=== PATIENT | male | born 1945 | race Caucasian/White ===

== ENCOUNTER 2017-06-29 00:30 | Emergency (ER) | payer OTHER ==
[~2017-06-29] VITALS: Ht 170.2 cm; Wt 89.9 kg
[~2017-06-29 00:30] MED LIST: ASPEC81 PO; CARV25TA2 PO; LISI-725 PO; MULT-506 PO; NTRGSL/4 SL; PRAV20TA PO; VITA400C3 PO
[2017-06-29 00:32] VITALS: BP 193/122; PULSE 82; TEMP 36.6; O2SAT 96; Ht 170.2 cm; Wt 89.9 kg
[2017-06-29] MEDS ORDERED: HYDR-5688 PO (01:11)
[2017-06-29] MEDS ORDERED: IBUP-1428 PO (01:11)
--- NOTE | 2017-06-29 01:11 | EMERGENCY ROOM VISIT NOTE ---
History Report prepared by Scribe: Clayton Brown Under the Supervision of: Dr. Ru Camargo D.O. First contact with patient: 00:35 Chief Complaint: ANKLE PAIN Stated Complaint: TWIST ANKLE History of Present Illness The patient is a 71 year old male who presents to the Emergency Room with complaints of constant left ankle pain beginning two days ago. He states "I twisted it". He also complains of left ankle numbness. The patient's pain is worsened with walking. He notes that he has a little pain in his left knee as well. Source of History: patient Onset: Two days ago Position: ankle (left) Timing: constant Modifying Factors (Worsening): other (walking) Associated Symptoms: + numbness (left ankle) Review of Systems See HPI for pertinent positives and negatives. A total of ten systems were reviewed and were otherwise negative. Past Medical & Surgical Medical Problems: (1) HTN (hypertension) (2) Hyperlipidemia Family History No pertinent family history stated. Social History Smoking Status: Light Tobacco Smoker Current/Historical Medications Scheduled Aspirin Enteric Coated (Ecotrin Or Generic *), 81 MG PO QAM Carvedilol (Coreg), 25 MG PO BID Lisinopril (Zestril), 20 MG PO DAILY Multivitamin (Multivitamin), 1 TAB PO DAILY Pravastatin (Pravachol ), 20 MG PO DAILY Vitamin E (Vitamin E 400 Iu), 400 INTER.UNIT PO DAILY Scheduled PRN Nitroglycerin (Nitrostat), 0.4 MG SL UD PRN Allergies Coded Allergies: No Known Allergies (Verified Allergy, Unknown, 02/21/07) Physical Exam Vital Signs Date Time Temp Pulse Resp B/P (MAP) Pulse Ox O2 Delivery O2 Flow Rate FiO2 06/29/17 00:32 36.6 82 18 193/122 96 Room Air Physical Exam GENERAL: Awake, alert, well-appearing, in no distress LLE: Tenderness to the left lateral and medial malleolus. Mind tenderness to the mid-foot. NVI distally. Achilles mechanism is intact. Left knee is non- tender. NEURO: Normal sensorium. No sensory or motor deficits noted. SKIN: No rash or jaundice noted. Medical Decision & Procedures ER Provider Diagnostic Interpretation: Three View Left Foot X-ray interpreted by me: Negative for fracture or dislocation. Three View Left Ankle X-ray interpreted by me: Negative for fracture or dislocation. ED Course 0037: The patient was evaluated in room C4. A complete history and physical exam was performed. 0115: I reevaluated the patient. Discussed results and discharge instructions: he verbalized understanding and agreement. The patient is ready for discharge. Medical Decision Differential diagnoses include but are not limited to; sprain, strain, contusion , and fracture. Patient will be placed in a postop shoe and will be prescribed pain medicine was follow-up with orthopedics Impression Primary Impression: Sprain of left foot Scribe Attestation The scribe's documentation has been prepared under my direction and personally reviewed by me in its entirety. I confirm that the note above accurately reflects all work, treatment, procedures, and medical decision making performed by me. Departure Information Dispostion Home / Self-Care Prescriptions Hydrocodone/Acetaminophen 5MG/325MG ([place] 5MG/325MG) Tab 1 TABLET PO Q6 Y for Pain, #10 TAB Prov: Ru Camargo, DO 06/29/17 Ibuprofen (Motrin) 800 Mg Tab 800 MG PO Q8H Y for Pain for 5 Days, #15 TAB Prov: Ru Camargo, DO 06/29/17 Referrals No Doctor, Assigned (PCP) Timmy Aguilera MD Patient Instructions ED Sprain Foot, My [facility]
[2017-06-29] MEDS ORDERED: ASPI81TA28 PO (01:17)
--- NOTE | 2017-06-29 06:55 | DIAGNOSTIC IMAGING REPORT ---
LEFT ANKLE MIN 3 VIEWS ROUTINE CLINICAL HISTORY: Left ankle pain following injury. COMPARISON: Left foot radiographs June 17, 2008. FINDINGS: Alignment of the left ankle is in anatomic. No acute fracture is identified. Talar dome is intact. IMPRESSION: No acute fracture or dislocation of the left ankle. Electronically signed by: Ed Rosario M.D. 06/29/2017 6:54 AM Dictated Date/Time: 06/29/2017 6:53 AM
--- NOTE | 2017-06-29 06:58 | DIAGNOSTIC IMAGING REPORT ---
LEFT FOOT MIN 3 VIEWS ROUTINE CLINICAL HISTORY: Left foot pain following injury. COMPARISON: Left foot radiographs June 17, 2017. FINDINGS: Tarsometatarsal joints are intact. No acute fractures identified. There is moderate joint space narrowing with osteophytosis of the left first metatarsophalangeal joint. There is medial soft tissue swelling which contains calcifications. IMPRESSION: 1. No acute fracture or dislocation within the left foot. 2. Arthritis of the left first metatarsophalangeal joint. The appearance favors osteoarthritis. Gout could appear similar. Electronically signed by: Ed Rosario M.D. 06/29/2017 6:56 AM Dictated Date/Time: 06/29/2017 6:54 AM
== END 2017-06-29 01:10 | disposition home or self-care (01) ==
LOC: C.EDB 00:31 → C.EDC 01:10
DX: S93.402A Sprain of unspecified ligament of left ankle, initial encounter (principal); W50.2XXA Accidental twist by another person, initial encounter; I10 Essential (primary) hypertension; E78.5 Hyperlipidemia, unspecified; F17.210 Nicotine dependence, cigarettes, uncomplicated; Z79.82 Long term (current) use of aspirin; Z79.899 Other long term (current) drug therapy

== ENCOUNTER 2017-11-08 21:21 | Emergency (ER) | payer OTHER ==
[~2017-11-08] VITALS: Ht 170.2 cm; Wt 91.0 kg
[~2017-11-08 21:21] MED LIST changes: -ASPEC81 PO; +ASPI81TA28 PO; +HYDR-5688 PO; -VITA400C3 PO
[2017-11-08 21:26] VITALS: TEMP 36.6; Ht 170.2 cm; Wt 91.0 kg
--- NOTE | 2017-11-08 22:15 | DIAGNOSTIC IMAGING REPORT ---
R KNEE 3 VIEWS HISTORY: 72 years-old Male R knee pain acute right knee pain COMPARISON: None available TECHNIQUE: AP, lateral and sunrise views of the right knee FINDINGS: Moderate medial and patellofemoral with mild lateral compartment osteoarthritis. Moderate joint effusion. No acute fracture or dislocation. Mild soft tissue swelling circumferentially about the knee. IMPRESSION: 1. Mild soft tissue swelling and moderate joint effusion without acute fracture or dislocation. 2. Tricompartmental osteoarthritis, most pronounced within the medial compartment where there is moderate disease. The above report was generated using voice recognition software. It may contain grammatical, syntax or spelling errors. Electronically signed by: Rick Ji M.D. 11/08/2017 10:14 PM Dictated Date/Time: 11/08/2017 10:11 PM
--- NOTE | 2017-11-08 22:49 | EMERGENCY ROOM VISIT NOTE ---
ED Visit Note First contact with patient: 21:32 This Patient was discussed with the physician librarian assistant, Ray Jon PA-C. The pertinent historical and physical exam findings were confirmed. I agree with the studies ordered and with the interpretations of these studies. I agree with the disposition and care plan.
[2017-11-08] MEDS ORDERED: ACETAMINOPHEN 500 MG TAB PO STA (22:55)
[2017-11-08 23:05] VITALS: BP 182/102; PULSE 78; O2SAT 94
--- NOTE | 2017-11-08 23:47 | EMERGENCY ROOM VISIT NOTE ---
History First contact with patient: 21:32 Chief Complaint: KNEEPAIN Stated Complaint: KNEE History of Present Illness The patient is a 72 year old male who presents to the Emergency Room with complaints of persistent right knee pain. The patient reports that he felt a pop in his knee yesterday while removing a boot. He has had persistent pain and swelling since that time, and rates his discomfort an 8 out of 10 with weightbearing. He denies any pain extending into the thigh or leg. He denies paresthesias or numbness of the right foot or toes. The patient denies any prior history of right knee problems or significant also arthritis. He has seen Dr. Collins in the past for a left shoulder surgery. Review of Systems 10 system review was performed and was negative except for pertinent positives and negatives as indicated in history of present illness Past Medical/Surgical History Medical Problems: (1) HTN (hypertension) (2) Hyperlipidemia Family History FH: cancer FH: hypertension Social History Smoking Status: Never Smoker Smokeless Tobacco Use: Yes Alcohol Use: none Marital Status: Housing Status: lives with family Occupation Status: retired Current/Historical Medications Scheduled Aspirin (Aspirin Ec), 81 MG PO DAILY Carvedilol (Coreg), 25 MG PO BID Lisinopril (Zestril), 20 MG PO DAILY Multivitamin (Multivitamin), 1 TAB PO DAILY Pravastatin (Pravachol ), 20 MG PO DAILY Scheduled PRN Nitroglycerin (Nitrostat), 0.4 MG SL UD PRN Physical Exam Vital Signs Date Time Temp Pulse Resp B/P (MAP) Pulse Ox O2 Delivery O2 Flow Rate FiO2 11/08/17 23:05 78 18 182/102 94 11/08/17 21:26 36.6 85 16 226/115 96 Room Air Physical Exam CONSTITUTIONAL: Healthy and well nourished. Alert and oriented X 3 with positive affect. Patient does not appear in any acute distress. HEENT: Normocephalic, atraumatic. Pupils equal, round and reactive. NECK: Full active range of motion without discomfort. MUSCULOSKELETAL: Examination of the right knee shows a 2+ joint effusion. No erythema or ecchymosis noted. The patient has mild tenderness to palpation through the medial joint line, and no focal tenderness over the lateral joint line. No peripatellar, quadriceps tendon or patellar tendon tenderness to palpation. Patient is able straight leg raise. He has generally full active range of motion without significant discomfort. Negative anterior draw, negative posterior drawer. Collateral ligaments are intact with varus and valgus stress. Pedal pulses are intact. INTEGUMENTARY: No rash or other significant dermatologic conditions noted. NEUROLOGIC: No focal neurologic deficits noted. Right lower extremity is sensory intact. Medical Decision & Procedures ER Provider Diagnostic Interpretation: My interpretation of right knee x-ray shows significant tricompartmental osteoarthritis. No obvious fractures or dislocations noted. A moderate joint effusion is noted. Radiologist report is as follows: R KNEE 3 VIEWS HISTORY: 72 years-old Male R knee pain acute right knee pain COMPARISON: None available TECHNIQUE: AP, lateral and sunrise views of the right knee FINDINGS: Moderate medial and patellofemoral with mild lateral compartment osteoarthritis. Moderate joint effusion. No acute fracture or dislocation. Mild soft tissue swelling circumferentially about the knee. IMPRESSION: 1. Mild soft tissue swelling and moderate joint effusion without acute fracture or dislocation. 2. Tricompartmental osteoarthritis, most pronounced within the medial compartment where there is moderate disease. Medications Administered Medications (Trade) Dose Ordered Sig/Karolyn Route Start Time Stop Time Status Last Admin Dose Admin Acetaminophen (Tylenol Tab) 1,000 mg NOW STAT PO 11/08/17 22:55 11/08/17 22:56 DC 11/08/17 23:04 1,000 MG ED Course Patient history and physical exam were performed. Nurse's notes were reviewed. Vital signs were reviewed, showing an elevated blood pressure of 226/115. The patient was administered Tylenol 1 g for pain. X-rays of the right knee shows tricompartmental osteoarthritis with no obvious fractures or dislocation. A moderate joint effusion is noted. I explained to the patient that he likely has an acute synovitis with joint effusion, however cannot rule out the possibility of other internal derangement such as a meniscal tear. The patient was encouraged to follow-up with Dr. Collins for further reevaluation and management. Ice and elevation for swelling. Ibuprofen and Tylenol in alternating fashion if needed for additional pain relief. The patient was happy with plan of care, voiced understanding of all discharge instructions, and rated his discomfort a 5 out of 10 at the conclusion of my exam. The patient was instructed to follow-up with his PCP for blood pressure recheck. The patient was also seen and examined by Dr. Mccartney, ED attending physician, who agrees with workup and plan of care. Medical Decision Medication Reconcilliation Current Medication List: was personally reviewed by me Blood Pressure Screening Patient's blood pressure: Elevated blood pressure Blood pressure disposition: Referred to PCP Impression Primary Impression: Right medial knee pain Additional Impressions: Effusion, right knee Elevated blood pressure reading Departure Information Referrals Susy Vázquez M.D. (MEDICAL) (PCP) Patient Instructions My [facility] Problem Qualifiers
== END 2017-11-08 23:07 | disposition home or self-care (01) ==
LOC: C.EDB 21:22 → C.EDD 23:07
DX: M25.561 Pain in right knee (principal); M25.461 Effusion, right knee; R03.0 Elevated blood-pressure reading, without diagnosis of hypertension; I10 Essential (primary) hypertension; E78.5 Hyperlipidemia, unspecified; Z80.9 Family history of malignant neoplasm, unspecified; Z82.49 Family history of ischemic heart disease and other diseases of the circulatory system; Z79.82 Long term (current) use of aspirin; Z79.899 Other long term (current) drug therapy

== ENCOUNTER 2020-12-06 10:46 | Inpatient (IN) ==
[2020-12-06] MEDS ORDERED: ALBUT/IPRATROP 3MG/0.5MG NEB 3 ML VIAL NEB STA (11:32)
[2020-12-06] MEDS ORDERED: SODIUM CHLORIDE 0.9% 1000ML 500 ML IV ONE (11:32)
[2020-12-06 11:42] LABS: Basophils # (auto) 0.02 K/uL (0-0.2); Basophils % (auto) 0.2 %; Eosinophils # (auto) 0.15 K/uL (0-0.5); Eosinophils % (auto) 1.8 %; Hematocrit (blood only) 47.4 % (42-52); Hemoglobin 15.8 g/dL (14.0-18.0); Immature Granulocytes # (auto) 0.02 K/uL (0.00-0.02); Immature Granulocytes % (auto) 0.2 %; Lymphocytes # (auto) 0.94 K/uL (1.2-3.4); Lymphocytes % (auto) 11.2 %; Mean Corpuscular Hemoglobin 29.2 pg (25-34); Mean Corpuscular Hgb Conc 33.3 g/dL (32-36); Mean Corpuscular Volume 87.6 fL (80-100); Mean Platelet Volume 10.4 fL (7.4-10.4); Monocytes # (auto) 0.92 K/uL (0.11-0.59); Monocytes % (auto) 10.9 %; Neutrophils # (auto) 6.37 K/uL (1.4-6.5); Neutrophils % (auto) 75.7 %; Platelet Count 287 K/uL (130-400); RDW Coefficient of Variation 13.6 % (11.5-14.5); RDW Standard Deviation 43.5 fL (36.4-46.3); Red Blood Count 5.41 M/uL (4.7-6.1); White Blood Count 8.42 K/uL (4.8-10.8)
--- NOTE | 2020-12-06 11:45 | Emergency Department Note ---
History of Present Illness General Chief complaint: Chest/Rib Injury Stated complaint: FALL - A WEEK AGO - CHEST HURTS WHEN BREATHING Time Seen by Provider: 12/06/20 11:01 History of Present Illness Maximum Pain Intensity: 8 This patient is a 75-year-old male the presents ambulatory to the emergency department for evaluation of chest tightness that has gotten progressively worse over the last 2 weeks. He also reports shortness of breath. The patient had an incident where a cow ran into him causing him to fall. He reports striking his head. He thinks that there was loss of consciousness. Since then, he has had some pain in both of his shoulders and his chest wall. He was evaluated at [facility] where imaging of his head and reportedly shoulders were performed. No abnormalities were noted. The patient reports taking his daily "pain medication" with minimal relief. He denies any fever or cough. He has been tested for Covid a few weeks ago. He denies any abdominal pain. He is having mild neck pain. He also has a headache. No changes in vision. He ambrocio es any pain into the pelvis or lower extremities. Home Medications Medication Instructions Recorded Confirmed Type aspirin 81 mg PO [facility] 12/06/20 12/06/20 History cyanocobalamin (vitamin B-12) 0 mcg PO [facility] 12/06/20 12/06/20 History [Vitamin B-12] hydrochlorothiazide 25 mg PO [facility] 12/06/20 12/06/20 History multivitamin 1 tab PO [facility] 12/06/20 12/06/20 History nitroglycerin [Nitrostat] 0.4 mg SUBLINGUAL UD 12/06/20 12/06/20 History prasterone (dhea) [DHEA] 0 mg PO [facility] 12/06/20 12/06/20 History Allergies Allergy/AdvReac Type Severity Reaction Status Date / Time No Known Allergies Allergy Unknown Verified 12/06/20 11:48 Past Med/Surg History Medical History HTN (hypertension) Social History Smoking Status: Never smoker Preferred Language: B[place] Feels Safe at Home: Yes Review of Systems A total of 10 systems reviewed and were otherwise negative Physical Exam Vital Signs Vital Signs - 24 hr 12/06/20 10:51 12/06/20 11:30 12/06/20 12:00 Temperature 37 C Temperature Source Temporal Artery Scan Pulse Rate 96 H 76 82 Pulse Rate [Apical] Pulse Rate from SpO2 Sensor 77 82 Respiratory Rate 18 16 14 Respiratory Effort / Characteristics Non-Labored Spontaneous Respiratory Depth Normal Respiratory Pattern Regular Blood Pressure 156/97 H 219/117 H 178/99 H Blood Pressure Mean 116 151 130 Blood Pressure Position Sitting Pulse Oximetry 95 95 90 Oxygen Delivery Method Room Air Sepsis Recent Fever Within 48 Hours No Sepsis New/Unexplained Change in Mental Status N/A Sepsis Action Taken by Nursing No Action Required 12/06/20 12:08 12/06/20 12:52 12/06/20 12:59 Temperature Temperature Source Pulse Rate 76 79 Pulse Rate [Apical] 78 Pulse Rate from SpO2 Sensor 77 79 Respiratory Rate 16 17 16 Respiratory Effort / Characteristics Spontaneous Respiratory Depth Respiratory Pattern Blood Pressure Blood Pressure Mean Blood Pressure Position Pulse Oximetry 95 96 96 Oxygen Delivery Method Room Air Sepsis Recent Fever Within 48 Hours Sepsis New/Unexplained Change in Mental Status Sepsis Action Taken by Nursing 12/06/20 13:00 12/06/20 13:30 12/06/20 13:37 Temperature Temperature Source Pulse Rate 71 82 83 Pulse Rate [Apical] Pulse Rate from SpO2 Sensor 71 79 83 Respiratory Rate 16 16 14 Respiratory Effort / Characteristics Respiratory Depth Respiratory Pattern Blood Pressure 208/96 H 208/96 H Blood Pressure Mean 133 124 Blood Pressure Position Pulse Oximetry 100 94 90 Oxygen Delivery Method Sepsis Recent Fever Within 48 Hours Sepsis New/Unexplained Change in Mental Status Sepsis Action Taken by Nursing 12/06/20 14:19 12/06/20 14:30 12/06/20 15:00 Temperature Temperature Source Pulse Rate 97 H 85 79 Pulse Rate [Apical] Pulse Rate from SpO2 Sensor 99 H 84 75 Respiratory Rate 21 16 12 Respiratory Effort / Characteristics Respiratory Depth Respiratory Pattern Blood Pressure 209/113 H Blood Pressure Mean 129 Blood Pressure Position Pulse Oximetry 95 97 97 Oxygen Delivery Method Sepsis Recent Fever Within 48 Hours Sepsis New/Unexplained Change in Mental Status Sepsis Action Taken by Nursing 12/06/20 15:30 12/06/20 17:00 12/06/20 17:12 Temperature Temperature Source Pulse Rate 75 75 Pulse Rate [Apical] Pulse Rate from SpO2 Sensor 71 71 87 Respiratory Rate 16 16 Respiratory Effort / Characteristics Respiratory Depth Respiratory Pattern Blood Pressure 200/100 H 178/101 H Blood Pressure Mean 130 126 Blood Pressure Position Pulse Oximetry 97 97 97 Oxygen Delivery Method Room Air Sepsis Recent Fever Within 48 Hours Sepsis New/Unexplained Change in Mental Status Sepsis Action Taken by Nursing 12/06/20 17:30 12/06/20 18:00 12/06/20 18:34 Temperature 37 C Temperature Source Pulse Rate Pulse Rate [Apical] Pulse Rate from SpO2 Sensor 87 85 85 Respiratory Rate 16 16 16 Respiratory Effort / Characteristics Respiratory Depth Respiratory Pattern Blood Pressure 193/121 H 177/102 H 171/102 H Blood Pressure Mean 140 127 125 Blood Pressure Position Pulse Oximetry 94 94 94 Oxygen Delivery Method Sepsis Recent Fever Within 48 Hours Sepsis New/Unexplained Change in Mental Status Sepsis Action Taken by Nursing 12/06/20 18:40 12/06/20 19:01 12/06/20 19:04 Temperature Temperature Source Pulse Rate 96 H Pulse Rate [Apical] Pulse Rate from SpO2 Sensor Respiratory Rate 20 Respiratory Effort / Characteristics Respiratory Depth Respiratory Pattern Blood Pressure 207/110 H 184/117 H Blood Pressure Mean 125 141 Blood Pressure Position Pulse Oximetry Oxygen Delivery Method Sepsis Recent Fever Within 48 Hours Sepsis New/Unexplained Change in Mental Status Sepsis Action Taken by Nursing 12/06/20 19:30 12/06/20 20:00 Temperature Temperature Source Pulse Rate 91 H 93 H Pulse Rate [Apical] Pulse Rate from SpO2 Sensor Respiratory Rate 20 20 Respiratory Effort / Characteristics Respiratory Depth Respiratory Pattern Blood Pressure 154/101 H 189/120 H Blood Pressure Mean 130 138 Blood Pressure Position Pulse Oximetry 96 95 Oxygen Delivery Method Room Air Sepsis Recent Fever Within 48 Hours Sepsis New/Unexplained Change in Mental Status Sepsis Action Taken by Nursing Constitutional WD/WN, vitals as above Eyes EOM intact bilaterally ENMT external ear and nose normal, oropharynx normal No signs of trauma. No quevedo signs or raccoon eyes. Neck trachea midline No tenderness over the cervical spine. Respiratory Decreased breath sounds at the bases bilaterally. No tachypnea. No wheezing. Cardiovascular RRR, no murmur, no edema Chest (Breasts) Additional Comments: No tenderness to palpation over the thorax. Gastrointestinal (Abdomen) normal bowel sounds, soft, nontender, no hepatosplenomegaly Musculoskeletal no cyanosis or clubbing, extremities motor strength 5/5 Mild tenderness over the left lateral hip. Full flexion and extension of the hip. No significant pain with abduction of the hip. DP pulse +2 bilaterally. Skin no rashes, warm and dry Neurologic Alert and oriented x3. No focal motor deficits. Cranial nerves grossly intact. Strength 5/5 throughout. Psychiatric Acting appropriately Course Course Patient was seen and examined Vital signs including blood pressure were reviewed medications list was verified with patient Labs were obtained, and a saline lock was established And EKG was performed and reviewed An order was placed for continuous cardiac monitoring. The monitor shows a rate of 92 with normal sinus rhythm." Extensive imaging was performed and reviewed Upon my evaluation, the patient was resting comfortably. We discussed his results. He voiced understanding. I also discussed the results with the patient's daughter. The case was discussed with my supervising physician who is in agreement with my plan The case was then discussed with the [facility] service who kindly agreed to evaluate the patient for likely inpatient management. Administered Medications Doxycycline Hyclate 100 mg/ (Dextrose) 110 mls @ 50 mls/hr IV Q12H BO Stop: 12/13/20 18:59 Last Admin: 12/06/20 19:20 Dose: 50 mls/hr Documented by: [id number] Discontinued Medications Albuterol (Albut/Ipratrop 3mg/0.5mg Neb 3 Ml Vial) 3 ml NEB NOW STA Stop: 12/06/20 11:33 Last Admin: 12/06/20 12:58 Dose: 3 ml Documented by: [id number] Amlodipine Besylate (Amlodipine Besylate 5 Mg Tab) 5 mg PO NOW ONE Stop: 12/06/20 13:46 Last Admin: 12/06/20 14:23 Dose: 5 mg Documented by: [id number] Sodium Chloride (Nss 1000ml) 500 mls @ 999 mls/hr IV .Q31M ONE Stop: 12/06/20 12:02 Last Infusion: 12/06/20 12:41 Dose: 0 mls/hr Documented by: [id number] Admin: 12/06/20 12:10 Dose: 999 mls/hr Documented by: [id number] Ioversol (Optiray 320 125ml) 120 ml IV ONCE ONE Stop: 12/06/20 13:00 Last Admin: 12/06/20 13:00 Dose: 120 ml Documented by: [id number] Medical Decision Making Medical Records Attestation: I reviewed the patient's medical records. Home Medications Current Medication List: was personally reviewed by me Laboratory Data Attestation: I reviewed the patient's lab results. Result diagrams: 12/06/20 11:31 12/06/20 11:31 Lab Results 12/06/20 12/06/20 12/06/20 Range/Units 11:30 11:31 11:31 WBC 8.42 (4.8-10.8) K/uL RBC 5.41 (4.7-6.1) M/uL Hgb 15.8 (14.0-18.0) g/dL Hct 47.4 (42-52) % MCV 87.6 (80-100) fL MCH 29.2 (25-34) pg MCHC 33.3 (32-36) g/dL RDW Std Deviation 43.5 (36.4-46.3) fL RDW Coeff of Deborah 13.6 (11.5-14.5) % Plt Count 287 (130-400) K/uL MPV 10.4 (7.4-10.4) fL Immature Gran % (Auto) 0.2 % Neut % (Auto) 75.7 % Lymph % (Auto) 11.2 % [place] % (Auto) 10.9 % Eos % (Auto) 1.8 % Baso % (Auto) 0.2 % Neut # (Auto) 6.37 (1.4-6.5) K/uL Lymph # (Auto) 0.94 L (1.2-3.4) K/uL [place] # (Auto) 0.92 H (0.11-0.59) K/uL Eos # (Auto) 0.15 (0-0.5) K/uL Baso # (Auto) 0.02 (0-0.2) K/uL Immature Gran # (Auto) 0.02 (0.00-0.02) K/uL PT 12.5 H (9.0-12.0) Seconds INR 1.2 H (0.9-1.1) Sodium (136-145) mmol/L Potassium (3.5-5.1) mmol/L Chloride (98-107) mmol/L Carbon Dioxide (21-32) mmol/L Anion Gap (3-11) BUN (7-18) mg/dl Creatinine (0.6-1.4) mg/dl Est Cr Clr Drug Dosing ml/min Est GFR ( Amer) Est GFR (Non-Af Amer) BUN/Creatinine Ratio (10-20) Glucose (70-99) mg/dl Calcium (8.5-10.1) mg/dl Total Bilirubin (0.2-1) mg/dl AST (15-37) U/L ALT (12-78) U/L Alkaline Phosphatase (45-117) U/L Troponin I (0-0.045) ng/ml Total Protein (6.4-8.2) gm/dl Albumin (3.4-5.0) gm/dl Globulin (2.5-4.0) gm/dl Albumin/Globulin Ratio (0.9-2) COVID-19 Eval Order Covid19 Sent to [facility] SARS-CoV-2, RNA, NAAT (NEGATIVE) 12/06/20 12/06/20 12/06/20 Range/Units 11:31 17:35 17:35 WBC (4.8-10.8) K/uL RBC (4.7-6.1) M/uL Hgb (14.0-18.0) g/dL Hct (42-52) % MCV (80-100) fL MCH (25-34) pg MCHC (32-36) g/dL RDW Std Deviation (36.4-46.3) fL RDW Coeff of Deborah (11.5-14.5) % Plt Count (130-400) K/uL MPV (7.4-10.4) fL Immature Gran % (Auto) % Neut % (Auto) % Lymph % (Auto) % [place] % (Auto) % Eos % (Auto) % Baso % (Auto) % Neut # (Auto) (1.4-6.5) K/uL Lymph # (Auto) (1.2-3.4) K/uL [place] # (Auto) (0.11-0.59) K/uL Eos # (Auto) (0-0.5) K/uL Baso # (Auto) (0-0.2) K/uL Immature Gran # (Auto) (0.00-0.02) K/uL PT (9.0-12.0) Seconds INR (0.9-1.1) Sodium 137 (136-145) mmol/L Potassium 3.7 (3.5-5.1) mmol/L Chloride 105 (98-107) mmol/L Carbon Dioxide 25 (21-32) mmol/L Anion Gap 7.0 (3-11) BUN 23 H (7-18) mg/dl Creatinine 1.43 H (0.6-1.4) mg/dl Est Cr Clr Drug Dosing 47.2 ml/min Est GFR ( Amer) 55.9 Est GFR (Non-Af Amer) 48.2 BUN/Creatinine Ratio 16.2 (10-20) Glucose 146 H (70-99) mg/dl Calcium 8.5 (8.5-10.1) mg/dl Total Bilirubin 0.7 (0.2-1) mg/dl AST 10 L (15-37) U/L ALT 17 (12-78) U/L Alkaline Phosphatase 135 H (45-117) U/L Troponin I < 0.015 (0-0.045) ng/ml Total Protein 7.8 (6.4-8.2) gm/dl Albumin 3.1 L (3.4-5.0) gm/dl Globulin 4.7 H (2.5-4.0) gm/dl Albumin/Globulin Ratio 0.7 L (0.9-2) COVID[facility] SARS-[facility]-2, RNA, NAAT POSITIVE A* (NEGATIVE) 12/06/20 Range/Units 18:37 WBC (4.8-10.8) K/uL RBC (4.7-6.1) M/uL Hgb (14.0-18.0) g/dL Hct (42-52) % MCV (80-100) fL MCH (25-34) pg MCHC (32-36) g/dL RDW Std Deviation (36.4-46.3) fL RDW Coeff of Deborah (11.5-14.5) % Plt Count (130-400) K/uL MPV (7.4-10.4) fL Immature Gran % (Auto) % Neut % (Auto) % Lymph % (Auto) % [place] % (Auto) % Eos % (Auto) % Baso % (Auto) % Neut # (Auto) (1.4-6.5) K/uL Lymph # (Auto) (1.2-3.4) K/uL [place] # (Auto) (0.11-0.59) K/uL Eos # (Auto) (0-0.5) K/uL Baso # (Auto) (0-0.2) K/uL Immature Gran # (Auto) (0.00-0.02) K/uL PT (9.0-12.0) Seconds INR (0.9-1.1) Sodium (136-145) mmol/L Potassium (3.5-5.1) mmol/L Chloride (98-107) mmol/L Carbon Dioxide (21-32) mmol/L Anion Gap (3-11) BUN (7-18) mg/dl Creatinine (0.6-1.4) mg/dl Est Cr Clr Drug Dosing ml/min Est GFR ( Amer) Est GFR (Non-Af Amer) BUN/Creatinine Ratio (10-20) Glucose (70-99) mg/dl Calcium (8.5-10.1) mg/dl Total Bilirubin (0.2-1) mg/dl AST (15-37) U/L ALT (12-78) U/L Alkaline Phosphatase (45-117) U/L Troponin I < 0.015 (0-0.045) ng/ml Total Protein (6.4-8.2) gm/dl Albumin (3.4-5.0) gm/dl Globulin (2.5-4.0) gm/dl Albumin/Globulin Ratio (0.9-2) COVID-19 Eval Order SARS-CoV-2, RNA, NAAT (NEGATIVE) Imaging Data Attestation: I personally reviewed and interpreted this imaging study as follows: Radiologist's Impression: Thoracic spine CT without contrast IMPRESSION: No fractures within the thoracic spine. ACT 112: Negative or not required by law. Electronically signed by: Severiano Paz M.D. 12/06/2020 1:10 PM Dictated: 12/06/20 1304 Transcribed: 12/06/[address] lumbar spine without contrast IMPRESSION: 1. No acute fractures or traumatic subluxations identified 2. Multilevel degenerative change. ACT 112: Negative or not required by law. Electronically signed by: True Hanley M.D. 12/06/2020 1:11 PM Dictated: 12/06/20 1253 Transcribed: 12/06/[address] head without contrast IMPRESSION: 1. No acute fractures or traumatic subluxations identified 2. Multilevel degenerative change. ACT 112: Negative or not required by law. Electronically signed by: True Hanley M.D. 12/06/2020 1:11 PM Dictated: 12/06/20 1253 Transcribed: 12/06/[address] chest with IV contrast IMPRESSION: 1. No evidence for pulmonary embolus. 2. Small amount of groundglass densities within the lungs posteriorly as well as the right lung base. This favors an atypical/viral pneumonia. Pulmonary contusions are considered less likely but not entirely excluded. 3. No pneumothorax. 4. Mild cardiomegaly. 5. Mild thickening at the distal esophagus. This may represent a mild esophagitis. However, follow-up nonemergent endoscopy recommended for further evaluation. ACT 112: Negative or not required by law. Electronically signed by: Severiano Paz M.D. 12/06/2020 1:22 PM Dictated: 12/06/20 1311 Transcribed: 12/06/[address] of the cervical spine without contrast IMPRESSION: No evidence of acute fracture or traumatic subluxation. ACT 112: Negative or not required by law. Electronically signed by: True Hanley M.D. 12/06/2020 12:53 PM Dictated: 12/06/20 1250 Transcribed: 12/06/[address] abdomen pelvis with IV contrast IMPRESSION: 1. No acute traumatic findings within the abdomen or pelvis. 2. Subpleural nodular and groundglass opacities within the lower lungs. The findings favor an infectious process. 3. Suspected occlusion of the left superficial femoral artery, suboptimally assessed on this exam. 4. Cholelithiasis. ACT 112: Negative or not required by law. Electronically signed by: Ed Rosario M.D. 12/06/2020 1:17 PM Dictated: 12/06/20 1309 Transcribed: 12/06/20 1309 Arterial ultrasound bilaterally lower extremities Moderately diminished ankle to brachial indices, as above. 2. Extensive atherosclerotic plaque within the bilateral lower extremities. 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 Minimal, if any flow, within the bilateral posterior tibial arteries and right peroneal artery. ACT 112: Negative or not required by law. Electronically signed by: Ed Rosario M.D. 12/06/2020 5:16 PM Dictated: 12/06/201711Transcribed: 12/06/201711 ECG Data Attestation: I personally reviewed and interpreted this ECG as follows: Indication: + chest pain Rate (beats per minute): 85 Rhythm: + normal sinus Additional Comments: Left ventricular hypertrophy noted Prolonged QT T wave inversion noted in the lateral leads, which appears to be new when compared to prior EKG of December 2012. Blood Pressure Blood Pressure Findings: Elevated blood pressure Head Trauma GCS Score: 15 MDM Narrative Differential diagnosis: Intracranial bleed, subdural hemorrhage, spinal injury, rib fracture, pulmonary contusion, cardiac ischemia, infectious etiology, intra- abdominal injury, among others were considered This patient is a pleasant 75-year-old male who presents ambulatory to the emergency department for evaluation of worsening chest tightness after an injury that occurred a few weeks ago. On exam, the patient was hypertensive. His oxygen was stable. He does have a history of hypertension and did not take his morning medications. On exam, he did not have any signs of trauma, however given the mechanism, a full trauma work-up was performed. Although no traumatic findings were found, it appeared that he had a viral infectious pulmonary process. I was suspicious of Covid. A Covid test was performed, which turned up positive.. Throughout his extensive work-up, labs were stable. He did have lateral EKG changes. Troponin at this point is negative. There was a questionable occlusion of the right superficial femoral artery. I performed bedside Dopplers. I could not thoroughly auscultate DP or PT pulses in the feet bilaterally. For this reason, an ultrasound was ordered. This is extensive with significant atherosclerotic disease. The patient's oxygen has wavered in the emergency department during his stay anywhere from 89% to 97%. Given this and his EKG changes and chest tightness, I do not feel comfortable sending the patient home. He will be evaluated by the hospitalist service for likely inpatient management. Impression & Plan Chest pain, Trauma Discharge Plan Visit Data Chief Complaint: Chest/Rib Injury Stated Complaint: FALL - A WEEK AGO - CHEST HURTS WHEN BREATHING ED Provider: Josr Gramajo ED Midlevel Provider: Jayne Richardson Discharge Problem: Chest pain, Trauma Patient Disposition: Being Evaluated by Hospitalist Forms Stand Alone Forms: My [facility] Prescriptions Prescriptions: No Action multivitamin Tablet 1 tab PO QAM RF: 0 DHEA 25 mg Tablet 0 mg PO QAM RF: 0 cyanocobalamin (vitamin B-12) [Vitamin B-12] 1,000 mcg Tablet 0 mcg PO QAM RF: 0 aspirin 81 mg tablet,delayed release (DR/EC) 81 mg PO QAM RF: 0 nitroglycerin [Nitrostat] 0.4 mg Tablet, Sublingual 0.4 mg sublingual UD RF: 0 hydrochlorothiazide 25 mg tablet 25 mg PO QAM RF: 0 Referrals Referrals: Jed Venegas DO [Primary Care Provider] -
[2020-12-06 11:58] LABS: INR 1.2 (0.9-1.1); Prothrombin Time 12.5 Seconds (9.0-12.0)
[2020-12-06 11:59] LABS: Alanine Aminotransferase 17 U/L (12-78); Albumin Level 3.1 gm/dl (3.4-5.0); Aspartate Aminotransferase 10 U/L (15-37); BUN Creatinine Ratio 16.2 (10-20); Blood Urea Nitrogen 23 mg/dl (7-18); Calcium 8.5 mg/dl (8.5-10.1); Carbon Dioxide 25 mmol/L (21-32); Chloride 105 mmol/L (98-107); Creatinine Clr Calc Pharmacy 47.2 ml/min; Est GFR (African American) 55.9; Est GFR (Non-African American) 48.2; Glucose 146 mg/dl (70-99); Potassium 3.7 mmol/L (3.5-5.1); Sodium 137 mmol/L (136-145)
[2020-12-06 12:03] LABS: Albumin Globulin Ratio 0.7 (0.9-2); Alkaline Phosphatase 135 U/L (45-117); Bilirubin,Total 0.7 mg/dl (0.2-1); Globulin 4.7 gm/dl (2.5-4.0); Total Protein 7.8 gm/dl (6.4-8.2); Troponin I < 0.015 ng/ml (0-0.045)
--- NOTE | 2020-12-06 12:53 | CT Scan Report ---
CT head/brain wo con CLINICAL HISTORY: Head pain status post trauma COMPARISON STUDY: No previous studies for comparison. TECHNIQUE: Axial CT of the brain is performed from the vertex to the skull base. IV contrast was not administered for this examination. A dose lowering technique was utilized adhering to the principles of ALARA. CT DOSE: FINDINGS: No intra or extra-axial mass lesions are visualized. There is no CT evidence of acute cortical infarc tion. There is no evidence of midline shift. There is no acute hemorrhage. No calvarial fractures ar e visualized. There are patchy white matter hypodensities likely on a small vessel basis. There is no evidence of pathologic ventricular dilatation. There is no evidence of acute sinusitis IMPRESSION: No acute intracranial findings ACT 112: Negative or not required by law. Electronically signed by: True Hanley M.D. 12/06/2020 12:50 PM
--- NOTE | 2020-12-06 12:54 | CT Scan Report ---
CT OF THE CERVICAL SPINE CLINICAL HISTORY: Neck pain status post trauma. Patient run over by a cow. COMPARISON STUDY: No previous studies for comparison. CT DOSE: 4289.24 mGy.cm TECHNIQUE: CT scan of the cervical spine was performed from the skull base to the thoracic inlet. [place] ges are reviewed in the axial, sagittal, and coronal planes. IV contrast was not administered for thi s examination. A dose lowering technique was utilized adhering to the principles of ALARA. FINDINGS: The visualized portions of the lung apices reveal no evidence of pneumothorax. The prevertebral soft tissues are normal. No fractures or subluxations are visualized. There are multilevel degenerative changes IMPRESSION: No evidence of acute fracture or traumatic subluxation. ACT 112: Negative or not required by law. Electronically signed by: True Hanley M.D. 12/06/2020 12:53 PM
--- NOTE | 2020-12-06 12:55 | Electrocardiogram Report ---
Test Reason : Blood Pressure : / mmHG Vent. Rate : 085 BPM Atrial Rate : 085 BPM P-R Int : 142 ms QRS Dur : 088 ms QT Int : 406 ms P-R-T Axes : 043 016 139 degrees QTc Int : 483 ms Normal sinus rhythm Left ventricular hypertrophy with repolarization abnormality Prolonged QT Abnormal ECG When compared with ECG of 03-DEC-2012 06:35, Premature atrial complexes are no longer Present Non-specific change in ST segment in Lateral leads Confirmed by Almas Keane ([id number]) on 12/06/2020 12:55:39 PM Referred By: REFERRED SELF Confirmed By:Almas Keane
[2020-12-06] MEDS ORDERED: OPTIRAY 320 125ml IV ONE (12:59)
--- NOTE | 2020-12-06 13:11 | CT Scan Report ---
THORACIC SPINE CT CT DOSE: HISTORY: Back pain. trauma TECHNIQUE: Multiaxial CT images of the thoracic spine were performed and reformatted in the sagittal and coronal plane without the use of contrast. A dose lowering technique was utilized adhering to e principles of ALARA. COMPARISON: None. FINDINGS: No fractures. No subluxation. Paraspinal soft tissues are unremarkable. Mild/moderate degen erative disease within the thoracic spine. This most pronounced within the mid to lower thoracic spin e. There are large flowing anterior osteophytes within the mid to lower thoracic spine consistent wit h diffuse idiopathic skeletal hyperostosis. No significant central canal narrowing by CT technique. IMPRESSION: No fractures within the thoracic spine. ACT 112: Negative or not required by law. Electronically signed by: Severiano Paz M.D. 12/06/2020 1:10 PM
--- NOTE | 2020-12-06 13:12 | CT Scan Report ---
CT lumbar spine wo con CT DOSE: CLINICAL HISTORY: Low back pain status post trauma. Patient run over by a cow. TECHNIQUE: Helical images were acquired in transverse plane. Reformatted sagittal and coronal images were reviewed. A dose lowering technique was utilized adhering to the principles of ALARA. CONTRAST: No contrast was administered COMPARISON STUDY: None. FINDINGS: L1-2 level: There is a circumferential disc bulge. There is minimal spinal canal narrowing. There is moderate left-sided foraminal narrowing L2-3 level: There is a circumferential disc bulge. There is mild spinal canal narrowing. There is mil d left-sided foraminal narrowing L3-4 level: There is circumferential disc bulge. There is minimal spinal canal narrowing. There is no significant foraminal narrowing L4-5 level: There is a circumferential disc bulge. There is mild spinal canal narrowing. The facet nikkie int arthropathy. There is mild bilateral foraminal narrowing L5-S1 level: There is mild retrolisthesis of L5 and S1. There is no significant spinal stenosis. Ther e is moderate left-sided foraminal narrowing, and mild right-sided foraminal narrowing. No acute fractures or traumatic subluxations are visualized. IMPRESSION: 1. No acute fractures or traumatic subluxations identified 2. Multilevel degenerative change. ACT 112: Negative or not required by law. Electronically signed by: True Hanley M.D. 12/06/2020 1:11 PM
--- NOTE | 2020-12-06 13:18 | CT Scan Report ---
CT OF THE ABDOMEN AND PELVIS WITH CONTRAST CLINICAL HISTORY: trauma COMPARISON STUDY: None. TECHNIQUE: Following IV administration of 120 mL of Optiray-320, axial images of the abdomen and pelv is were obtained from the lung bases to the proximal femurs. Images were reviewed in the axial, sagit radha, and coronal planes. IV contrast was administered without complication. Automated exposure contr ol was utilized for the study. A dose lowering technique was utilized adhering to the principles of ALARA. FINDINGS: Please note that the chest CT will be reported separately. Imaged portions of the lower jasen gs demonstrate groundglass and nodular subpleural opacities. No hemoperitoneum or pneumoperitoneum is present. Gallstones within the gallbladder are noted. There is no evidence for acute cholecystitis. There is no evidence for traumatic injury to the liver, spleen, adrenal glands, kidneys or pancreas. There is no hydronephrosis. There is no biliary or pancreatic ductal dilatation. No lymphadenopathy i s present. Caliber and wall thickness of small and large bowel are normal. There is no free fluid. Al though suboptimally assessed on this non-CTA exam, there are suspected occlusion of the left superfic ial femoral artery. No acute lumbar spine or pelvic fracture is identified. There is colonic divertic ulosis without evidence for acute diverticulitis. Moderate to extensive atherosclerotic plaque is not ed. IMPRESSION: 1. No acute traumatic findings within the abdomen or pelvis. 2. Subpleural nodular and groundglass opacities within the lower lungs. The findings favor an infecti ous process. 3. Suspected occlusion of the left superficial femoral artery, suboptimally assessed on this exam. 4. Cholelithiasis. ACT 112: Negative or not required by law. Electronically signed by: Ed Rosario M.D. 12/06/2020 1:17 PM
--- NOTE | 2020-12-06 13:23 | CT Scan Report ---
CHEST CTA for PULMONARY ARTERIES CT DOSE: HISTORY: Shortness of breath. Trauma. TECHNIQUE: Multiaxial CT images of the chest were performed following the intravenous administration of contrast to evaluate the pulmonary arteries. Maximal intensity projection images were also obtaine d. A dose lowering technique was utilized adhering to the principles of ALARA. COMPARISON STUDY: None. FINDINGS: Normal caliber thoracic aorta with no evidence for dissection. The heart is mildly enlarged . No pleural or pericardial effusions. There is mild focal narrowing at the takeoff of the brachiocep halic artery due to the moderate atherosclerotic plaque. No filling defects within the pulmonary sean alea to suggest pulmonary embolus. Please refer to same day abdomen and pelvis CT for further evaluat ion of the abdominal structures. There is a small gallstone present. Mild thickening of the distal es ophagus best seen on image 69 of 258. Subcentimeter mediastinal and hilar lymph nodes do not meet CT criteria for pathologic involvement. No acute fractures within the visualized osseous structures of t he chest. No pneumothorax. The central airways are patent. Small groundglass densities within the jasen gs posteriorly. There are additional small patchy groundglass densities seen within the bases of the right lower lobe and middle lobe. Therefore, these airspace opacities favor an atypical/viral pneumon ia. Pulmonary contusions are considered less likely but not entirely excluded. Calcific granuloma wit hin the right lower lobe. IMPRESSION: 1. No evidence for pulmonary embolus. 2. Small amount of groundglass densities within the lungs posteriorly as well as the right lung base. This favors an atypical/viral pneumonia. Pulmonary contusions are considered less likely but not ent irely excluded. 3. No pneumothorax. 4. Mild cardiomegaly. 5. Mild thickening at the distal esophagus. This may represent a mild esophagitis. However, follow-up nonemergent endoscopy recommended for further evaluation. ACT 112: Negative or not required by law. Electronically signed by: Severiano Paz M.D. 12/06/2020 1:22 PM
[2020-12-06] MEDS ORDERED: amLODIPine BESYLATE 5 MG TAB PO ONE (13:45)
--- NOTE | 2020-12-06 17:18 | Ultrasound Report ---
US arterial duplex LE BI CLINICAL HISTORY: ? occlusion COMPARISON STUDY: No previous studies for comparison. TECHNIQUE: Bilateral ankle to brachial indices were obtained. Grayscale, color and duplex Doppler son ography of the arterial systems of the bilateral lower extremities was performed. FINDINGS: The right ankle to brachial index measured 0.77 when using posterior tibial artery and 0.65 using the dorsalis pedis. The left ankle to brachial measured 0.75 when using the dorsalis pedis. Po sterior tibial artery could not be utilized. Note is made of extensive plaque within the bilateral lo wer extremities. There is triphasic flow within the right common femoral artery. There is also tripha sic flow within the right superficial femoral artery. No elevated velocities were identified within t hese vessels. Note is made of probable occlusion of the right popliteal artery. Distal to this site o f occlusion, there is dampened, monophasic flow within the right anterior tibial and dorsalis pedis v essels. Minimal flow is noted within the right posterior tibial and peroneal arteries. The left common femoral artery is patent and contains biphasic flow. There is occlusion of the left s uperficial femoral artery with distal reconstitution through collaterals. There is dampened, monophas ic flow within the left anterior tibial, peroneal and dorsalis pedis vessels with minimal, if any jennifer w, within the left posterior tibial artery. IMPRESSION: 1. Moderately diminished ankle to brachial indices, as above. 2. Extensive atherosclerotic plaque within the bilateral lower extremities. Occlusion of the left sup erficial femoral artery and occlusion of the right popliteal artery with markedly diminished, dampene d flow within the bilateral calf vessels, as described above. Minimal, if any flow, within the bilate ral posterior tibial arteries and right peroneal artery. ACT 112: Negative or not required by law. Electronically signed by: Ed Rosario M.D. 12/06/2020 5:16 PM
[2020-12-06] MEDS: DOXYCYCLINE HYCLATE 100 MG in DEXTROSE 5% 100 ML IV SCH (19:20)
[2020-12-06] MEDS ORDERED: hydrALAZINE HCL 20 MG/ML VIAL ONE (21:06)
[2020-12-06] MEDS: hydrALAZINE HCL 20 MG/ML VIAL IV PRN (21:25)
[2020-12-06] MEDS ORDERED: NITROGLYCERIN SL 0.4 MG/TAB TAB SL PRN (21:33)
[2020-12-06] MEDS ORDERED: ONDANSETRON INJ 2 MG/ML 2 ML VIAL IV PRN (21:33)
[2020-12-06] MEDS ORDERED: ACETAMINOPHEN 325 MG TAB PO PRN (21:33)
[2020-12-06] MEDS ORDERED: POLYETHYLENE (MIRALAX) 17 GM PACK PO PRN (21:33)
[2020-12-06] MEDS: ENOXAPARIN INJ 40 MG/0.4 ML SYR SQ SCH (22:25)
[2020-12-07 05:33] LABS: Hematocrit (blood only) 44.9 % (42-52); Mean Corpuscular Hemoglobin 29.2 pg (25-34); Mean Corpuscular Hgb Conc 33.4 g/dL (32-36); Mean Corpuscular Volume 87.5 fL (80-100); Mean Platelet Volume 10.1 fL (7.4-10.4); Platelet Count 301 K/uL (130-400); RDW Coefficient of Variation 13.7 % (11.5-14.5); RDW Standard Deviation 44.1 fL (36.4-46.3); Red Blood Count 5.13 M/uL (4.7-6.1); White Blood Count 8.62 K/uL (4.8-10.8)
[2020-12-07 06:09] LABS: BUN Creatinine Ratio 16.6 (10-20); Calcium 8.4 mg/dl (8.5-10.1); Creatinine Clr Calc Pharmacy 46.2 ml/min; Est GFR (African American) 54.5; Potassium 3.7 mmol/L (3.5-5.1)
[2020-12-07] MEDS: DOXYCYCLINE HYCLATE 100 MG in DEXTROSE 5% 100 ML IV SCH ×2 (07:40→22:28)
[2020-12-07] MEDS: ASPIRIN 81 MG ECTAB PO SCH (07:41)
[2020-12-07] MEDS: MULTIVITAMIN TAB PO SCH (07:41)
[2020-12-07] MEDS: hydroCHLOROthiazide 25 MG TAB PO SCH (07:41)
--- NOTE | 2020-12-07 08:16 | History & Physical Report ---
Date of Service December 06, 2020 Assessment & Plan (1) Chest pain: Atypical chest pain on presentation with b/l shoulder pain radiated across the wall, worsening with cough and deep breathing Possible related to costochondritis in the setting of Covid 19 pneumonia Troponin on admission negative EKG showed non specific t wave changes Will get an resting and echo Continue aspirin Continue pain control COVID 19 Pneumonia Covid 19 positive in the ER CTA chest showed no evidence of PE. small amount of groundglass densities within the lungs posteriorly as well as the right lung base. This favors an atypical/viral pneumonia. Pulmonary contusions are considered less likely but not entirely excluded. 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 Occlusion of the left superficial femoral artery and occlusion of the right popliteal artery with markedly diminished, dampened flow within the bilateral calf vessels, as described above. Minimal, if any flow, within the bilateral posterior tibial arteries and right peroneal artery. Will consult vascular surgery for eval Continue aspirin S/P Trauma Pt said that he was hit by a cow 3 weeks ago Imaging showed no fracture Continue tylenol for pain HTN BP elevated Will resume HCTZ PRN hydralazine for SBP above 170 Continue monitor BP DVT px Lovenox suq BID CODE status DNR as per my conversation with him Admission and Anticipated Discharge Date Admission Date: December 06, 2020 History of Present Illness Chief Complaint: Chest tenderness Primary Care Provider: Jed Venegas DO 75-year-old male with PMH HTN, dyslipidemia presented to the ER with c/o of chest discomfort. Pt said that about 3 weeks ago he was run by a cow. He said that the cow knocked him to the ground. He said that he hit his head and he think that he lost of consciousness. He said that he was seen at the [facility] and had xray done that was negative. He said that since then he has been having tenderness in both shoulder and pain across his chest wall area. He said that sometimes he has a dry cough on and off. He said that whenever he coughs or take a deep breath, his chest wall hurts. Pt said that he has been feeling tired and SOB with exertion. She was positive for COVID 19 in the ER. Denies any loss of taste or smell, chills, fever, nausea, diarrhea, palpitation. Allergies Allergy/AdvReac Type Severity Reaction Status Date / Time No Known Allergies Allergy Unknown Verified 12/06/20 11:48 Home Medications Medication Instructions Recorded Confirmed Type aspirin 81 mg PO QAM 12/06/20 12/06/20 History cyanocobalamin (vitamin B-12) 0 mcg PO QAM 12/06/20 12/06/20 History [Vitamin B-12] hydrochlorothiazide 25 mg PO QAM 12/06/20 12/06/20 History multivitamin 1 tab PO QAM 12/06/20 12/06/20 History nitroglycerin [Nitrostat] 0.4 mg SUBLINGUAL UD 12/06/20 12/06/20 History prasterone (dhea) [DHEA] 0 mg PO QAM 12/06/20 12/06/20 History Past Med/Surg History Medical History HTN (hypertension) Social History Smoking Status: Never smoker Do You Dip or Chew Tobacco: Yes; Tobacco Cessation Education Requested by Patient: No Hx Alcohol Use: No Hx Substance Use: No Preferred Language: Polish Communication Ability: Effective 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 Beliefs That Will Affect Care: None Current Living Situation: Family Current Living Situation Comment: Lives with son Feels Safe at Home: Yes Safety Concerns: Feels Safe At This Time Assistive Devices: Glasses and Hearing Aid - Bilateral Review of Systems Review of Systems: All systems reviewed & are unremarkable except as noted in HPI & below Physical Exam Physical Exam: General- No acute distress Head- atraumatic Eyes- PERRL, EOMI, ENT- oropharynx clear Neck- supple, no JVD Lungs- clear to auscultation Heart- regular rhythm; no murmur, chest wall tenderness with palpation Abdomen- normal bowel sounds, soft, nontender Extremities- no calf tenderness, no claudication, right knee abrasion due to the fall, Neuro- alert, oriented x 3; PERRL, EOMI; no facial palsy; no dysarthria Skin- warm & dry Results & Data Results & Data ([facility]) Vital Signs (Past 12 Hours) Vital Signs Temp Pulse Pulse Resp BP BP BP 12/07/20 07:46 36.7 C 105 H 17 181/104 H 12/07/20 03:31 37.2 C 110 H 22 169/105 H 12/07/20 00:30 37.5 C 103 H 20 180/100 H 12/07/20 00:00 110 H 19 171/99 H 12/06/20 23:30 107 H 15 171/88 H 12/06/20 23:00 108 H 19 166/87 H 12/06/20 22:30 112 H 17 160/89 H 12/06/20 22:27 36.9 C 100 H 20 138/78 12/06/20 22:00 109 H 20 138/78 12/06/20 21:46 100 H 20 163/100 H 12/06/20 21:37 100 H 18 12/06/20 21:30 104 H 18 12/06/20 21:24 102 H 22 168/119 H 12/06/20 21:01 103 H 18 183/127 H 12/06/20 21:00 100 H 20 12/06/20 20:30 93 H 13 172/111 H Pulse Ox 12/07/20 07:46 95 12/07/20 03:31 95 12/07/20 00:30 95 12/07/20 00:00 93 12/06/20 23:30 93 12/06/20 23:00 94 12/06/20 22:30 94 12/06/20 22:27 95 12/06/20 22:00 96 12/06/20 21:46 97 12/06/20 21:37 96 12/06/20 21:30 12/06/20 21:24 12/06/20 21:01 12/06/20 21:00 12/06/20 20:30 97 Diagnostic Findings US arterial duplex LE BI CLINICAL HISTORY: ? occlusion COMPARISON STUDY: No previous studies for comparison. TECHNIQUE: Bilateral ankle to brachial indices were obtained. Grayscale, color and duplex Doppler sonography of the arterial systems of the bilateral lower extremities was performed. FINDINGS: The right ankle to brachial index measured 0.77 when using posterior tibial artery and 0.65 using the dorsalis pedis. The left ankle to brachial measured 0.75 when using the dorsalis pedis. Posterior tibial artery could not be utilized. Note is made of extensive plaque within the bilateral lower extremities. There is triphasic flow within the right common femoral artery. There is also triphasic flow within the right superficial femoral artery. No elevated velocities were identified within these vessels. Note is made of probable occlusion of the right popliteal artery. Distal to this site of occlusion, there is dampened, monophasic flow within the right anterior tibial and dorsalis pedis vessels. Minimal flow is noted within the right posterior tibial and peroneal arteries. The left common femoral artery is patent and contains biphasic flow. There is occlusion of the left superficial femoral artery with distal reconstitution through collaterals. There is dampened, monophasic flow within the left anterior tibial, peroneal and dorsalis pedis vessels with minimal, if any flow, within the left posterior tibial artery. IMPRESSION: 1. Moderately diminished ankle to brachial indices, as above. 2. Extensive atherosclerotic plaque within the bilateral lower extremities. Occlusion of the left superficial femoral artery and occlusion of the right popliteal artery with markedly diminished, dampened flow within the bilateral calf vessels, as described above. Minimal, if any flow, within the bilateral posterior tibial arteries and right peroneal artery. ACT 112: Negative or not required by law. Electronically signed by: Ed Rosario M.D. 12/06/2020 5:16 PM Dictated: 12/06/201711Transcribed: 12/06/201711 THORAC[address] SP[address] CT DOSE: HISTORY: Back pain. trauma TECHNIQUE: Multiaxial CT images of the thoracic spine were performed and reformatted in the sagittal and coronal plane without the use of contrast. A dose lowering technique was utilized adhering to the principles of ALARA. COMPARISON: None. FINDINGS: No fractures. No subluxation. Paraspinal soft tissues are unremarkable. Mild/moderate degenerative disease within the thoracic spine. This most pronounced within the mid to lower thoracic spine. There are large flowing anterior osteophytes within the mid to lower thoracic spine consistent with diffuse idiopathic skeletal hyperostosis. No significant central canal narrowing by CT technique. IMPRESSION: No fractures within the thoracic spine. ACT 112: Negative or not required by law. Electronically signed by: Severiano Paz M.D. 12/06/2020 1:10 PM Dictated: 12/06/20 1304Transcribed: 12/06/[address] lumbar spine wo con CT DOSE: CLINICAL HISTORY: Low back pain status post trauma. Patient run over by a cow. TECHNIQUE: Helical images were acquired in transverse plane. Reformatted sagittal and coronal images were reviewed. A dose lowering technique was utilized adhering to the principles of ALARA. CONTRAST: No contrast was administered COMPARISON STUDY: None. FINDINGS: L1-2 level: There is a circumferential disc bulge. There is minimal spinal canal narrowing. There is moderate left-sided foraminal narrowing L2-3 level: There is a circumferential disc bulge. There is mild spinal canal narrowing. There is mild left-sided foraminal narrowing L3-4 level: There is circumferential disc bulge. There is minimal spinal canal narrowing. There is no significant foraminal narrowing L4-5 level: There is a circumferential disc bulge. There is mild spinal canal narrowing. The facet joint arthropathy. There is mild bilateral foraminal narrowing L5-S1 level: There is mild retrolisthesis of L5 and S1. There is no significant spinal stenosis. There is moderate left-sided foraminal narrowing, and mild right-sided foraminal narrowing. No acute fractures or traumatic subluxations are visualized. IMPRESSION: 1. No acute fractures or traumatic subluxations identified 2. Multilevel degenerative change. ACT 112: Negative or not required by law. Electronically signed by: True Hanley M.D. 12/06/2020 1:11 PM Dictated: 12/06/20 1253Transcribed: 12/06/[address] head/brain wo con CLINICAL HISTORY: Head pain status post trauma COMPARISON STUDY: No previous studies for comparison. TECHNIQUE: Axial CT of the brain is performed from the vertex to the skull base. IV contrast was not administered for this examination. A dose lowering technique was utilized adhering to the principles of ALARA. CT DOSE: FINDINGS: No intra or extra-axial mass lesions are visualized. There is no CT evidence of acute cortical infarction. There is no evidence of midline shift. There is no acute hemorrhage. No calvarial fractures are visualized. There are patchy white matter hypodensities likely on a small vessel basis. There is no evidence of pathologic ventricular dilatation. There is no evidence of acute sinusitis IMPRESSION: No acute intracranial findings ACT 112: Negative or not required by law. Electronically signed by: True Hanley M.D. 12/06/2020 12:50 PM Dictated: 12/06/20 1248Transcribed: 12/06/20 1249 CHEST CTA for PULMONARY ART[address] DOSE: HISTORY: Shortness of breath. Trauma. TECHNIQUE: Multiaxial CT images of the chest were performed following the intravenous administration of contrast to evaluate the pulmonary arteries. Maximal intensity projection images were also obtained. A dose lowering technique was utilized adhering to the principles of ALARA. COMPARISON STUDY: None. FINDINGS: Normal caliber thoracic aorta with no evidence for dissection. The heart is mildly enlarged. No pleural or pericardial effusions. There is mild focal narrowing at the takeoff of the brachiocephalic artery due to the moderate atherosclerotic plaque. No filling defects within the pulmonary arteries to suggest pulmonary embolus. Please refer to same day abdomen and pelvis CT for further evaluation of the abdominal structures. There is a small gallstone present. Mild thickening of the distal esophagus best seen on image 69 of 258. Subcentimeter mediastinal and hilar lymph nodes do not meet CT criteria for pathologic involvement. No acute fractures within the visualized osseous structures of the chest. No pneumothorax. The central airways are patent. Small groundglass densities within the lungs posteriorly. There are additional small patchy groundglass densities seen within the bases of the right lower lobe and middle lobe. Therefore, these airspace opacities favor an atypical/viral pneumonia. Pulmonary contusions are considered less likely but not entirely excluded. Calcific granuloma within the right lower lobe. IMPRESSION: 1. No evidence for pulmonary embolus. 2. Small amount of groundglass densities within the lungs posteriorly as well as the right lung base. This favors an atypical/viral pneumonia. Pulmonary contusions are considered less likely but not entirely excluded. 3. No pneumothorax. 4. Mild cardiomegaly. 5. Mild thickening at the distal esophagus. This may represent a mild esophagitis. However, follow-up nonemergent endoscopy recommended for further evaluation. ACT 112: Negative or not required by law. Electronically signed by: Severiano Paz M.D. 12/06/2020 1:22 PM Dictated: 12/06/20 1311Transcribed: 12/06/[address] OF THE CERVICAL SPINE CLINICAL HISTORY: Neck pain status post trauma. Patient run over by a cow. COMPARISON STUDY: No previous studies for comparison. CT DOSE: 4289.24 mGy.cm TECHNIQUE: CT scan of the cervical spine was performed from the skull base to the thoracic inlet. Images are reviewed in the axial, sagittal, and coronal planes. IV contrast was not administered for this examination. A dose lowering technique was utilized adhering to the principles of ALARA. FINDINGS: The visualized portions of the lung apices reveal no evidence of pneumothorax. The prevertebral soft tissues are normal. No fractures or subluxations are visualized. There are multilevel degenerative changes IMPRESSION: No evidence of acute fracture or traumatic subluxation. ACT 112: Negative or not required by law. Electronically signed by: True Hanley M.D. 12/06/2020 12:53 PM Dictated: 12/06/20 1250Transcribed: 12/06/[address] OF THE ABDOMEN AND PELVIS WITH CONTRAST CLINICAL HISTORY: trauma COMPARISON STUDY: None. TECHNIQUE: Following IV administration of 120 mL of Optiray-320, axial images of the abdomen and pelvis were obtained from the lung bases to the proximal femurs. Images were reviewed in the axial, sagittal, and coronal planes. IV contrast was administered without complication. Automated exposure control was utilized for the study. A dose lowering technique was utilized adhering to the principles of ALARA. FINDINGS: Please note that the chest CT will be reported separately. Imaged portions of the lower lungs demonstrate groundglass and nodular subpleural opacities. No hemoperitoneum or pneumoperitoneum is present. Gallstones within the gallbladder are noted. There is no evidence for acute cholecystitis. There is no evidence for traumatic injury to the liver, spleen, adrenal glands, kidneys or pancreas. There is no hydronephrosis. There is no biliary or pancreatic ductal dilatation. No lymphadenopathy is present. Caliber and wall thickness of small and large bowel are normal. There is no free fluid. Although suboptimally assessed on this non-CTA exam, there are suspected occlusion of the left superficial femoral artery. No acute lumbar spine or pelvic fracture is identified. There is colonic diverticulosis without evidence for acute diverticulitis. Moderate to extensive atherosclerotic plaque is noted. IMPRESSION: 1. No acute traumatic findings within the abdomen or pelvis. 2. Subpleural nodular and groundglass opacities within the lower lungs. The findings favor an infectious process. 3. Suspected occlusion of the left superficial femoral artery, suboptimally assessed on this exam. 4. Cholelithiasis. ACT 112: Negative or not required by law. Electronically signed by: Ed Rosario M.D. 12/06/2020 1:17 PM Dictated: 12/06/20 1309Transcribed: 12/06/20 1309 Code Status & VTE Plan VTE Prophylaxis Plan VTE Prophylaxis will be ordered: Yes
[2020-12-07] MEDS: ENOXAPARIN INJ 40 MG/0.4 ML SYR SQ SCH ×2 (09:28→22:28)
[2020-12-07 09:56] LABS: Appearance Urine Clear (Clear); Bacteria Urine Automated Negative (Negative); Bilirubin Urine Negative (Negative); Blood Urine Negative (Negative); Color Urine Dark Yellow; Glucose Urine UA Negative (Negative); Ketones Urine Negative (Negative); Leukocyte Esterase Urine Negative (Negative); Nitrite Urine Negative (Negative); Protein Urine Trace (Negative); Specific Gravity Urine 1.023 (1.000-1.030); Urobilinogen Urine Negative (Negative)
--- NOTE | 2020-12-07 13:07 | Communication Note ---
Date of Service: December 07, 2020 Lower ext Arterial Doppler : Extensive atherosclerotic plaque within the bilateral lower extremities. Occlusion of the left superficial femoral artery and occlusion of the right popliteal artery with markedly diminished, dampened flow within the bilateral calf vessels, as described above. Minimal, if any flow, within the bilateral posterior tibial arteries and right peroneal artery. finding suggestive of severe peripheral vascular disease . pt does not have any symptoms of claudication , poor limb perfusion D/w vascular surgery no procedure indicated as pt is completely asymptomatic pt should cont on Aspirin and statin ( if not contraindicated ) for severe atherosclerotic disease clinic follow up with Vascular surgery in 2-3 months . pt does not need any inpatient Vascular intervention Formal vascular surgery Consult cancelled . Tracie Shah MD
--- NOTE | 2020-12-07 17:40 | Hospitalist Progress Note ---
Date of Service December 07, 2020 Assessment & Plan (1) Chest pain: Atypical chest pain on presentation with b/l shoulder pain radiated across the wall, worsening with cough and deep breathing Possible related to costochondritis in the setting of Covid 19 pneumonia Troponin on admission negative EKG showed non specific t wave changes chest pain and discomfort resolved today COVID 19 Pneumonia Covid 19 positive in the ER CTA chest showed no evidence of PE. small amount of groundglass densities within the lungs posteriorly as well as the right lung base. This favors an atypical/viral pneumonia. Pulmonary contusions are considered less likely but not entirely excluded. 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 Occlusion of the left superficial femoral artery and occlusion of the right popliteal artery with markedly diminished, dampened flow within the bilateral calf vessels, as described above. Minimal, if any flow, within the bilateral posterior tibial arteries and right peroneal artery. out pt follow up with vascular surgery HTN on HCTZ PRN hydralazine for SBP above 170 Continue monitor BP DVT px Lovenox suq BID CODE status DNR disposition : discharge to home when medically stable Admission and Anticipated Discharge Date Admission Date: December 06, 2020 Subjective follow up visit for COVID 19 infection : pt says feels better no complain of sob , no cough , no fever or chills Physical Exam Constitutional: WD/WN, vitals as above Eyes: PERRL, conjunctivae normal, anicteric sclerae ENMT: external ear and nose normal, oropharynx normal Neck: trachea midline, no thyromegaly Respiratory: normal respiratory effort, lungs clear to auscultation Cardiovascular: RRR, no murmur, no edema Gastrointestinal (Abdomen): normal bowel sounds, soft, nontender, no hepatosplenomegaly Musculoskeletal: no cyanosis or clubbing, extremities motor strength 5/5 Skin: no rashes, warm and dry Neurologic: PERRL, EOMI, accommodation nl, no face palsy, no dysarthria Psychiatric: A+Ox3, euthymic affect Results & Data Results & Data ([facility]) Vital Signs (Past 12 Hours) Vital Signs Temp Pulse Resp BP BP Pulse Ox 12/07/20 15:27 36.8 C 80 19 158/91 H 94 12/07/20 15:24 36.8 C 86 18 155/95 H 95 12/07/20 10:56 36.8 C 84 18 163/104 H 96 12/07/20 08:00 160/64 H 12/07/20 07:46 36.7 C 105 H 17 181/104 H 95
[2020-12-08 07:00] LABS: Hematocrit (blood only) 45.7 % (42-52); Hemoglobin 15.3 g/dL (14.0-18.0); Mean Corpuscular Hemoglobin 29.3 pg (25-34); Mean Corpuscular Hgb Conc 33.5 g/dL (32-36); Mean Corpuscular Volume 87.4 fL (80-100); Mean Platelet Volume 10.6 fL (7.4-10.4); Platelet Count 300 K/uL (130-400); RDW Coefficient of Variation 13.5 % (11.5-14.5); RDW Standard Deviation 43.3 fL (36.4-46.3); Red Blood Count 5.23 M/uL (4.7-6.1); White Blood Count 6.52 K/uL (4.8-10.8)
[2020-12-08 07:35] LABS: BUN Creatinine Ratio 22.3 (10-20); Calcium 8.7 mg/dl (8.5-10.1); Creatinine Clr Calc Pharmacy 43.6 ml/min; Est GFR (African American) 56.9; Est GFR (Non-African American) 49.1; Potassium 3.5 mmol/L (3.5-5.1)
[2020-12-08 07:40] LABS: C Reactive Protein 6.06 mg/dl (0-0.29); Ferritin 320.6 ng/ml (8-388)
[2020-12-08] MEDS: DOXYCYCLINE HYCLATE 100 MG in DEXTROSE 5% 100 ML IV SCH (08:44)
[2020-12-08] MEDS: ENOXAPARIN INJ 40 MG/0.4 ML SYR SQ SCH ×2 (09:01→21:49)
[2020-12-08] MEDS: MULTIVITAMIN TAB PO SCH (09:02)
[2020-12-08] MEDS: ASPIRIN 81 MG ECTAB PO SCH (09:02)
[2020-12-08 09:18] LABS: Influenza A, PCR Negative (Negative); Influenza B, PCR Negative (Negative)
--- NOTE | 2020-12-08 14:48 | Communication Note ---
Date of Service: December 08, 2020 Attending note: Patient presented with chest tightness, chest heaviness, symptom has completely resolved. No evidence of cardiac ischemia, Possible symptoms secondary to shortness of breath hypoxia secondary to COVID-19 infection. Does not need any further cardiac evaluation. Cancel transthoracic echo inpatient to limit infection. Discharged patient's family physician will be updated and echo can be scheduled in the next few weeks, and patient is completely recovered from COVID-19 infection Tracie Shah MD
--- NOTE | 2020-12-08 20:20 | Hospitalist Progress Note ---
Date of Service December 08, 2020 Assessment & Plan (1) Chest pain: Atypical chest pain on presentation with b/l shoulder pain radiated across the wall, worsening with cough and deep breathing Possible related to costochondritis in the setting of Covid 19 pneumonia Troponin on admission negative EKG showed non specific t wave changes chest pain and discomfort resolved COVID 19 Pneumonia Covid 19 positive in the ER CTA chest showed no evidence of PE. small amount of groundglass densities within the lungs posteriorly as well as the right lung base. This favors an atypical/viral pneumonia. Pulmonary contusions are considered less likely but not entirely excluded. 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 Occlusion of the left superficial femoral artery and occlusion of the right popliteal artery with markedly diminished, dampened flow within the bilateral calf vessels, as described above. Minimal, if any flow, within the bilateral posterior tibial arteries and right peroneal artery. out pt follow up with vascular surgery HTN on HCTZ PRN hydralazine for SBP above 170 Continue monitor BP DVT px Lovenox suq BID CODE status DNR disposition : discharge to home when medically stable Admission and Anticipated Discharge Date Admission Date: December 06, 2020 Subjective follow up visit for COVID 19 infection : Remains in room air, states every day he feels well but better, does not have any shortness of breath at rest, still having difficulty breathing, with ambulating, no fever or chills, does not have any cough, no chest heaviness no chest pressure denies of any pain on her legs with ambulation Review of Systems Review of Systems: All systems reviewed & are unremarkable except as noted in HPI & below Physical Exam Constitutional: WD/WN, vitals as above Eyes: PERRL, conjunctivae normal, anicteric sclerae ENMT: external ear and nose normal, oropharynx normal Neck: trachea midline, no thyromegaly Respiratory: normal respiratory effort, lungs clear to auscultation Cardiovascular: RRR, no murmur, no edema Gastrointestinal (Abdomen): normal bowel sounds, soft, nontender, no hepatosplenomegaly Musculoskeletal: no cyanosis or clubbing, extremities motor strength 5/5 Skin: no rashes, warm and dry Neurologic: PERRL, EOMI, accommodation nl, no face palsy, no dysarthria Psychiatric: A+Ox3, euthymic affect Results & Data Results & Data ([facility]) Vital Signs (Past 12 Hours) Vital Signs Temp Pulse Resp BP Pulse Ox 12/08/20 19:38 37.0 C 82 19 163/90 H 94 12/08/20 15:40 36.6 C 87 19 155/96 H 95 12/08/20 11:38 36.8 C 93 H 18 164/99 H 95
[2020-12-08] MEDS: DOXYCYCLINE HYCLATE 100 MG CAP PO SCH (22:08)
[2020-12-09] MEDS ORDERED: hydrALAZINE HCL 20 MG/ML VIAL IV ONE (05:42)
[2020-12-09] MEDS: DOXYCYCLINE HYCLATE 100 MG CAP PO SCH ×2 (08:01→21:55)
[2020-12-09] MEDS: ASPIRIN 81 MG ECTAB PO SCH (09:18)
[2020-12-09] MEDS: ENOXAPARIN INJ 40 MG/0.4 ML SYR SQ SCH ×2 (09:18→21:55)
[2020-12-09] MEDS: MULTIVITAMIN TAB PO SCH (09:18)
--- NOTE | 2020-12-09 19:21 | Hospitalist Progress Note ---
Date of Service December 09, 2020 Assessment & Plan (1) Chest pain: Atypical chest pain on presentation with b/l shoulder pain radiated across the wall, worsening with cough and deep breathing Possible related to costochondritis in the setting of Covid 19 pneumonia Troponin on admission negative EKG showed non specific t wave changes chest pain and discomfort resolved COVID 19 Pneumonia Covid 19 positive in the ER CTA chest showed no evidence of PE. small amount of groundglass densities within the lungs posteriorly as well as the right lung base. This favors an atypical/viral pneumonia. Pulmonary contusions are considered less likely but not entirely excluded. 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 Occlusion of the left superficial femoral artery and occlusion of the right popliteal artery with markedly diminished, dampened flow within the bilateral calf vessels, as described above. Minimal, if any flow, within the bilateral posterior tibial arteries and right peroneal artery. out pt follow up with vascular surgery HTN on HCTZ PRN hydralazine for SBP above 170 Continue monitor BP DVT px Lovenox suq BID CODE status DNR disposition : possible dc home in am Admission and Anticipated Discharge Date Admission Date: December 06, 2020 Subjective follow up visit for COVID 19 infection : Remains in room air, states he feels well but better, no complain of SOB or ROSE no cough , no fever or chills Physical Exam Constitutional: WD/WN, vitals as above Eyes: PERRL, conjunctivae normal, anicteric sclerae ENMT: external ear and nose normal, oropharynx normal Neck: trachea midline, no thyromegaly Respiratory: normal respiratory effort, lungs clear to auscultation Cardiovascular: RRR, no murmur, no edema Gastrointestinal (Abdomen): normal bowel sounds, soft, nontender, no hepatosplenomegaly Musculoskeletal: no cyanosis or clubbing, extremities motor strength 5/5 Skin: no rashes, warm and dry Neurologic: PERRL, EOMI, accommodation nl, no face palsy, no dysarthria Psychiatric: A+Ox3, euthymic affect Results & Data Results & Data ([place]) Vital Signs (Past 12 Hours) Vital Signs Temp Pulse Pulse Resp BP Pulse Ox 12/09/20 17:54 79 12/09/20 07:59 36.7 C 99 H 16 149/80 H 95 12/09/20 07:29 91 H
[2020-12-09] MEDS: hydrALAZINE HCL 20 MG/ML VIAL IV PRN (21:59)
[2020-12-10 07:11] LABS: Chol HDL Ratio 7; Cholesterol 179 mg/dl (0-200); HDL Cholesterol 26 mg/dl; LDL Cholesterol Calculated 124 mg/dl; Triglycerides 147 mg/dl (0-150); VLDL Cholesterol 29 mg/dl
[2020-12-10] MEDS: hydroCHLOROthiazide 25 MG TAB PO SCH (09:12)
[2020-12-10] MEDS: DOXYCYCLINE HYCLATE 100 MG CAP PO SCH (09:13)
[2020-12-10] MEDS: MULTIVITAMIN TAB PO SCH (10:39)
[2020-12-10] MEDS: ENOXAPARIN INJ 40 MG/0.4 ML SYR SQ SCH (10:39)
[2020-12-10] MEDS: ASPIRIN 81 MG ECTAB PO SCH (10:39)
[2020-12-10] MEDS ORDERED: ATORVASTATIN 10 MG TAB PO ONE (14:00)
[2020-12-10] MEDS ORDERED: amLODIPine BESYLATE 5 MG TAB PO ONE (14:00)
--- NOTE | 2020-12-10 15:19 | Discharge Summary ---
Date of Service December 10, 2020 Admission HPI Per Admitting Provider 75-year-old male with PMH HTN, dyslipidemia presented to the ER with c/o of chest discomfort. Pt said that about 3 weeks ago he was run by a cow. He said that the cow knocked him to the ground. He said that he hit his head and he think that he lost of consciousness. He said that he was seen at the [facility] and had xray done that was negative. He said that since then he has been having tenderness in both shoulder and pain across his chest wall area. He said that sometimes he has a dry cough on and off. He said that whenever he coughs or take a deep breath, his chest wall hurts. Pt said that he has been feeling tired and SOB with exertion. She was positive for COVID 19 in the ER. Denies any loss of taste or smell, chills, fever, nausea, diarrhea, palpitation. Principal Diagnosis COVID 19 HYPERTENSIVE URGENCY femoral artery blood clot peripheral vascular disease Discharge Exam Constitutional WD/WN, vitals as above Eyes PERRL, conjunctivae normal, anicteric sclerae ENMT external ear and nose normal, oropharynx normal Neck trachea midline, no thyromegaly Respiratory normal respiratory effort, lungs clear to auscultation Cardiovascular RRR, no murmur, no edema Gastrointestinal (Abdomen) normal bowel sounds, soft, nontender, no hepatosplenomegaly Musculoskeletal no cyanosis or clubbing, extremities motor strength 5/5 Skin no rashes, warm and dry Neurologic PERRL, EOMI, accommodation nl, no face palsy, no dysarthria Psychiatric A+Ox3, euthymic affect Discharge Data Allergies Allergy/AdvReac Type Severity Reaction Status Date / Time No Known Allergies Allergy Unknown Verified 12/06/20 11:48 Consultations 12/06/20 17:26 ED Decision to Admit Stat Ordered Studies 12/06/20 11:32 CT abd pelvis IV con only Stat CT angio chest PE protocol Stat CT cervical spine wo con Stat CT head/brain wo con Stat CT lumbar spine wo con Stat CT thoracic spine wo con Stat 12/06/20 14:01 arterial duplex LE BI Stat Hospital Course (1) Chest pain: Atypical chest pain on presentation with b/l shoulder pain radiated across the wall, worsening with cough and deep breathing Possible related to costochondritis in the setting of Covid 19 pneumonia Troponin on admission negative EKG showed non specific t wave changes chest pain and discomfort has resolved COVID 19 Pneumonia Covid 19 positive in the ER CTA chest showed no evidence of PE. small amount of groundglass densities within the lungs posteriorly as well as the right lung base. This favors an atypical/viral pneumonia. Pulmonary contusions are considered less likely but not entirely excluded. 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 Occlusion of the left superficial femoral artery and occlusion of the right popliteal artery with markedly diminished, dampened flow within the bilateral calf vessels, as described above. Minimal, if any flow, within the bilateral posterior tibial arteries and right peroneal artery. out pt follow up with vascular surgery Atherosclerotic disease /peripheral vascular disease : pt will continue with Aspirin 81 mg daily fasting lipid panel LDL 124 started on Lipitor 10 mg daily to reduce risk for future CVA/NC /progression of PVD repeat Lipid panel in 6-8 weeks , goal LDL < 70 HTN on HCTZ SBP remains elevated added low dose norvasc 5 mg daily continue to follow up with family physician for BP monitoring and adjustment of BP meds DVT px Lovenox suq BID CODE status DNR disposition : stable to be discharged home today pt is given instructions for home isolation /quarantine per CDC guideline with COVID 19 pneumonia Total Time Total Time Spent Total Time Spent (In Minutes): 35 mins Total Time Includes: Discharge Planning and Medication Reconciliation Discharge Plan Discharge Items Patient Disposition: Home - Self-Care Reason For Visit: CHEST PAIN, HTN URGENCY, COVID PUI Discharge Diagnosis: COVID 19 HYPERTENSIVE URGENCY femoral artery blood clot peripheral vascular disease Activity: Resume your previous activity Non-emergency contact: Primary Care Provider Call non-emergency contact if: you have any medication questions Follow-up/Referrals: Haile Garvey MD [Physician] - (Follow up with vascular surgery in 2-3 months ) Jed Venegas DO [Primary Care Provider] - 12/15/20 11:00 am (Date & Time 12/15/2020 11:00 AM Provider Jed Venegas DO Department Family Practice [facility] PLEASE NOTE THAT THIS IS A TELEPHONE APPOINTMENT. YOUR PROVIDER WILL CALL YOU AT YOUR APPOINTMENT TIME. IF YOU HAVE ANY QUESTIONS, PLEASE CALL ) Diet: Heart Healthy Addtl Attending Provider Instructions: Home Isolation COVID-19 Instructions The following information about Home Isolation is from the CDC Website: https://www.cdc.gov/coronavirus/2019-ncov/hcp/mjjgvatz-gihbhje-yctnov.html Stay home except to get medical care People who are mildly ill with COVID-19 are able to isolate at home during their illness. You should restrict activities outside your home, except for getting medical care. Do not go to work, school, or public areas. Avoid using public transportation, ride-sharing, or taxis. Separate yourself from other people and animals in your home People: As much as possible, you should stay in a specific room and away from other people in your home. Also, you should use a separate bathroom, if available. Animals: You should restrict contact with pets and other animals while you are sick with COVID-19, just like you would around other people. Although there have not been reports of pets or other animals becoming sick with COVID-19, it is still recommended that people sick with COVID-19 limit contact with animals until more information is known about the virus. When possible, have another member of your household care for your animals while you are sick. If you are sick with COVID-19, avoid contact with your pet, including petting, snuggling, being kissed or licked, and sharing food. If you must care for your pet or be around animals while you are sick, wash your hands before and after you interact with pets and wear a face mask. Call ahead before visiting your doctor If you have a medical appointment, call the healthcare provider and tell them that you have or may have COVID-19. This will help the healthcare providers office take steps to keep other people from getting infected or exposed. Wear a face mask You should wear a face mask when you are around other people (e.g., sharing a room or vehicle) or pets and before you enter a healthcare providers office. If you are not able to wear a face mask (for example, because it causes trouble breathing), then people who live with you should not stay in the same room with you, or they should wear a face mask if they enter your room. Cover your coughs and sneezes Cover your mouth and nose with a tissue when you cough or sneeze. Throw used tissues in a lined trash can. Immediately wash your hands with soap and water for at least 20 seconds or, if soap and water are not available, clean your hands with an alcohol-based hand manager business that contains at least 60% alcohol. Clean your hands often Wash your hands often with soap and water for at least 20 seconds, especially after blowing your nose, coughing, or sneezing; going to the bathroom; and before eating or preparing food. If soap and water are not readily available, use an alcohol-based hand manager business with at least 60% alcohol, covering all surfaces of your hands and rubbing them together until they feel dry. Soap and water are the best option if hands are visibly dirty. Avoid touching your eyes, nose, and mouth with unwashed hands. Avoid sharing personal household items You should not share dishes, drinking glasses, cups, eating utensils, towels, or bedding with other people or pets in your home. After using these items, they should be washed thoroughly with soap and water. Clean all high-touch surfaces everyday High touch surfaces include counters, tabletops, doorknobs, bathroom fixtures, toilets, phones, keyboards, tablets, and bedside tables. Also, clean any surfaces that may have blood, stool, or body fluids on them. Use a household cleaning spray or wipe, according to the label instructions. Labels contain instructions for safe and effective use of the cleaning product including precautions you should take when applying the product, such as wearing gloves and making sure you have good ventilation during use of the product. Monitor your symptoms Seek prompt medical attention if your illness is worsening (e.g., difficulty breathing).Beforeseeking care, call your healthcare provider and tell them that you have, or are being evaluated for, COVID-19. Put on a face mask before you enter the facility. These steps will help the healthcare providers office to keep other people in the office or waiting room from getting infected or exposed. Ask your healthcare provider to call the local or state health department. Persons who are placed under active monitoring or facilitated self- monitoring should follow instructions provided by their local health department or occupational health professionals, as appropriate. When working with your local health department check their available hours. If you have a medical emergency and need to call 911, notify the dispatch personnel that you have, or are being evaluated for COVID-19. If possible, put on a face mask before emergency medical services arrive. Discontinuing home isolation Patients with confirmed COVID-19 should remain under home isolation precautions until for at least 10 days from the onset of symptoms or positive COVID-19 test Test was positive on 12/06/2020 You may discontinue strict home isolation/quarantine after December 16, 2020 Pending Studies at Discharge: No Stand-Alone Forms: My [facility], Smoking Cessation Medications and DC Order Prescriptions: New doxycycline hyclate 100 mg Capsule 100 mg PO BID 3 Days Qty: 6 RF: 0 amlodipine [Norvasc] 5 mg tablet 5 mg PO DAILY 30 Days Qty: 30 RF: 3 atorvastatin [Lipitor] 10 mg tablet 10 mg PO DAILY Qty: 30 RF: 3 Continued multivitamin Tablet 1 tab PO QAM RF: 0 DHEA 25 mg Tablet 0 mg PO QAM RF: 0 cyanocobalamin (vitamin B-12) [Vitamin B-12] 1,000 mcg Tablet 0 mcg PO QAM RF: 0 aspirin 81 mg tablet,delayed release (DR/EC) 81 mg PO QAM RF: 0 nitroglycerin [Nitrostat] 0.4 mg Tablet, Sublingual 0.4 mg sublingual UD RF: 0 hydrochlorothiazide 25 mg tablet 25 mg PO QAM RF: 0 Discharge Orders: Discharge Order (Routine); Ordered 12/10/20 Ordered By: Tracie Morgan/Other Patient Handouts: Symptoms of a Heart Attack, Preventing the Spread of ..., Caring for Someone Who Has COVID-19, Disinfecting Your Home of COVID-19, How COVID-19 Spreads Admission Data Admit Date/Time: 12/06/20 17:57 Attending Provider: Tracie Shah Admit Provider: Preet Huerta Primary Care Provider: Jed Venegas Other Providers: Preet Huerta Other Interventions: Discharge Summary Assessment (RN) Last Done: 12/10/20 14:16
== END 2020-12-10 15:02 | disposition home or self-care (01) | DRG 177 ==
LOC: ED 10:46 → EDINP 17:57 → SUATTDRO 17:57 → 2S 12-07 10:49 → 2N 12-08 20:33 → 3E 12-09 19:19

== ENCOUNTER 2022-05-22 18:11 | Observation (INO) ==
[2022-05-22] MEDS ORDERED: SODIUM CHLORIDE 0.9% 1000ML 1,000 ML IV ONE (19:21)
[2022-05-22] MEDS ORDERED: ACETAMINOPHEN 1,000 MG/100 ML VIAL IV STA (19:22)
[2022-05-22 19:26] LABS: Basophils # (auto) 0.03 K/uL (0-0.2); Basophils % (auto) 0.5 %; Eosinophils % (auto) 4.6 %; Hematocrit (blood only) 36.3 % (42-52); Immature Granulocytes # (auto) 0.01 K/uL (0.00-0.02); Immature Granulocytes % (auto) 0.2 %; Lymphocytes # (auto) 0.61 K/uL (1.2-3.4); Lymphocytes % (auto) 9.4 %; Mean Corpuscular Hemoglobin 30.6 pg (25-34); Mean Corpuscular Hgb Conc 33.1 g/dL (32-36); Mean Corpuscular Volume 92.6 fL (80-100); Monocytes # (auto) 0.98 K/uL (0.11-0.59); Monocytes % (auto) 15.1 %; Neutrophils # (auto) 4.57 K/uL (1.4-6.5); Neutrophils % (auto) 70.2 %; Platelet Count 204 K/uL (130-400); RDW Coefficient of Variation 15.3 % (11.5-14.5); RDW Standard Deviation 51.5 fL (36.4-46.3); Red Blood Count 3.92 M/uL (4.7-6.1)
[2022-05-22 19:45] LABS: INR 1.2 (0.9-1.1); Partial Thromboplastin Time 28.6 Seconds (21.0-31.0); Prothrombin Time 12.8 Seconds (9.0-12.0)
[2022-05-22 20:01] LABS: Magnesium 1.7 mg/dl (1.7-2.4); Phosphorus 3.9 mg/dl (2.5-4.9); Uric Acid 5.2 mg/dl (2.6-7.2)
[2022-05-22 20:02] LABS: Albumin Globulin Ratio 1.3 (0.9-2); Albumin Level 3.6 gm/dl (3.4-5.0); BUN Creatinine Ratio 17.8 (10-20); Bilirubin,Total 0.8 mg/dl (0.2-1.0); Calcium 8.4 mg/dl (8.5-10.1); Creatinine Clr Calc Pharmacy 41.5 ml/min; Est GFR (African American) 62.9 ml/min; Est GFR (Non-African American) 54.3 ml/min; Globulin 2.8 gm/dl (2.5-4.0); Potassium 3.9 mmol/L (3.5-5.1); Total Protein 6.4 gm/dl (6.0-8.3)
--- NOTE | 2022-05-22 20:13 | XRay Report ---
XR ankle LT min 3V routine CLINICAL HISTORY: Left ankle and foot pain. COMPARISON: Left ankle radiographs June 29, 2017. FINDINGS: Alignment of the left ankle is anatomic. No acute fracture. Talar dome is intact. IMPRESSION: No fracture or dislocation within the left ankle. ACT 112: Negative or not required by law. Electronically signed by: Ed Rosario M.D. 05/22/2022 8:11 PM
--- NOTE | 2022-05-22 20:16 | XRay Report ---
XR foot LT min 3V routine CLINICAL HISTORY: Left foot pain. COMPARISON: Left foot radiographs April 30, 2018. FINDINGS: Tarsometatarsal joints are intact. No acute fracture is identified. There is moderate vasc ular calcification. Note is made of soft tissue swelling along the medial aspect of the left first me tatarsophalangeal joint. This contains small calcific densities. Erosion of the medial aspect of the left first metatarsal head is noted. There is moderate joint space narrowing with osteophytosis of th e left first metatarsophalangeal joint. Several radiodensities adjacent to the left fifth metatarsal head are also present. IMPRESSION: 1. No acute fracture or dislocation within the left foot. 2. Findings raising the possibility of gout of the left first metatarsophalangeal joint, as described above. Osteoarthritis could appear similar. ACT 112: Negative or not required by law. Electronically signed by: Ed Rosario M.D. 05/22/2022 8:15 PM
[2022-05-22 20:39] LABS: Thyroid Stimulating Hormone 11.744 uIu/ml (0.300-4.500)
[2022-05-22 21:25] LABS: T4 Free Thyroxine 0.89 ng/dl (0.61-1.60)
[2022-05-22] MEDS ORDERED: LIDOCAINE 2% JELLY 5 ML TUBE ONE (22:50)
--- NOTE | 2022-05-22 23:07 | Emergency Department Note ---
Impression & Plan Dehydration, Acute urinary retention, Weakness, History of cerebrovascular accident ED Provider Note NAME: SEAN LAGUNA AGE: 76 SEX: M ARRIVES VIA: Walk-In INFORMANT: Daughter ED PROVIDER(S): Lang Beach MD CHIEF COMPLAINT: Weakness, decreased oral intake PLAN: Disposition: Admit MEDICAL DECISION MAKING: The patient is a 76-year-old gentleman who presents to the emergency department from home due to family being concerned for decreased appetite and oral intake and concern for swelling of his left ankle with pain in the setting of being discharged from [facility] last week after having a complicated medical course that began in [place] where he had been trampled by a horse and then subsequently had acute CVA with associated aphasia and right-sided weakness and ultimately was discharged and transferred to [facility] for rehab. The patient is a poor historian. The patient was dropped off in the emergency department by his grandson who left. Family was called and the case was discussed with the patient's daughter who cares for him and she reports while he did make some improvement at rehab his weakness progressed and he is unable to walk as he did when he left a week ago. They also worry that he is retaining urine again as he did in the hospital because he has not urinated at all today. They also feel that his confusion is worse than the confusion that he had when he left the hospital. She further adds that they expected to have home nursing when he was discharged from [facility] but reports it was arranged under the incorrect county and so the paperwork now needs to be resubmitted and await approval. On arrival patient is chronically ill-appearing but no acute distress, afebrile stable vital signs. He appears clinically dry.He has mild redness and tenderness of the left medial malleolus. Moderate suprapubic fullness with mild discomfort without discrete tenderness. Mild confusion/moderate expressive aphasia. Generalized weakness 4/5 strength with right leg slightly weaker than left. EKG without overt acute ischemia. XR of left foot/ankle with evidence of gout vs OA. WBC and platelets wnl. H/H decreased form December. Chemistry without acidosis. Electrolytes unremarkable. LFTs without significant abnormality. Uric acid wnl. cpk wnl. TSH 11.7 with free T4 wnl. UA without convincing evidence of infection. Covid-19 RNA, NAAT negative. Per preliminary [facility] report CT head negative for acute process. CT abd/pelvis with bladder wall thickening and prostamegaly, nonspecific. Gallstones without evidence of cholecystitis. Given increased weakness and worsened functional status per family's report, the patient was referred for admission. [facility] who will evaluate the patient for admission. Triage Nursing notes reviewed and agree them. Prior medical records reviewed Vital Signs: reviewed and remarkable for no significant abnormalities Differential diagnosis: Infection, dehydration, metabolic abnormality, hypo/hyperglycemia, electrolyte disturbance, anemia, hypoxia, cardiac sources, intracerebral event, toxicologic, neurologic, as well as other pathologies. ER treatment provided: See below. Diagnostics interpreted by me: ECG: NSR, 67 bpm, no ectopy, no overt ST elevation or depression. Cardiac Monitoring: An order for continuous cardiac monitoring was placed and demonstrated NSR, 67 bpm, no ectopy. Laboratory studies: See below Imaging studies: See below Preliminary Findings Only See Final Report For Complete Findings CT HEAD: No intracranial hemorrhage, mass-effect, edema, or hydrocephalus. Chronic microvascular ischemic changes. Chronic infarct in the left parietal lobe. Radiologist: Tamir Santiago MD Study ready at 00:11 and initial results transmitted at 00:12 Preliminary Findings Only See Final Report For Complete Findings CT ABDOMEN & PELVIS With Contrast: Haddad catheter within the bladder which is decompressed but appears mildly thick wall. Correlate with UA for cystitis. Prostate mildly prominent measuring 4.6 cm. Unremarkable appearance of the kidneys and ureters. Cholelithiasis without evidence of acute cholecystitis. Liver, pancreas, and spleen are unremarkable. No acute abnormality along the GI tract. No fluid collection or free air. Radiologist: Tamir Santiago MD Study ready at 00:06 and initial results transmitted at 00:09 Consultation(s): Case was discussed with Nona Rodríguez who will evaluate the patient for admission. HPI: The patient is a 76-year-old gentleman who presents to the emergency department from home due to family being concerned for decreased appetite and oral intake and concern for swelling of his left ankle with pain in the setting of being discharged from [facility] last week after having a complicated medical course that began in [place] where he had been trampled by a horse and then subsequently had acute CVA with associated aphasia and right-sided weakness and ultimately was discharged and transferred to [facility] for rehab. The patient is a poor historian. The patient was dropped off in the emergency department by his grandson who left. Family was called and the case was discussed with the patient's daughter who cares for him and she reports while he did make some improvement at rehab his weakness progressed and he is unable to walk as he did when he left a week ago. They also worry that he is retaining urine again as he did in the hospital because he has not urinated at all today. They also feel that his confusion is worse than the confusion that he had when he left the hospital. She further adds that they expected to have home nursing when he was discharged from [facility] but reports it was arranged under the incorrect county and so the paperwork now needs to be resubmitted and await approval. ROS: See above HPI for pertinent positives & negatives. A total of 10 systems reviewed and were otherwise negative. VITALS:See Below PHYSICAL EXAMINATION: GENERAL: Awake, alert, chronically ill-appearing, in no distress HENT: Normocephalic, atraumatic. Oropharynx with dry mucous membranes and otherwise unremarkable. EYES: Normal conjunctiva. Sclera non-icteric. EOMI. No nystamgus. PEARRL. NECK: Supple. No nuchal rigidity. FROM. No JVD. RESPIRATORY: Clear to auscultation. CARDIAC: Regular rate, normal rhythm. Extremities warm and well perfused. Pulses equal. ABDOMEN: Soft, non-distended. Moderate suprapubic fullness with mild discomfort without discrete tenderness. No rebound or guarding. No masses. RECTAL: Deferred. MUSCULOSKELETAL: Chest examination reveals no tenderness. The back is symmetrical on inspection without obvious abnormality. There is no CVA t enderness to palpation. No joint edema. LOWER EXTREMITIES: Calves are equal size bilaterally and non-tender. Mild redness and tenderness of the left medial malleolus. NEURO: Mild confusion/moderate expressive aphasia. Generalized weakness 4/5 strength with right leg slightly weaker than left. SKIN: No rash or jaundice noted. Lang Beach MD Past Med/Surg History Medical History CVA (cerebral vascular accident) HTN (hypertension) Hyperlipidemia Rib fractures Surgical History History of shoulder surgery Social History Smoking Status: Never smoker Hx Alcohol Use: No Hx Substance Use: No Preferred Language: Czech Communication Ability: Effective Newspaper Publisher Required: No Beliefs That Will Affect Care: None Current Living Situation: Family Current Living Situation Comment: Lives with son Feels Safe at Home: Yes Assistive Devices: None Allergies Allergies Allergy/AdvReac Type Severity Reaction Status Date / Time No Known Allergies Allergy Unknown Verified 05/22/22 20:31 Home Meds Home Medications Medication Instructions Recorded Confirmed aspirin 81 mg tablet,delayed 81 mg PO QAM 12/06/20 05/22/22 release cyanocobalamin (vitamin B-12) 1,000 mcg PO QAM 12/06/20 05/22/22 1,000 mcg tablet (Vitamin B-12) multivitamin 1 tab PO QAM 12/06/20 05/22/22 nitroglycerin 0.4 mg sublingual 0.4 mg SUBLINGUAL DIRECTED PRN 12/06/20 tablet (Nitrostat) prasterone (dhea) 25 mg tablet 0 mg PO QAM 12/06/20 05/22/22 (DHEA) acetaminophen 500 mg tablet 1,000 mg PO Q8H PRN 05/22/22 05/22/22 (Tylenol Extra Strength) allopurinol 300 mg tablet 300 mg PO DAILY 05/22/22 05/22/22 amlodipine 10 mg tablet 10 mg PO DAILY 05/22/22 05/22/22 atorvastatin 20 mg tablet 20 mg PO DAILY 05/22/22 05/22/22 carvedilol 25 mg tablet 25 mg PO BID 05/22/22 05/22/22 cilostazol 50 mg tablet 50 mg PO BID 05/22/22 05/22/22 ezetimibe 10 mg tablet (Zetia) 10 mg PO HS 05/22/22 05/22/22 lisinopril 10 mg tablet 10 mg PO DAILY 05/22/22 05/22/22 metformin 500 mg tablet,extended 500 mg PO DAILY 05/22/22 05/22/22 release 24 hr prasterone (dhea)-calcium 1 tab PO DAILY 05/22/22 05/22/22 carbonate 10 mg-47 mg calcium tablet (DHEA) tamsulosin 0.4 mg capsule 0.4 mg PO DAILY 05/22/22 05/22/22 Results & Data (ED) Vital Signs Vital Signs - 24 hr 05/22/22 18:18 05/22/22 19:11 05/22/22 21:00 Temperature 36.8 C Temperature Source Temporal Artery Scan Pulse Rate 76 Pulse Rate [Apical] 67 69 Respiratory Rate 20 19 17 Respiratory Effort / Characteristics Non-Labored Spontaneous Non-Labored Spontaneous Respiratory Depth Normal Normal Normal Respiratory Pattern Regular Blood Pressure 119/77 Blood Pressure [Left Arm] 127/78 126/69 Blood Pressure Mean 91 Blood Pressure Mean [Left Arm] 94 88 Blood Pressure Position [Left Arm] Lying Pulse Oximetry 93 98 98 Oxygen Delivery Method Room Air Room Air Room Air Sepsis Recent Fever Within 48 Hours No Sepsis New/Unexplained Change in Mental Status No Sepsis Action Taken by Nursing No Action Required Laboratory Data Attestation: I reviewed the patient's lab results. Result diagrams: 05/22/22 19:05 05/22/22 19:05 Lab Results 05/22/22 05/22/22 05/22/22 Range/Units 19:05 19:05 19:05 WBC 6.50 (4.8-10.8) K/uL RBC 3.92 L (4.7-6.1) M/uL Hgb 12.0 L (14.0-18.0) g/dL Hct 36.3 L (42-52) % MCV 92.6 (80-100) fL MCH 30.6 (25-34) pg MCHC 33.1 (32-36) g/dL RDW Std Deviation 51.5 H (36.4-46.3) fL RDW Coeff of Deborah 15.3 H (11.5-14.5) % Plt Count 204 (130-400) K/uL MPV 11.0 H (7.4-10.4) fL Immature Gran % (Auto) 0.2 % Neut % (Auto) 70.2 % Lymph % (Auto) 9.4 % Shannon % (Auto) 15.1 % Eos % (Auto) 4.6 % Baso % (Auto) 0.5 % Neut # (Auto) 4.57 (1.4-6.5) K/uL Lymph # (Auto) 0.61 L (1.2-3.4) K/uL Shannon # (Auto) 0.98 H (0.11-0.59) K/uL Eos # (Auto) 0.30 (0-0.5) K/uL Baso # (Auto) 0.03 (0-0.2) K/uL Immature Gran # (Auto) 0.01 (0.00-0.02) K/uL PT 12.8 H (9.0-12.0) Seconds INR 1.2 H (0.9-1.1) APTT 28.6 (21.0-31.0) Seconds PTT Ratio 1.0 Sodium 138 (136-145) mmol/L Potassium 3.9 (3.5-5.1) mmol/L Chloride 103 (98-107) mmol/L Carbon Dioxide 28 (21-32) mmol/L Anion Gap 7 (3-11) BUN 23 (6-23) mg/dl Creatinine 1.29 (0.6-1.4) mg/dl Est Cr Clr Drug Dosing 41.5 ml/min Est GFR ( Amer) 62.9 ml/min Est GFR (Non-Af Amer) 54.3 ml/min BUN/Creatinine Ratio 17.8 (10-20) Glucose 116 H (70-99(Fasting)) mg/dl Uric Acid (2.6-7.2) mg/dl Calcium 8.4 L (8.5-10.1) mg/dl Phosphorus (2.5-4.9) mg/dl Magnesium (1.7-2.4) mg/dl Total Bilirubin 0.8 (0.2-1.0) mg/dl AST 10 L (13-39) U/L ALT 9 (7-52) U/L Alkaline Phosphatase 129 H (34-104) U/L Total Creatine Kinase (30-223) U/L Total Protein 6.4 (6.0-8.3) gm/dl Albumin 3.6 (3.4-5.0) gm/dl Globulin 2.8 (2.5-4.0) gm/dl Albumin/Globulin Ratio 1.3 (0.9-2) TSH (0.300-4.500) uIu/ml Free T4 (0.61-1.60) ng/dl SARS-CoV-2, RNA, NAAT (NEGATIVE) 05/22/22 05/22/22 05/22/22 Range/Units 19:05 19:05 19:40 WBC (4.8-10.8) K/uL RBC (4.7-6.1) M/uL Hgb (14.0-18.0) g/dL Hct (42-52) % MCV (80-100) fL MCH (25-34) pg MCHC (32-36) g/dL RDW Std Deviation (36.4-46.3) fL RDW Coeff of Deborah (11.5-14.5) % Plt Count (130-400) K/uL MPV (7.4-10.4) fL Immature Gran % (Auto) % Neut % (Auto) % Lymph % (Auto) % Shannon % (Auto) % Eos % (Auto) % Baso % (Auto) % Neut # (Auto) (1.4-6.5) K/uL Lymph # (Auto) (1.2-3.4) K/uL Shannon # (Auto) (0.11-0.59) K/uL Eos # (Auto) (0-0.5) K/uL Baso # (Auto) (0-0.2) K/uL Immature Gran # (Auto) (0.00-0.02) K/uL PT (9.0-12.0) Seconds INR (0.9-1.1) APTT (21.0-31.0) Seconds PTT Ratio Sodium (136-145) mmol/L Potassium (3.5-5.1) mmol/L Chloride (98-107) mmol/L Carbon Dioxide (21-32) mmol/L Anion Gap (3-11) BUN (6-23) mg/dl Creatinine (0.6-1.4) mg/dl Est Cr Clr Drug Dosing ml/min Est GFR ( Amer) ml/min Est GFR (Non-Af Amer) ml/min BUN/Creatinine Ratio (10-20) Glucose (70-99(Fasting)) mg/dl Uric Acid 5.2 (2.6-7.2) mg/dl Calcium (8.5-10.1) mg/dl Phosphorus 3.9 (2.5-4.9) mg/dl Magnesium 1.7 (1.7-2.4) mg/dl Total Bilirubin (0.2-1.0) mg/dl AST (13-39) U/L ALT (7-52) U/L Alkaline Phosphatase (34-104) U/L Total Creatine Kinase 27 L (30-223) U/L Total Protein (6.0-8.3) gm/dl Albumin (3.4-5.0) gm/dl Globulin (2.5-4.0) gm/dl Albumin/Globulin Ratio (0.9-2) TSH 11.744 H (0.300-4.500) uIu/ml Free T4 0.89 (0.61-1.60) ng/dl SARS-CoV-2, RNA, NAAT NEGATIVE (NEGATIVE) Administered Medications Lactated Ringer's (Lr) 1,000 mls @ 50 mls/hr IV .Q20H ONE Stop: 05/23/22 21:52 Last Admin: 05/23/22 04:10 Dose: 50 mls/hr Documented by: [id number] Insulin Aspart (Insulin Aspart Per Unit) 0 units SC ACHS BO Stop: 06/22/22 04:00 Last Admin: 05/23/22 04:39 Dose: Not Given Documented by: [id number] Naproxen (Naproxen 250 Mg Tab) 250 mg PO BID BO Stop: 06/22/22 04:00 Last Admin: 05/23/22 04:38 Dose: 250 mg Documented by: [id number] Discontinued Medications Sodium Chloride (Nss 1000ml) 1,000 mls @ 999 mls/hr IV .Q1H1M ONE Stop: 05/22/22 20:21 Last Infusion: 05/22/22 20:33 Dose: 0 mls/hr Documented by: [id number] Admin: 05/22/22 19:33 Dose: 999 mls/hr Documented by: [id number] Acetaminophen (Ofirmev) 1,000 mg in 100 mls @ 400 mls/hr IV NOW STA Stop: 05/22/22 19:36 Last Infusion: 05/22/22 20:05 Dose: 0 mls/hr Documented by: [id number] Admin: 05/22/22 19:32 Dose: 400 mls/hr Documented by: [id number] Calcium Gluconate () 1,000 mg in 60 mls @ 240 mls/hr IV NOW STA Stop: 05/23/22 01:00 Last Infusion: 05/23/22 04:04 Dose: 0 mls/hr Documented by: [id number] Admin: 05/23/22 01:40 Dose: 240 mls/hr Documented by: [id number] Ioversol (Optiray 320 100ml) 94 ml IV ONCE ONE Stop: 05/22/22 23:38 Last Admin: 05/22/22 23:37 Dose: 94 ml Documented by: [id number] Lidocaine HCl (Lidocaine 2% Jelly 5 Ml Tube) Confirm Administered Dose 5 ml .ROUTE .STK-MED ONE Stop: 05/22/22 22:51 Last Admin: 05/22/22 23:00 Dose: 5 ml Documented by: [id number] Imaging Data Radiologist's Impression: Ankle X-Ray 05/22/22 19:21 XR ankle LT min 3V routine CLINICAL HISTORY: Left ankle and foot pain. COMPARISON: Left ankle radiographs June 29, 2017. FINDINGS: Alignment of the left ankle is anatomic. No acute fracture. Talar dome is intact. IMPRESSION: No fracture or dislocation within the left ankle. ACT 112: Negative or not required by law. Electronically signed by: Ed Rosario M.D. 05/22/2022 8:11 PM Foot X-Ray 05/22/22 19:21 XR foot LT min 3V routine CLINICAL HISTORY: Left foot pain. COMPARISON: Left foot radiographs April 30, 2018. FINDINGS: Tarsometatarsal joints are intact. No acute fracture is identified. There is moderate vascular calcification. Note is made of soft tissue swelling along the medial aspect of the left first metatarsophalangeal joint. This contains small calcific densities. Erosion of the medial aspect of the left first metatarsal head is noted. There is moderate joint space narrowing with osteophytosis of the left first metatarsophalangeal joint. Several radiodensities adjacent to the left fifth metatarsal head are also present. IMPRESSION: 1. No acute fracture or dislocation within the left foot. 2. Findings raising the possibility of gout of the left first metatarsophalangeal joint, as described above. Osteoarthritis could appear similar. ACT 112: Negative or not required by law. Electronically signed by: Ed Rosario M.D. 05/22/2022 8:15 PM Discharge Plan Visit Data Chief Complaint: Illness Stated Complaint: FEET SWELLING ED Provider: Lang Beach Discharge Problem: Dehydration, Acute urinary retention, Weakness, History of cerebrovascular accident Patient Disposition: Admitted As Inpatient Discharge Instructions Interventions: ED Discharge Assessment Last Done: 05/23/22 03:32
[2022-05-22] MEDS ORDERED: OPTIRAY 320 100ml IV ONE (23:37)
[2022-05-23] MEDS ORDERED: CALCIUM GLUCONATE 1,000 MG/60 ML BAG IV STA (00:46)
--- NOTE | 2022-05-23 00:52 | History & Physical Report ---
Date of Service May 23, 2022 Assessment & Plan (1) Altered mental status: Plan: Ro recurrent CVA given patient RLE weakness as per daughter account Patient however with good strength on right lower extremity exam. ambulatory dysfunction secondary to left foot swelling secondary to acute gout attack hypertension, stable hyperlipidemia statin Rx hx PVD status post surgery DM2 on oral medications, well-controlled as of recent inpatient hemoglobin A1c of 5.[address] [facility] last month. hx COPD, stable lung disease chronic anemia, hemoglobin at baseline past tobacco abuse. OBS Medical telemetry MRI/MRA brain RE RLE weakness as per daughter account May need Neurology opinion pending MRI results. NSAIDs for gout attack left foot (Hesitant to steroids for now given patient confusion.) H2 reed GI prophylaxis with concomitant NSAIDs and antiplatelet Rx Basal bolus insulin, ISS BG goal 1 10-1 40, carb count coverage PT OT eval DVT prophylaxis per Lovenox subcu DNR as per patient prior directives as per daughter/POA, Katie Clayton. She requests updates from providers through [phone]. Text document was generated using [employer] voice recognition software. It may contain grammatical or spelling errors. Kindly contact undersigned for clarification of any documentation item in question. History of Present Illness Chief Complaint: Left foot pain as per patient Dragging right leg, confusion as per daughter Primary Care Provider: Jed Venegas DO History obtained from patient, family, and records. Patient is a fair historian. Medical history significant for hypertension, hyperlipidemia, CVA, PVD status post surgery, DM2 on oral medications, COPD, chronic anemia (baseline hemoglobin of 12 ), gout, past tobacco abuse. Last [facility] confinement December 2020 for atypical chest pain and COVID-19 pneumonia. 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 MRI showed subacute infarct in the left MCA. Diagnostic cerebral angiogram showed left ICA stenosis more than 90%. Patient underwent left carotid endarterectomy during confinement. Patient subsequently discharged to [facility] rehab facility where he stayed until May 14, 2022. Patient subsequently discharged home under the care of daughter. Last 2 days, patient more confused than usual. Patient noted painful left foot swelling causing him trouble to walk. As per daughter. Patient seen by he was dragging his right leg. Right leg weaker than usual as per daughter. Patient also had urinary incontinence at home yesterday without any seizures. Patient brought to the ER for evaluation. 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 Allergies Allergy/AdvReac Type Severity Reaction Status Date / Time No Known Allergies Allergy Unknown Verified 05/22/22 20:31 Home Medications Medication Instructions Recorded Confirmed Type aspirin 81 mg tablet,delayed 81 mg PO QAM 12/06/20 05/22/22 History release cyanocobalamin (vitamin B-12) 1,000 mcg PO QAM 12/06/20 05/22/22 History 1,000 mcg tablet (Vitamin B-12) multivitamin 1 tab PO QAM 12/06/20 05/22/22 History nitroglycerin 0.4 mg sublingual 0.4 mg SUBLINGUAL DIRECTED PRN 12/06/20 05/22/22 History tablet (Nitrostat) prasterone (dhea) 25 mg tablet 0 mg PO QAM 12/06/20 05/22/22 History (DHEA) acetaminophen 500 mg tablet 1,000 mg PO Q8H PRN 05/22/22 05/22/22 History (Tylenol Extra Strength) allopurinol 300 mg tablet 300 mg PO DAILY 05/22/22 05/22/22 History amlodipine 10 mg tablet 10 mg PO DAILY 05/22/22 05/22/22 History atorvastatin 20 mg tablet 20 mg PO DAILY 05/22/22 05/22/22 History carvedilol 25 mg tablet 25 mg PO BID 05/22/22 05/22/22 History cilostazol 50 mg tablet 50 mg PO BID 05/22/22 05/22/22 History ezetimibe 10 mg tablet (Zetia) 10 mg PO HS 05/22/22 05/22/22 History lisinopril 10 mg tablet 10 mg PO DAILY 05/22/22 05/22/22 History metformin 500 mg tablet,extended 500 mg PO DAILY 05/22/22 05/22/22 History release 24 hr prasterone (dhea)-calcium 1 tab PO DAILY 05/22/22 05/22/22 History carbonate 10 mg-47 mg calcium tablet (DHEA) tamsulosin 0.4 mg capsule 0.4 mg PO DAILY 05/22/22 05/22/22 History Past Med/Surg History Medical History CVA (cerebral vascular accident) HTN (hypertension) Hyperlipidemia Rib fractures Surgical History History of shoulder surgery Social History Smoking Status: Never smoker Hx Alcohol Use: No Hx Substance Use: No Preferred Language: Colombian Communication Ability: Effective 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 Mason Required: No Beliefs That Will Affect Care: None marital status: Current Living Situation: Family Current Living Situation Comment: Lives with son Feels Safe at Home: Yes Assistive Devices: Walker Review of Systems Review of Systems: As per HPI, all other systems reviewed and negative Physical Exam Physical Exam: GENERAL: slightly uncomfortable, dysarthric (chronic), slightly hard of hearing, no respiratory distress SKIN: pallor, warm HEENT: [place] palpebral conjunctivae, no ptosis, dry buccal mucosa, partially edentulous NECK : Supple, no tenderness CHEST : CTA, no tenderness HEART : RRR, no obvious murmurs ABDOMEN: Some distention, nontender EXTREMITIES : L foot tenderness, no other conspicuous deformities noted NEUROLOGIC : Coherent, oriented to day, chronic facial asymmetry, dysarthric, MMTS BUE 4/5, BLE 4/5, gait and stance not assessed Results & Data Results & Data ([facility]) Vital Signs (Past 12 Hours) Vital Signs Temp Pulse Pulse Resp BP BP Pulse Ox 05/22/22 21:00 69 17 126/69 98 05/22/22 19:11 67 19 127/78 98 05/22/22 18:18 36.8 C 76 20 119/77 93 Laboratory Results Laboratory Results WBC 6.50 K/uL (4.8-10.8) 05/22/22 19:05 RBC 3.92 M/uL (4.7-6.1) L 05/22/22 19:05 Hgb 12.0 g/dL (14.0-18.0) L 05/22/22 19:05 Hct 36.3 % (42-52) L 05/22/22 19:05 MCV 92.6 fL (80-100) 05/22/22 19:05 MCH 30.6 pg (25-34) 05/22/22 19:05 MCHC 33.1 g/dL (32-36) 05/22/22 19:05 RDW Std Deviation 51.5 fL (36.4-46.3) H 05/22/22 19:05 RDW Coeff of Deborah 15.3 % (11.5-14.5) H 05/22/22 19:05 Plt Count 204 K/uL (130-400) 05/22/22 19:05 MPV 11.0 fL (7.4-10.4) H 05/22/22 19:05 Immature Gran % (Auto) 0.2 % 05/22/22 19:05 Neut % (Auto) 70.2 % 05/22/22 19:05 Lymph % (Auto) 9.4 % 05/22/22 19:05 [place] % (Auto) 15.1 % 05/22/22 19:05 Eos % (Auto) 4.6 % 05/22/22 19:05 Baso % (Auto) 0.5 % 05/22/22 19:05 Neut # (Auto) 4.57 K/uL (1.4-6.5) 05/22/22 19:05 Lymph # (Auto) 0.61 K/uL (1.2-3.4) L 05/22/22 19:05 [place] # (Auto) 0.98 K/uL (0.11-0.59) H 05/22/22 19:05 Eos # (Auto) 0.30 K/uL (0-0.5) 05/22/22 19:05 Baso # (Auto) 0.03 K/uL (0-0.2) 05/22/22 19:05 Immature Gran # (Auto) 0.01 K/uL (0.00-0.02) 05/22/22 19:05 PT 12.8 Seconds (9.0-12.0) H 05/22/22 19:05 INR 1.2 (0.9-1.1) H 05/22/22 19:05 APTT 28.6 Seconds (21.0-31.0) 05/22/22 19:05 PTT Ratio 1.0 05/22/22 19:05 Sodium 138 mmol/L (136-145) 05/22/22 19:05 Potassium 3.9 mmol/L (3.5-5.1) 05/22/22 19:05 Chloride 103 mmol/L (98-107) 05/22/22 19:05 Carbon Dioxide 28 mmol/L (21-32) 05/22/22 19:05 Anion Gap 7 (3-11) 05/22/22 19:05 BUN 23 mg/dl (6-23) 05/22/22 19:05 Creatinine 1.29 mg/dl (0.6-1.4) 05/22/22 19:05 Est Cr Clr Drug Dosing 41.5 ml/min 05/22/22 19:05 Est GFR ( Amer) 62.9 ml/min 05/22/22 19:05 Est GFR (Non-Af Amer) 54.3 ml/min 05/22/22 19:05 BUN/Creatinine Ratio 17.8 (10-20) 05/22/22 19:05 Glucose 116 mg/dl (70-99(Fasting)) H 05/22/22 19:05 Uric Acid 5.2 mg/dl (2.6-7.2) 05/22/22 19:05 Calcium 8.4 mg/dl (8.5-10.1) L 05/22/22 19:05 Phosphorus 3.9 mg/dl (2.5-4.9) 05/22/22 19:05 Magnesium 1.7 mg/dl (1.7-2.4) 05/22/22 19:05 Total Bilirubin 0.8 mg/dl (0.2-1.0) 05/22/22 19:05 AST 10 U/L (13-39) L 05/22/22 19:05 ALT 9 U/L (7-52) 05/22/22 19:05 Alkaline Phosphatase 129 U/L (34-104) H 05/22/22 19:05 Total Creatine Kinase 27 U/L (30-223) L 05/22/22 19:05 Total Protein 6.4 gm/dl (6.0-8.3) 05/22/22 19:05 Albumin 3.6 gm/dl (3.4-5.0) 05/22/22 19:05 Globulin 2.8 gm/dl (2.5-4.0) 05/22/22 19:05 Albumin/Globulin Ratio 1.3 (0.9-2) 05/22/22 19:05 TSH 11.744 uIu/ml (0.300-4.500) H 05/22/22 19:05 Free T4 0.89 ng/dl (0.61-1.60) 05/22/22 19:05 SARS-CoV-2, RNA, NAAT NEGATIVE (NEGATIVE) 05/22/22 19:40 Impressions Ankle X-Ray 05/22/22 19:21 XR ankle LT min 3V routine CLINICAL HISTORY: Left ankle and foot pain. COMPARISON: Left ankle radiographs June 29, 2017. FINDINGS: Alignment of the left ankle is anatomic. No acute fracture. Talar dome is intact. IMPRESSION: No fracture or dislocation within the left ankle. ACT 112: Negative or not required by law. Electronically signed by: Ed Rosario M.D. 05/22/2022 8:11 PM Foot X-Ray 05/22/22 19:21 XR foot LT min 3V routine CLINICAL HISTORY: Left foot pain. COMPARISON: Left foot radiographs April 30, 2018. FINDINGS: Tarsometatarsal joints are intact. No acute fracture is identified. There is moderate vascular calcification. Note is made of soft tissue swelling along the medial aspect of the left first metatarsophalangeal joint. This contains small calcific densities. Erosion of the medial aspect of the left first metatarsal head is noted. There is moderate joint space narrowing with osteophytosis of the left first metatarsophalangeal joint. Several radiodensities adjacent to the left fifth metatarsal head are also present. IMPRESSION: 1. No acute fracture or dislocation within the left foot. 2. Findings raising the possibility of gout of the left first metatarsophalangeal joint, as described above. Osteoarthritis could appear similar. ACT 112: Negative or not required by law. Electronically signed by: Ed Rosario M.D. 05/22/2022 8:[address] head initial read: No intracranial hemorrhage, mass-effect, edema, or hydrocephalus. Chronic microvascular ischemic changes. Chronic infarct in the left parietal lobe CT abdomen pelvis initial read: Foleycatheter within the bladder which is decompressed but appears mildlythickwall. Correlate with UAfor cystitis. Prostate mildlyprominent measuring 4.6 cm. Unremarkable appearance of the kidneys and ureters. Cholelithiasiswithout evidence of acute cholecystitis. Liver, pancreas, and spleen are unremarkable. No acute abnormalityalong the GI tract. No fluid collection or free air. Chest x-ray as per my interpretation no congestion EKG as per my interpretation : Rate 65, NSR, normal axis, T wave abnormalities lateral leads
[2022-05-23 01:51] LABS: Appearance Urine Clear (Clear); Bilirubin Urine Negative (Negative); Blood Urine Negative (Negative); Color Urine Yellow; Glucose Urine UA Negative (Negative); Ketones Urine Negative (Negative); Leukocyte Esterase Urine Negative (Negative); Nitrite Urine Negative (Negative); Protein Urine Negative (Negative); Specific Gravity Urine 1.042 (1.000-1.030); Urobilinogen Urine Negative (Negative)
[2022-05-23] MEDS ORDERED: PHARMACIST DISCHARGE MED REC CONSULT PRN (01:53)
[2022-05-23] MEDS ORDERED: LACTATED RINGER'S 1,000 ML IV ONE (01:53)
[2022-05-23] MEDS ORDERED: GLUCAGON FOR INJ 1 MG VIAL SQ PRN (04:01)
[2022-05-23] MEDS ORDERED: CARBOHYDRATES FOR HYPOGLYCEMIA PO PRN (04:01)
[2022-05-23] MEDS ORDERED: GLUCOSE 40% GEL 15 GM TUBE PO PRN (04:01)
[2022-05-23] MEDS ORDERED: GLUCOSE 10 TABS/TUBE PO PRN (04:01)
[2022-05-23] MEDS ORDERED: DEXTROSE 50% 50 ML SYRINGE IV PRN (04:01)
[2022-05-23] MEDS ORDERED: PROMETHAZINE HCL 12.5 MG in SODIUM CHLORIDE 0.9% 50 ML IV PRN (04:01)
[2022-05-23] MEDS: NAPROXEN 250 MG TAB PO SCH ×3 (04:38→20:13)
[2022-05-23] MEDS: INSULIN ASPART PER UNIT SC SCH ×5 (04:39→20:23)
--- NOTE | 2022-05-23 06:48 | CT Scan Report ---
CT head/brain wo con CLINICAL HISTORY: 76 years-old Male with confusion, recent CVA. Acutely altered mental status with s trokelike symptoms TECHNIQUE: Multiple axial CT images of the head were obtained without contrast. A dose lowering tech nique was utilized adhering to the principles of ALARA. CT DOSE: 1690.86 mGy.cm COMPARISON: Brain MRI 05/23/2022, head CT 12/06/2020 FINDINGS: No acute intracranial hemorrhage, midline shift, intracranial mass, hydrocephalus, or abnormal extra- axial collection. White matter hypodensities are suggestive of chronic microvascular ischemic disease . Mild involutional changes. Ill-defined white matter hypodensities within the centrum semiovale of t he left frontal and parietal lobes are new/progressed from the prior study. Chronic left thalamic lac unar infarct. The calvarium is intact. The paranasal sinuses, mastoid air cells, and middle ear cavities are clear . IMPRESSION: 1. No acute intracranial hemorrhage or midline shift. 2. Ill-defined hypodensities within the centrum semiovale of the left frontal and parietal lobes are suspicious for subacute infarcts. Please refer to the MRI brain study dated 05/23/2022. 3. Involutional changes with chronic microvascular ischemic disease. ACT 112: Negative or not required by law. The above report was generated using voice recognition software. It may contain grammatical, syntax o r spelling errors. Electronically signed by: Vincent Ji M.D. 05/23/2022 6:47 AM
--- NOTE | 2022-05-23 07:19 | XRay Report ---
XR chest 1V portable HISTORY: 76 years-old Male weakness acute weakness COMPARISON: CTA chest 12/06/2020 TECHNIQUE: Portable AP view of the chest FINDINGS: The cardiomediastinal and hilar silhouettes are within normal limits. Atherosclerosis of the thoracic aorta. There is no pneumothorax, pleural effusion, airspace consolidation or overt pulmonary edema. Degenerative changes of the shoulders and spine. IMPRESSION: No acute process. ACT 112: Negative or not required by law. The above report was generated using voice recognition software. It may contain grammatical, syntax o r spelling errors. Electronically signed by: Vinecnt Ji M.D. 05/23/2022 7:18 AM
--- NOTE | 2022-05-23 07:40 | Magnetic Resonance Report ---
MR brain wo con CLINICAL HISTORY: RLE weakness as per family TECHNIQUE: Multiplanar and multisequence MR images of the brain were obtained without intravenous con trast. Comparison: None available at the time of this dictation. FINDINGS: No abnormal restricted diffusion is identified. Foci of T2 and FLAIR hyperintensity are noted in the paraventricular areas consistent with chronic small vessel ischemic disease, most prominent in the pe riventricular white matter. Ex vacuo ventriculomegaly and sulcal enlargement is noted compatible with diffuse encephalomalacia. No mass or abnormal enhancement is seen. There is no mass effect or midlin e shift. There is no evidence of acute intraparenchymal hemorrhage. No extra axial fluid collections are seen. The corpus callosum, pituitary gland, and cerebellar tonsils appear grossly unremarkable. Flow voids of the major intracranial arterial vessels are identified. The imaged portions of the para nasal sinuses, mastoid air cells, and orbits are unremarkable. IMPRESSION: Chronic volume loss and age related white matter changes without evidence of acute abnormality. ACT 112: Negative or not required by law. Electronically signed by: Patricio Ni M.D. 05/23/2022 7:39 AM
[2022-05-23] MEDS: cilostazoL 100 MG TAB PO SCH ×2 (07:43→20:14)
[2022-05-23] MEDS: amLODIPine BESYLATE 5 MG TAB PO SCH (07:44)
[2022-05-23] MEDS: ASPIRIN 81 MG ECTAB PO SCH (07:44)
[2022-05-23] MEDS: TAMSULOSIN HCL 0.4 MG CAP PO SCH (07:44)
[2022-05-23] MEDS: ENOXAPARIN INJ 40 MG/0.4 ML SYR SQ SCH (07:44)
[2022-05-23] MEDS: ATORVASTATIN 20 MG TAB PO SCH (07:44)
[2022-05-23] MEDS: MULTIVITAMIN TAB PO SCH (07:44)
[2022-05-23] MEDS: FAMOTIDINE 10 MG TABLET PO SCH ×2 (07:44→20:13)
[2022-05-23] MEDS: carvediloL 25 MG TAB PO SCH ×2 (07:44→20:13)
[2022-05-23] MEDS: lisinopril 10 MG TAB PO SCH (07:44)
[2022-05-23] MEDS: allopurinoL 300 MG TAB PO SCH (07:45)
--- NOTE | 2022-05-23 08:34 | CT Scan Report ---
CT abd pelvis IV con only CLINICAL HISTORY: abd pain, increased urine output TECHNIQUE: Helical axial images of the abdomen and pelvis were obtained and displayed. Automated dose lowering techniques and/or adjustment according to patient size were utilized for this exam. This e xam was performed with intravenous contrast. COMPARISON: Comparison is made to CT abdomen pelvis 12/06/2020 FINDINGS: Lower chest: Bibasilar atelectasis versus scarring is seen. Liver: Unremarkable. No focal lesions are seen. Gallbladder and biliary tree: Cholelithiasis is seen without evidence of cholecystitis. No intra- or extrahepatic biliary ductal dilation. Pancreas: Unremarkable, no focal lesions. Spleen: Unremarkable. Adrenals: Unremarkable. Kidneys and ureters: Unremarkable. Bladder: Haddad catheter is seen. Reproductive organs: Prostatomegaly is seen. Bowel: A hiatal hernia is seen. Lymph nodes Retroperitoneal: Unremarkable. Mesenteric: Unremarkable. Pelvic: Unremarkable. Peritoneum: Normal. Vessels: Calcified and noncalcified atherosclerotic plaque is seen. There is severe stenosis of the l eft common iliac artery. Abdominal wall: Unremarkable. Bones: Degenerative changes in the visualized spine. IMPRESSION: 1. Bladder is under distended, there is mild prominence bladder wall, this may be due to chronic out let obstruction or cystitis or an artifact of under distention. 2. Extensive calcified and noncalcified atherosclerotic disease is seen. There is likely hemodynamic ally significant stenosis of the left common iliac artery. ACT 112: Negative or not required by law. Electronically signed by: Patricio Ni M.D. 05/23/2022 8:33 AM
[2022-05-23 09:27] LABS: Basophils # (auto) 0.03 K/uL (0-0.2); Basophils % (auto) 0.5 %; Eosinophils # (auto) 0.54 K/uL (0-0.5); Eosinophils % (auto) 9.3 %; Hematocrit (blood only) 33.9 % (42-52); Hemoglobin 11.3 g/dL (14.0-18.0); Lymphocytes # (auto) 0.68 K/uL (1.2-3.4); Lymphocytes % (auto) 11.7 %; Mean Corpuscular Hemoglobin 30.5 pg (25-34); Mean Corpuscular Hgb Conc 33.3 g/dL (32-36); Mean Corpuscular Volume 91.6 fL (80-100); Mean Platelet Volume 11.6 fL (7.4-10.4); Monocytes # (auto) 0.65 K/uL (0.11-0.59); Monocytes % (auto) 11.2 %; Neutrophils # (auto) 3.91 K/uL (1.4-6.5); Neutrophils % (auto) 67.3 %; Platelet Count 188 K/uL (130-400); RDW Coefficient of Variation 15.2 % (11.5-14.5); RDW Standard Deviation 51.1 fL (36.4-46.3); White Blood Count 5.81 K/uL (4.8-10.8)
[2022-05-23 10:20] LABS: BUN Creatinine Ratio 21.6 (10-20); Calcium 8.5 mg/dl (8.5-10.1); Creatinine Clr Calc Pharmacy 62.5 ml/min; Est GFR (African American) 88.8 ml/min; Est GFR (Non-African American) 76.6 ml/min; Potassium 3.9 mmol/L (3.5-5.1)
--- NOTE | 2022-05-23 11:40 | Electrocardiogram Report ---
Test Reason : Blood Pressure : / mmHG Vent. Rate : 067 BPM Atrial Rate : 067 BPM P-R Int : 126 ms QRS Dur : 098 ms QT Int : 408 ms P-R-T Axes : 046 048 088 degrees QTc Int : 431 ms Normal sinus rhythm Normal ECG When compared with ECG of 06-DEC-2020 11:27, QT has shortened Confirmed by Almas Keane ([id number]) on 05/23/2022 11:39:52 AM Referred By: REFERRED SELF Confirmed By:Almas Keane
--- NOTE | 2022-05-23 12:48 | Magnetic Resonance Report ---
MR angio head wo con CLINICAL HISTORY: RLE weakness as per family TECHNIQUE: 3D time of flight MRA of the head was performed without intravenous contrast. 3-D reconstr uctions were obtained in multiple planes. Comparison: None available at the time of this dictation. FINDINGS: Exam is limited by patient motion. Flow signal is shown in the intracranial segments of the internal carotid arteries, the anterior, middle and posterior cerebral arteries, the anterior and posterior co mmunicating arteries, cerebellar arteries, the intracranial segments of the vertebral arteries, and t he basilar artery. There is mild narrowing in the proximal left posterior cerebral artery. The right distal vertebral artery is diminutive which is likely congenital. There is mild narrowing of the MCA and its branches bilaterally without hemodynamically significant stenosis. Assessment of stenosis of the internal carotid arteries is based on NASCET criteria. IMPRESSION: No acute intracranial hemorrhage is seen. Mild narrowing is seen in the left posterior cerebral arter y and bilateral middle cerebral arteries without focal stenosis or aneurysm. ACT 112: Negative or not required by law. Electronically signed by: Patricio Ni M.D. 05/23/2022 12:47 PM
--- NOTE | 2022-05-23 20:02 | Hospitalist Progress Note ---
Date of Service May 23, 2022 Assessment & Plan (1) Altered mental status: Plan: Ro recurrent CVA given patient RLE weakness as per daughter account Patient however with good strength on right lower extremity exam. MRI/MRA brain RE RLE weakness as per daughter account MRI/MRA brain without acute changes Ambulatory dysfunction secondary to left foot swelling secondary to acute gout attack NSAIDs for gout attack left foot (Hesitant to steroids for now given patient confusion.) H2 reed GI prophylaxis with concomitant NSAIDs and antiplatelet Rx PT OT eval -recommend inpatient rehab or home health with PT, CM aware 05/23 -patient's mental status seems to be improved, will discuss with family to see what patient's baseline is Chronic conditions: Hypertension, stable Hyperlipidemia statin Rx Hx PVD status post surgery CT abd. pelvis obtained - Extensive calcified and noncalcified atherosclerotic disease is seen. 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 Similar findings in December 2020. Vascular surgery follow-up as outpatient recommended per hospitalist. We will discuss if patient has a vascular surgeon in [place] to follow-up with. History of left carotid endarterectomy in [place]. Urinary incontinence Haddad catheter placed on admission UA negative CT abd. pelvis - Bladder is under distended, there is mild prominence bladder wall, this may be due to chronic outlet obstruction or cystitis or an artifact of under distention. Recommend outpt urology follow up. DM2 on oral medications, well-controlled as of recent inpatient hemoglobin A1c of 5.8 at [facility] last month. Basal bolus insulin, ISS BG goal 1 10-1 40, carb count coverage Hx COPD, stable lung disease Chronic anemia, hemoglobin at baseline past tobacco abuse. DVT prophylaxis per Lovenox subcu Code status: DNR as per patient prior directives as per daughter/POA, Ms. Katie Arnold - [phone]. Admission and Anticipated Discharge Date Admission Date: May 23, 2022 Subjective Patient seen in follow-up of AMS, left lower extremity weakness No lower extremity weakness noted on admission however Brain MRI and MRA obtained, without acute process Patient is currently laying in bed, in no acute distress, he is able to answer simple questions appropriately. He can tell me that he is in the hospital at [facility], and also able to provide history/his hospitalization in [place]. Denies fever, chills, chest pain, shortness of breath, abdominal pain, nausea or vomiting. He is able to move extremities, only complains of left foot/left ankle pain. Review of Systems Review of Systems: All systems reviewed & are unremarkable except as noted in Subjective Physical Exam 2 Physical Exam: GENERAL: Elderly male, in no acute distress, dysarthric (chronic), slightly hard of hearing HEENT: [place] palpebral conjunctivae, no ptosis NECK : Supple, no tenderness CHEST : CTA, no tenderness HEART : RRR, no obvious murmurs ABDOMEN: soft, some distention, nontender EXTREMITIES : L foot tenderness, moves extremities spontaneously SKIN: pallor, warm NEUROLOGIC : Awake alert oriented, able to answer simple questions appropriately, chronic facial asymmetry, dysarthric, MMTS BUE 4/5, BLE 4/5, gait and stance not assessed Results & Data Results & Data ([facility]) Vital Signs (Past 12 Hours) Vital Signs Temp Pulse Resp BP Pulse Ox 05/23/22 16:03 36.5 C 54 L 16 105/61 96 05/23/22 11:32 36.4 C L 57 L 20 120/56 L 98 Laboratory Results 05/23/22 05/23/22 05/23/22 Range/Units 16:56 11:45 08:33 WBC (4.8-10.8) K/uL RBC (4.7-6.1) M/uL Hgb (14.0-18.0) g/dL Hct (42-52) % MCV (80-100) fL MCH (25-34) pg MCHC (32-36) g/dL RDW Std Deviation (36.4-46.3) fL RDW Coeff of Deborah (11.5-14.5) % Plt Count (130-400) K/uL MPV (7.4-10.4) fL Immature Gran % (Auto) % Neut % (Auto) % Lymph % (Auto) % [place] % (Auto) % Eos % (Auto) % Baso % (Auto) % Neut # (Auto) (1.4-6.5) K/uL Lymph # (Auto) (1.2-3.4) K/uL [place] # (Auto) (0.11-0.59) K/uL Eos # (Auto) (0-0.5) K/uL Baso # (Auto) (0-0.2) K/uL Immature Gran # (Auto) (0.00-0.02) K/uL Sodium 139 (136-145) mmol/L Potassium 3.9 (3.5-5.1) mmol/L Chloride 107 (98-107) mmol/L Carbon Dioxide 25 (21-32) mmol/L Anion Gap 7 (3-11) BUN 21 (6-23) mg/dl Creatinine 0.97 D (0.6-1.4) mg/dl Est Cr Clr Drug Dosing 62.5 ml/min Est GFR ( Amer) 88.8 ml/min Est GFR (Non-Af Amer) 76.6 ml/min BUN/Creatinine Ratio 21.6 H (10-20) Glucose 97 (70-99(Fasting)) mg/dl POC Glucose 111 H 103 H (70-99) mg/dl Uric Acid (2.6-7.2) mg/dl Calcium 8.5 (8.5-10.1) mg/dl Phosphorus (2.5-4.9) mg/dl Magnesium (1.7-2.4) mg/dl Total Bilirubin (0.2-1.0) mg/dl AST (13-39) U/L ALT (7-52) U/L Alkaline Phosphatase (34-104) U/L Total Creatine Kinase (30-223) U/L Total Protein (6.0-8.3) gm/dl Albumin (3.4-5.0) gm/dl Globulin (2.5-4.0) gm/dl Albumin/Globulin Ratio (0.9-2) TSH (0.300-4.500) uIu/ml Free T4 (0.61-1.60) ng/dl Urine Color Urine Appearance (Clear) Urine pH (4.5-7.5) Ur Specific [place] (1.000-1.030) Urine Protein (Negative) Urine Glucose (UA) (Negative) Urine Ketones (Negative) Urine Blood (Negative) Urine Nitrite (Negative) Urine Bilirubin (Negative) Urine Urobilinogen (Negative) Ur Leukocyte Esterase (Negative) SARS-CoV-2, RNA, NAAT (NEGATIVE) 05/23/22 05/23/22 05/23/22 Range/Units 08:33 07:35 04:14 WBC 5.81 (4.8-10.8) K/uL RBC 3.70 L (4.7-6.1) M/uL Hgb 11.3 L (14.0-18.0) g/dL Hct 33.9 L (42-52) % MCV 91.6 (80-100) fL MCH 30.5 (25-34) pg MCHC 33.3 (32-36) g/dL RDW Std Deviation 51.1 H (36.4-46.3) fL RDW Coeff of Deborah 15.2 H (11.5-14.5) % Plt Count 188 (130-400) K/uL MPV 11.6 H (7.4-10.4) fL Immature Gran % (Auto) 0.0 % Neut % (Auto) 67.3 % Lymph % (Auto) 11.7 % [place] % (Auto) 11.2 % Eos % (Auto) 9.3 % Baso % (Auto) 0.5 % Neut # (Auto) 3.91 (1.4-6.5) K/uL Lymph # (Auto) 0.68 L (1.2-3.4) K/uL [place] # (Auto) 0.65 H (0.11-0.59) K/uL Eos # (Auto) 0.54 H (0-0.5) K/uL Baso # (Auto) 0.03 (0-0.2) K/uL Immature Gran # (Auto) 0.00 (0.00-0.02) K/uL Sodium (136-145) mmol/L Potassium (3.5-5.1) mmol/L Chloride (98-107) mmol/L Carbon Dioxide (21-32) mmol/L Anion Gap (3-11) BUN (6-23) mg/dl Creatinine (0.6-1.4) mg/dl Est Cr Clr Drug Dosing ml/min Est GFR ( Amer) ml/min Est GFR (Non-Af Amer) ml/min BUN/Creatinine Ratio (10-20) Glucose (70-99(Fasting)) mg/dl POC Glucose 104 H 121 H (70-99) mg/dl Uric Acid (2.6-7.2) mg/dl Calcium (8.5-10.1) mg/dl Phosphorus (2.5-4.9) mg/dl Magnesium (1.7-2.4) mg/dl Total Bilirubin (0.2-1.0) mg/dl AST (13-39) U/L ALT (7-52) U/L Alkaline Phosphatase (34-104) U/L Total Creatine Kinase (30-223) U/L Total Protein (6.0-8.3) gm/dl Albumin (3.4-5.0) gm/dl Globulin (2.5-4.0) gm/dl Albumin/Globulin Ratio (0.9-2) TSH (0.300-4.500) uIu/ml Free T4 (0.61-1.60) ng/dl Urine Color Urine Appearance (Clear) Urine pH (4.5-7.5) Ur Specific [place] (1.000-1.030) Urine Protein (Negative) Urine Glucose (UA) (Negative) Urine Ketones (Negative) Urine Blood (Negative) Urine Nitrite (Negative) Urine Bilirubin (Negative) Urine Urobilinogen (Negative) Ur Leukocyte Esterase (Negative) SARS-CoV-2, RNA, NAAT (NEGATIVE) 05/23/22 05/22/22 05/22/22 Range/Units 01:43 19:40 19:05 WBC (4.8-10.8) K/uL RBC (4.7-6.1) M/uL Hgb (14.0-18.0) g/dL Hct (42-52) % MCV (80-100) fL MCH (25-34) pg MCHC (32-36) g/dL RDW Std Deviation (36.4-46.3) fL RDW Coeff of Deborah (11.5-14.5) % Plt Count (130-400) K/uL MPV (7.4-10.4) fL Immature Gran % (Auto) % Neut % (Auto) % Lymph % (Auto) % [place] % (Auto) % Eos % (Auto) % Baso % (Auto) % Neut # (Auto) (1.4-6.5) K/uL Lymph # (Auto) (1.2-3.4) K/uL [place] # (Auto) (0.11-0.59) K/uL Eos # (Auto) (0-0.5) K/uL Baso # (Auto) (0-0.2) K/uL Immature Gran # (Auto) (0.00-0.02) K/uL Sodium (136-145) mmol/L Potassium (3.5-5.1) mmol/L Chloride (98-107) mmol/L Carbon Dioxide (21-32) mmol/L Anion Gap (3-11) BUN (6-23) mg/dl Creatinine (0.6-1.4) mg/dl Est Cr Clr Drug Dosing ml/min Est GFR ( Amer) ml/min Est GFR (Non-Af Amer) ml/min BUN/Creatinine Ratio (10-20) Glucose (70-99(Fasting)) mg/dl POC Glucose (70-99) mg/dl Uric Acid (2.6-7.2) mg/dl Calcium (8.5-10.1) mg/dl Phosphorus (2.5-4.9) mg/dl Magnesium (1.7-2.4) mg/dl Total Bilirubin (0.2-1.0) mg/dl AST (13-39) U/L ALT (7-52) U/L Alkaline Phosphatase (34-104) U/L Total Creatine Kinase (30-223) U/L Total Protein (6.0-8.3) gm/dl Albumin (3.4-5.0) gm/dl Globulin (2.5-4.0) gm/dl Albumin/Globulin Ratio (0.9-2) TSH 11.744 H (0.300-4.500) uIu/ml Free T4 0.89 (0.61-1.60) ng/dl Urine Color Yellow Urine Appearance Clear (Clear) Urine pH 5.0 (4.5-7.5) Ur Specific [place] 1.042 H (1.000-1.030) Urine Protein Negative (Negative) Urine Glucose (UA) Negative (Negative) Urine Ketones Negative (Negative) Urine Blood Negative (Negative) Urine Nitrite Negative (Negative) Urine Bilirubin Negative (Negative) Urine Urobilinogen Negative (Negative) Ur Leukocyte Esterase Negative (Negative) SARS-CoV-2, RNA, NAAT NEGATIVE (NEGATIVE) 05/22/22 05/22/22 Range/Units 19:05 19:05 WBC (4.8-10.8) K/uL RBC (4.7-6.1) M/uL Hgb (14.0-18.0) g/dL Hct (42-52) % MCV (80-100) fL MCH (25-34) pg MCHC (32-36) g/dL RDW Std Deviation (36.4-46.3) fL RDW Coeff of Deborah (11.5-14.5) % Plt Count (130-400) K/uL MPV (7.4-10.4) fL Immature Gran % (Auto) % Neut % (Auto) % Lymph % (Auto) % [place] % (Auto) % Eos % (Auto) % Baso % (Auto) % Neut # (Auto) (1.4-6.5) K/uL Lymph # (Auto) (1.2-3.4) K/uL [place] # (Auto) (0.11-0.59) K/uL Eos # (Auto) (0-0.5) K/uL Baso # (Auto) (0-0.2) K/uL Immature Gran # (Auto) (0.00-0.02) K/uL Sodium 138 (136-145) mmol/L Potassium 3.9 (3.5-5.1) mmol/L Chloride 103 (98-107) mmol/L Carbon Dioxide 28 (21-32) mmol/L Anion Gap 7 (3-11) BUN 23 (6-23) mg/dl Creatinine 1.29 (0.6-1.4) mg/dl Est Cr Clr Drug Dosing 41.5 ml/min Est GFR ( Amer) 62.9 ml/min Est GFR (Non-Af Amer) 54.3 ml/min BUN/Creatinine Ratio 17.8 (10-20) Glucose 116 H (70-99(Fasting)) mg/dl POC Glucose (70-99) mg/dl Uric Acid 5.2 (2.6-7.2) mg/dl Calcium 8.4 L (8.5-10.1) mg/dl Phosphorus 3.9 (2.5-4.9) mg/dl Magnesium 1.7 (1.7-2.4) mg/dl Total Bilirubin 0.8 (0.2-1.0) mg/dl AST 10 L (13-39) U/L ALT 9 (7-52) U/L Alkaline Phosphatase 129 H (34-104) U/L Total Creatine Kinase 27 L (30-223) U/L Total Protein 6.4 (6.0-8.3) gm/dl Albumin 3.6 (3.4-5.0) gm/dl Globulin 2.8 (2.5-4.0) gm/dl Albumin/Globulin Ratio 1.3 (0.9-2) TSH (0.300-4.500) uIu/ml Free T4 (0.61-1.60) ng/dl Urine Color Urine Appearance (Clear) Urine pH (4.5-7.5) Ur Specific [place] (1.000-1.030) Urine Protein (Negative) Urine Glucose (UA) (Negative) Urine Ketones (Negative) Urine Blood (Negative) Urine Nitrite (Negative) Urine Bilirubin (Negative) Urine Urobilinogen (Negative) Ur Leukocyte Esterase (Negative) SARS-CoV-2, RNA, NAAT (NEGATIVE) Medications Administered Current Inpatient Medications Acetaminophen (Acetaminophen 325 Mg Tab) 650 mg PO Q4H PRN PRN Reason: Pain or Fever Stop: 06/22/22 04:00 Allopurinol (Allopurinol 300 Mg Tab) 300 mg PO DAILY [facility] Stop: 06/22/22 08:59 Last Admin: 05/23/22 07:45 Dose: 300 mg Documented by: Amlodipine Besylate (Amlodipine Besylate 5 Mg Tab) 10 mg PO DAILY [facility] Stop: 06/22/22 08:59 Last Admin: 05/23/22 07:44 Dose: 10 mg Documented by: Aspirin (Aspirin 81 Mg Ectab) 81 mg PO QAM BO Stop: 06/22/22 08:59 Last Admin: 05/23/22 07:44 Dose: 81 mg Documented by: Atorvastatin Calcium (Atorvastatin 20 Mg Tab) 20 mg PO DAILY [facility] Stop: 06/22/22 08:59 Last Admin: 05/23/22 07:44 Dose: 20 mg Documented by: Carvedilol (Carvedilol 25 Mg Tab) 25 mg PO BID BO Stop: 06/22/22 08:59 Last Admin: 05/23/22 07:44 Dose: 25 mg Documented by: Cilostazol (Cilostazol 100 Mg Tab) 50 mg PO BID [facility] Stop: 06/22/22 08:59 Last Admin: 05/23/22 07:43 Dose: 50 mg Documented by: Dextrose (Dextrose 50% 50 Ml Syringe) 25 - 50 ml IV UD PRN; Protocol PRN Reason: Hypoglycemia Protocol Stop: 06/22/22 04:00 Ezetimibe (Ezetimibe 10 Mg Tablet) 10 mg PO HS [facility] Stop: 06/22/22 20:59 Enoxaparin Sodium (Enoxaparin Inj 40 Mg/0.4 Ml Syr) 40 mg SQ QAM BO Stop: 06/22/22 08:59 Last Admin: 05/23/22 07:44 Dose: 40 mg Documented by: Famotidine (Famotidine 10 Mg Tablet) 10 mg PO BID BO Stop: 06/22/22 08:59 Last Admin: 05/23/22 07:44 Dose: 10 mg Documented by: Glucagon (Glucagon For Inj 1 Mg Vial) 1 mg SQ UD PRN; Protocol PRN Reason: Hypoglycemia Protocol Stop: 06/22/22 04:00 Glucose (Glucose 10 Tabs/Tube) 4 - 8 tabs PO UD PRN; Protocol PRN Reason: Hypoglycemia Protocol Stop: 06/22/22 04:00 Glucose (Glucose 40% Gel 15 Gm Tube) 15 - 30 gm PO UD PRN; Protocol PRN Reason: Hypoglycemia Protocol Stop: 06/22/22 04:00 Lactated Ringer's (Lr) 1,000 mls @ 50 mls/hr IV .Q20H ONE Stop: 05/23/22 21:52 Last Admin: 05/23/22 04:10 Dose: 50 mls/hr Documented by: Promethazine HCl 12.5 mg/ (Sodium Chloride) 50.5 mls @ 202 mls/hr IV Q6H PRN PRN Reason: Nausea And Vomiting Stop: 06/22/22 04:00 Insulin Aspart (Insulin Aspart Per Unit) 0 units SC ACHS BO Stop: 06/22/22 04:00 Last Admin: 05/23/22 17:14 Dose: Not Given Documented by: Lisinopril (Lisinopril 10 Mg Tab) 10 mg PO DAILY [facility] Stop: 06/22/22 08:59 Last Admin: 05/23/22 07:44 Dose: 10 mg Documented by: Miscellaneous (Carbohydrates For Hypoglycemia ) 15 - 30 gm PO UD PRN PRN Reason: Hypoglycemia Protocol Stop: 06/22/22 04:00 Miscellaneous Information (Pharmacist Discharge Med Rec Consult) 1 ea N/A UD PRN PRN Reason: Consult Stop: 06/22/22 01:52 Multivitamins (Multivitamin Tab) 1 tab PO QAM [facility] Stop: 06/22/22 08:59 Last Admin: 05/23/22 07:44 Dose: 1 tab Documented by: Naproxen (Naproxen 250 Mg Tab) 250 mg PO BID [facility] Stop: 06/22/22 04:00 Last Admin: 05/23/22 07:44 Dose: 250 mg Documented by: Tamsulosin HCl (Tamsulosin Hcl 0.4 Mg Cap) 0.4 mg PO DAILY [facility] Stop: 06/22/22 08:59 Last Admin: 05/23/22 07:44 Dose: 0.4 mg Documented by:
[2022-05-23] MEDS: EZETIMIBE 10 MG TABLET PO SCH (20:14)
[2022-05-23] MEDS: ACETAMINOPHEN 325 MG TAB PO PRN (20:23)
[2022-05-24 06:33] LABS: Hematocrit (blood only) 32.5 % (42-52); Hemoglobin 10.6 g/dL (14.0-18.0); Mean Corpuscular Hemoglobin 29.5 pg (25-34); Mean Corpuscular Hgb Conc 32.6 g/dL (32-36); Mean Corpuscular Volume 90.5 fL (80-100); Mean Platelet Volume 11.1 fL (7.4-10.4); Platelet Count 194 K/uL (130-400); RDW Standard Deviation 49.5 fL (36.4-46.3); Red Blood Count 3.59 M/uL (4.7-6.1); White Blood Count 5.51 K/uL (4.8-10.8)
[2022-05-24 06:59] LABS: BUN Creatinine Ratio 23.5 (10-20); Calcium 8.2 mg/dl (8.5-10.1); Creatinine Clr Calc Pharmacy 55.2 ml/min; Est GFR (African American) 69.3 ml/min; Est GFR (Non-African American) 59.8 ml/min; Magnesium 1.7 mg/dl (1.7-2.4); Phosphorus 4.1 mg/dl (2.5-4.9); Potassium 3.8 mmol/L (3.5-5.1)
[2022-05-24] MEDS: INSULIN ASPART PER UNIT SC SCH ×4 (08:03→22:00)
[2022-05-24] MEDS: lisinopril 10 MG TAB PO SCH (08:05)
[2022-05-24] MEDS: MULTIVITAMIN TAB PO SCH (08:06)
[2022-05-24] MEDS: cilostazoL 100 MG TAB PO SCH ×2 (08:06→21:54)
[2022-05-24] MEDS: ATORVASTATIN 20 MG TAB PO SCH (08:07)
[2022-05-24] MEDS: ASPIRIN 81 MG ECTAB PO SCH (08:07)
[2022-05-24] MEDS: allopurinoL 300 MG TAB PO SCH (08:07)
[2022-05-24] MEDS: TAMSULOSIN HCL 0.4 MG CAP PO SCH (08:07)
[2022-05-24] MEDS: NAPROXEN 250 MG TAB PO SCH ×2 (08:08→21:54)
[2022-05-24] MEDS: amLODIPine BESYLATE 5 MG TAB PO SCH (08:08)
[2022-05-24] MEDS: FAMOTIDINE 10 MG TABLET PO SCH ×2 (08:08→21:54)
[2022-05-24] MEDS: carvediloL 25 MG TAB PO SCH ×2 (08:08→21:56)
[2022-05-24] MEDS: ENOXAPARIN INJ 40 MG/0.4 ML SYR SQ SCH (08:09)
[2022-05-24] MEDS: MAGNESIUM OXIDE 400 MG TAB PO SCH (17:01)
--- NOTE | 2022-05-24 20:20 | Hospitalist Progress Note ---
Date of Service May 24, 2022 Assessment & Plan (1) Altered mental status: Plan: Ro recurrent CVA given patient RLE weakness as per daughter account Patient however with good strength on right lower extremity exam. MRI/MRA brain RE RLE weakness as per daughter account MRI/MRA brain without acute changes Ambulatory dysfunction secondary to left foot swelling secondary to acute gout attack NSAIDs for gout attack left foot (Hesitant to steroids for now given patient confusion.) H2 reed GI prophylaxis with concomitant NSAIDs and antiplatelet Rx PT OT eval -recommend inpatient rehab or home health with PT, CM aware 05/23 -patient's mental status seems to be improved, will discuss with family to see what patient's baseline is 05/24 - discussed w/ daughter - likely plan to DC tomorrow w/ HH Chronic conditions: Hypertension, stable Hyperlipidemia statin Rx Hx PVD status post surgery CT abd. pelvis obtained - Extensive calcified and noncalcified atherosclerotic disease is seen. 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 Similar findings in December 2020. Vascular surgery follow-up as outpatient recommended per hospitalist. We will discuss if patient has a vascular surgeon in [place] to follow-up with. History of left carotid endarterectomy in [place]. Daughter made aware of recommendations. Urinary incontinence Haddad catheter placed on admission UA negative CT abd. pelvis - Bladder is under distended, there is mild prominence bladder wall, this may be due to chronic outlet obstruction or cystitis or an artifact of under distention. Recommend outpt urology follow up. DM2 on oral medications, well-controlled as of recent inpatient hemoglobin A1c of 5.8 at [facility] last month. Basal bolus insulin, ISS BG goal 110-140, carb count coverage Hx COPD, stable lung disease Chronic anemia, hemoglobin at baseline past tobacco abuse. DVT prophylaxis per Lovenox subcu Code status: DNR as per patient prior directives as per daughter/POA, MsSeth Arnold - [phone]. Admission and Anticipated Discharge Date Admission Date: May 23, 2022 Subjective Patient seen in follow-up of AMS, left lower extremity weakness No lower extremity weakness noted on admission however Brain MRI and MRA obtained, without acute process Patient is currently laying in bed, in no acute distress, he is able to answer simple questions appropriately. He can tell me that he is in the hospital, and also able to provide history/his hospitalization in [place]. Denies fever, chills, chest pain, shortness of breath, abdominal pain, nausea or vomiting. He is able to move extremities, only complains of left foot/left ankle pain. Review of Systems Review of Systems: All systems reviewed & are unremarkable except as noted in Subjective Physical Exam Physical Exam: GENERAL: Elderly male, in no acute distress, dysarthric (chronic), slightly hard of hearing HEENT: [place] palpebral conjunctivae, no ptosis NECK : Supple, no tenderness CHEST : CTA, no tenderness HEART : RRR, no obvious murmurs ABDOMEN: soft, some distention, nontender EXTREMITIES : L foot tenderness, moves extremities spontaneously : Haddad catheter placed, draining clear yellow urine SKIN: pallor, warm NEUROLOGIC : Awake alert oriented, able to answer simple questions appropriately, chronic facial asymmetry, dysarthric, MMTS BUE 4/5, BLE 4/5, gait and stance not assessed Results & Data Results & Data ([facility]) Vital Signs (Past 12 Hours) Vital Signs Temp Pulse Pulse Resp BP Pulse Ox 05/24/22 15:52 36.6 C 60 20 110/44 L 96 05/24/22 15:02 57 L 05/24/22 11:32 36.5 C 53 L 20 135/65 97 Laboratory Results 05/24/22 05/24/22 05/24/22 Range/Units 20:06 16:47 11:31 WBC (4.8-10.8) K/uL RBC (4.7-6.1) M/uL Hgb (14.0-18.0) g/dL Hct (42-52) % MCV (80-100) fL MCH (25-34) pg MCHC (32-36) g/dL RDW Std Deviation (36.4-46.3) fL RDW Coeff of Deborah (11.5-14.5) % Plt Count (130-400) K/uL MPV (7.4-10.4) fL Sodium (136-145) mmol/L Potassium (3.5-5.1) mmol/L Chloride (98-107) mmol/L Carbon Dioxide (21-32) mmol/L Anion Gap (3-11) BUN (6-23) mg/dl Creatinine (0.6-1.4) mg/dl Est Cr Clr Drug Dosing ml/min Est GFR ( Amer) ml/min Est GFR (Non-Af Amer) ml/min BUN/Creatinine Ratio (10-20) Glucose (70-99(Fasting)) mg/dl POC Glucose 107 H 104 H 128 H (70-99) mg/dl Calcium (8.5-10.1) mg/dl Phosphorus (2.5-4.9) mg/dl Magnesium (1.7-2.4) mg/dl 05/24/22 05/24/22 05/24/22 Range/Units 07:46 05:38 05:38 WBC 5.51 (4.8-10.8) K/uL RBC 3.59 L (4.7-6.1) M/uL Hgb 10.6 L (14.0-18.0) g/dL Hct 32.5 L (42-52) % MCV 90.5 (80-100) fL MCH 29.5 (25-34) pg MCHC 32.6 (32-36) g/dL RDW Std Deviation 49.5 H (36.4-46.3) fL RDW Coeff of Deborah 15.0 H (11.5-14.5) % Plt Count 194 (130-400) K/uL MPV 11.1 H (7.4-10.4) fL Sodium 138 (136-145) mmol/L Potassium 3.8 (3.5-5.1) mmol/L Chloride 106 (98-107) mmol/L Carbon Dioxide 25 (21-32) mmol/L Anion Gap 7 (3-11) BUN 28 H (6-23) mg/dl Creatinine 1.19 (0.6-1.4) mg/dl Est Cr Clr Drug Dosing 55.2 ml/min Est GFR ( Amer) 69.3 ml/min Est GFR (Non-Af Amer) 59.8 ml/min BUN/Creatinine Ratio 23.5 H (10-20) Glucose 87 (70-99(Fasting)) mg/dl POC Glucose 101 H (70-99) mg/dl Calcium 8.2 L (8.5-10.1) mg/dl Phosphorus 4.1 (2.5-4.9) mg/dl Magnesium 1.7 (1.7-2.4) mg/dl 05/23/22 Range/Units 20:19 WBC (4.8-10.8) K/uL RBC (4.7-6.1) M/uL Hgb (14.0-18.0) g/dL Hct (42-52) % MCV (80-100) fL MCH (25-34) pg MCHC (32-36) g/dL RDW Std Deviation (36.4-46.3) fL RDW Coeff of Deborah (11.5-14.5) % Plt Count (130-400) K/uL MPV (7.4-10.4) fL Sodium (136-145) mmol/L Potassium (3.5-5.1) mmol/L Chloride (98-107) mmol/L Carbon Dioxide (21-32) mmol/L Anion Gap (3-11) BUN (6-23) mg/dl Creatinine (0.6-1.4) mg/dl Est Cr Clr Drug Dosing ml/min Est GFR ( Amer) ml/min Est GFR (Non-Af Amer) ml/min BUN/Creatinine Ratio (10-20) Glucose (70-99(Fasting)) mg/dl POC Glucose 107 H (70-99) mg/dl Calcium (8.5-10.1) mg/dl Phosphorus (2.5-4.9) mg/dl Magnesium (1.7-2.4) mg/dl Medications Administered Current Inpatient Medications Acetaminophen (Acetaminophen 325 Mg Tab) 650 mg PO Q4H PRN PRN Reason: Pain or Fever Stop: 06/22/22 04:00 Last Admin: 05/23/22 20:23 Dose: 650 mg Documented by: Allopurinol (Allopurinol 300 Mg Tab) 300 mg PO DAILY [facility] Stop: 06/22/22 08:59 Last Admin: 05/24/22 08:07 Dose: 300 mg Documented by: Amlodipine Besylate (Amlodipine Besylate 5 Mg Tab) 10 mg PO DAILY [facility] Stop: 06/22/22 08:59 Last Admin: 05/24/22 08:08 Dose: 10 mg Documented by: Aspirin (Aspirin 81 Mg Ectab) 81 mg PO QAM BO Stop: 06/22/22 08:59 Last Admin: 05/24/22 08:07 Dose: 81 mg Documented by: Atorvastatin Calcium (Atorvastatin 20 Mg Tab) 20 mg PO DAILY [facility] Stop: 06/22/22 08:59 Last Admin: 05/24/22 08:07 Dose: 20 mg Documented by: Carvedilol (Carvedilol 25 Mg Tab) 25 mg PO BID [facility] Stop: 06/22/22 08:59 Last Admin: 05/24/22 08:08 Dose: Not Given Documented by: Cilostazol (Cilostazol 100 Mg Tab) 50 mg PO BID BO Stop: 06/22/22 08:59 Last Admin: 05/24/22 08:06 Dose: 50 mg Documented by: Dextrose (Dextrose 50% 50 Ml Syringe) 25 - 50 ml IV UD PRN; Protocol PRN Reason: Hypoglycemia Protocol Stop: 06/22/22 04:00 Ezetimibe (Ezetimibe 10 Mg Tablet) 10 mg PO HS [facility] Stop: 06/22/22 20:59 Last Admin: 05/23/22 20:14 Dose: 10 mg Documented by: Enoxaparin Sodium (Enoxaparin Inj 40 Mg/0.4 Ml Syr) 40 mg SQ QAM [facility] Stop: 06/22/22 08:59 Last Admin: 05/24/22 08:09 Dose: 40 mg Documented by: Famotidine (Famotidine 10 Mg Tablet) 10 mg PO BID BO Stop: 06/22/22 08:59 Last Admin: 05/24/22 08:08 Dose: 10 mg Documented by: Glucagon (Glucagon For Inj 1 Mg Vial) 1 mg SQ UD PRN; Protocol PRN Reason: Hypoglycemia Protocol Stop: 06/22/22 04:00 Glucose (Glucose 10 Tabs/Tube) 4 - 8 tabs PO UD PRN; Protocol PRN Reason: Hypoglycemia Protocol Stop: 06/22/22 04:00 Glucose (Glucose 40% Gel 15 Gm Tube) 15 - 30 gm PO UD PRN; Protocol PRN Reason: Hypoglycemia Protocol Stop: 06/22/22 04:00 Promethazine HCl 12.5 mg/ (Sodium Chloride) 50.5 mls @ 202 mls/hr IV Q6H PRN PRN Reason: Nausea And Vomiting Stop: 06/22/22 04:00 Insulin Aspart (Insulin Aspart Per Unit) 0 units SC ACHS BO Stop: 06/22/22 04:00 Last Admin: 05/24/22 16:56 Dose: 1 units Documented by: Lisinopril (Lisinopril 10 Mg Tab) 10 mg PO DAILY [facility] Stop: 06/22/22 08:59 Last Admin: 05/24/22 08:05 Dose: 10 mg Documented by: Magnesium Oxide (Magnesium Oxide 400 Mg Tab) 400 mg PO QAM [facility] Stop: 06/23/22 15:59 Last Admin: 05/24/22 17:01 Dose: 400 mg Documented by: Miscellaneous (Carbohydrates For Hypoglycemia ) 15 - 30 gm PO UD PRN PRN Reason: Hypoglycemia Protocol Stop: 06/22/22 04:00 Multivitamins (Multivitamin Tab) 1 tab PO [facility] Stop: 06/22/22 08:59 Last Admin: 05/24/22 08:06 Dose: 1 tab Documented by: Naproxen (Naproxen 250 Mg Tab) 250 mg PO BID [facility] Stop: 06/22/22 04:00 Last Admin: 05/24/22 08:08 Dose: 250 mg Documented by: Tamsulosin HCl (Tamsulosin Hcl 0.4 Mg Cap) 0.4 mg PO DAILY [facility] Stop: 06/22/22 08:59 Last Admin: 05/24/22 08:07 Dose: 0.4 mg Documented by:
--- NOTE | 2022-05-24 20:26 | Hospitalist Progress Note ---
Date of Service May 24, 2022 Assessment & Plan (1) Altered mental status: Plan: Ro recurrent CVA given patient RLE weakness as per daughter account Patient however with good strength on right lower extremity exam. MRI/MRA brain RE RLE weakness as per daughter account MRI/MRA brain without acute changes Ambulatory dysfunction secondary to left foot swelling secondary to acute gout attack NSAIDs for gout attack left foot (Hesitant to steroids for now given patient confusion.) H2 reed GI prophylaxis with concomitant NSAIDs and antiplatelet Rx PT OT eval -recommend inpatient rehab or home health with PT, CM aware 05/23 -patient's mental status seems to be improved, will discuss with family to see what patient's baseline is 05/24 - discussed w/ daughter - likely plan to DC tomorrow w/ HH Chronic conditions: Hypertension, stable Hyperlipidemia statin Rx Hx PVD status post surgery CT abd. pelvis obtained - Extensive calcified and noncalcified atherosclerotic disease is seen. 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 Similar findings in December 2020. Vascular surgery follow-up as outpatient recommended per hospitalist. We will discuss if patient has a vascular surgeon in [place] to follow-up with. History of left carotid endarterectomy in [place]. Daughter made aware of recommendations. Urinary incontinence Haddad catheter placed on admission UA negative CT abd. pelvis - Bladder is under distended, there is mild prominence bladder wall, this may be due to chronic outlet obstruction or cystitis or an artifact of under distention. Recommend outpt urology follow up. DM2 on oral medications, well-controlled as of [facility] Basal bolus insulin, ISS BG goal 110-140, carb count coverage Hx COPD, stable lung disease Chronic anemia, hemoglobin at baseline past tobacco abuse. DVT prophylaxis per Lovenox subcu Code status: DNR as per patient prior directives as per daughter/POA, MsSeth Arnold - [phone]. Admission and Anticipated Discharge Date Admission Date: May 23, 2022 Subjective Patient seen in follow-up of AMS, left lower extremity weakness No lower extremity weakness noted on admission however Brain MRI and MRA obtained, without acute process Patient is currently laying in bed, in no acute distress, he is able to answer simple questions appropriately. He can tell me that he is in the hospital, and also able to provide history/his hospitalization in [place]. Denies fever, chills, chest pain, shortness of breath, abdominal pain, nausea or vomiting. He is able to move extremities, only complains of left foot/left ankle pain. Review of Systems Review of Systems: All systems reviewed & are unremarkable except as noted in Subjective Physical Exam Physical Exam: GENERAL: Elderly male, in no acute distress, dysarthric (chronic), slightly hard of hearing HEENT: [place] palpebral conjunctivae, no ptosis NECK : Supple, no tenderness CHEST : CTA, no tenderness HEART : RRR, no obvious murmurs ABDOMEN: soft, some distention, nontender EXTREMITIES : L foot tenderness, moves extremities spontaneously : Haddad catheter placed, draining clear yellow urine SKIN: pallor, warm NEUROLOGIC : Awake alert oriented, able to answer simple questions appropriately, chronic facial asymmetry, dysarthric, MMTS BUE 4/5, BLE 4/5, gait and stance not assessed Results & Data Results & Data ([facility]) Vital Signs (Past 12 Hours) Vital Signs Temp Pulse Pulse Resp BP Pulse Ox 05/24/22 19:19 36.5 C 56 L 18 118/65 95 05/24/22 15:52 36.6 C 60 20 110/44 L 96 05/24/22 15:02 57 L 05/24/22 11:32 36.5 C 53 L 20 135/65 97 Laboratory Results 05/24/22 05/24/22 05/24/22 Range/Units 20:06 16:47 11:31 WBC (4.8-10.8) K/uL RBC (4.7-6.1) M/uL Hgb (14.0-18.0) g/dL Hct (42-52) % MCV (80-100) fL MCH (25-34) pg MCHC (32-36) g/dL RDW Std Deviation (36.4-46.3) fL RDW Coeff of Deborah (11.5-14.5) % Plt Count (130-400) K/uL MPV (7.4-10.4) fL Sodium (136-145) mmol/L Potassium (3.5-5.1) mmol/L Chloride (98-107) mmol/L Carbon Dioxide (21-32) mmol/L Anion Gap (3-11) BUN (6-23) mg/dl Creatinine (0.6-1.4) mg/dl Est Cr Clr Drug Dosing ml/min Est GFR ( Amer) ml/min Est GFR (Non-Af Amer) ml/min BUN/Creatinine Ratio (10-20) Glucose (70-99(Fasting)) mg/dl POC Glucose 107 H 104 H 128 H (70-99) mg/dl Calcium (8.5-10.1) mg/dl Phosphorus (2.5-4.9) mg/dl Magnesium (1.7-2.4) mg/dl 05/24/22 05/24/22 05/24/22 Range/Units 07:46 05:38 05:38 WBC 5.51 (4.8-10.8) K/uL RBC 3.59 L (4.7-6.1) M/uL Hgb 10.6 L (14.0-18.0) g/dL Hct 32.5 L (42-52) % MCV 90.5 (80-100) fL MCH 29.5 (25-34) pg MCHC 32.6 (32-36) g/dL RDW Std Deviation 49.5 H (36.4-46.3) fL RDW Coeff of Deborah 15.0 H (11.5-14.5) % Plt Count 194 (130-400) K/uL MPV 11.1 H (7.4-10.4) fL Sodium 138 (136-145) mmol/L Potassium 3.8 (3.5-5.1) mmol/L Chloride 106 (98-107) mmol/L Carbon Dioxide 25 (21-32) mmol/L Anion Gap 7 (3-11) BUN 28 H (6-23) mg/dl Creatinine 1.19 (0.6-1.4) mg/dl Est Cr Clr Drug Dosing 55.2 ml/min Est GFR ( Amer) 69.3 ml/min Est GFR (Non-Af Amer) 59.8 ml/min BUN/Creatinine Ratio 23.5 H (10-20) Glucose 87 (70-99(Fasting)) mg/dl POC Glucose 101 H (70-99) mg/dl Calcium 8.2 L (8.5-10.1) mg/dl Phosphorus 4.1 (2.5-4.9) mg/dl Magnesium 1.7 (1.7-2.4) mg/dl 05/23/22 Range/Units 20:19 WBC (4.8-10.8) K/uL RBC (4.7-6.1) M/uL Hgb (14.0-18.0) g/dL Hct (42-52) % MCV (80-100) fL MCH (25-34) pg MCHC (32-36) g/dL RDW Std Deviation (36.4-46.3) fL RDW Coeff of Deborah (11.5-14.5) % Plt Count (130-400) K/uL MPV (7.4-10.4) fL Sodium (136-145) mmol/L Potassium (3.5-5.1) mmol/L Chloride (98-107) mmol/L Carbon Dioxide (21-32) mmol/L Anion Gap (3-11) BUN (6-23) mg/dl Creatinine (0.6-1.4) mg/dl Est Cr Clr Drug Dosing ml/min Est GFR ( Amer) ml/min Est GFR (Non-Af Amer) ml/min BUN/Creatinine Ratio (10-20) Glucose (70-99(Fasting)) mg/dl POC Glucose 107 H (70-99) mg/dl Calcium (8.5-10.1) mg/dl Phosphorus (2.5-4.9) mg/dl Magnesium (1.7-2.4) mg/dl Medications Administered Current Inpatient Medications Acetaminophen (Acetaminophen 325 Mg Tab) 650 mg PO Q4H PRN PRN Reason: Pain or Fever Stop: 06/22/22 04:00 Last Admin: 05/23/22 20:23 Dose: 650 mg Documented by: Allopurinol (Allopurinol 300 Mg Tab) 300 mg PO DAILY [facility] Stop: 06/22/22 08:59 Last Admin: 05/24/22 08:07 Dose: 300 mg Documented by: Amlodipine Besylate (Amlodipine Besylate 5 Mg Tab) 10 mg PO DAILY [facility] Stop: 06/22/22 08:59 Last Admin: 05/24/22 08:08 Dose: 10 mg Documented by: Aspirin (Aspirin 81 Mg Ectab) 81 mg PO QAM [facility] Stop: 06/22/22 08:59 Last Admin: 05/24/22 08:07 Dose: 81 mg Documented by: Atorvastatin Calcium (Atorvastatin 20 Mg Tab) 20 mg PO DAILY BO Stop: 06/22/22 08:59 Last Admin: 05/24/22 08:07 Dose: 20 mg Documented by: Carvedilol (Carvedilol 25 Mg Tab) 25 mg PO BID [facility] Stop: 06/22/22 08:59 Last Admin: 05/24/22 08:08 Dose: Not Given Documented by: Cilostazol (Cilostazol 100 Mg Tab) 50 mg PO BID BO Stop: 06/22/22 08:59 Last Admin: 05/24/22 08:06 Dose: 50 mg Documented by: Dextrose (Dextrose 50% 50 Ml Syringe) 25 - 50 ml IV UD PRN; Protocol PRN Reason: Hypoglycemia Protocol Stop: 06/22/22 04:00 Ezetimibe (Ezetimibe 10 Mg Tablet) 10 mg PO HS [facility] Stop: 06/22/22 20:59 Last Admin: 05/23/22 20:14 Dose: 10 mg Documented by: Enoxaparin Sodium (Enoxaparin Inj 40 Mg/0.4 Ml Syr) 40 mg SQ QAM BO Stop: 06/22/22 08:59 Last Admin: 05/24/22 08:09 Dose: 40 mg Documented by: Famotidine (Famotidine 10 Mg Tablet) 10 mg PO BID [facility] Stop: 06/22/22 08:59 Last Admin: 05/24/22 08:08 Dose: 10 mg Documented by: Glucagon (Glucagon For Inj 1 Mg Vial) 1 mg SQ UD PRN; Protocol PRN Reason: Hypoglycemia Protocol Stop: 06/22/22 04:00 Glucose (Glucose 10 Tabs/Tube) 4 - 8 tabs PO UD PRN; Protocol PRN Reason: Hypoglycemia Protocol Stop: 06/22/22 04:00 Glucose (Glucose 40% Gel 15 Gm Tube) 15 - 30 gm PO UD PRN; Protocol PRN Reason: Hypoglycemia Protocol Stop: 06/22/22 04:00 Promethazine HCl 12.5 mg/ (Sodium Chloride) 50.5 mls @ 202 mls/hr IV Q6H PRN PRN Reason: Nausea And Vomiting Stop: 06/22/22 04:00 Insulin Aspart (Insulin Aspart Per Unit) 0 units SC ACHS BO Stop: 06/22/22 04:00 Last Admin: 05/24/22 16:56 Dose: 1 units Documented by: Lisinopril (Lisinopril 10 Mg Tab) 10 mg PO DAILY [facility] Stop: 06/22/22 08:59 Last Admin: 05/24/22 08:05 Dose: 10 mg Documented by: Magnesium Oxide (Magnesium Oxide 400 Mg Tab) 400 mg PO QAM [facility] Stop: 06/23/22 15:59 Last Admin: 05/24/22 17:01 Dose: 400 mg Documented by: Miscellaneous (Carbohydrates For Hypoglycemia ) 15 - 30 gm PO UD PRN PRN Reason: Hypoglycemia Protocol Stop: 06/22/22 04:00 Multivitamins (Multivitamin Tab) 1 tab PO [facility] Stop: 06/22/22 08:59 Last Admin: 05/24/22 08:06 Dose: 1 tab Documented by: Naproxen (Naproxen 250 Mg Tab) 250 mg PO BID [facility] Stop: 06/22/22 04:00 Last Admin: 05/24/22 08:08 Dose: 250 mg Documented by: Tamsulosin HCl (Tamsulosin Hcl 0.4 Mg Cap) 0.4 mg PO DAILY [facility] Stop: 06/22/22 08:59 Last Admin: 05/24/22 08:07 Dose: 0.4 mg Documented by:
[2022-05-24] MEDS: EZETIMIBE 10 MG TABLET PO SCH (21:54)
[2022-05-24] MEDS: ACETAMINOPHEN 325 MG TAB PO PRN (22:00)
[2022-05-25] MEDS: INSULIN ASPART PER UNIT SC SCH ×2 (08:44→12:05)
[2022-05-25] MEDS: cilostazoL 100 MG TAB PO SCH (08:48)
[2022-05-25] MEDS: FAMOTIDINE 10 MG TABLET PO SCH (08:48)
[2022-05-25] MEDS: amLODIPine BESYLATE 5 MG TAB PO SCH (08:49)
[2022-05-25] MEDS: TAMSULOSIN HCL 0.4 MG CAP PO SCH (08:49)
[2022-05-25] MEDS: allopurinoL 300 MG TAB PO SCH (08:49)
[2022-05-25] MEDS: ASPIRIN 81 MG ECTAB PO SCH (08:49)
[2022-05-25] MEDS: MAGNESIUM OXIDE 400 MG TAB PO SCH (08:49)
[2022-05-25] MEDS: lisinopril 10 MG TAB PO SCH (08:49)
[2022-05-25] MEDS: NAPROXEN 250 MG TAB PO SCH (08:49)
[2022-05-25] MEDS: MULTIVITAMIN TAB PO SCH (08:49)
[2022-05-25] MEDS: ATORVASTATIN 20 MG TAB PO SCH (08:49)
[2022-05-25] MEDS: carvediloL 25 MG TAB PO SCH (08:49)
[2022-05-25] MEDS: ENOXAPARIN INJ 40 MG/0.4 ML SYR SQ SCH (08:49)
--- NOTE | 2022-05-25 10:40 | Hospitalist Progress Note ---
Date of Service May 25, 2022 Assessment & Plan (1) Altered mental status: Plan: Ro recurrent CVA given patient RLE weakness as per daughter account Patient however with good strength on right lower extremity exam. MRI/MRA brain RE RLE weakness as per daughter account MRI/MRA brain without acute changes Ambulatory dysfunction secondary to left foot swelling secondary to acute gout attack NSAIDs for gout attack left foot (Hesitant to steroids for now given patient confusion.) H2 reed GI prophylaxis with concomitant NSAIDs and antiplatelet Rx PT OT eval -recommend inpatient rehab or home health with PT, CM aware 05/23 -patient's mental status seems to be improved, will discuss with family to see what patient's baseline is 05/24 - discussed w/ daughter - likely plan to DC tomorrow w/ HH Chronic conditions: Hypertension, stable Hyperlipidemia statin Rx Hx PVD status post surgery CT abd. pelvis obtained - Extensive calcified and noncalcified atherosclerotic disease is seen. 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 Similar findings in December 2020. Vascular surgery follow-up as outpatient recommended per hospitalist. We will discuss if patient has a vascular surgeon in [place] to follow-up with. History of left carotid endarterectomy in [place]. Daughter made aware of recommendations. Urinary incontinence Haddad catheter placed on admission UA negative CT abd. pelvis - Bladder is under distended, there is mild prominence bladder wall, this may be due to chronic outlet obstruction or cystitis or an artifact of under distention. Recommend outpt urology follow up. DM2 on oral medications, well-controlled as of recent inpatient hemoglobin A1c of 5.8 at [facility] last month. Basal bolus insulin, ISS BG goal 110-140, carb count coverage Hx COPD, stable lung disease Chronic anemia, hemoglobin at baseline past tobacco abuse. DVT prophylaxis per Lovenox subcu Code status: DNR as per patient prior directives as per daughter/POA, MsSeth Arnold - [phone]. Admission and Anticipated Discharge Date Admission Date: May 23, 2022 Subjective Patient seen in follow-up of AMS, left lower extremity weakness No lower extremity weakness noted on admission however Brain MRI and MRA obtained, without acute process Patient is currently laying in bed, in no acute distress, he is able to answer simple questions appropriately. He can tell me that he is in the hospital, and also able to provide history/his hospitalization in [place]. Denies fever, chills, chest pain, shortness of breath, abdominal pain, nausea or vomiting. He is able to move extremities, only complains of left foot/left ankle pain which is now improved. Daughter updated over the phone yesterday. Review of Systems Review of Systems: All systems reviewed & are unremarkable except as noted in Subjective Physical Exam Physical Exam: GENERAL: Elderly male, in no acute distress, dysarthric (chronic), slightly hard of hearing HEENT: [place] palpebral conjunctivae, no ptosis NECK : Supple, no tenderness CHEST : CTA, no tenderness HEART : RRR, no obvious murmurs ABDOMEN: soft, some distention, nontender EXTREMITIES : L foot tenderness, moves extremities spontaneously : Haddad catheter placed, draining clear yellow urine SKIN: pallor, warm NEUROLOGIC : Awake alert oriented, able to answer simple questions appropriately, very hard of hearing, moves extremities Results & Data Results & Data ([facility]) Vital Signs (Past 12 Hours) Vital Signs Temp Pulse Pulse Resp BP BP Pulse Ox 05/25/22 08:00 50 L 05/25/22 07:59 36.9 C 59 L 18 144/80 H 96 05/25/22 02:44 36.6 C 62 18 128/61 97 05/24/22 23:24 36.7 C 60 19 116/72 97 Laboratory Results 05/25/22 05/24/22 05/24/22 Range/Units 07:51 20:06 16:47 POC Glucose 93 107 H 104 H (70-99) mg/dl 05/24/22 Range/Units 11:31 POC Glucose 128 H (70-99) mg/dl Medications Administered Current Inpatient Medications Acetaminophen (Acetaminophen 325 Mg Tab) 650 mg PO Q4H PRN PRN Reason: Pain or Fever Stop: 06/22/22 04:00 Last Admin: 05/24/22 22:00 Dose: 650 mg Documented by: Allopurinol (Allopurinol 300 Mg Tab) 300 mg PO DAILY [facility] Stop: 06/22/22 08:59 Last Admin: 05/25/22 08:49 Dose: 300 mg Documented by: Amlodipine Besylate (Amlodipine Besylate 5 Mg Tab) 10 mg PO DAILY [facility] Stop: 06/22/22 08:59 Last Admin: 05/25/22 08:49 Dose: 10 mg Documented by: Aspirin (Aspirin 81 Mg Ectab) 81 mg PO QAM [facility] Stop: 06/22/22 08:59 Last Admin: 05/25/22 08:49 Dose: 81 mg Documented by: Atorvastatin Calcium (Atorvastatin 20 Mg Tab) 20 mg PO DAILY BO Stop: 06/22/22 08:59 Last Admin: 05/25/22 08:49 Dose: 20 mg Documented by: Carvedilol (Carvedilol 25 Mg Tab) 25 mg PO BID [facility] Stop: 06/22/22 08:59 Last Admin: 05/25/22 08:49 Dose: Not Given Documented by: Cilostazol (Cilostazol 100 Mg Tab) 50 mg PO BID [facility] Stop: 06/22/22 08:59 Last Admin: 05/25/22 08:48 Dose: 50 mg Documented by: Dextrose (Dextrose 50% 50 Ml Syringe) 25 - 50 ml IV UD PRN; Protocol PRN Reason: Hypoglycemia Protocol Stop: 06/22/22 04:00 Ezetimibe (Ezetimibe 10 Mg Tablet) 10 mg PO HS [facility] Stop: 06/22/22 20:59 Last Admin: 05/24/22 21:54 Dose: 10 mg Documented by: Enoxaparin Sodium (Enoxaparin Inj 40 Mg/0.4 Ml Syr) 40 mg SQ QAM [facility] Stop: 06/22/22 08:59 Last Admin: 05/25/22 08:49 Dose: 40 mg Documented by: Famotidine (Famotidine 10 Mg Tablet) 10 mg PO BID [facility] Stop: 06/22/22 08:59 Last Admin: 05/25/22 08:48 Dose: 10 mg Documented by: Glucagon (Glucagon For Inj 1 Mg Vial) 1 mg SQ UD PRN; Protocol PRN Reason: Hypoglycemia Protocol Stop: 06/22/22 04:00 Glucose (Glucose 10 Tabs/Tube) 4 - 8 tabs PO UD PRN; Protocol PRN Reason: Hypoglycemia Protocol Stop: 06/22/22 04:00 Glucose (Glucose 40% Gel 15 Gm Tube) 15 - 30 gm PO UD PRN; Protocol PRN Reason: Hypoglycemia Protocol Stop: 06/22/22 04:00 Promethazine HCl 12.5 mg/ (Sodium Chloride) 50.5 mls @ 202 mls/hr IV Q6H PRN PRN Reason: Nausea And Vomiting Stop: 06/22/22 04:00 Insulin Aspart (Insulin Aspart Per Unit) 0 units SC ACHS [facility] Stop: 06/22/22 04:00 Last Admin: 05/25/22 08:44 Dose: Not Given Documented by: Lisinopril (Lisinopril 10 Mg Tab) 10 mg PO DAILY BO Stop: 06/22/22 08:59 Last Admin: 05/25/22 08:49 Dose: 10 mg Documented by: Magnesium Oxide (Magnesium Oxide 400 Mg Tab) 400 mg PO QAM [facility] Stop: 06/23/22 15:59 Last Admin: 05/25/22 08:49 Dose: 400 mg Documented by: Miscellaneous (Carbohydrates For Hypoglycemia ) 15 - 30 gm PO UD PRN PRN Reason: Hypoglycemia Protocol Stop: 06/22/22 04:00 Multivitamins (Multivitamin Tab) [address] [facility] Stop: 06/22/22 08:59 Last Admin: 05/25/22 08:49 Dose: 1 tab Documented by: Naproxen (Naproxen 250 Mg Tab) 250 mg PO BID [facility] Stop: 06/22/22 04:00 Last Admin: 05/25/22 08:49 Dose: 250 mg Documented by: Tamsulosin HCl (Tamsulosin Hcl 0.4 Mg Cap) 0.4 mg PO DAILY [facility] Stop: 06/22/22 08:59 Last Admin: 05/25/22 08:49 Dose: 0.4 mg Documented by:
--- NOTE | 2022-05-25 12:10 | Discharge Summary ---
Date of Service May 25, 2022 Admission HPI Per Admitting Provider History obtained from patient, family, and records. Patient is a fair historian. Medical history significant for hypertension, hyperlipidemia, CVA, PVD status post surgery, DM2 on oral medications, COPD, chronic anemia (baseline hemoglobin of 12 ), gout, past tobacco abuse. Last [facility] confinement December 2020 for atypical chest pain and COVID-19 pneumonia. 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 MRI showed subacute infarct in the left MCA. Diagnostic cerebral angiogram showed left ICA stenosis more than 90%. Patient underwent left carotid endarterectomy during confinement. Patient subsequently discharged to [facility] facility where he stayed until May 14, 2022. Patient subsequently discharged home under the care of daughter. Last 2 days, patient more confused than usual. Patient noted painful left foot swelling causing him trouble to walk. As per daughter. Patient seen by he was dragging his right leg. Right leg weaker than usual as per daughter. Patient also had urinary incontinence at home yesterday without any seizures. Patient brought to the ER for evaluation. 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 Admission Exam Per Admitting Provider GENERAL: slightly uncomfortable, dysarthric (chronic), slightly hard of hearing, no respiratory distress SKIN: pallor, warm HEENT: Road Runner palpebral conjunctivae, no ptosis, dry buccal mucosa, partially edentulous NECK : Supple, no tenderness CHEST : CTA, no tenderness HEART : RRR, no obvious murmurs ABDOMEN: Some distention, nontender EXTREMITIES : L foot tenderness, no other conspicuous deformities noted NEUROLOGIC : Coherent, oriented to day, chronic facial asymmetry, dysarthric, MMTS BUE 4/5, BLE 4/5, gait and stance not assessed Principal Diagnosis Foot pain due to gout Urinary retention History of CVA Discharge Exam GENERAL: Elderly male, in no acute distress, dysarthric (chronic), slightly hard of hearing HEENT: Road Runner palpebral conjunctivae, no ptosis NECK : Supple, no tenderness CHEST : CTA, no tenderness HEART : RRR, no obvious murmurs ABDOMEN: soft, some distention, nontender EXTREMITIES : L foot tenderness, moves extremities spontaneously : Haddad catheter placed, draining clear yellow urine SKIN: pallor, warm NEUROLOGIC : Awake alert oriented, able to answer simple questions appropriately, very hard of hearing, moves extremities Discharge Data Allergies Allergy/AdvReac Type Severity Reaction Status Date / Time No Known Allergies Allergy Unknown Verified 05/22/22 20:31 Consultations 05/22/22 23:08 ED Decision to Admit Stat Ordered Studies 05/22/22 22:14 CT abd pelvis IV con only Urgent FINDINGS: Lower chest: Bibasilar atelectasis versus scarring is seen. Liver: Unremarkable. No focal lesions are seen. Gallbladder and biliary tree: Cholelithiasis is seen without evidence of cholecystitis. No intra- or extrahepatic biliary ductal dilation. Pancreas: Unremarkable, no focal lesions. Spleen: Unremarkable. Adrenals: Unremarkable. Kidneys and ureters: Unremarkable. Bladder: Haddad catheter is seen. Reproductive organs: Prostatomegaly is seen. Bowel: A hiatal hernia is seen. Lymph nodes Retroperitoneal: Unremarkable. Mesenteric: Unremarkable. Pelvic: Unremarkable. Peritoneum: Normal. Vessels: Calcified and noncalcified atherosclerotic plaque is seen. There is severe stenosis of the left common iliac artery. Abdominal wall: Unremarkable. Bones: Degenerative changes in the visualized spine. IMPRESSION: 1. Bladder is under distended, there is mild prominence bladder wall, this may be due to chronic outlet obstruction or cystitis or an artifact of under distention. 2. Extensive calcified and noncalcified atherosclerotic disease is seen. 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 CT head/brain wo con Urgent FINDINGS: No acute intracranial hemorrhage, midline shift, intracranial mass, hydrocephalus, or abnormal extra-axial collection. White matter hypodensities are suggestive of chronic microvascular ischemic disease. Mild involutional changes. Ill-defined white matter hypodensities within the centrum semiovale of the left frontal and parietal lobes are new/progressed from the prior study. Chronic left thalamic lacunar infarct. The calvarium is intact. The paranasal sinuses, mastoid air cells, and middle ear cavities are clear. IMPRESSION: 1. No acute intracranial hemorrhage or midline shift. 2. Ill-defined hypodensities within the centrum semiovale of the left frontal and parietal lobes are suspicious for subacute infarcts. Please refer to the MRI brain study dated 05/23/2022. 3. Involutional changes with chronic microvascular ischemic disease. 05/23/22 01:53 MR angio head wo con Stat FINDINGS: Exam is limited by patient motion. Flow signal is shown in the intracranial segments of the internal carotid arteries, the anterior, middle and posterior cerebral arteries, the anterior and posterior communicating arteries, cerebellar arteries, the intracranial segments of the vertebral arteries, and the basilar artery. There is mild narrowing in the proximal left posterior cerebral artery. The right distal vertebral artery is diminutive which is likely congenital. There is mild narrowing of the MCA and its branches bilaterally without hemodynamically significant stenosis. Assessment of stenosis of the internal carotid arteries is based on NASCET criteria. IMPRESSION: No acute intracranial hemorrhage is seen. Mild narrowing is seen in the left posterior cerebral artery and bilateral middle cerebral arteries without focal stenosis or aneurysm. MR brain wo con Stat IMPRESSION: Chronic volume loss and age related white matter changes without evidence of acute abnormality. Hospital Course (1) Altered mental status: Ro recurrent CVA given patient RLE weakness as per daughter account Patient however with good strength on right lower extremity exam. MRI/MRA brain RE RLE weakness as per daughter account MRI/MRA brain without acute changes Ambulatory dysfunction secondary to left foot swelling secondary to acute gout attack NSAIDs for gout attack left foot (Hesitant to steroids for now given patient confusion.) H2 reed GI prophylaxis with concomitant NSAIDs and antiplatelet Rx PT OT eval -recommend inpatient rehab or home health with PT, CM aware 05/23 -patient's mental status seems to be improved, will discuss with family to see what patient's baseline is 05/24 - discussed w/ daughter over the phone - DC today (05/25) Chronic conditions: Hypertension, stable Hyperlipidemia statin Rx Hx PVD status post surgery CT abd. pelvis obtained - Extensive calcified and noncalcified atherosclerotic disease is seen. 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 Similar findings in December 2020. Vascular surgery follow-up as outpatient recommended per hospitalist. We will discuss if patient has a vascular surgeon in [place] to follow-up with. History of left carotid endarterectomy in [place]. Daughter made aware of recommendations. Urinary incontinence Haddad catheter placed on admission UA negative CT abd. pelvis - Bladder is under distended, there is mild prominence bladder wall, this may be due to chronic outlet obstruction or cystitis or an artifact of under distention. Recommend outpt urology follow up. DM2 on oral medications, well-controlled as of recent inpatient hemoglobin A1c of 5.8 at medical hospital last month. Basal bolus insulin, ISS BG goal 110-140, carb count coverage Hx COPD, stable lung disease Chronic anemia, hemoglobin at baseline past tobacco abuse. Total Time Total Time Spent Total Time Spent (In Minutes): 40 Discharge Plan Discharge Items Patient Disposition: Home - Home Health Services Reason For Visit: AMS Discharge Diagnosis: Foot pain due to gout Urinary retention History of CVA Activity: Per Instructions section Non-emergency contact: Primary Care Provider Call non-emergency contact if: you have any medication questions and your symptoms worsen Follow-up/Referrals: Jed Venegas DO [Primary Care Provider] - (Date & Time 05/30/2022 11:00 AM Provider Juan Ramon Thurman MD Department Family Practice [facility] ) Diet: Carb Consistent or DM2 and Heart Healthy Addtl Attending Provider Instructions: Follow-up with your primary care doctor, the appointment was scheduled for you for May 30. Recommend to take naproxen for foot pain/gout. You will likely need to follow-up with urology. Pending Studies at Discharge: No Stand-Alone Forms: My [facility] [employer], Smoking Cessation Medications and DC Order Prescriptions: New naproxen 250 mg Tablet 250 mg PO BID Qty: 10 RF: 0 magnesium oxide 400 mg (241.3 mg magnesium) Tablet 400 mg PO QAM Qty: 10 RF: 0 famotidine [Acid Booth Manager (famotidine)] 10 mg Tablet 10 mg PO BID Qty: 10 RF: 0 Continued multivitamin Tablet 1 tab PO QAM RF: 0 DHEA 25 mg Tablet 0 mg PO QAM RF: 0 cyanocobalamin (vitamin B-12) [Vitamin B-12] 1,000 mcg Tablet 1,000 mcg PO QAM RF: 0 aspirin 81 mg tablet,delayed release (DR/EC) 81 mg PO QAM RF: 0 nitroglycerin [Nitrostat] 0.4 mg Tablet, Sublingual 0.4 mg sublingual DIRECTED PRN (Reason: Chest Pain) RF: 0 carvedilol 25 mg Tablet 25 mg PO BID RF: 0 atorvastatin 20 mg tablet 20 mg PO DAILY RF: 0 cilostazol 50 mg Tablet 50 mg PO BID RF: 0 acetaminophen [Tylenol Extra Strength] 500 mg Tablet 1,000 mg PO Q8H PRN (Reason: Pain) RF: 0 tamsulosin 0.4 mg capsule 0.4 mg PO DAILY RF: 0 amlodipine 10 mg tablet 10 mg PO DAILY RF: 0 lisinopril 10 mg Tablet 10 mg PO DAILY RF: 0 allopurinol 300 mg tablet 300 mg PO DAILY RF: 0 metformin 500 mg Tablet Extended Release 24 Hr 500 mg PO DAILY RF: 0 ezetimibe [Zetia] 10 mg Tablet 10 mg PO HS RF: 0 DHEA 10 mg-47 mg calcium Tablet 1 tab PO DAILY RF: 0 Discharge Orders: Discharge Order (Routine); Ordered 05/25/22 Ordered By: Sahil Carr Admission Data Admit Date/Time: 05/23/22 01:28 Attending Provider: Sahil Carr Admit Provider: Hever Castellanos Primary Care Provider: Jed Venegas Other Providers: Hever Castellanos ; [facility]
== END 2022-05-25 13:10 | disposition home health service (06) ==
LOC: ED 18:11 → 2W 18:11

== ENCOUNTER 2022-07-07 22:20 | Inpatient (IN) ==
[2022-07-07 22:52] LABS: Basophils # (auto) 0.04 K/uL (0-0.2); Basophils % (auto) 0.3 %; Eosinophils # (auto) 0.17 K/uL (0-0.50); Eosinophils % (auto) 1.2 %; Hematocrit (blood only) 43.6 % (40.1-51.0); Hemoglobin 13.9 g/dl (14.0-18.0); Immature Granulocytes # (auto) 0.08 K/uL (0.00-0.02); Immature Granulocytes % (auto) 0.5 %; Lymphocytes % (auto) 7.5 %; Mean Corpuscular Hgb Conc 31.9 g/dL (32.0-36.0); Mean Corpuscular Volume 90.8 fL (80.0-100.0); Mean Platelet Volume 10.2 fL (9.4-12.4); Monocytes # (auto) 1.25 K/uL (0.24-0.82); Monocytes % (auto) 8.6 %; Neutrophils # (auto) 11.93 K/uL (1.4-6.5); Neutrophils % (auto) 81.9 %; Platelet Count 235 K/uL (130-400); RDW Coefficient of Variation 15.9 % (11.5-14.5); RDW Standard Deviation 51.8 fL (36.4-46.3); White Blood Count 14.57 K/ul (4.8-10.8)
[2022-07-07] MEDS ORDERED: SODIUM CHLORIDE 0.9% 1000ML 1,000 ML IV ONE (22:55)
[2022-07-07 23:06] LABS: INR 1.2 (0.9-1.1); Partial Thromboplastin Ratio 0.9; Partial Thromboplastin Time 25.6 Seconds (21.0-31.0); Prothrombin Time 12.4 Seconds (9.0-12.0)
[2022-07-07] MEDS ORDERED: CEFEPIME 2,000 MG/20 ML VIAL IV STA (23:08)
--- NOTE | 2022-07-07 23:13 | Emergency Department Note ---
Impression & Plan Hypotension, Precordial chest pain, Leukocytosis, Pulmonary emboli ED Provider Note NAME: SEAN LAGUNA AGE: 76 SEX: M : 1945 ARRIVES VIA: Walk-In INFORMANT: [Patient] ED PROVIDER(S): [Calvin Rose MD] CHIEF COMPLAINT: Chest pain HISTORY OF PRESENT ILLNESS: The patient is a 76-year-old male presents to the ER with 2 days of left lateral lower chest pain. The pain is always present and is moderate in severity. He does not feel short of breath but it does hurt to take a deep breath. There has been no fever. No increased cough. No abdominal pain. Patient has a history of rib fractures several months ago after being run over by a bull. The patient denies fall or recent trauma that would have re-aggravated or reinjured the chest. REVIEW OF SYSTEMS: See HPI for pertinent positives and negatives. A total of ten systems were reviewed and were otherwise negative. PMHx/PSHx: See Below SOCIAL HISTORY: See Below. PHYSICAL EXAM: GENERAL: Patient is in no acute distress. HEENT: No acute trauma, normocephalic atraumatic, mucous membranes dry, no nasal congestion, no scleral icterus. NECK: No stridor, no adenopathy, no meningismus, trachea is midline. LUNGS: Clear to auscultation bilaterally, no wheeze, no rhonchi, breath sounds equal. Chest: Tender to palpate the left lateral lower ribs, no crepitus or rash. HEART: Without murmurs gallops or rubs, regular rate and rhythm. ABDOMEN: Soft, nontender, bowel sounds positive, no peritonitis. EXTREMITIES: No cyanosis or edema, full range of motion of all the joints without pain or difficulty, no signs for acute trauma. NEUROLOGIC: Oriented x 3, no acute motor or sensory deficits, no focal weakness. SKIN: No rash, no jaundice, no diaphoresis. DIFFERENTIAL DIAGNOSIS: Cardiac ischemia, bacteremia or sepsis, dehydration, rib fracture, aortic dissection, pulmonary embolism, pneumothorax, pneumonia, pericarditis, myocarditis, esophageal rupture, GERD, cholecystitis, pancreatitis, musculoskeletal, as well as other pathologies. EMERGENCY DEPARTMENT COURSE/PROCEDURES: ECG: Indication was chest pain. The ECG shows a normal sinus rhythm with a rate of 64. There is no ST elevation, no PVCs. There are some inverted T waves in lead I and aVL. QTc is 443. Compared to an ECG from 22 May 2022, I see no significant change. Continuous Cardiac Monitoring: An order was placed for continuous cardiac monitoring. The monitor shows a rate of 70 with normal sinus rhythm. Critical Care Note: I have personally spent 45 minutes of critical care time in the direct management of this patient. This includes bedside care, interpretation of diagnostic studies, and testing, discussion with consultants, patient, and family members, and other required patient management activities. This 45 minutes is in excess of all separately billable procedures. MEDICAL DECISION MAKING: There is a mild leukocytosis, this could be consistent with infection or the stress of his presentation. No worrisome anemia. There was a normal platelet count. INR was slightly high at 1.2. No renal failure. Lactic acid level was not elevated making sepsis less likely. No concerning liver enzyme elevation. ECG showed a normal sinus rhythm. No obvious TX. Cardiac enzyme testing x1 was not consistent with acute cardiac injury. COVID test returned negative. Chest CT shows bilateral pulmonary emboli. On exam, the patient had presented hypotensive. He did have reproducible left chest wall pain by palpation. The patient received IV saline, 1.5 L. This did improve his blood pressure. He received IV cefepime as empiric antibiotic coverage. I spoke to the patient about his findings. I do think his chest pain is from his PEs. The PEs are new findings on top of his ongoing recent issues. The patient requires a hospital stay. I did speak with case management, the on- call hospitalist was consulted. Past Med/Surg History Medical History CVA (cerebral vascular accident) HTN (hypertension) Hyperlipidemia Rib fractures Surgical History History of shoulder surgery Social History Smoking Status: Never smoker Tobacco Type: Smokeless Tobacco (Dip or Chew) Hx Alcohol Use: No Hx Substance Use: No Preferred Language: Wolof Communication Ability: Effective [employer] Required: No Beliefs That Will Affect Care: None marital status: / Current Living Situation: Family Current Living Situation Comment: Lives with son How many Children do You have: 2 Other Information That Helps Us Care for You: No Feels Safe at Home: Yes Assistive Devices: Bedside Commode and Walker Allergies Allergies Allergy/AdvReac Type Severity Reaction Status Date / Time No Known Allergies Allergy Unknown Verified 07/08/22 00:00 Home Meds Home Medications Medication Instructions Recorded Confirmed aspirin 81 mg tablet,delayed 81 mg PO QAM 12/06/20 07/08/22 release nitroglycerin 0.4 mg sublingual 0.4 mg sublingual DIRECTED PRN 12/06/20 07/08/22 tablet (Nitrostat) Chest Pain acetaminophen 500 mg tablet 1,000 mg PO Q8H PRN Pain 05/22/22 07/08/22 (Tylenol Extra Strength) allopurinol 300 mg tablet 300 mg PO DAILY 05/22/22 07/08/22 amlodipine 10 mg tablet 10 mg PO DAILY 05/22/22 07/08/22 carvedilol 25 mg tablet 25 mg PO BID 05/22/22 07/08/22 tamsulosin 0.4 mg capsule 0.4 mg PO DAILY 05/22/22 07/08/22 atorvastatin 40 mg tablet 40 mg PO HS 07/08/22 07/08/22 finasteride 5 mg tablet 5 mg PO DAILY 07/08/22 07/08/22 hydrocodone 5 mg-acetaminophen 325 1 tab PO QID PRN Pain 07/08/22 07/08/22 mg tablet lisinopril 40 mg tablet 40 mg PO DAILY 07/08/22 07/08/22 Results & Data (ED) Vital Signs Vital Signs - 24 hr 07/07/22 22:22 07/07/22 22:47 07/07/22 22:47 Temperature 37.2 C Temperature Source Temporal Artery Scan Pulse Rate 70 Pulse Rate [Finger] Pulse Rhythm [Finger] Pulse Strength [Finger] Respiratory Rate 18 Respiratory Effort / Characteristics Non-Labored Respiratory Depth Normal Respiratory Pattern Blood Pressure 84/54 L Blood Pressure [Right Arm] Blood Pressure Mean 64 Blood Pressure Mean [Right Arm] Blood Pressure Position [Right Arm] Pulse Oximetry 95 96 Oxygen Delivery Method Room Air Room Air Room Air Sepsis Recent Fever Within 48 Hours No Sepsis New/Unexplained Change in Mental Status N/A Sepsis Action Taken by Nursing No Action Required 07/07/22 23:15 07/08/22 02:10 07/08/22 03:36 Temperature Temperature Source Pulse Rate Pulse Rate [Finger] 65 78 74 Pulse Rhythm [Finger] Regular Regular Regular Pulse Strength [Finger] Normal Normal Normal Respiratory Rate 20 17 16 Respiratory Effort / Characteristics Non-Labored Spontaneous Non-Labored Spontaneous Non-Labored Respiratory Depth Normal Normal Normal Respiratory Pattern Regular Regular Regular Blood Pressure Blood Pressure [Right Arm] 107/61 145/73 H 144/70 H Blood Pressure Mean Blood Pressure Mean [Right Arm] 76 97 94 Blood Pressure Position [Right Arm] Sitting Sitting Sitting Pulse Oximetry 96 94 93 Oxygen Delivery Method Room Air Room Air Room Air Sepsis Recent Fever Within 48 Hours Sepsis New/Unexplained Change in Mental Status Sepsis Action Taken by Correction Medications Current Medication List: was personally reviewed by me Laboratory Data Attestation: I reviewed the patient's lab results. Result diagrams: 07/08/22 09:42 07/08/22 06:51 Lab Results 07/07/22 07/07/22 07/07/22 Range/Units 22:43 22:43 22:43 WBC 14.57 H (4.8-10.8) K/ul RBC 4.80 (4.63-6.08) M/uL Hgb 13.9 L (14.0-18.0) g/dl Hct 43.6 (40.1-51.0) % MCV 90.8 (80.0-100.0) fL MCH 29.0 (25.0-34.0) pg MCHC 31.9 L (32.0-36.0) g/dL RDW Std Deviation 51.8 H (36.4-46.3) fL RDW Coeff of Deborah 15.9 H (11.5-14.5) % Plt Count 235 (130-400) K/uL MPV 10.2 (9.4-12.4) fL Immature Gran % (Auto) 0.5 % Neut % (Auto) 81.9 % Lymph % (Auto) 7.5 % Milam % (Auto) 8.6 % Eos % (Auto) 1.2 % Baso % (Auto) 0.3 % Neut # (Auto) 11.93 H (1.4-6.5) K/uL Lymph # (Auto) 1.10 L (1.2-3.4) K/uL Milam # (Auto) 1.25 H (0.24-0.82) K/uL Eos # (Auto) 0.17 (0-0.50) K/uL Baso # (Auto) 0.04 (0-0.2) K/uL Immature Gran # (Auto) 0.08 H (0.00-0.02) K/uL PT 12.4 H (9.0-12.0) Seconds INR 1.2 H (0.9-1.1) APTT 25.6 (21.0-31.0) Seconds PTT Ratio 0.9 Sodium 138 (136-145) mmol/L Potassium 5.1 (3.5-5.1) mmol/L Chloride 103 (98-107) mmol/L Carbon Dioxide 28 (21-32) mmol/L Anion Gap 7 (3-11) BUN 23 (6-23) mg/dl Creatinine 1.19 (0.6-1.4) mg/dl Est Cr Clr Drug Dosing 50.9 ml/min Est GFR ( Amer) 69.3 ml/min Est GFR (Non-Af Amer) 59.8 ml/min BUN/Creatinine Ratio 19.3 (10-20) Glucose 103 H (70-99(Fasting)) mg/dl Lactate (0.4-2.0) mmol/L Uric Acid 6.8 (2.6-7.2) mg/dl Calcium 8.2 L (8.5-10.1) mg/dl Magnesium 2.1 (1.7-2.4) mg/dl Total Bilirubin 0.7 (0.2-1.0) mg/dl AST 11 L (13-39) U/L ALT 13 (7-52) U/L Alkaline Phosphatase 164 H (34-104) U/L Troponin I High Sens 12.7 (0-20) pg/ml Total Protein 6.3 (6.0-8.3) gm/dl Albumin 3.5 (3.4-5.0) gm/dl Globulin 2.8 (2.5-4.0) gm/dl Albumin/Globulin Ratio 1.3 (0.9-2) SARS-CoV-2, RNA, NAAT (NEGATIVE) 07/07/22 07/07/22 Range/Units 23:18 23:29 WBC (4.8-10.8) K/ul RBC (4.63-6.08) M/uL Hgb (14.0-18.0) g/dl Hct (40.1-51.0) % MCV (80.0-100.0) fL MCH (25.0-34.0) pg MCHC (32.0-36.0) g/dL RDW Std Deviation (36.4-46.3) fL RDW Coeff of Deborah (11.5-14.5) % Plt Count (130-400) K/uL MPV (9.4-12.4) fL Immature Gran % (Auto) % Neut % (Auto) % Lymph % (Auto) % Milam % (Auto) % Eos % (Auto) % Baso % (Auto) % Neut # (Auto) (1.4-6.5) K/uL Lymph # (Auto) (1.2-3.4) K/uL Milam # (Auto) (0.24-0.82) K/uL Eos # (Auto) (0-0.50) K/uL Baso # (Auto) (0-0.2) K/uL Immature Gran # (Auto) (0.00-0.02) K/uL PT (9.0-12.0) Seconds INR (0.9-1.1) APTT (21.0-31.0) Seconds PTT Ratio Sodium (136-145) mmol/L Potassium (3.5-5.1) mmol/L Chloride (98-107) mmol/L Carbon Dioxide (21-32) mmol/L Anion Gap (3-11) BUN (6-23) mg/dl Creatinine (0.6-1.4) mg/dl Est Cr Clr Drug Dosing ml/min Est GFR ( Amer) ml/min Est GFR (Non-Af Amer) ml/min BUN/Creatinine Ratio (10-20) Glucose (70-99(Fasting)) mg/dl Lactate 1.1 (0.4-2.0) mmol/L Uric Acid (2.6-7.2) mg/dl Calcium (8.5-10.1) mg/dl Magnesium (1.7-2.4) mg/dl Total Bilirubin (0.2-1.0) mg/dl AST (13-39) U/L ALT (7-52) U/L Alkaline Phosphatase (34-104) U/L Troponin I High Sens (0-20) pg/ml Total Protein (6.0-8.3) gm/dl Albumin (3.4-5.0) gm/dl Globulin (2.5-4.0) gm/dl Albumin/Globulin Ratio (0.9-2) SARS-CoV-2, RNA, NAAT NEGATIVE (NEGATIVE) Administered Medications Allopurinol (Allopurinol 300 Mg Tab) 300 mg PO DAILY [facility] Stop: 08/07/22 08:59 Last Admin: 07/08/22 08:24 Dose: 300 mg Documented By: TAINA Amlodipine Besylate (Amlodipine Besylate 5 Mg Tab) 10 mg PO DAILY [facility] Stop: 08/07/22 08:59 Last Admin: 07/08/22 08:25 Dose: 10 mg Documented By: TAINA Aspirin (Aspirin 81 Mg Ectab) 81 mg PO QAM [facility] Stop: 08/07/22 08:59 Last Admin: 07/08/22 08:25 Dose: 81 mg Documented By: TAINA Carvedilol (Carvedilol 25 Mg Tab) 25 mg PO BID [facility] Stop: 08/07/22 08:59 Last Admin: 07/08/22 08:25 Dose: 25 mg Documented By: TAINA Finasteride (Finasteride 5 Mg Tab) 5 mg PO DAILY [facility] Stop: 08/07/22 08:59 Last Admin: 07/08/22 08:25 Dose: 5 mg Documented By: TAINA Hydromorphone HCl (Hydromorphone Inj 0.5 Mg/0.5 Ml Syr) 0.5 mg IV Q4H PRN PRN Reason: Pain Stop: 07/22/22 06:14 Last Admin: 07/08/22 07:52 Dose: 0.5 mg Documented By: TAINA Heparin Sodium/Dextrose (Heparin Sodium/Dextrose) 25,000 units in 500 mls @ 24 mls/hr IV .[id number] [facility]; Protocol Stop: 08/07/22 11:16 Last Admin: 07/08/22 11:37 Dose: 1,200 units/hr, 24 mls/hr Documented By: MADHAV Co-signed By: ARACELY Lisinopril (Lisinopril 40 Mg Tab) 40 mg PO DAILY [facility] Stop: 08/07/22 08:59 Last Admin: 07/08/22 08:26 Dose: 40 mg Documented By: TAINA Tamsulosin HCl (Tamsulosin Hcl 0.4 Mg Cap) 0.4 mg PO DAILY [facility] Stop: 08/07/22 08:59 Last Admin: 07/08/22 08:25 Dose: 0.4 mg Documented By: TAINA Discontinued Medications Heparin Sodium (Porcine) (Heparin Sod (Porcine) 1000 Unit/Ml) 5,000 units IV NOW STA Stop: 07/08/22 11:14 Last Admin: 07/08/22 11:37 Dose: 5,000 units Documented By: MADHAV Co-signed By: ARACELY Heparin Sodium/Dextrose (Heparin Iv Adult Wt-Based Standard With Bolus Protocol) 1 each IV Q30M [facility]; Protocol Stop: 08/07/22 09:29 Last Admin: 07/08/22 11:18 Dose: 1 each Documented By: Admin: 07/08/22 11:18 Dose: 1 each Documented By: Admin: 07/08/22 11:18 Dose: 1 each Documented By: Admin: 07/08/22 11:18 Dose: 1 each Documented By: MADHAV Sodium Chloride (Nss 1000ml) 1,000 mls @ 999 mls/hr IV .Q1H1M ONE Stop: 07/07/22 23:55 Last Infusion: 07/08/22 00:13 Dose: 0 mls/hr Documented By: Admin: 07/07/22 23:08 Dose: 999 mls/hr Documented By: DARLINE Cefepime HCl (Maxipime) 2,000 mg in 20 mls @ 5 mls/min IV NOW STA; Protocol Stop: 07/07/22 23:11 Last Admin: 07/07/22 23:17 Dose: 5 mls/min Documented By: DARLINE Sodium Chloride (Nss 1000ml) 500 mls @ 999 mls/hr IV .Q31M ONE Stop: 07/08/22 02:25 Last Infusion: 07/08/22 03:36 Dose: 0 mls/hr Documented By: Admin: 07/08/22 03:05 Dose: 999 mls/hr Documented By: DARLINE Sodium Chloride (1/2 Nss) 1,000 mls @ 80 mls/hr IV .[id number] BO Stop: 07/08/22 18:44 Last Infusion: 07/08/22 10:06 Dose: 0 mls/hr Documented By: Admin: 07/08/22 07:24 Dose: 80 mls/hr Documented By: TAINA Ioversol (Optiray 320 125ml) 120 ml IV ONCE ONE Stop: 07/08/22 00:15 Last Admin: 07/08/22 00:15 Dose: 120 ml Documented By: TNLeona Imaging Data Radiologist's Impression: Chest CTA 07/07/22 22:55 CT angio chest PE protocol CT DOSE: 305.32 mGy.cm HISTORY: 76 years-old Male with PE. Acute shortness of breath TECHNIQUE: Multiple CTA images of the chest were obtained after the intravenous administration of 120 ml Optiray. Coronal and sagittal MIPS were obtained from the axial data set and were submitted for review. All measurements were obtained according to NASCET criteria. A dose lowering technique was utilized adhering to the principles of ALARA. COMPARISON: CTA chest 12/06/2020 FINDINGS: CTA: Moderate cardiomegaly without pericardial effusion. Moderate coronary artery ca lcifications. There is atherosclerosis of the thoracic aorta without aneurysm or dissection. Lobar, segmental and subsegmental pulmonary emboli are present bilaterally, notably within the right lower, left upper lobes and lingula. Additional subsegmental and segmental pulmonary bullae are present within all lobes bilaterally. Mild straightening of the intraventricular septum. CT CHEST: No thyroid nodule or lymphadenopathy. Trace pleural effusions. No pneumothorax. 3 cm consolidative opacity of the right upper lobe abutting the major fissure. Dependent predominant bibasilar atelectasis. There are a few nodular consolidative and groundglass opacities noted bilaterally measuring up to 6 mm in the left upper lobe. The central airways are patent. Nonspecific mid to distal esophageal wall thickening redemonstrated. Unremarkable soft tissues. No acute fracture. Degenerative changes of the shoulders and spine. Left glenohumeral with bodies. Subacute appearing fractures of the anterior left fifth and sixth ribs. IMPRESSION: 1. Bilateral lobar, segmental and subsegmental pulmonary emboli. Straightening of the intraventricular septum is suggestive of associated right heart strain. 2. Subpleural consolidation of the right upper lobe posterior segment is sugges tive of a pulmonary infarct. 3. Small left and trace right pleural effusions with bibasilar atelectasis. Additionally, there are a a few scattered subsegmental nodular consolidative and groundglass densities suggestive of an infectious or inflammatory pneumonitis. 4. Wall thickening of the esophagus suspicious for esophagitis. 5. Subacute anterior left-sided rib fractures. ACT 112: Negative or not required by law. The above report was generated using voice recognition software. It may contain grammatical, syntax or spelling errors. Electronically signed by: Vincent Ji M.D. 07/08/2022 8:33 AM Chest CTA: There is PE noted involving the right upper lobe segmental and subsegmental pulmonary artery branches with similar involvement at the right lung base. There is left-sided distal pulmonary artery involvement with left lobar upper lobe and lingular involvement as well as subsegmental left lower lobe involvement. No heart strain. Small left pleural effusion and associated atelectasis. Discharge Plan Visit Data Chief Complaint: Chest Pain Stated Complaint: CHEST PAIN, RIB PAIN, PAIN IN FEET ED Provider: Calvin Rose Discharge Problem: Hypotension, Precordial chest pain, Leukocytosis, Pulmonary emboli Patient Disposition: Admitted As Inpatient Condition: Fair Discharge Instructions Interventions: ED Discharge Assessment Last Done: 07/08/22 05:39 : Hypotension Qualifiers: Hypotension type: unspecified hypotension type Qualified Code(s): I95.9 - Hypotension, unspecified Leukocytosis Qualifiers: Leukocytosis type: unspecified Qualified Code(s): D72.829 - Elevated white blood cell count, unspecified Pulmonary emboli Qualifiers: Pulmonary embolism type: unspecified Chronicity: acute Acute cor pulmonale presence: without acute cor pulmonale Qualified Code(s): I26.99 - Other pulmonary embolism without acute cor pulmonale
[2022-07-07 23:20] LABS: Troponin I High Sensitivity 12.7 pg/ml (0-20)
[2022-07-07 23:27] LABS: Albumin Globulin Ratio 1.3 (0.9-2); Albumin Level 3.5 gm/dl (3.4-5.0); BUN Creatinine Ratio 19.3 (10-20); Bilirubin,Total 0.7 mg/dl (0.2-1.0); Calcium 8.2 mg/dl (8.5-10.1); Creatinine Clr Calc Pharmacy 50.9 ml/min; Est GFR (African American) 69.3 ml/min; Est GFR (Non-African American) 59.8 ml/min; Globulin 2.8 gm/dl (2.5-4.0); Magnesium 2.1 mg/dl (1.7-2.4); Potassium 5.1 mmol/L (3.5-5.1); Total Protein 6.3 gm/dl (6.0-8.3)
[2022-07-08] MEDS ORDERED: OPTIRAY 320 125ml IV ONE (00:14)
[2022-07-08 00:56] LABS: Uric Acid 6.8 mg/dl (2.6-7.2)
[2022-07-08] MEDS ORDERED: SODIUM CHLORIDE 0.9% 1000ML 500 ML IV ONE (01:55)
[2022-07-08] MEDS ORDERED: POLYETHYLENE (MIRALAX) 17 GM PACK PO PRN (06:15)
[2022-07-08] MEDS ORDERED: ONDANSETRON INJ 2 MG/ML 2 ML VIAL IV PRN (06:15)
[2022-07-08] MEDS ORDERED: SODIUM CHLORIDE 0.45 % 1,000 ML IV SCH (06:15)
[2022-07-08] MEDS ORDERED: NITROGLYCERIN SL 0.4 MG/TAB TAB SL PRN ×2 (06:15)
[2022-07-08] MEDS ORDERED: HYDROCODONE/ACETAMOPHEN 5/325MG TAB PO PRN (06:15)
[2022-07-08] MEDS ORDERED: HYDROmorphone INJ 0.5 MG/0.5 ML SYR IV PRN (06:15)
[2022-07-08] MEDS ORDERED: ACETAMINOPHEN 325 MG TAB PO PRN (06:15)
[2022-07-08 07:02] LABS: Basophils # (auto) 0.04 K/uL (0-0.2); Basophils % (auto) 0.3 %; Eosinophils # (auto) 0.19 K/uL (0-0.50); Eosinophils % (auto) 1.6 %; Hematocrit (blood only) 41.3 % (40.1-51.0); Immature Granulocytes # (auto) 0.08 K/uL (0.00-0.02); Immature Granulocytes % (auto) 0.7 %; Lymphocytes # (auto) 1.23 K/uL (1.2-3.4); Mean Corpuscular Hemoglobin 28.5 pg (25.0-34.0); Mean Corpuscular Hgb Conc 31.5 g/dL (32.0-36.0); Mean Corpuscular Volume 90.6 fL (80.0-100.0); Mean Platelet Volume 10.2 fL (9.4-12.4); Monocytes # (auto) 1.23 K/uL (0.24-0.82); Neutrophils # (auto) 9.48 K/uL (1.4-6.5); Neutrophils % (auto) 77.4 %; Platelet Count 184 K/uL (130-400); RDW Coefficient of Variation 15.9 % (11.5-14.5); RDW Standard Deviation 51.5 fL (36.4-46.3); Red Blood Count 4.56 M/uL (4.63-6.08); White Blood Count 12.25 K/ul (4.8-10.8)
[2022-07-08 07:23] LABS: BUN Creatinine Ratio 19.8 (10-20); Calcium 7.5 mg/dl (8.5-10.1); Creatinine Clr Calc Pharmacy 57.2 ml/min; Est GFR (African American) 79.7 ml/min; Est GFR (Non-African American) 68.8 ml/min; Magnesium 1.9 mg/dl (1.7-2.4); Potassium 4.5 mmol/L (3.5-5.1)
[2022-07-08 07:29] LABS: Troponin I High Sensitivity 12.2 pg/ml (0-20)
[2022-07-08] MEDS: allopurinoL 300 MG TAB PO SCH (08:24)
[2022-07-08] MEDS: TAMSULOSIN HCL 0.4 MG CAP PO SCH (08:25)
[2022-07-08] MEDS: carvediloL 25 MG TAB PO SCH ×2 (08:25→19:46)
[2022-07-08] MEDS: FINASTERIDE 5 MG TAB PO SCH (08:25)
[2022-07-08] MEDS: ASPIRIN 81 MG ECTAB PO SCH (08:25)
[2022-07-08] MEDS: amLODIPine BESYLATE 5 MG TAB PO SCH (08:25)
[2022-07-08] MEDS: lisinopril 40 MG TAB PO SCH (08:26)
--- NOTE | 2022-07-08 08:35 | CT Scan Report ---
CT angio chest PE protocol CT DOSE: 305.32 mGy.cm HISTORY: 76 years-old Male with PE. Acute shortness of breath TECHNIQUE: Multiple CTA images of the chest were obtained after the intravenous administration of 120 ml Optiray. Coronal and sagittal MIPS were obtained from the axial data set and were submitted for review. All measurements were obtained according to NASCET criteria. A dose lowering technique was u tilized adhering to the principles of ALARA. COMPARISON: CTA chest 12/06/2020 FINDINGS: CTA: Moderate cardiomegaly without pericardial effusion. Moderate coronary artery calcifications. There is atherosclerosis of the thoracic aorta without aneurysm or dissection. Lobar, segmental and subsegmen radha pulmonary emboli are present bilaterally, notably within the right lower, left upper lobes and li ngula. Additional subsegmental and segmental pulmonary bullae are present within all lobes bilaterall y. Mild straightening of the intraventricular septum. CT CHEST: No thyroid nodule or lymphadenopathy. Trace pleural effusions. No pneumothorax. 3 cm consolidative op acity of the right upper lobe abutting the major fissure. Dependent predominant bibasilar atelectasis . There are a few nodular consolidative and groundglass opacities noted bilaterally measuring up to 6 mm in the left upper lobe. The central airways are patent. Nonspecific mid to distal esophageal wall thickening redemonstrated. Unremarkable soft tissues. No ac [place] fracture. Degenerative changes of the shoulders and spine. Left glenohumeral with bodies. Subacut e appearing fractures of the anterior left fifth and sixth ribs. IMPRESSION: 1. Bilateral lobar, segmental and subsegmental pulmonary emboli. Straightening of the intraventricula r septum is suggestive of associated right heart strain. 2. Subpleural consolidation of the right upper lobe posterior segment is suggestive of a pulmonary in farct. 3. Small left and trace right pleural effusions with bibasilar atelectasis. Additionally, there are a a few scattered subsegmental nodular consolidative and groundglass densities suggestive of an infect ious or inflammatory pneumonitis. 4. Wall thickening of the esophagus suspicious for esophagitis. 5. Subacute anterior left-sided rib fractures. ACT 112: Negative or not required by law. The above report was generated using voice recognition software. It may contain grammatical, syntax o r spelling errors. Electronically signed by: Vincent Ji M.D. 07/08/2022 8:33 AM
--- NOTE | 2022-07-08 09:19 | History and Physical Report ---
DATE OF ADMISSION: 07/08/2022. CHIEF COMPLAINT: Chest pain. HISTORY OF PRESENT ILLNESS: This is a 76-year-old male with past medical history significant for type 2 diabetes, hyperlipidemia, hyperuricemia, peripheral vascular disease, hypertension, history of CVA, GERD, chronic kidney disease, stage III; BPH, osteoarthritis, atherosclerotic cardiovascular disease, who presents with chest pain. 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 At that time there was some right-sided weakness. MRI showing subacute infarct in the left MCA and left ICA stenosis more than 90%, underwent left carotid endarterectomy during that admission as per the previous H and P. He was in rehab in [facility] until 05/14/2022. The patient says that lately again, he is having severe chest pain while taking deep breath, which prompted him to come to the ER and imaging studies shows multiple PEs. Denies any shortness of breath, no cough, no headache, no blurred visions, no runny nose, no sore throat, no nausea. Appetite is okay. No belly pain. Normal bowel and bladder movements. Currently, resting comfortably and hemodynamically stable, saturating okay on the room air. ALLERGIES: No known drug allergies. PAST MEDICAL HISTORY: As mentioned above. PAST SURGICAL HISTORY: Colonoscopy, EGD with biopsy, hemorrhoidectomy, umbilical hernia repair, broken left clavicle repair. MEDICATIONS: The patient is on Tylenol Extra Strength 1000 mg p.o. q. 8 hours p.r.n., allopurinol 300 mg p.o. daily, amlodipine 10 mg p.o. daily, aspirin 81 mg p.o. daily, atorvastatin 40 mg p.o. at bedtime, Coreg 25 mg p.o. b.i.d., finasteride 5 mg p.o. daily, hydrocodone/acetaminophen 1 tablet p.o. q.i.d. p.r.n., lisinopril 40 mg p.o. daily, Nitrostat 0.4 mg sublingual p.r.n., Flomax 0.4 mg p.o. daily. FAMILY HISTORY: Significant for daughter has asthma, pancreatitis; brother has hypertension, OR; father has hypertension, stroke; mother has cancer. SOCIAL HISTORY: Chews tobacco. No alcohol use. No drug use. REVIEW OF SYSTEMS: As per HPI. Rest of review of systems is negative. PHYSICAL EXAMINATION: GENERAL: The patient is of moderate build, not in acute distress. VITAL SIGNS: Temperature 37.2, pulse 74, respiratory rate 16, blood pressure 144/70, oxygen 93% on room air. HEENT: Pupils equal, round and reactive to light. Oral mucosa moist. NECK: No JVD. No neck masses. CARDIOVASCULAR: S1 and S2 heard. Regular rate and rhythm. No murmur, no gallop. RESPIRATORY SYSTEM: Normal AP diameter. No accessory muscle use. No wheezing, no crackles. ABDOMEN: Soft, bowel sounds present, nontender, no distention. CENTRAL NERVOUS SYSTEM: Cranial nerves II through XII grossly intact, nonfocal. EXTREMITIES: No edema, no erythema. LABORATORY DATA: WBC 14.5, hemoglobin 13.9, hematocrit 43.6, platelets 235, PT 12.4, INR 1.2, APTT 25.6. Sodium 138, potassium 5.1, chloride 103, bicarbonate 28, BUN 23, creatinine 1.1, serum glucose 103. Lactate 1.1. Uric acid 6.8, calcium 8.1, magnesium 2.1, total bilirubin 0.7, AST 11, ALT 13, alkaline phosphatase 164. Troponin I high sensitivity 12.7. SARS-CoV-2 rapid test negative. IMAGING DATA: CT of the chest, bilateral PE in preliminary report. ASSESSMENT AND PLAN: This is a 76-year-old male who presents with sharp chest pain and found to have pulmonary embolism. 1. Acute pulmonary embolism on the preliminary CT scan.Will Follow the final report. starting on IV heparin. Follow echocardiogram and lower extremity Dopplers. Monitor in the med tele. 2. History of hypertension: Continue home medications of Coreg, amlodipine, lisinopril. Monitor the blood pressure. 3. Benign prostatic hyperplasia: Continue Flomax and finasteride. 4. Hyperlipidemia: Continue statin. 5. Gout: Continue allopurinol. 6. Peripheral vascular disease: Continue aspirin and statin. 7. Chronic kidney disease, stage III: Presently with a creatinine of 1.1. We will follow the labs. 8. Diabetes, not on medication. Follow HbA1c levels. Follow diabetic diet. 10. Hx of CVA on aspirin and Statin 9. Deep venous thrombosis prophylaxis. Currently on IV heparin. DISPOSITION: Closely monitor in the med tele. PT/OT prior to discharge. Social service to help with discharge planning. Level 1 full code. Job ID: [id number] [facility]
--- NOTE | 2022-07-08 09:19 | Electrocardiogram Report ---
Test Reason : Blood Pressure : / mmHG Vent. Rate : 064 BPM Atrial Rate : 064 BPM P-R Int : 122 ms QRS Dur : 080 ms QT Int : 430 ms P-R-T Axes : 039 031 070 degrees QTc Int : 443 ms Poor data quality, interpretation may be adversely affected Normal sinus rhythm Nonspecific ST and T wave abnormality Lateral leads Abnormal ECG When compared with ECG of 22-MAY-2022 18:34, No significant change Confirmed by Juan Ramon Bernal ([id number]) on 07/08/2022 9:19:11 AM Referred By: REFERRED SELF Confirmed By:Juan Ramon Bernal
[2022-07-08] MEDS ORDERED: HEPARIN SOD (PORCINE) 1000 UNIT/ML IV ONE (09:40)
[2022-07-08 09:52] LABS: Basophils # (auto) 0.02 K/uL (0-0.2); Basophils % (auto) 0.2 %; Eosinophils % (auto) 1.5 %; Hematocrit (blood only) 38.1 % (40.1-51.0); Hemoglobin 12.1 g/dl (14.0-18.0); Immature Granulocytes # (auto) 0.05 K/uL (0.00-0.02); Immature Granulocytes % (auto) 0.4 %; Lymphocytes # (auto) 1.01 K/uL (1.2-3.4); Lymphocytes % (auto) 7.6 %; Mean Corpuscular Hemoglobin 28.8 pg (25.0-34.0); Mean Corpuscular Hgb Conc 31.8 g/dL (32.0-36.0); Mean Corpuscular Volume 90.7 fL (80.0-100.0); Mean Platelet Volume 10.3 fL (9.4-12.4); Monocytes % (auto) 9.8 %; Neutrophils # (auto) 10.69 K/uL (1.4-6.5); Neutrophils % (auto) 80.5 %; Platelet Count 196 K/uL (130-400); RDW Coefficient of Variation 15.8 % (11.5-14.5); RDW Standard Deviation 52.1 fL (36.4-46.3); White Blood Count 13.27 K/ul (4.8-10.8)
[2022-07-08 10:14] LABS: INR 1.2 (0.9-1.1); Partial Thromboplastin Ratio 1.1; Partial Thromboplastin Time 29.5 Seconds (21.0-31.0)
--- NOTE | 2022-07-08 10:22 | Communication Note ---
Date of Service: July 08, 2022 76-year-old male with past medical history significant for type 2 diabetes, hyperlipidemia, hyperuricemia, peripheral vascular disease, hypertension, history of CVA, GERD, chronic kidney disease, stage III; BPH, osteoarthritis, atherosclerotic cardiovascular disease, who presents with chest pain Exam grossly unremarkable CT PE noted bilateral lobar, segmental and subsegmental PE, possible RUL infarct, subacute left rib fractures Trop trend is negative TTE noted IV heparin drip Monitor vitals Agree with plans as detailed in H & P by Dr Li this morning
--- NOTE | 2022-07-08 10:55 | Ultrasound Report ---
BILATERAL LOWER EXTREMITY VENOUS DOPPLER HISTORY: Screening study in a patient with possible pulmonary emboli acute PE. DVT? COMPARISON STUDY: None. FINDINGS: There is normal compressibility, flow, and augmentation within the bilateral lower extremit y deep venous systems. Age-indeterminate occlusion of the left superficial femoral artery proximal to mid portions of the vessel with distal reconstitution of flow demonstrating biphasic waveforms. IMPRESSION: 1. No DVT within the right or left lower extremity. 2. Incidental note is made of age-indeterminate occlusive thrombus within the mid to distal aspect of the left superficial femoral artery with distal reconstitution of flow ACT 112: Negative or not required by law. Electronically signed by: Vincent Ji M.D. 07/08/2022 10:54 AM
[2022-07-08] MEDS ORDERED: HEPARIN SOD (PORCINE) 1000 UNIT/ML IV STA (11:13)
[2022-07-08] MEDS: Heparin IV Adult Wt-Based Standard WITH Bolus Protocol IV SCH (11:18)
[2022-07-08] MEDS: HEPARIN SODIUM/DEXTROSE 25,000 UNITS/500 ML BAG IV SCH (11:37)
[2022-07-08 19:09] LABS: Partial Thromboplastin Ratio 2.2
[2022-07-08 19:17] LABS: Partial Thromboplastin Time 60.1 Seconds (21.0-31.0)
[2022-07-08] MEDS: ATORVASTATIN 40 MG TAB PO SCH (19:45)
[2022-07-08 20:10] LABS: A calco-baum cmplx NotReported Not Detected (NotDetected); Bact fragilis Not Reported Not Detected (NotDetected); C auris Not Reported Not Detected (NotDetected); Calbicans Not Reported Not Detected (NotDetected); Candida glabrata Not Reported Not Detected (NotDetected); Candida krusei Not Reported Not Detected (NotDetected); Cneoformans/gatti Not Reported Not Detected (NotDetected); Cparapsilosis Not Reported Not Detected (NotDetected); Ctropicalis Not Reported Not Detected (NotDetected); E cloacae compx Not Reported Not Detected (NotDetected); Efaecalis Not Reported Not Detected (NotDetected); Efaecium Not Reported Not Detected (NotDetected); Enterobacterales Not Reported Not Detected (NotDetected); Escherichia coli Not Reported Not Detected (NotDetected); H influenzae Not Reported Not Detected (NotDetected); K aerogenes Not Reported Not Detected (NotDetected); Koxytoca Not Reported Not Detected (NotDetected); Kpneumoniae grp Not Reported Not Detected (NotDetected); Lmonocyt Not Reported Not Detected (NotDetected); N meningitidis Not Reported Not Detected (NotDetected); P aeruginosa Not Reported Not Detected (NotDetected); Proteus spp Not Reported Not Detected (NotDetected); Salmonella spp Not Reported Not Detected (NotDetected); Smarcescens Not Reported Not Detected (NotDetected); Staph lugdunensis Not Reported Not Detected (NotDetected); Staph spp. Not Reported DETECTED (NotDetected); Staphaureus Not Reported Not Detected (NotDetected); Staphepi Not Reported Not Detected (NotDetected); Stenmaltophilia Not Reported Not Detected (NotDetected); Strep agal(GrpB) Not Reported Not Detected (NotDetected); Strep pneum Not Reported Not Detected (NotDetected); Strep pyog (GrpA) Not Reported Not Detected (NotDetected); Strep spp Not Reported Not Detected (NotDetected)
[2022-07-08 20:25] LABS: Staphylococcus spp. DETECTED (NotDetected)
[2022-07-08] MEDS ORDERED: VANCOMYCIN CONSULT ACTIVE PRN (20:31)
[2022-07-08] MEDS ORDERED: VANCOMYCIN HCL 1,500 MG in SODIUM CHLORIDE 0.9% 500 ML IV ONE (21:00)
[2022-07-09 07:00] LABS: Hematocrit (blood only) 36.9 % (40.1-51.0); Hemoglobin 11.8 g/dl (14.0-18.0); Mean Corpuscular Hemoglobin 28.6 pg (25.0-34.0); Mean Corpuscular Volume 89.6 fL (80.0-100.0); Platelet Count 174 K/uL (130-400); RDW Coefficient of Variation 15.5 % (11.5-14.5); RDW Standard Deviation 50.9 fL (36.4-46.3); Red Blood Count 4.12 M/uL (4.63-6.08)
[2022-07-09 07:28] LABS: BUN Creatinine Ratio 19.1 (10-20); Calcium 7.7 mg/dl (8.5-10.1); Creatinine Clr Calc Pharmacy 52.7 ml/min; Est GFR (African American) 72.3 ml/min; Est GFR (Non-African American) 62.3 ml/min; Potassium 4.2 mmol/L (3.5-5.1)
[2022-07-09 07:36] LABS: Partial Thromboplastin Ratio 2.4
[2022-07-09 07:40] LABS: Partial Thromboplastin Time 66.9 Seconds (21.0-31.0)
[2022-07-09] MEDS ORDERED: VANCOMYCIN HCL 1,000 MG in SODIUM CHLORIDE 0.9% 250 ML IV SCH (08:00)
[2022-07-09] MEDS: amLODIPine BESYLATE 5 MG TAB PO SCH (08:01)
[2022-07-09] MEDS: FINASTERIDE 5 MG TAB PO SCH (08:01)
[2022-07-09] MEDS: ASPIRIN 81 MG ECTAB PO SCH (08:01)
[2022-07-09] MEDS: TAMSULOSIN HCL 0.4 MG CAP PO SCH (08:01)
[2022-07-09] MEDS: carvediloL 25 MG TAB PO SCH ×2 (08:01→21:51)
[2022-07-09] MEDS: lisinopril 40 MG TAB PO SCH (08:01)
[2022-07-09] MEDS: allopurinoL 300 MG TAB PO SCH (08:01)
[2022-07-09 08:39] LABS: Estimated Average Glucose 146 mg/dl; Hemoglobin A1C 6.7 % (4.5-5.6)
[2022-07-09] MEDS: HEPARIN SODIUM/DEXTROSE 25,000 UNITS/500 ML BAG IV SCH (09:16)
--- NOTE | 2022-07-09 12:46 | Hospitalist Progress Note ---
Date of Service July 09, 2022 Assessment & Plan (1) Chest pain: (2) Leukocytosis: (3) Pulmonary embolism: Plan: Patient presented with chest pain, pleuritic CT PE noted bilateral lobar, segmental and subsegmental PE, possible RUL infarct, subacute left rib fractures Patient was started on heparin drip Will plan to transition to DOAC on dc Reviewed TTE. No sign of right heart strain. Pain control Doppler did not show DVT but noted age indeterminate occlusive thrombus in left SFA with distal reconstitution Had leukocytosis on presentation which has quickly resolved One of 4 blood cultures growing CONS. Was started on vanco overnight Low suspicion for true bacteremia/infection. Will repeat culture. Hold off further abx for now and monitor (4) HTN (hypertension): Plan: BP occasionally becomes hypotensive after getting home antihypertensives Reduced lisinopril to 20mg daily Will monitor. (5) History of cerebrovascular accident: Plan: Continue ASA and statin Plan Diabetes A1c 6.7 Carb controlled diet Continue allopurinol Get PT/OT eval Admission and Anticipated Discharge Date Admission Date: July 08, 2022 Subjective Patient seen and examined Reports left lower ribs pain Denied any cough, shortness of breath, palpitation Denied any dizziness, headache, fever, chills Denied nausea, vomiting, abd pain, diarrhea, constipation Denied dysuria, freq, urgency Physical Exam Constitutional: + well hydrated; no acute distress Eyes: PERRL, conjunctivae normal, anicteric sclerae ENMT: external ear and nose normal, oropharynx normal Respiratory: normal respiratory effort, lungs clear to auscultation Cardiovascular: Rate/Rhythm: regular rate and regular rhythm S1 S2 Gastrointestinal (Abdomen): normal bowel sounds, soft, nontender, no hepatosplenomegaly Musculoskeletal: No pedal edema Neurologic: PERRL, EOMI, accommodation nl, no face palsy, no dysarthria Psychiatric: A+Ox3, euthymic affect Results & Data Results & Data ([facility]) Vital Signs (Past 12 Hours) Vital Signs Temp Pulse Pulse Resp BP BP Pulse Ox 07/09/22 10:56 37.0 C 83 18 96/56 L 94 07/09/22 09:43 07/09/22 07:35 62 07/09/22 07:24 36.8 C 66 20 108/69 91 07/09/22 04:00 36.9 C 64 20 129/74 92 O2 Del Method 07/09/22 10:56 Room Air 07/09/22 09:43 Room Air 07/09/22 07:35 07/09/22 07:24 07/09/22 04:00 Room Air Laboratory Results Abnormal lab results 07/07/22 07/08/22 07/08/22 Range/Units 23:16 06:51 16:47 RBC (4.63-6.08) M/uL Hgb (14.0-18.0) g/dl Hct (40.1-51.0) % RDW Std Deviation (36.4-46.3) fL RDW Coeff of Deborah (11.5-14.5) % APTT (21.0-31.0) Seconds Sodium (136-145) mmol/L POC Glucose 108 H (70-99) mg/dl Hemoglobin A1c 6.7 H (4.5-5.6) % Calcium (8.5-10.1) mg/dl Staphylococcus sp PCR DETECTED A (NotDetected) 07/08/22 07/08/22 07/09/22 Range/Units 18:09 20:40 06:10 RBC (4.63-6.08) M/uL Hgb (14.0-18.0) g/dl Hct (40.1-51.0) % RDW Std Deviation (36.4-46.3) fL RDW Coeff of Deborah (11.5-14.5) % APTT 60.1 H* 66.9 H* (21.0-31.0) Seconds Sodium (136-145) mmol/L POC Glucose 111 H (70-99) mg/dl Hemoglobin A1c (4.5-5.6) % Calcium (8.5-10.1) mg/dl Staphylococcus sp PCR (NotDetected) 07/09/22 07/09/22 07/09/22 Range/Units 06:10 06:10 07:30 RBC 4.12 L (4.63-6.08) M/uL Hgb 11.8 L (14.0-18.0) g/dl Hct 36.9 L (40.1-51.0) % RDW Std Deviation 50.9 H (36.4-46.3) fL RDW Coeff of Deborah 15.5 H (11.5-14.5) % APTT (21.0-31.0) Seconds Sodium 134 L (136-145) mmol/L POC Glucose 102 H (70-99) mg/dl Hemoglobin A1c (4.5-5.6) % Calcium 7.7 L (8.5-10.1) mg/dl Staphylococcus sp PCR (NotDetected) 07/09/22 Range/Units 11:37 RBC (4.63-6.08) M/uL Hgb (14.0-18.0) g/dl Hct (40.1-51.0) % RDW Std Deviation (36.4-46.3) fL RDW Coeff of Deborah (11.5-14.5) % APTT (21.0-31.0) Seconds Sodium (136-145) mmol/L POC Glucose 138 H (70-99) mg/dl Hemoglobin A1c (4.5-5.6) % Calcium (8.5-10.1) mg/dl Staphylococcus sp PCR (NotDetected) (1) Leukocytosis Leukocytosis type: unspecified Qualified Code(s): D72.829 - Elevated white blood cell count, unspecified
[2022-07-09 14:21] LABS: Partial Thromboplastin Ratio 2.2
[2022-07-09 14:31] LABS: Partial Thromboplastin Time 60.1 Seconds (21.0-31.0)
[2022-07-09] MEDS: ATORVASTATIN 40 MG TAB PO SCH (21:49)
[2022-07-10 06:59] LABS: Basophils # (auto) 0.04 K/uL (0-0.2); Basophils % (auto) 0.6 %; Eosinophils # (auto) 0.19 K/uL (0-0.50); Eosinophils % (auto) 2.7 %; Hematocrit (blood only) 35.3 % (40.1-51.0); Hemoglobin 11.6 g/dl (14.0-18.0); Immature Granulocytes # (auto) 0.03 K/uL (0.00-0.02); Immature Granulocytes % (auto) 0.4 %; Lymphocytes # (auto) 1.02 K/uL (1.2-3.4); Lymphocytes % (auto) 14.6 %; Mean Corpuscular Hemoglobin 28.8 pg (25.0-34.0); Mean Corpuscular Hgb Conc 32.9 g/dL (32.0-36.0); Mean Corpuscular Volume 87.6 fL (80.0-100.0); Mean Platelet Volume 11.1 fL (9.4-12.4); Monocytes # (auto) 0.76 K/uL (0.24-0.82); Monocytes % (auto) 10.9 %; Neutrophils # (auto) 4.96 K/uL (1.4-6.5); Neutrophils % (auto) 70.8 %; Platelet Count 191 K/uL (130-400); RDW Coefficient of Variation 15.5 % (11.5-14.5); RDW Standard Deviation 49.6 fL (36.4-46.3); Red Blood Count 4.03 M/uL (4.63-6.08)
[2022-07-10 07:21] LABS: BUN Creatinine Ratio 17.9 (10-20); Creatinine Clr Calc Pharmacy 57.2 ml/min; Est GFR (African American) 79.7 ml/min; Est GFR (Non-African American) 68.8 ml/min; Potassium 3.9 mmol/L (3.5-5.1)
[2022-07-10] MEDS: HEPARIN SODIUM/DEXTROSE 25,000 UNITS/500 ML BAG IV SCH (07:55)
[2022-07-10] MEDS: lisinopril 20 MG TAB PO SCH (07:56)
[2022-07-10] MEDS: carvediloL 25 MG TAB PO SCH ×2 (07:56→21:37)
[2022-07-10] MEDS: allopurinoL 300 MG TAB PO SCH (07:57)
[2022-07-10] MEDS: ASPIRIN 81 MG ECTAB PO SCH (07:57)
[2022-07-10] MEDS: FINASTERIDE 5 MG TAB PO SCH (07:57)
[2022-07-10] MEDS: TAMSULOSIN HCL 0.4 MG CAP PO SCH (07:57)
[2022-07-10] MEDS: amLODIPine BESYLATE 5 MG TAB PO SCH (07:57)
[2022-07-10 08:03] LABS: Partial Thromboplastin Ratio 2.1
[2022-07-10 08:06] LABS: Partial Thromboplastin Time 56.4 Seconds (21.0-31.0)
--- NOTE | 2022-07-10 10:34 | Hospitalist Progress Note ---
Date of Service July 10, 2022 Assessment & Plan (1) Chest pain: (2) Leukocytosis: (3) Pulmonary embolism: Plan: Patient presented with chest pain, pleuritic CT PE noted bilateral lobar, segmental and subsegmental PE, possible RUL infarct, subacute left rib fractures Patient was started on heparin drip Reviewed TTE. No sign of right heart strain. Pain control Doppler did not show DVT but noted age indeterminate occlusive thrombus in left SFA with distal reconstitution Called patient's pharm to ascertain if coverage for DOAC. Pharm reported he has no insurance. Will start warfarin - hep bridge then. Had leukocytosis on presentation which has quickly resolved One of 4 blood cultures growing CONS. Was started on vanco overnight Repeat culture negative Low suspicion for true bacteremia/infection. Likely contaminant (4) HTN (hypertension): Plan: BP occasionally becomes hypotensive after getting home antihypertensives Reduced lisinopril to 20mg daily BP better. Continue to monitor (5) History of cerebrovascular accident: Plan: Continue ASA and statin Plan Diabetes A1c 6.7 Carb controlled diet Continue allopurinol Get PT/OT eval Called and updated the daughter who reported patient was in an accident in [place] some months ago - Was ran over by a bull and had concussion, left rib fracture, left leg blood clot and stroke while in the hospital Admission and Anticipated Discharge Date Admission Date: July 08, 2022 Subjective Patient seen and examined Reports feeling better today Reports only left sided chest pain in lower ribs Denied any cough, shortness of breath, palpitation Denied nausea, vomiting, abd pain, diarrhea Denied constipation Denied dysuria, freq, urgency Physical Exam Constitutional: + well hydrated; no acute distress Eyes: PERRL, conjunctivae normal, anicteric sclerae ENMT: external ear and nose normal, oropharynx normal Respiratory: normal respiratory effort, lungs clear to auscultation Cardiovascular: Rate/Rhythm: regular rate and regular rhythm S1 s2 +Post tibial pulses Gastrointestinal (Abdomen): normal bowel sounds, soft, nontender, no hepatosplenomegaly Musculoskeletal: No pedal edema Neurologic: PERRL, EOMI, accommodation nl, no face palsy, no dysarthria Psychiatric: A+Ox3, euthymic affect Results & Data Results & Data ([facility]) Vital Signs (Past 12 Hours) Vital Signs Temp Pulse Pulse Resp BP Pulse Ox O2 Del Method 07/10/22 08:20 36.7 C 57 L 18 113/70 94 Room Air 07/10/22 07:46 69 07/10/22 02:55 36.7 C 57 L 18 129/72 91 Room Air 07/09/22 23:29 36.7 C 58 L 18 117/63 92 Room Air Laboratory Results Abnormal lab results 07/09/22 07/09/22 07/09/22 Range/Units 11:37 13:43 16:49 RBC (4.63-6.08) M/uL Hgb (14.0-18.0) g/dl Hct (40.1-51.0) % RDW Std Deviation (36.4-46.3) fL RDW Coeff of Deborah (11.5-14.5) % Lymph # (Auto) (1.2-3.4) K/uL Immature Gran # (Auto) (0.00-0.02) K/uL APTT 60.1 H* (21.0-31.0) Seconds POC Glucose 138 H 104 H (70-99) mg/dl Calcium (8.5-10.1) mg/dl 07/09/22 07/10/22 07/10/22 Range/Units 20:40 06:20 06:20 RBC 4.03 L (4.63-6.08) M/uL Hgb 11.6 L (14.0-18.0) g/dl Hct 35.3 L (40.1-51.0) % RDW Std Deviation 49.6 H (36.4-46.3) fL RDW Coeff of Deborah 15.5 H (11.5-14.5) % Lymph # (Auto) 1.02 L (1.2-3.4) K/uL Immature Gran # (Auto) 0.03 H (0.00-0.02) K/uL APTT (21.0-31.0) Seconds POC Glucose 126 H (70-99) mg/dl Calcium 8.0 L (8.5-10.1) mg/dl 07/10/22 07/10/22 Range/Units 06:20 07:32 RBC (4.63-6.08) M/uL Hgb (14.0-18.0) g/dl Hct (40.1-51.0) % RDW Std Deviation (36.4-46.3) fL RDW Coeff of Deborah (11.5-14.5) % Lymph # (Auto) (1.2-3.4) K/uL Immature Gran # (Auto) (0.00-0.02) K/uL APTT 56.4 H* (21.0-31.0) Seconds POC Glucose 109 H (70-99) mg/dl Calcium (8.5-10.1) mg/dl (1) Leukocytosis Leukocytosis type: unspecified Qualified Code(s): D72.829 - Elevated white blood cell count, unspecified
[2022-07-10] MEDS: WARFARIN SOD 5 MG TAB PO SCH (15:30)
[2022-07-10] MEDS: ATORVASTATIN 40 MG TAB PO SCH (21:35)
[2022-07-11] MEDS: HEPARIN SODIUM/DEXTROSE 25,000 UNITS/500 ML BAG IV SCH (05:31)
[2022-07-11 07:40] LABS: Hematocrit (blood only) 35.9 % (40.1-51.0); Hemoglobin 11.9 g/dl (14.0-18.0); Mean Corpuscular Hgb Conc 33.1 g/dL (32.0-36.0); Mean Corpuscular Volume 87.6 fL (80.0-100.0); Mean Platelet Volume 10.4 fL (9.4-12.4); Platelet Count 177 K/uL (130-400); RDW Coefficient of Variation 15.2 % (11.5-14.5); RDW Standard Deviation 49.1 fL (36.4-46.3); White Blood Count 5.87 K/ul (4.8-10.8)
[2022-07-11] MEDS: ASPIRIN 81 MG ECTAB PO SCH (07:56)
[2022-07-11] MEDS: carvediloL 25 MG TAB PO SCH ×2 (07:56→20:44)
[2022-07-11] MEDS: TAMSULOSIN HCL 0.4 MG CAP PO SCH (07:56)
[2022-07-11] MEDS: lisinopril 20 MG TAB PO SCH (07:56)
[2022-07-11] MEDS: allopurinoL 300 MG TAB PO SCH (07:57)
[2022-07-11] MEDS: FINASTERIDE 5 MG TAB PO SCH (07:57)
[2022-07-11] MEDS: amLODIPine BESYLATE 5 MG TAB PO SCH (07:57)
[2022-07-11 08:13] LABS: INR 1.2 (0.9-1.1); Partial Thromboplastin Ratio 1.7; Prothrombin Time 12.8 Seconds (9.0-12.0)
[2022-07-11 08:15] LABS: Partial Thromboplastin Time 48.1 Seconds (21.0-31.0)
[2022-07-11 08:30] LABS: BUN Creatinine Ratio 17.4 (10-20); Calcium 8.4 mg/dl (8.5-10.1); Creatinine Clr Calc Pharmacy 52.7 ml/min; Est GFR (African American) 72.3 ml/min; Est GFR (Non-African American) 62.3 ml/min
--- NOTE | 2022-07-11 14:44 | Hospitalist Progress Note ---
Date of Service July 11, 2022 Assessment & Plan (1) Chest pain: (2) Leukocytosis: (3) Pulmonary embolism: Plan: Patient presented with chest pain, pleuritic Admitting CTA chest: bilateral lobar, segmental and subsegmental PE noted, possible RUL infarct, subacute left rib fractures Doppler did not show DVT but noted age indeterminate occlusive thrombus in left SFA with distal reconstitution. Reviewed TTE. No sign of right heart strain. Patient was started on heparin drip, insurance does not cover DOAC, patient started on warfarin 07/10, INR 1.2 today, additional dose of 2.5 mg warfarin today. Follow-up PT/INR tomorrow, at least we will try to get an idea of what Coumadin dose to send him home with prior to discharge. / blood culture positive, likely contaminant: Had leukocytosis on presentation which has quickly resolved One of 4 blood cultures growing CONS. Was started on vanco earlier but discontinued Repeat culture negative Low suspicion for true bacteremia/infection. Likely contaminant (4) HTN (hypertension): Plan: BP occasionally becomes hypotensive after getting home antihypertensives, hence lisinopril reduced to 20 mg daily. BP better. Continue to monitor (5) History of cerebrovascular accident: Plan: Continue ASA and statin Plan Diabetes A1c 6.7 Carb controlled diet Continue allopurinol Per prior attending, per daughter patient was in an accident in [place] some months ago - Was ran over by a bull and had concussion, left rib fracture, left leg blood clot and stroke while in the hospital Admission and Anticipated Discharge Date Admission Date: July 08, 2022 Subjective Patient seen and examined at bedside as a follow-up of bilateral pulmonary embolism. Patient was lying in bed, on room air, NAD, no new acute events overnight. Patient reports his bilateral lower extremity pain and left lower chest pain ongoing but getting better. Patient reports eating okay and moving bowels okay. Patient denies any headache/dizziness/palpitations/sore throat/cough/acute changes in his bowel or bladder habits/other review of symptoms. Physical Exam Physical Exam: GENERAL: Alert and oriented x3. NAD, on RA. HEENT: No pallor, no icterus. Pupils equal, round and reactive to light. Oral mucosa moist. NECK: No JVD, no neck masses. HEART: S1 and S2 heard. Regular rate and rhythm. No murmur, no gallop. RESPIRATORY SYSTEM: Normal AP diameter. No accessory muscle use. No wheezing, no crackles. ABDOMEN: Soft, bowel sounds present, nontender, no distention. CENTRAL NERVOUS SYSTEM: No facial droop. Speech is clear. Obeys simple commands. Moves extremities. EXTREMITIES: No edema, no erythema seen. Results & Data Results & Data ([facility]) Vital Signs (Past 12 Hours) Vital Signs Temp Pulse Pulse Resp BP BP Pulse Ox 07/11/22 11:37 36.6 C 55 L 20 105/59 L 91 07/11/22 11:06 07/11/22 08:23 36.9 C 52 L 20 132/70 94 07/11/22 07:34 56 L 07/11/22 05:08 62 07/11/22 02:58 36.6 C 55 L 18 125/71 94 O2 Del Method 07/11/22 11:37 07/11/22 11:06 Room Air 07/11/22 08:23 07/11/22 07:34 07/11/22 05:08 07/11/22 02:58 Room Air (1) Leukocytosis Leukocytosis type: unspecified Qualified Code(s): D72.829 - Elevated white blood cell count, unspecified
[2022-07-11] MEDS: WARFARIN SOD 5 MG TAB PO SCH (15:46)
[2022-07-11] MEDS ORDERED: WARFARIN SOD 2.5 MG TAB PO ONE (16:00)
[2022-07-11] MEDS: ATORVASTATIN 40 MG TAB PO SCH (20:42)
[2022-07-12] MEDS: HEPARIN SODIUM/DEXTROSE 25,000 UNITS/500 ML BAG IV SCH (03:22)
[2022-07-12 06:26] LABS: Basophils # (auto) 0.05 K/uL (0-0.2); Basophils % (auto) 0.7 %; Eosinophils # (auto) 0.33 K/uL (0-0.50); Eosinophils % (auto) 4.4 %; Hematocrit (blood only) 36.7 % (40.1-51.0); Hemoglobin 11.9 g/dl (14.0-18.0); Immature Granulocytes # (auto) 0.05 K/uL (0.00-0.02); Immature Granulocytes % (auto) 0.7 %; Lymphocytes % (auto) 14.7 %; Mean Corpuscular Hemoglobin 28.5 pg (25.0-34.0); Mean Corpuscular Hgb Conc 32.4 g/dL (32.0-36.0); Mean Corpuscular Volume 87.8 fL (80.0-100.0); Mean Platelet Volume 10.8 fL (9.4-12.4); Monocytes # (auto) 0.65 K/uL (0.24-0.82); Monocytes % (auto) 8.7 %; Neutrophils # (auto) 5.31 K/uL (1.4-6.5); Neutrophils % (auto) 70.8 %; Platelet Count 185 K/uL (130-400); RDW Coefficient of Variation 15.2 % (11.5-14.5); RDW Standard Deviation 48.4 fL (36.4-46.3); Red Blood Count 4.18 M/uL (4.63-6.08); White Blood Count 7.49 K/ul (4.8-10.8)
[2022-07-12 07:10] LABS: INR 1.9 (0.9-1.1); Partial Thromboplastin Ratio 1.9; Prothrombin Time 19.6 Seconds (9.0-12.0)
[2022-07-12 07:13] LABS: Partial Thromboplastin Time 52.4 Seconds (21.0-31.0)
[2022-07-12] MEDS: carvediloL 25 MG TAB PO SCH (08:15)
[2022-07-12] MEDS: FINASTERIDE 5 MG TAB PO SCH (08:16)
[2022-07-12] MEDS: allopurinoL 300 MG TAB PO SCH (08:16)
[2022-07-12] MEDS: ASPIRIN 81 MG ECTAB PO SCH (08:16)
[2022-07-12] MEDS: TAMSULOSIN HCL 0.4 MG CAP PO SCH (08:16)
[2022-07-12] MEDS: amLODIPine BESYLATE 5 MG TAB PO SCH (08:16)
[2022-07-12] MEDS: lisinopril 20 MG TAB PO SCH (08:16)
[2022-07-12] MEDS ORDERED: ENOXAPARIN 100 MG/1ML SYR SQ SCH (09:30)
--- NOTE | 2022-07-12 12:48 | Discharge Summary ---
Date of Service July 12, 2022 Admission HPI Per Admitting Provider DATE OF ADMISSION: 07/08/2022. CHIEF COMPLAINT: Chest pain. HISTORY OF PRESENT ILLNESS: This is a 76-year-old male with past medical history significant for type 2 diabetes, hyperlipidemia, hyperuricemia, peripher al vascular disease, hypertension, history of CVA, GERD, chronic kidney disease, stage III; BPH, osteoarthritis, atherosclerotic cardiovascular disease, who presents with chest pain. 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 At that time there was some right-sided weakness. MRI showing subacute infarct in the left MCA and left ICA stenosis more than 90%, underwent left carotid endarterectomy during that admission as per the previous H and P. He was in rehab in [facility] until 05/14/2022. The patient says that lately again, he is having severe chest pain while taking deep breath, which prompted him to come to the ER and imaging studies shows multiple PEs. Denies any shortness of breath, no cough, no headache, no blurred visions, no runny nose, no sore throat, no nausea. Appetite is okay. No belly pain. Normal bowel and bladder movements. Currently, resting comfortably and hemodynamically stable, saturating okay on the room air. ALLERGIES: No known drug allergies. PAST MEDICAL HISTORY: As mentioned above. PAST SURGICAL HISTORY: Colonoscopy, EGD with biopsy, hemorrhoidectomy, um bilical hernia repair, broken left clavicle repair. MEDICATIONS: The patient is on Tylenol Extra Strength 1000 mg p.o. q. 8 hours p.r.n., allopurinol 300 mg p.o. daily, amlodipine 10 mg p.o. daily, aspirin 81 mg p.o. daily, atorvastatin 40 mg p.o. at bedtime, Coreg 25 mg p.o. b.i.d., finasteride 5 mg p.o. daily, hydrocodone/acetaminophen 1 tablet p.o. q.i.d. p.r.n., lisinopril 40 mg p.o. daily, Nitrostat 0.4 mg sublingual p.r.n., Flomax 0.4 mg p.o. daily. FAMILY HISTORY: Significant for daughter has asthma, pancreatitis; brother has hypertension, MS; father has hypertension, stroke; mother has cancer. SOCIAL HISTORY: Chews tobacco. No alcohol use. No drug use. REVIEW OF SYSTEMS: As per HPI. Rest of review of systems is negative. Admission Exam Per Admitting Provider GENERAL: The patient is of moderate build, not in acute distress. VITAL SIGNS: Temperature 37.2, pulse 74, respiratory rate 16, blood pressure 144/70, oxygen 93% on room air. HEENT: Pupils equal, round and reactive to light. Oral mucosa moist. NECK: No JVD. No neck masses. CARDIOVASCULAR: S1 and S2 heard. Regular rate and rhythm. No murmur, no gallop. RESPIRATORY SYSTEM: Normal AP diameter. No accessory muscle use. No wheezing, no crackles. ABDOMEN: Soft, bowel sounds present, nontender, no distention. CENTRAL NERVOUS SYSTEM: Cranial nerves II through XII grossly intact, nonfocal. EXTREMITIES: No edema, no erythema. Principal Diagnosis Bilateral PE Discharge Exam GENERAL: Alert and oriented x3. NAD, on RA. HEENT: No pallor, no icterus. Pupils equal, round and reactive to light. Oral mucosa moist. NECK: No JVD, no neck masses. HEART: S1 and S2 heard. Regular rate and rhythm. No murmur, no gallop. RESPIRATORY SYSTEM: Normal AP diameter. No accessory muscle use. No wheezing, no crackles. ABDOMEN: Soft, bowel sounds present, nontender, no distention. CENTRAL NERVOUS SYSTEM: No facial droop. Speech is clear. Obeys simple commands. Moves extremities. EXTREMITIES: No edema, no erythema seen. Discharge Data Allergies Allergy/AdvReac Type Severity Reaction Status Date / Time No Known Allergies Allergy Unknown Verified 07/08/22 00:00 Consultations 07/08/22 02:20 ED Decision to Admit Stat Ordered Studies 07/07/22 22:55 CT angio chest PE protocol Urgent 07/08/22 06:15 US venous doppler LE Routine Hospital Course (1) Chest pain: (2) Leukocytosis: (3) Pulmonary embolism: Patient presented with chest pain, pleuritic Admitting CTA chest: bilateral lobar, segmental and subsegmental PE noted, possible RUL infarct, subacute left rib fractures Doppler did not show DVT but noted age indeterminate occlusive thrombus in left SFA with distal reconstitution. Reviewed TTE. No sign of right heart strain. Patient being discharged on Lovenox 100 Mg subcutaneous daily for 3 days, warfarin 4 mg daily, patient to follow-up with Coumadin clinic tomorrow and get further recommendation for necessary dose adjustment. Patient's daughter and son were updated about discharge recommendation over the phone. / blood culture positive, likely contaminant: Had leukocytosis on presentation which has quickly resolved One of 4 blood cultures growing CONS. Was started on vanco earlier but discontinued Repeat culture negative Low suspicion for true bacteremia/infection. Likely contaminant (4) HTN (hypertension): BP occasionally becomes hypotensive after getting home antihypertensives, hence lisinopril reduced to 20 mg daily. BP better. Continue to monitor (5) History of cerebrovascular accident: Continue ASA and statin Plan Diabetes A1c 6.7 Carb controlled diet Continue allopurinol Per prior attending, per daughter patient was in an accident in [place] some months ago - Was ran over by a bull and had concussion, left rib fracture, left leg blood clot and stroke while in the hospital. Patient being discharged to home with following instruction at the point of discharge: Follow-up with your primary care physician within a week time. Get your blood work CBC and CMP done in a week time and have the results forwarded to your primary care physician. Establish and maintain close follow-up with Coumadin clinic as an outpatient since you are being started on warfarin. First visit to Coumadin clinic in 1 days upon discharge, then close follow-up per their instruction. Your INR on the day of discharge is 1.9, you are being discharged on warfarin 4 mg daily, also you are being discharged on Lovenox 100 mg subcutaneous injection daily for 3 days starting 07/13/2022. You will need close coordination with your Coumadin clinic for necessary dose adjustment of your Coumadin. Your lisinopril dose has been reduced to 20 mg daily from 40 mg daily. Take your medications as prescribed. Total Time Total Time Spent Total Time Spent (In Minutes): 35 Discharge Plan Discharge Items Patient Disposition: Home - Self-Care Reason For Visit: CHEST PAIN Discharge Diagnosis: Bilateral PE Condition on Discharge: Fair Activity: Resume your previous activity Non-emergency contact: Primary Care Provider Call non-emergency contact if: you have any medication questions, your pain is worsening and your temperature is above 101 Follow-up/Referrals: Jed Venegas DO [Primary Care Provider] - (Date & Time 07/19/2022 11:20 AM Provider DO [facility] ) Diet: Carb Consistent or DM2 and Heart Healthy Addtl Attending Provider Instructions: Follow-up with your primary care physician within a week time. Get your blood work CBC and CMP done in a week time and have the results forwarded to your primary care physician. Establish and maintain close follow-up with Coumadin clinic as an outpatient since you are being started on warfarin. First visit to Coumadin clinic in 1 days upon discharge, then close follow-up per their instruction. Your INR on the day of discharge is 1.9, you are being discharged on warfarin 4 mg daily, also you are being discharged on Lovenox 100 mg subcutaneous injection daily for 3 days starting 07/13/2022. You will need close coordination with your Coumadin clinic for necessary dose adjustment of your Coumadin. Your lisinopril dose has been reduced to 20 mg daily from 40 mg daily. Take your medications as prescribed. Pending Studies at Discharge: Yes (07/09 final blood culture results) Stand-Alone Forms: [facility], Smoking Cessation Medications and DC Order Prescriptions: New enoxaparin [Lovenox] 100 mg/mL syringe 100 mg subcut DAILY Qty: 3 0RF Rx Instructions: 100 mg daily for 3 days from 07/13/22 warfarin [Jantoven] 4 mg Tablet 4 mg PO DAILY@1600 Qty: 30 0RF Continued aspirin 81 mg tablet,delayed release (DR/EC) 81 mg PO QAM nitroglycerin [Nitrostat] 0.4 mg Tablet, Sublingual 0.4 mg sublingual DIRECTED PRN (Reason: Chest Pain) Rx Instructions: NEED A NEW SCRIPT, OUT DATED. carvedilol 25 mg Tablet 25 mg PO BID acetaminophen [Tylenol Extra Strength] 500 mg Tablet 1,000 mg PO Q8H PRN (Reason: Pain) tamsulosin 0.4 mg capsule 0.4 mg PO DAILY amlodipine 10 mg tablet 10 mg PO DAILY allopurinol 300 mg tablet 300 mg PO DAILY atorvastatin 40 mg tablet 40 mg PO HS hydrocodone-acetaminophen 5-325 mg tablet 1 tab PO QID PRN (Reason: Pain) finasteride 5 mg tablet 5 mg PO DAILY Changed lisinopril 40 mg tablet 20 mg PO DAILY Qty: 15 0RF Discharge Orders: Discharge Order (Routine); Ordered 07/12/22 Ordered By: [place]/Other Patient Handouts: Diabetes: Meal Planning, Type 2 Diabetes Admission Data Admit Date/Time: 07/08/22 04:29 Attending Provider: [place] Admit Provider: Kadeem Li Primary Care Provider: Jed Venegas Other Providers: Kadeem Li
[2022-07-12] MEDS ORDERED: WARFARIN SOD 4 MG TAB PO SCH (16:00)
== END 2022-07-12 14:11 | disposition home or self-care (01) | DRG 176 ==
LOC: ED 22:20 → 2N 07-08 04:29 → SUATTDRO 07-08 04:29 → 2N 07-08 05:39

== ENCOUNTER 2023-07-14 10:16 | Inpatient (IN) ==
[2023-07-14] MEDS ORDERED: MoRPHine SULFATE 10 MG/ML CARP/VIAL IV STA ×2 (10:42→12:14)
[2023-07-14] MEDS ORDERED: ONDANSETRON INJ 2 MG/ML 2 ML VIAL IV STA (10:42)
[2023-07-14] MEDS ORDERED: SODIUM CHLORIDE 0.9% 500 ML IV ONE (10:42)
--- NOTE | 2023-07-14 10:45 | Emergency Department Note ---
Impression & Plan Closed right hip fracture, Ground-level fall ED Provider Note Name: SEAN LAGUNA Age: 78 Sex: M Arrives Via: Walk-In Informant: Patient, family ED Provider: Vito Zavala MD Chief Complaint: Hip pain Impression: Impressions above Medical Decision Making: Pleasant 78-year-old gentleman arrives for evaluation of right hip pain following a fall while in the bathroom. No head injury or headache. Neuro intact no neurodeficits. He is breathing comfortably without any chest pain or other concerning signs or symptoms. He has deformity of the right leg was shortened externally rotated. X-rays do confirm an intertrochanteric fracture. X-ray of the chest and shoulder reveal possible right shoulder fracture but he is moving his arm better now. Will defer to orthopedic surgeon for evaluation of this. Laboratory work-up is benign. He will need hospitalization for likely hip repair. Hospitalist consulted as well as orthopedic surgeon Prior Medical Record and Triage/Nursing Notes reviewed by Me External chart reviewed by me including previous hospitalizations and discharge summaries. Differentials:Fracture, dislocation, neurovascular injury, other injuries, intracranial hemorrhage, nonmechanical falls amongst other pathologies Vital Signs: reviewed and remarkable for no significant abnormalities Interventions: Morphine 6 mg IV x2, Zofran 4 mg IV, normal saline bolus Labs:Reviewed and remarkable for no significant abnormalities Imaging:As per my interpretation. Pelvis with right hip and femur x-rays 6 views no dislocation but there is an intertrochanteric fracture with mild displacement. 1 view chest x-ray as per my interpretation no infiltrate, effusion, pneumothorax. 3 view right shoulder x-ray as per my interpretation. No dislocation no overt fracture. Of note radiologist states possible lucency consistent with shoulder fracture Consults:Dr. Anthony of orthopedics [facility] hospitalist for further management Plan: Disposition:Hospitalization. Condition: Good History of Present Illness:78-year-old male arrives for evaluation of right hip pain. Patient was putting up a towel rack when he slipped fell and landed on his right hip. Notes he also hit his right shoulder. Since then severe pain with attempts at walking on the right leg. Pain in the right hip radiates down the leg to the knee. Also notes the right shoulder is sore and cannot raise his arm due to the amount of pain he is having. He did not hit his head or have loss of conscious. He denies any blood thinner use. Denies any previous surgeries to hip or shoulder. Has previously required injections in the right knee. Denies any fevers, chills, chest pain, shortness of breath, syncope, abdominal pain, back pain, urinary/bowel symptoms or other concerning signs or symptoms. He has a known history of peripheral artery disease in his legs that has never required any stenting. Past History:See Below Home Medications:See Below Allergies:See Below Vitals:Blood Pressure: 142/76, Pulse 64, RR 20, T 37.3C, O2 95% on RA Physical Exam: GENERAL: Patient is uncomfortable appearing and in moderate distress. HEAD: AT/NC. No midline cervical TTP RESPIRATORY: No dyspnea. Clear to auscultation and equal bilaterally. No wheeze, no rhonchi. CARDIOVASCULAR: Regular rate and rhythm.No murmurs, rubs, gallops appreciated. GASTROINTESTINAL: Abdomen soft, non-tender, no peritonitis. EXTREMITIES: Shortened externally rotated right leg. Significant pain on palpation of right hip area and range of motion right hip. Mild tenderness palpation anterior medial right knee. Distal pulses faint but intact and equal bilaterally. NEUROLOGIC: Alert and oriented, no focal neurologic SKIN: No rash, no jaundice, no diaphoresis. PSYCH: Appropriate GCS: 15 ED Course: Times/Reassessments: Patient's pain is under good control. He is feeling better. He is agreeable to hospitalization Vito Zavala MD Past Med/Surg History Medical History (Updated 07/14/23 @ 13:29 by Vito Zavala MD) BPH (benign prostatic hyperplasia) Carotid stenosis CKD (chronic kidney disease), stage III DM (diabetes mellitus), type 2 History of cerebrovascular accident 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 History of pulmonary embolism Jul 2022 HTN (hypertension) Hyperlipidemia PAD (peripheral artery disease) Tobacco use disorder Surgical History (Updated 07/14/23 @ 12:55 by Mahnaz Collins PA-C) H/O umbilical hernia repair History of shoulder surgery S/P carotid endarterectomy R: Jan 2023 @ [facility] L: April 2022 in [place] Family History (Updated 07/14/23 @ 12:37 by Mahnaz Collins PA-C) Other Cancer Diabetes Heart disease Hypertension Social History Smoking Status: Never smoker Tobacco Type: Smokeless Tobacco (Dip or Chew) Do You Dip or Chew Tobacco: Yes; Hx Alcohol Use: No Hx Substance Use: No Preferred Language: Bahamian Communication Ability: Effective 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 Beliefs That Will Affect Care: None marital status: / Current Living Situation: Family Current Living Situation Comment: Lives with son How many Children do You have: 2 Feels Safe at Home: Yes Assistive Devices: Bedside Commode and Walker Allergies Allergies Allergy/AdvReac Type Severity Reaction Status Date / Time No Known Allergies Allergy Unknown Verified 07/08/22 00:00 Home Meds Home Medications Medication Instructions Recorded Confirmed aspirin 81 mg tablet,delayed 81 mg PO QAM 12/06/20 07/14/23 release nitroglycerin 0.4 mg sublingual 0.4 mg sublingual DIRECTED PRN 12/06/20 07/14/23 tablet (Nitrostat) Chest Pain acetaminophen 500 mg tablet 1,000 mg PO Q8H PRN Pain 05/22/22 07/14/23 (Tylenol Extra Strength) allopurinol 300 mg tablet 300 mg PO DAILY 05/22/22 07/14/23 amlodipine 10 mg tablet 10 mg PO DAILY 05/22/22 07/14/23 carvedilol 25 mg tablet 25 mg PO BID 05/22/22 07/14/23 tamsulosin 0.4 mg capsule 0.4 mg PO DAILY 05/22/22 07/14/23 atorvastatin 40 mg tablet 40 mg PO HS 07/08/22 07/14/23 finasteride 5 mg tablet 5 mg PO DAILY 07/08/22 07/14/23 hydrocodone 5 mg-acetaminophen 325 1 tab PO QID PRN Pain 07/08/22 07/14/23 mg tablet ezetimibe 10 mg tablet 10 mg PO DAILY 07/14/23 07/14/23 warfarin 4 mg tablet 2 mg PO SUTUTH@0907/14/23 07/14/23 warfarin 4 mg tablet (Jantoven) 4 mg PO MOWEFRSA@89907/14/23 07/14/23 Previous Rx's Medication Instructions Recorded enoxaparin 100 mg/mL subcutaneous 100 mg subcut DAILY #3 mL 07/12/22 syringe (Lovenox) lisinopril 40 mg tablet 20 mg PO DAILY #15 tabs 07/12/22 Results & Data (ED) Vital Signs Vital Signs - 24 hr 07/14/23 10:33 07/14/23 11:17 07/14/23 12:40 Temperature 37.3 C Temperature Source Oral Pulse Rate 64 58 L Pulse Rate [Bilateral] Pulse Rhythm Regular Pulse Strength Normal Respiratory Rate 20 18 Respiratory Effort / Characteristics Non-Labored Spontaneous Respiratory Depth Normal Respiratory Pattern Regular Blood Pressure 142/76 H Blood Pressure [Right Arm] 125/83 Blood Pressure Mean 98 Blood Pressure Mean [Right Arm] 97 Blood Pressure Position Sitting Pulse Oximetry 95 98 Oxygen Delivery Method Room Air Room Air Oxygen Flow Rate Sepsis Recent Fever Within 48 Hours No Sepsis New/Unexplained Change in Mental Status No Sepsis Action Taken by Nursing No Action Required 07/14/23 13:00 Temperature Temperature Source Pulse Rate Pulse Rate [Bilateral] 56 L Pulse Rhythm Pulse Strength Respiratory Rate 18 Respiratory Effort / Characteristics Respiratory Depth Respiratory Pattern Blood Pressure Blood Pressure [Right Arm] 145/85 H Blood Pressure Mean Blood Pressure Mean [Right Arm] 105 Blood Pressure Position Pulse Oximetry 94 Oxygen Delivery Method Nasal Cannula Oxygen Flow Rate 2 Sepsis Recent Fever Within 48 Hours Sepsis New/Unexplained Change in Mental Status Sepsis Action Taken by Nursing Laboratory Data 07/14/23 10:40 07/14/23 10:40 Lab Results 07/14/23 07/14/23 07/14/23 Range/Units 10:40 10:40 10:40 WBC 7.94 (4.8-10.8) K/ul RBC 4.60 L (4.70-6.10) M/uL Hgb 13.6 L (14.0-18.0) g/dl Hct 42.5 (42.0-52.0) % MCV 92.4 (80.0-100.0) fL MCH 29.6 (25.0-34.0) pg MCHC 32.0 (32.0-36.0) g/dL RDW Std Deviation 54.4 H (36.4-46.3) fL RDW Coeff of Deborah 16.0 H (11.5-14.5) % Plt Count 209 (130-400) K/uL MPV 11.1 (9.4-12.4) fL Immature Gran % (Auto) 0.3 % Neut % (Auto) 73.2 % Lymph % (Auto) 15.4 % [place] % (Auto) 7.8 % Eos % (Auto) 2.8 % Baso % (Auto) 0.5 % Neut # (Auto) 5.82 (1.40-6.50) K/uL Lymph # (Auto) 1.22 (1.2-3.4) K/uL [place] # (Auto) 0.62 H (0.11-0.59) K/uL Eos # (Auto) 0.22 (0-0.50) K/uL Baso # (Auto) 0.04 (0-0.2) K/uL Immature Gran # (Auto) 0.02 (0.01-0.20) K/uL PT 32.4 H (9.0-12.0) Seconds INR 3.2 H (0.9-1.1) APTT 32.7 H (21.0-31.0) Seconds PTT Ratio 1.2 Sodium 140 (136-145) mmol/L Potassium 4.1 (3.5-5.1) mmol/L Chloride 107 (98-107) mmol/L Carbon Dioxide 25 (21-32) mmol/L Anion Gap 8 (3-11) BUN 33 H (6-23) mg/dl Creatinine 1.30 (0.6-1.4) mg/dl Est Cr Clr Drug Dosing 45.2 ml/min Est GFR ( Amer) 61.4 ml/min Est GFR (Non-Af Amer) 53.0 ml/min BUN/Creatinine Ratio 25.4 H (10-20) Glucose 152 H (70-99(Fasting)) mg/dl Calcium 8.6 (8.6-10.3) mg/dl Magnesium 1.9 (1.7-2.4) mg/dl Administered Medications Discontinued Medications Sodium Chloride (Nss) 500 mls @ 999 mls/hr IV .Q31M ONE Stop: 07/14/23 11:12 Last Infusion: 07/14/23 11:48 Dose: 0 mls/hr Documented By: Admin: 07/14/23 10:51 Dose: 999 mls/hr Documented By: SHARONA Morphine Sulfate (Morphine Sulfate 10 Mg/Ml Carp/Vial) 6 mg IV NOW STA Stop: 07/14/23 10:43 Last Admin: 07/14/23 10:51 Dose: 6 mg Documented By: SHARONA Morphine Sulfate (Morphine Sulfate 10 Mg/Ml Carp/Vial) 6 mg IV NOW STA Stop: 07/14/23 12:15 Last Admin: 07/14/23 12:34 Dose: 6 mg Documented By: TBS Morphine Sulfate (Morphine Sulfate 2 Mg/Ml Carp) Confirm Administered Dose 2 mg .ROUTE .STK-MED ONE Stop: 07/14/23 12:22 Last Admin: 07/14/23 12:22 Dose: Not Given Documented By: TBS Morphine Sulfate (Morphine Sulfate 4 Mg/Ml 1 Ml Carp\Vial) Confirm Administered Dose 4 mg .ROUTE .STK-MED ONE Stop: 07/14/23 12:22 Last Admin: 07/14/23 12:23 Dose: Not Given Documented By: TBS Ondansetron HCl (Ondansetron Inj 2 Mg/Ml 2 Ml Vial) 4 mg IV NOW STA Stop: 07/14/23 10:43 Last Admin: 07/14/23 10:51 Dose: 4 mg Documented By: MNE Imaging Data Radiologist's Impression: Chest X-Ray 07/14/23 10:42 XR chest 1V portable CLINICAL HISTORY: fall/trauma TECHNIQUE: Single frontal radiograph of the chest was obtained. Comparison: Comparison is made to chest radiograph 05/22/2022 FINDINGS: No lines and tubes are seen. The cardiomediastinal silhouette is normal. Lungs are underinflated but clear. No evidence of pleural effusion or pneumothorax. IMPRESSION: No acute abnormalities and in particular no radiographic evidence of pneumonia. ACT 112: Negative or not required by law. Electronically signed by: Patricio Ni M.D. 07/14/2023 1:05 PM Femur X-Ray 07/14/23 10:42 XR femur RT 2V routine CLINICAL HISTORY: fall, right upper leg pain TECHNIQUE: 2 radiographic views of the right femur were obtained. Comparison: Comparison is made to right hip radiograph 07/14/2023 FINDINGS: Redemonstration of intertrochanteric fracture. The visualized portion of the hip and knee joints are unremarkable. Vascular calcifications are noted. IMPRESSION: No evidence of acute bony injury. ACT 112: Negative or not required by law. Electronically signed by: Patricio Ni M.D. 07/14/2023 12:40 PM Hip/Pelvis X-Ray 07/14/23 10:42 XR hip RT 2V w pelvis CLINICAL HISTORY: hip pain s/p fall TECHNIQUE: 2 views of the right hip and single frontal view of the pelvis were obtained. Comparison: Comparison is made to CT chest 05/22/2022 FINDINGS: There is a fracture of the right hip, likely intertrochanteric, which appears mildly comminuted. Degenerative changes are seen in the hip joint. No soft tissue abnormality is seen. IMPRESSION: Mildly comminuted right intratrochanteric hip fracture. ACT 112: Negative or not required by law. Electronically signed by: Patricio Ni M.D. 07/14/2023 12:07 PM Shoulder X-Ray 07/14/23 10:42 XR shoulder RT min 2V routine CLINICAL HISTORY: fall, right shoulder pain TECHNIQUE: 3 views of the right shoulder were obtained. Comparison: Comparison is made to chest radiograph the 2019 FINDINGS: There is a linear lucency in the glenoid fossa. Degenerative changes are seen in the glenohumeral joint. The overlying soft tissues are unremarkable. The visualized portions of the lungs are clear. IMPRESSION: Linear lucency in the left glenoid fossa is nonspecific. Correlation with point tenderness is recommended and if there is clinical concern, CT can be performed to exclude a fracture. ACT 112: Negative or not required by law. Electronically signed by: Patricio Ni M.D. 07/14/2023 12:52 PM Discharge Plan Visit Data Chief Complaint: Fall Stated Complaint: FALL, HIP PAIN, ?DISLOCATION ED Provider: Vito Zavala Discharge Problem: Closed right hip fracture, Ground-level fall Forms Stand Alone Forms: [facility] Prescriptions Prescriptions: No Action aspirin 81 mg tablet,delayed release (DR/EC) 81 mg PO QAM nitroglycerin [Nitrostat] 0.4 mg Tablet, Sublingual 0.4 mg sublingual DIRECTED PRN (Reason: Chest Pain) Rx Instructions: NEED A NEW SCRIPT, OUT DATED. carvedilol 25 mg Tablet 25 mg PO BID acetaminophen [Tylenol Extra Strength] 500 mg Tablet 1,000 mg PO Q8H PRN (Reason: Pain) tamsulosin 0.4 mg capsule 0.4 mg PO DAILY amlodipine 10 mg tablet 10 mg PO DAILY allopurinol 300 mg tablet 300 mg PO DAILY atorvastatin 40 mg tablet 40 mg PO HS hydrocodone-acetaminophen 5-325 mg tablet 1 tab PO QID PRN (Reason: Pain) finasteride 5 mg tablet 5 mg PO DAILY enoxaparin [Lovenox] 100 mg/mL syringe 100 mg subcut DAILY Qty: 3 0RF Rx Instructions: 100 mg daily for 3 days from 07/13/22 lisinopril 40 mg tablet 20 mg PO DAILY Qty: 15 0RF ezetimibe 10 mg tablet 10 mg PO DAILY warfarin 4 mg Tablet 2 mg PO SUTUTH@0900 warfarin [Jantoven] 4 mg tablet 4 mg PO MOWEFRSA@0900 Referrals Referrals: Jed Venegas DO [Primary Care Provider] - Closed right hip fracture Qualifiers: Encounter type: initial encounter Qualified Code(s): S72.001A - Fracture of unspecified part of neck of right femur, initial encounter for closed fracture
[2023-07-14 11:18] LABS: Basophils # (auto) 0.04 K/uL (0-0.2); Basophils % (auto) 0.5 %; Eosinophils # (auto) 0.22 K/uL (0-0.50); Eosinophils % (auto) 2.8 %; Hematocrit (blood only) 42.5 % (42.0-52.0); Hemoglobin 13.6 g/dl (14.0-18.0); Immature Granulocytes # (auto) 0.02 K/uL (0.01-0.20); Immature Granulocytes % (auto) 0.3 %; Lymphocytes # (auto) 1.22 K/uL (1.2-3.4); Lymphocytes % (auto) 15.4 %; Mean Corpuscular Hemoglobin 29.6 pg (25.0-34.0); Mean Corpuscular Volume 92.4 fL (80.0-100.0); Mean Platelet Volume 11.1 fL (9.4-12.4); Monocytes # (auto) 0.62 K/uL (0.11-0.59); Monocytes % (auto) 7.8 %; Neutrophils # (auto) 5.82 K/uL (1.40-6.50); Neutrophils % (auto) 73.2 %; Platelet Count 209 K/uL (130-400); RDW Standard Deviation 54.4 fL (36.4-46.3); White Blood Count 7.94 K/ul (4.8-10.8)
[2023-07-14 11:33] LABS: BUN Creatinine Ratio 25.4 (10-20); Calcium 8.6 mg/dl (8.6-10.3); Creatinine Clr Calc Pharmacy 45.2 ml/min; Est GFR (African American) 61.4 ml/min; Magnesium 1.9 mg/dl (1.7-2.4); Potassium 4.1 mmol/L (3.5-5.1)
--- NOTE | 2023-07-14 12:09 | XRay Report ---
XR hip RT 2V w pelvis CLINICAL HISTORY: hip pain s/p fall TECHNIQUE: 2 views of the right hip and single frontal view of the pelvis were obtained. Comparison: Comparison is made to CT chest 05/22/2022 FINDINGS: There is a fracture of the right hip, likely intertrochanteric, which appears mildly comminuted. Dege nerative changes are seen in the hip joint. No soft tissue abnormality is seen. IMPRESSION: Mildly comminuted right intratrochanteric hip fracture. ACT 112: Negative or not required by law. Electronically signed by: Patricio Ni M.D. 07/14/2023 12:07 PM
[2023-07-14] MEDS ORDERED: MoRPHine SULFATE 4 MG/ML 1 ML CARP\\VIAL ONE (12:21)
[2023-07-14] MEDS ORDERED: MoRPHine SULFATE 2 MG/ML CARP ONE (12:21)
--- NOTE | 2023-07-14 12:41 | History & Physical Report ---
Date of Service July 14, 2023 Assessment & Plan (1) Fall: (2) Closed right hip fracture: (3) DM (diabetes mellitus), type 2: (4) CKD (chronic kidney disease), stage III: (5) BPH (benign prostatic hyperplasia): (6) PAD (peripheral artery disease): (7) History of pulmonary embolism: (8) HTN (hypertension): (9) History of cerebrovascular accident: (10) Hyperlipidemia: (11) Tobacco use disorder: Plan This is a 78-year-old male with PMH of type 2 diabetes, dyslipidemia, PAD, hypertension, carotid stenosis s/p bilateral endarterectomy, hypertension, CKD 3, BPH, history of CVA, history of PE on Coumadin and other medical problems listed below who presents after fall at home and was found to have R hip fracture. Fall R hip fracture Mechanical fall at home resulting in Mildly comminuted right intratrochanteric hip fracture per hip/pelvis XR CXR without abnormalities, pre-op EKG pending Ortho and anesthesia consulted, pre-op abx ordered per hip fracture protocol 2D echo from January 2023 with preserved EF, aortic valve sclerosis Per revised cardiac risk index for pre-op risk, class II risk or 6% 30 day risk Discussed with Dr. Anthony - likely no OR availability until Saturday AM but NPO at midnight in case INR 3.2 - holding coumadin, giving 5mg PO vitamin K, continue to monitor for goal INR 1.5 or less by Saturday Shoulder injury Fell on shoulder this morning - Linear lucency in the left glenoid fossa is nonspecific. Correlation with point tenderness is recommended and if there is clinical concern, CT can be performed to exclude a fracture Will defer to ortho History of PE April 2022, remains on anticoagulation INR elevated at 3.2. Reversal as above, monitor daily INR History of CVA Continue aspirin, statin DM II A1c 6.3 in June 2022 No record of home diabetic medications - patient unsure SSI while in-patient BSG AC HS CKD III Cr 1.3 today (baseline ~ 1.1). Continue to monitor with daily BMP PAD Continue aspirin, statin HTN Mildly elevated, optimize pain control Continue carvedilol, lisinopril, amlodipine BPH Continue finasteride, tamsulosin HLD Continue statin Tobacco use Previous h/o smokeless tobacco Patient unsure of medications as family manages them and unable to reach either son or daughter via phone, so med rec updated based on external med rec and Epic. DVT Ppx: SCDs Code status: FULL PCP: Rubi Dispo: admitted to med/surg Patient seen in collaboration with Dr. Carlson. Please see addendum. History of Present Illness Chief Complaint: Fall Primary Care Provider: Jed Venegas DO This is a 78-year-old male with PMH of type 2 diabetes, dyslipidemia, PAD, hypertension, carotid stenosis s/p bilateral endarterectomy, hypertension, CKD 3, BPH, history of CVA, history of PE on Coumadin and other medical problems listed below who presents after fall at home. History obtained from extensive chart review and some history provided by patient. He requested I call family for more history and medications but unable to reach over phone. Patient was washing his glasses at the kitchen sink and was leaning over to grab a paper towel when he lost his balance, landing on his right hip and shoulder. Had immediate pain in right groin was brought to ED for further evaluation. Pain is still persisting and is sharp, 7 out of 10, worse with movement. Denies any other symptoms at this time. No fever, chills, lightheadedness, chest pain, shortness of breath, nausea, vomiting, abdominal pain, dysuria, diarrhea or constipation. 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 Family members manage medication, per patient. Uses a cane at baseline for ambulation. Per chart review, patient remains on warfarin for history of PEs in 2021. Allergies Allergy/AdvReac Type Severity Reaction Status Date / Time No Known Allergies Allergy Unknown Verified 07/08/22 00:00 Home Medications Medication Instructions Recorded Confirmed Type aspirin 81 mg tablet,delayed 81 mg PO QAM 12/06/20 07/14/23 History release nitroglycerin 0.4 mg sublingual 0.4 mg sublingual DIRECTED PRN 12/06/20 07/14/23 History tablet (Nitrostat) Chest Pain acetaminophen 500 mg tablet 1,000 mg PO Q8H PRN Pain 05/22/22 07/14/23 History (Tylenol Extra Strength) allopurinol 300 mg tablet 300 mg PO DAILY 05/22/22 07/14/23 History amlodipine 10 mg tablet 10 mg PO DAILY 05/22/22 07/14/23 History carvedilol 25 mg tablet 25 mg PO BID 05/22/22 07/14/23 History tamsulosin 0.4 mg capsule 0.4 mg PO DAILY 05/22/22 07/14/23 History atorvastatin 40 mg tablet 40 mg PO HS 07/08/22 07/14/23 History finasteride 5 mg tablet 5 mg PO DAILY 07/08/22 07/14/23 History lisinopril 40 mg tablet 20 mg PO DAILY #15 tabs 07/12/22 07/14/23 Rx ezetimibe 10 mg tablet 10 mg PO DAILY 07/14/23 07/14/23 History gabapentin 300 mg capsule 300 mg PO BID 07/14/23 07/14/23 History warfarin 4 mg tablet 2 mg PO SUTUTH@0900 07/14/23 07/14/23 History warfarin 4 mg tablet (Jantoven) 4 mg PO MOWEFRSA@0900 07/14/23 07/14/23 History Past Med/Surg History Medical History (Updated 07/14/23 @ 13:29 by Vito Zavala MD) BPH (benign prostatic hyperplasia) Carotid stenosis CKD (chronic kidney disease), stage III DM (diabetes mellitus), type 2 History of cerebrovascular accident 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 History of pulmonary embolism Jul 2022 HTN (hypertension) Hyperlipidemia PAD (peripheral artery disease) Tobacco use disorder Surgical History (Updated 07/14/23 @ 12:55 by Mahnaz Collins PA-C) H/O umbilical hernia repair History of shoulder surgery S/P carotid endarterectomy R: Jan [address] 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 Physical Exam Physical Exam: General Appearance: WD/WN, vitals as above, NAD, sitting up in bed, pleasant, conversing easily Head: normocephalic, atraumatic Eyes: normal inspection, PERRL, conjunctivae normal, anicteric sclerae ENT: external ear and nose normal, oropharynx normal Neck: normal visual inspection, trachea midline, no thyromegaly Respiratory: normal respiratory effort, lungs clear to auscultation, no wheeze, rales, rhonchi. No accessory muscle use Cardiovascular: bradycardic rate, regular rhythm, no murmur, normal peripheral pulses, no BLE edema. Vessels: no JVD Chest: normal inspection of chest Abdomen/GI: normal bowel sounds, soft, nontender, no hepatosplenomegaly Extremities/Musculoskeletal: + R groin/proximal femur pain, RLE externally rotated and shortened. + R shoulder TTP, no deformity noted. No cyanosis or clubbing, extremities motor strength 5/5 Neurologic: PERRL, EOMI, accommodation nl, no face palsy, no dysarthria, CN's II-XI intact bilaterally and moves all extremities Psychiatric: A+Ox3, euthymic affect Skin: no rashes, normal color, warm/dry Results & Data Results & Data Vital Signs (Past 12 Hours) Vital Signs Temp Pulse Resp BP BP Pulse Ox O2 Del Method 07/14/23 11:17 18 125/83 98 Room Air 07/14/23 10:33 37.3 C 64 20 142/76 H 95 Room Air Laboratory Results Short CBC 07/14/23 Range/Units 10:40 WBC 7.94 (4.8-10.8) K/ul Hgb 13.6 L (14.0-18.0) g/dl Hct 42.5 (42.0-52.0) % Plt Count 209 (130-400) K/uL BMP 07/14/23 10:40 Sodium 140 Potassium 4.1 Chloride 107 Carbon Dioxide 25 BUN 33 H Creatinine 1.30 Glucose 152 H Calcium 8.6 Diagnostic Findings Hip/Pelvis X-Ray 07/14/23 10:42 XR hip RT 2V w pelvis CLINICAL HISTORY: hip pain s/p fall TECHNIQUE: 2 views of the right hip and single frontal view of the pelvis were obtained. Comparison: Comparison is made to CT chest 05/22/2022 FINDINGS: There is a fracture of the right hip, likely intertrochanteric, which appears mildly comminuted. Degenerative changes are seen in the hip joint. No soft tissue abnormality is seen. IMPRESSION: Mildly comminuted right intratrochanteric hip fracture. ACT 112: Negative or not required by law. Electronically signed by: Patricio Ni M.D. 07/14/2023 12:07 PM Supervising Physician Co-Signing Physician Notes Pt seen and examined by myself, Destiney Carlson MD on the day of service. Care was coordinated with Mahnaz Collins PA-C. Please refer to her note for additional information. 78yoM with R hip fracture after mechanical fall at home. Ortho consult- appreciate recs, pain control, pre-op optimization. INR currently supratherapeutic at 3.2, Vit K reversal, 5mg- continue to trend and hold warfarin to pre-op goal. Otherwise as above.
--- NOTE | 2023-07-14 12:42 | XRay Report ---
XR femur RT 2V routine CLINICAL HISTORY: fall, right upper leg pain TECHNIQUE: 2 radiographic views of the right femur were obtained. Comparison: Comparison is made to right hip radiograph 07/14/2023 FINDINGS: Redemonstration of intertrochanteric fracture. The visualized portion of the hip and knee joints are unremarkable. Vascular calcifications are noted. IMPRESSION: No evidence of acute bony injury. ACT 112: Negative or not required by law. Electronically signed by: Patricio Ni M.D. 07/14/2023 12:40 PM
[2023-07-14 12:46] LABS: INR 3.2 (0.9-1.1); Partial Thromboplastin Ratio 1.2; Partial Thromboplastin Time 32.7 Seconds (21.0-31.0); Prothrombin Time 32.4 Seconds (9.0-12.0)
--- NOTE | 2023-07-14 12:54 | XRay Report ---
XR shoulder RT min 2V routine CLINICAL HISTORY: fall, right shoulder pain TECHNIQUE: 3 views of the right shoulder were obtained. Comparison: Comparison is made to chest radiograph the 2019 FINDINGS: There is a linear lucency in the glenoid fossa. Degenerative changes are seen in the glenohumeral eunice nt. The overlying soft tissues are unremarkable. The visualized portions of the lungs are clear. IMPRESSION: Linear lucency in the left glenoid fossa is nonspecific. Correlation with point tenderness is recomme nded and if there is clinical concern, CT can be performed to exclude a fracture. ACT 112: Negative or not required by law. Electronically signed by: Patricio Ni M.D. 07/14/2023 12:52 PM
--- NOTE | 2023-07-14 13:08 | XRay Report ---
XR chest 1V portable CLINICAL HISTORY: fall/trauma TECHNIQUE: Single frontal radiograph of the chest was obtained. Comparison: Comparison is made to chest radiograph 05/22/2022 FINDINGS: No lines and tubes are seen. The cardiomediastinal silhouette is normal. Lungs are underinflated but clear. No evidence of pleural effusion or pneumothorax. IMPRESSION: No acute abnormalities and in particular no radiographic evidence of pneumonia. ACT 112: Negative or not required by law. Electronically signed by: Patricio Ni M.D. 07/14/2023 1:05 PM
[2023-07-14] MEDS ORDERED: PHYTONADIONE 5 MG TAB PO STA (13:56)
[2023-07-14] MEDS ORDERED: ACETAMINOPHEN 1,000 MG/100 ML VIAL IV STA (15:19)
[2023-07-14] MEDS: ACETAMINOPHEN 1,000 MG/100 ML VIAL IV SCH (15:41)
[2023-07-14] MEDS: oxyCODONE HCL IR 5 MG TAB (IMMEDIATE RELEASE) PO PRN ×2 (15:43→21:32)
[2023-07-14] MEDS ORDERED: GLUCOSE 40% GEL 15 GM TUBE PO PRN (17:45)
[2023-07-14] MEDS ORDERED: GLUCOSE 10 TAB/TUBE PO PRN (17:45)
[2023-07-14] MEDS ORDERED: NALOXONE HCL 0.4 MG/1 ML VIAL/CARP IV PRN (17:45)
[2023-07-14] MEDS ORDERED: CARBOHYDRATES FOR HYPOGLYCEMIA PO PRN (17:45)
[2023-07-14] MEDS ORDERED: DEXTROSE 50% 50 ML SYRINGE IV PRN (17:45)
[2023-07-14] MEDS ORDERED: MAGNESIUM HYDROXIDE SUSP 30 ML UDC PO PRN (17:45)
[2023-07-14] MEDS ORDERED: GLUCAGON FOR INJ 1 MG VIAL SQ PRN (17:45)
[2023-07-14] MEDS ORDERED: bisacodyL 10 MG SUPP PR PRN (17:45)
--- NOTE | 2023-07-14 18:00 | Anesthesiology Consultation ---
Date of Service July 14, 2023 Assessment & Plan (1) Encounter for pre-operative examination: Chart Review Chart Review: Acceptable Risk for Surgery (await INR down to acceptable level) History Height/Weight Height: 5 ft 7 in Weight: 76.5 kg Allergies Allergy/AdvReac Type Severity Reaction Status Date / Time No Known Allergies Allergy Unknown Verified 07/08/22 00:00 Medications Home Medications Medication Instructions Recorded Confirmed Last Taken aspirin 81 mg tablet,delayed 81 mg PO QAM 12/06/20 07/14/23 07/07/22 release nitroglycerin 0.4 mg sublingual 0.4 mg sublingual DIRECTED PRN 12/06/20 07/14/23 Unknown tablet (Nitrostat) Chest Pain acetaminophen 500 mg tablet 1,000 mg PO Q8H PRN Pain 05/22/22 07/14/23 Unknown (Tylenol Extra Strength) allopurinol 300 mg tablet 300 mg PO DAILY 05/22/22 07/14/23 07/07/22 amlodipine 10 mg tablet 10 mg PO DAILY 05/22/22 07/14/23 07/07/22 carvedilol 25 mg tablet 25 mg PO BID 05/22/22 07/14/23 07/07/22 08:00 tamsulosin 0.4 mg capsule 0.4 mg PO DAILY 05/22/22 07/14/23 07/07/22 atorvastatin 40 mg tablet 40 mg PO HS 07/08/22 07/14/23 07/06/22 finasteride 5 mg tablet 5 mg PO DAILY 07/08/22 07/14/23 07/07/22 lisinopril 40 mg tablet 20 mg PO DAILY #15 tabs 07/12/22 07/14/23 07/07/22 ezetimibe 10 mg tablet 10 mg PO DAILY 07/14/23 07/14/23 Unknown gabapentin 300 mg capsule 300 mg PO BID 07/14/23 07/14/23 Unknown warfarin 4 mg tablet 2 mg PO SUTUTH@89907/14/23 07/14/23 Unknown warfarin 4 mg tablet (Jantoven) 4 mg PO MOWEFRSA@89907/14/23 07/14/23 Unknown Active Medications Generic Name Dose Route Start Last Admin Trade Name Freq PRN Reason Stop Dose Admin Acetaminophen 1,000 mg in 100 mls @ 400 mls/hr 07/14/23 23:30 07/14/23 16:28 Ofirmev IV 07/17/23 23:29 Infused Q8H BO Infusion Oxycodone HCl 5 mg 07/14/23 15:17 07/14/23 15:43 Oxycodone Hcl Ir 5 Mg Tab (Immediate Release) PO 07/28/23 15:16 5 mg Q6H PRN Administration Severe Pain (Scale 7, 8, 9,10) Past Medical History Medical History BPH (benign prostatic hyperplasia) Carotid stenosis CKD (chronic kidney disease), stage III DM (diabetes mellitus), type 2 History of cerebrovascular accident 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 History of pulmonary embolism Jul 2022 HTN (hypertension) Hyperlipidemia PAD (peripheral artery disease) Tobacco use disorder Past Family History Family History Other Cancer Diabetes Heart disease Hypertension Past Surgical History Surgical History H/O umbilical hernia repair History of shoulder surgery S/P carotid endarterectomy R: Jan 2023 @ [facility] – [place] L: April 2022 in [place] Social History Smoking Status: Never smoker tobacco type: smokeless tobacco Do You Dip or Chew Tobacco: Yes Hx Alcohol Use: No Hx Substance Use: No Physical Exam Vital Signs Last Vital Signs Temp 37.3 C 07/14/23 10:33 Pulse 63 07/14/23 17:00 Resp 18 07/14/23 17:00 BP 128/70 07/14/23 17:00 Pulse Ox 92 07/14/23 17:00 O2 Del Method Room Air 07/14/23 17:00 O2 Flow Rate 2 07/14/23 15:00 Testing Laboratory Results 07/14/23 10:40 07/14/23 10:40 PT 32.4 Seconds (9.0-12.0) H 07/14/23 10:40 INR 3.2 (0.9-1.1) H 07/14/23 10:40 APTT 32.7 Seconds (21.0-31.0) H 07/14/23 10:40 07/14/23 17:49 POC Glucose 144 H Electrocardiogram Date: 07/07/22 Findings: + NSR @ (64) and + NSST changes new one being done this admit Echocardiogram Date: 07/07/22 EF: 55-60% LV Function: normal Other Findings: + diastolic dysfunction (mild) Valvular Disease: + no significant valvular disease
[2023-07-14] MEDS: INSULIN ASPART PER UNIT CHARGE SC SCH ×2 (19:19→20:53)
[2023-07-14] MEDS: carvediloL 25 MG TAB PO SCH (21:01)
[2023-07-14] MEDS: GABAPENTIN 300 MG CAP PO SCH (21:30)
[2023-07-14] MEDS: DOCUSATE SODIUM/SENNA 50/8.6MG TAB PO SCH (21:30)
[2023-07-14] MEDS: ATORVASTATIN 40 MG TAB PO SCH (21:30)
[2023-07-14] MEDS ORDERED: SODIUM CHLORIDE 0.9% 1000ML 1,000 ML IV SCH (23:59)
[2023-07-15] MEDS ORDERED: Nursing to Pharmacy Communication SCH (04:45)
[2023-07-15] MEDS ORDERED: INSULIN ASPART PER UNIT CHARGE SC SCH (06:00)
[2023-07-15] MEDS ORDERED: TRANEXAMIC ACID / 0.7% NACL 1,000 MG/100 ML BAG IV SCH ×2 (06:00→06:30)
[2023-07-15] MEDS ORDERED: ceFAZolin 2000MG 2,000 MG/15 ML SYR IV SCH (06:00)
[2023-07-15 07:18] LABS: Hematocrit (blood only) 34.7 % (42.0-52.0); Hemoglobin 11.3 g/dl (14.0-18.0); Mean Corpuscular Hemoglobin 30.1 pg (25.0-34.0); Mean Corpuscular Hgb Conc 32.6 g/dL (32.0-36.0); Mean Corpuscular Volume 92.5 fL (80.0-100.0); Mean Platelet Volume 11.4 fL (9.4-12.4); Platelet Count 168 K/uL (130-400); RDW Standard Deviation 54.3 fL (36.4-46.3); Red Blood Count 3.75 M/uL (4.70-6.10); White Blood Count 8.75 K/ul (4.8-10.8)
[2023-07-15] MEDS: ACETAMINOPHEN 1,000 MG/100 ML VIAL IV SCH ×3 (07:23→22:40)
[2023-07-15 07:32] LABS: BUN Creatinine Ratio 24.5 (10-20); Calcium 8.1 mg/dl (8.6-10.3); Creatinine Clr Calc Pharmacy 37.9 ml/min; Est GFR (African American) 49.7 ml/min; Est GFR (Non-African American) 42.8 ml/min; Potassium 4.8 mmol/L (3.5-5.1)
[2023-07-15 08:03] LABS: INR 3.9 (0.9-1.1); Prothrombin Time 39.6 Seconds (9.0-12.0)
[2023-07-15] MEDS ORDERED: PHYTONADIONE 5 MG TAB PO STA (09:22)
[2023-07-15] MEDS ORDERED: SODIUM CHLORIDE 0.9% 1000ML 500 ML IV ONE ×2 (09:48→12:17)
[2023-07-15] MEDS: FINASTERIDE 5 MG TAB PO SCH (10:00)
[2023-07-15] MEDS: EZETIMIBE 10 MG TAB PO SCH (10:00)
[2023-07-15] MEDS: GABAPENTIN 300 MG CAP PO SCH ×2 (10:00→20:39)
[2023-07-15] MEDS: ASPIRIN 81 MG ECTAB PO SCH (10:00)
[2023-07-15] MEDS: TAMSULOSIN HCL 0.4 MG CAP PO SCH (10:01)
[2023-07-15 10:41] LABS: Estimated Average Glucose 117 mg/dl; Hemoglobin A1C 5.7 % (4.5-5.6)
--- NOTE | 2023-07-15 11:22 | Student Report ---
[facility] Med Student Progress Note <Tiff Kumar Robe - Last Filed: 07/15/23 18:02> Advanced Practice Practitioner Student Attestation: Not to be used for clinical decision making or plan of care formulation. Date of Service Date of service: July 15, 2023 Subjective Subjective: NAEO. Pt in bed eating breakfast. Prior to arrival to room, notified by RN that pt hypotensive. Pt denies any HAMLIN, dizziness, lightheadedness, racing heart, palpitations, diaphoresis, CP, SOB, N/V/D. His only complaint is pain in his right hip/groin region and right shoulder stiffness. Pt reports numbness in right hand, but is secondary to previous accident. Denies numbness/tingling in BLE. ROS ROS: See above for pertinent positives & negatives. A total of 10 systems reviewed and were otherwise negative. Physical Exam Physical Exam: Vital signs reviewed. General: Well-appearing, in no significant distress. Converses easily and appropriately. HEENT: No scleral icterus, PERRLA, neck supple. Atraumatic. Very poor dentition, mostly edentulous. Cardiovascular: Regular rate and rhythm, 2/6 murmur over. Pulmonary: Clear to auscultation bilaterally, normal work of breathing. Abdomen: Soft, nontender, nondistended, positive bowel sounds. Musculoskeletal: Atraumatic, no peripheral edema. Right leg shorter and externally rotated compared to left. Neurologic: Patient awake alert and oriented x 3, full strength DEVONTE&LE, +3 RUE, +2 RLE. . Skin: Warm, dry, no rash. Results Results: Vital Signs Temp 37.1 C 07/15/23 06:36 Pulse 58 L 07/15/23 09:00 Resp 16 07/15/23 06:36 BP 90/50 L 07/15/23 10:05 Pulse Ox 94 07/15/23 06:36 O2 Del Method Room Air 07/15/23 07:39 O2 Flow Rate 2 07/14/23 15:00 Intake & Output 07/14/23 07/15/23 07/15/23 18:59 06:59 18:59 Intake Total 600 / 600 600 / 600 Output Total 350 / 350 Balance 600 / 250 -350 / 250 600 / 600 Weight 76.5 kg Intake: IV 600 / 600 600 / 600 Acetaminophen 1,000 mg In 100 100 / 100 100 / 100 ml @ 400 mls/hr IV Q8H BO Rx#: [id number] Sodium Chloride 0.9% 1000ML 500 500 / 500 ml @ 999 mls/hr IV .Q31M ONE Rx#:[id number] Sodium Chloride 0.9% 500 ml @ 500 / 500 999 mls/hr IV .Q31M ONE Rx#: [id number] Output: Urine Amount (Catheter) 350 / 350 Chapa/Indwelling 350 / 350 Other: Weight Measurement Method Estimated by Patient Short CBC 07/14/23 07/15/23 Range/Units 10:40 06:39 WBC 7.94 8.75 (4.8-10.8) K/ul Hgb 13.6 L 11.3 L (14.0-18.0) g/dl Hct 42.5 34.7 L (42.0-52.0) % Plt Count 209 168 (130-400) K/uL BMP 07/14/23 07/15/23 10:40 06:39 Sodium 140 139 Potassium 4.1 4.8 Chloride 107 107 Carbon Dioxide 25 26 BUN 33 H 38 H Creatinine 1.30 1.55 H Glucose 152 H 139 H Calcium 8.6 8.1 L Chest X-Ray 07/14/23 10:42 XR chest 1V portable CLINICAL HISTORY: fall/trauma TECHNIQUE: Single frontal radiograph of the chest was obtained. Comparison: Comparison is made to chest radiograph 05/22/2022 FINDINGS: No lines and tubes are seen. The cardiomediastinal silhouette is normal. Lungs are underinflated but clear. No evidence of pleural effusion or pneumothorax. IMPRESSION: No acute abnormalities and in particular no radiographic evidence of pneumonia. ACT 112: Negative or not required by law. Electronically signed by: Patricio Ni M.D. 07/14/2023 1:05 PM Femur X-Ray 07/14/23 10:42 XR femur RT 2V routine CLINICAL HISTORY: fall, right upper leg pain TECHNIQUE: 2 radiographic views of the right femur were obtained. Comparison: Comparison is made to right hip radiograph 07/14/2023 FINDINGS: Redemonstration of intertrochanteric fracture. The visualized portion of the hip and knee joints are unremarkable. Vascular calcifications are noted. IMPRESSION: No evidence of acute bony injury. ACT 112: Negative or not required by law. Electronically signed by: Patricoi Ni M.D. 07/14/2023 12:40 PM Hip/Pelvis X-Ray 07/14/23 10:42 XR hip RT 2V w pelvis CLINICAL HISTORY: hip pain s/p fall TECHNIQUE: 2 views of the right hip and single frontal view of the pelvis were obtained. Comparison: Comparison is made to CT chest 05/22/2022 FINDINGS: There is a fracture of the right hip, likely intertrochanteric, which appears mildly comminuted. Degenerative changes are seen in the hip joint. No soft tissue abnormality is seen. IMPRESSION: Mildly comminuted right intratrochanteric hip fracture. ACT 112: Negative or not required by law. Electronically signed by: Patricio Ni M.D. 07/14/2023 12:07 PM Shoulder X-Ray 07/14/23 10:42 XR shoulder RT min 2V routine CLINICAL HISTORY: fall, right shoulder pain TECHNIQUE: 3 views of the right shoulder were obtained. Comparison: Comparison is made to chest radiograph the 2019 FINDINGS: There is a linear lucency in the glenoid fossa. Degenerative changes are seen in the glenohumeral joint. The overlying soft tissues are unremarkable. The visualized portions of the lungs are clear. IMPRESSION: Linear lucency in the left glenoid fossa is nonspecific. Correlation with point tenderness is recommended and if there is clinical concern, CT can be performed to exclude a fracture. ACT 112: Negative or not required by law. Electronically signed by: Patricio Ni M.D. 07/14/2023 12:52 PM A&P A&P: 1. Right comminuted intertrochanteric fracture s/p mechanical fall at home. Orthopedics is following. Pt will require surgery once INR has normalized. Pre-op/admission EKG without abnormalities, TTE 07/08/2022 shows EF 55-60%, CXR without abnormalities. Continue scheduled tylenol and PRN oxycodone for pain Daily CBC, BMP, coags Maintain chapa catheter for accurate I&O, decreased mobility Pt will be NPO once surgery scheduled 2. PE/CVA/PAD on coumadin at home Pt has been on coumadin for approx 1 year, since PE 07/2022. INR today 3.9. Has rec'd a total of 7.5mg/24hr of Vitamin K. Will recheck INR and redose if necessary. May consider FFP if pt requires surgery, has active s/s bleeding. Will resume anticoagulation therapy once pt has had hip surgery and is cleared by orthopedics. 3. Hypotension H&H sent, stable. 1L NSS bolus given. CT scan hip ordered, negative for bleeding. NSS IV continuous 100 mls/hr while hypotensive Recheck H&H tonight, if conts to drop will consider CT scan abdomen/pelvis 4. HTN/HLD Last LDL 124 (2020) Holding coreg, lisinopril, amlodipine d/t hypotension. Will restart coreg/amlodipine if needed. Continue exetimibe and atorvastatin daily 5. JANIE on CKD3 Baseline creatinine 1-1.1. Today's level 1.55. Trend BMP daily Avoid nephrotoxic medications 6. DM2 Last Hbg A1C 5.7 (this adm) AC and HS blood glucose with SSI aspart coverage. 7. Diet/Proph Consistant carb diet Scheduled colace, PRN culcolax, MOM 8. DVT Proph Holding anticoagulants d/t need for hip surgery. INR elevated 2/2 coumadin. 9. Disposition Remains under hospitalist service with orthopedic c/s, no d/c date as pt still requires surgery. <South Peacock MD - Last Filed: 07/16/23 16:34> Advanced Practice Practitioner Student Attestation: Not to be used for clinical decision making or plan of care formulation.
--- NOTE | 2023-07-15 11:35 | CT Scan Report ---
CT hip RT wo con CLINICAL HISTORY: right hip fracture, on Coumadin, eval for hematoma TECHNIQUE: Multidetector row helical CT of the right hip was performed without intravenous contrast. Coronal and sagittal reformations were obtained. Automated dose lowering techniques and/or adjustment according to patient size were utilized for this examination. CT DOSE: 1042.02 mGy.cm Comparison: Comparison is made to hip radiograph 07/14/2023 FINDINGS: Comminuted fracture of the right hip is seen. Degenerative changes are seen in the right hip. A small amount of soft tissue swelling is seen. Breast with calcifications are seen. A Haddad catheter is inc identally noted IMPRESSION: A small amount of soft tissue swelling is seen about a comminuted fracture of the right hip. ACT 112: Negative or not required by law. Electronically signed by: Patricio Ni M.D. 07/15/2023 11:33 AM
[2023-07-15] MEDS: INSULIN ASPART PER UNIT CHARGE SC SCH ×3 (12:21→21:20)
--- NOTE | 2023-07-15 12:48 | Orthopedic Consultation ---
Date of Consultation July 15, 2023 Assessment & Plan (1) Encounter for pre-operative examination: Plan This is a 78-year-old male with PMH of type 2 diabetes, dyslipidemia, PAD, hypertension, carotid stenosis s/p bilateral endarterectomy, hypertension, CKD 3, BPH, history of CVA, history of PE on Coumadin and other medical problems listed below who presents after fall at home and was found to have R intertrochanteric femur fracture. R Intertrochanteric Femur Fracture Mechanical fall at home resulting in Mildly comminuted right intratrochanteric hip fracture per hip/pelvis XR Will order CT scan for further evaluation of fracture and surgical planning- IM nailing INR 3.9 on 07/15/23 - hospitalist team managing- holding coumadin, giving 5mg PO vitamin K, continue to monitor for goal INR 1.5 or less. Will repeat INR on 07/16/2023. Will remain NWB at this time. Will proceed with surgical treatment once INR is in acceptable range. Shoulder injury Xray of right shoulder shows questionable lucency of the glenoid. Patient is having no tenderness of right shoulder on exam. Patient denied any increased pain. Decreased Right shoulder ROM- xray findings of right rotator cuff arthropathy. Due to no increased tenderness on exam, will continue with observation at this time. Can follow-up on an outpatient basis. History of Present Illness Attending Physician: South Peacock MD History of Present Illness Orthopedics consulted s/p intertrochanteric femur fracture. 1 day ago patient saul d a fall at home. He was taken to the ED where x-rays were taken showing a intertrochanteric femur fracture. Patient has been admitted. Patient takes Coumadin for history of PE. INR is 3.9 today. Hospitalist team is currently giving patient Vitamin K due to INR. Patient states he is having groin pain. He also hit his right shoulder in his fall. Previous x-rays show questionable lucency of the glenoid. Patient denies any shoulder pain. He states his shoulder feels stiff, but states it always feels stiff. Allergies Allergy/AdvReac Type Severity Reaction Status Date / Time No Known Allergies Allergy Unknown Verified 07/08/22 00:00 Home Medications Medication Instructions Recorded Confirmed Type aspirin 81 mg tablet,delayed 81 mg PO QAM 12/06/20 07/14/23 History release nitroglycerin 0.4 mg sublingual 0.4 mg sublingual DIRECTED PRN 12/06/2007/02 History tablet (Nitrostat) Chest Pain acetaminophen 500 mg tablet 1,000 mg PO Q8H PRN Pain 05/22/22 07/14/23 History (Tylenol Extra Strength) allopurinol 300 mg tablet 300 mg PO DAILY 05/22/22 07/14/23 History amlodipine 10 mg tablet 10 mg PO DAILY 05/22/22 07/14/23 History carvedilol 25 mg tablet 25 mg PO BID 05/22/22 07/14/23 History tamsulosin 0.4 mg capsule 0.4 mg PO DAILY 05/22/22 07/14/23 History atorvastatin 40 mg tablet 40 mg PO HS 07/08/22 07/14/23 History finasteride 5 mg tablet 5 mg PO DAILY 07/08/22 07/14/23 History lisinopril 40 mg tablet 20 mg PO DAILY #15 tabs 07/12/22 07/14/23 Rx ezetimibe 10 mg tablet 10 mg PO DAILY 07/14/23 07/14/23 History gabapentin 300 mg capsule 300 mg PO BID 07/14/23 07/14/23 History warfarin 4 mg tablet 2 mg PO SUTUTH@0900 07/14/23 07/14/23 History warfarin 4 mg tablet (Jantoven) 4 mg PO MOWEFRSA@0900 07/14/23 07/14/23 History Patient History Medical History BPH (benign prostatic hyperplasia) Carotid stenosis CKD (chronic kidney disease), stage III DM (diabetes mellitus), type 2 History of cerebrovascular accident 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 History of pulmonary embolism Jul 2022 HTN (hypertension) Hyperlipidemia PAD (peripheral artery disease) Tobacco use disorder Surgical History H/O umbilical hernia repair History of shoulder surgery S/P carotid endarterectomy R: Jan 2023 @ [facility] – [place] L: April 2022 in [place] Family History Other Cancer Diabetes Heart disease Hypertension Social History Smoking Status: Never smoker Tobacco Type: Smokeless Tobacco (Dip or Chew) Do You Dip or Chew Tobacco: Yes; Hx Alcohol Use: No Hx Substance Use: No Preferred Language: Gibraltarian Communication Ability: Effective Tool Planner Required: No Beliefs That Will Affect Care: None marital status: / Current Living Situation: Family Current Living Situation Comment: daughter and 1 grandson How many Children do You have: 2 Feels Safe at Home: Yes Assistive Devices: Cane, Glasses and Hearing Aid - Bilateral Physical Exam Physical Exam: General Appearance: WD/WN, vitals as above, NAD, sitting up in bed, pleasant, conversing easily Extremities/Musculoskeletal: + R groin pain, RLE externally rotated and shortened. No tenderness to palpation right shoulder. Decreased ROM R shoulder. Skin: no rashes, normal color, warm/dry Results & Data Vital Signs (Past 12 Hours) Vital Signs Temp Pulse Resp BP BP Pulse Ox O2 Del Method 07/15/23 12:07 65 16 97/54 L 94 Room Air 07/15/23 10:05 90/50 L 07/15/23 09:00 58 L 87/50 L 89/46 L 07/15/23 07:39 Room Air 07/15/23 06:36 37.1 C 64 16 100/57 L 94 Room Air
[2023-07-15] MEDS: amLODIPine BESYLATE 5 MG TAB PO SCH (13:08)
[2023-07-15] MEDS: lisinopril 20 MG TAB PO SCH (13:08)
[2023-07-15] MEDS: carvediloL 25 MG TAB PO SCH (13:08)
--- NOTE | 2023-07-15 14:05 | Electrocardiogram Report ---
Test Reason : Blood Pressure : / mmHG Vent. Rate : 059 BPM Atrial Rate : 059 BPM P-R Int : 148 ms QRS Dur : 086 ms QT Int : 420 ms P-R-T Axes : 030 035 016 degrees QTc Int : 415 ms Sinus bradycardia Otherwise normal ECG When compared with ECG of 07-JUL-2022 22:41, No significant change was found Confirmed by Almas Keane ([id number]) on 07/15/2023 2:05:36 PM Referred By: REFERRED SELF Confirmed By:Almas Keane
[2023-07-15 15:04] LABS: Hematocrit (blood only) 34.5 % (42.0-52.0)
--- NOTE | 2023-07-15 15:25 | Hospitalist Progress Note ---
Date of Service July 15, 2023 Assessment & Plan (1) Fall: (2) Closed right hip fracture: (3) DM (diabetes mellitus), type 2: (4) CKD (chronic kidney disease), stage III: (5) BPH (benign prostatic hyperplasia): (6) PAD (peripheral artery disease): (7) History of pulmonary embolism: (8) HTN (hypertension): (9) History of cerebrovascular accident: (10) Hyperlipidemia: (11) Tobacco use disorder: Plan This is a 78-year-old male with PMH of type 2 diabetes, dyslipidemia, PAD, hypertension, carotid stenosis s/p bilateral endarterectomy, hypertension, CKD 3, BPH, history of CVA, history of PE on Coumadin who presented after fall at home and was found to have R hip fracture. Fall R hip fracture Mechanical fall at home Hip/pelvis x-ray - mildly comminuted right intratrochanteric hip fracture pre op CXR without abnormalities, EKG without acute ST changes 2D echo from January 2023 with preserved EF, aortic valve sclerosis Per revised cardiac risk index for pre-op risk, class II risk or 6% 30 day risk Tentative OR 07/[address] Anthony - likely no OR availability until Saturday AM but NPO at midnight in case 07/14 INR 3.2 - s/p 5mg PO vitamin K 07/15 INR 3.9 - will give additional vitamin K 2.5 mg, repeat INR in the afte rnoon, goal INR 1.5 or less Hypotension BP 87/50, asymptomatic Hgb 11.3 (13.6). Continue to trend hgb, if further significant drop, consider CT abd/pelvis Hip CT without significant hematoma IVF bolus with improvement, will start maintenance fluids Also noted JANIE, hypotension likely due to hypovolemia and pain medications Hold antihypertensives CKD stage III JANIE Creatinine 1.5, baseline low1's IVF as above Hold ACEi Right Shoulder injury Fell on shoulder Right shoulder x-ray - Linear lucency in the left glenoid fossa is nonspecific. Correlation with point tenderness is recommended and if there is clinical concern, CT can be performed to exclude a fracture No point tenderness, limited ROM appears to be chronic Outpatient follow-up per Ortho History of PE April 2022, remains on anticoagulation Coumadin as above History of CVA Continue aspirin, statin DM II A1c 6.3 in June 2022 No record of home diabetic medications - patient unsure SSI while in-patient BSG AC HS PAD Continue aspirin, statin HTN Holding antihypertensives as above BPH Continue finasteride, tamsulosin HLD Continue statin Tobacco use Previous h/o smokeless tobacco DVT PROPHYLAXIS SCDs while INR < 2.0 Patient seen in collaboration with Dr. Peacock. Admission and Anticipated Discharge Date Admission Date: July 14, 2023 Supervising Physician Co-Signing Physician Notes Pt seen and examined by myself, South Peacock MD on the day of service. Care was coordinated with [facility]. Please refer to her note for additional information. 78yoM with R hip fracture after mechanical fall at home. Ortho consult- appreciate recs, pain control, pre-op optimization. Likely OR osmin. Working on INR reversal, will receive additional dose of vitamin K, repeat INR during the day. Hold antihypertensive Hold antihypertensives.Continue with IV fluids. Otherwise as above. Subjective Follow-up for right hip fracture. Patient seen and examined. Reports right hip pain with minimal movement. Otherwise, no complaints. Denies chest pain and shortness of breath. No lightheadedness or dizziness. Haddad in place. Denies abdominal pain and nausea. Physical Exam Constitutional: WD/WN, vitals as above no acute distress Respiratory: normal respiratory effort, lungs clear to auscultation Cardiovascular: Rate/Rhythm: regular rate and regular rhythm Vessels: normal peripheral pulses Extremities: no edema Gastrointestinal (Abdomen): Percussion/Palpation: abdomen soft; abdomen nontender Musculoskeletal: + edema over right hip, tender to palpation, RLE shortened and externally rota alonso, CSM checks intact RLE Skin: no rashes, warm and dry Neurologic: no focal motor deficits Psychiatric: A+Ox3, euthymic affect Results & Data Results & Data Vital Signs (Past 12 Hours) Vital Signs Temp Pulse Resp BP BP Pulse Ox O2 Del Method 07/15/23 14:00 68 14 97/49 L 94 Room Air 07/15/23 12:07 65 16 97/54 L 94 Room Air 07/15/23 10:05 90/50 L 07/15/23 09:00 58 L 87/50 L 89/46 L 07/15/23 07:39 Room Air 07/15/23 06:36 37.1 C 64 16 100/57 L 94 Room Air Laboratory Results Short CBC 07/15/23 07/15/23 Range/Units 06:39 14:32 WBC 8.75 (4.8-10.8) K/ul Hgb 11.3 L 11.0 L (14.0-18.0) g/dl Hct 34.7 L 34.5 L (42.0-52.0) % Plt Count 168 (130-400) K/uL BMP 07/15/23 06:39 Sodium 139 Potassium 4.8 Chloride 107 Carbon Dioxide 26 BUN 38 H Creatinine 1.55 H Glucose 139 H Calcium 8.1 L (2) Closed right hip fracture Encounter type: initial encounter Qualified Code(s): S72.001A - Fracture of unspecified part of neck of right femur, initial encounter for closed fracture
[2023-07-15 15:37] LABS: INR 2.7 (0.9-1.1); Prothrombin Time 27.7 Seconds (9.0-12.0)
[2023-07-15] MEDS ORDERED: PHYTONADIONE PED 1 MG/0.5ML AMP/SYRG IV ONE (16:00)
[2023-07-15] MEDS: SODIUM CHLORIDE 0.9% 1000ML 1,000 ML IV SCH ×2 (16:26→23:11)
[2023-07-15] MEDS ORDERED: DEXTROSE 5% IV ONE (16:30)
[2023-07-15] MEDS ORDERED: PHYTONADIONE IV ONE (16:30)
[2023-07-15] MEDS: ATORVASTATIN 40 MG TAB PO SCH (20:39)
[2023-07-15] MEDS: DOCUSATE SODIUM/SENNA 50/8.6MG TAB PO SCH (20:39)
[2023-07-15] MEDS: oxyCODONE HCL IR 5 MG TAB (IMMEDIATE RELEASE) PO PRN (20:41)
[2023-07-15 20:49] LABS: Hematocrit (blood only) 31.6 % (42.0-52.0); Hemoglobin 10.1 g/dl (14.0-18.0)
[2023-07-16] MEDS ORDERED: Nursing to Pharmacy Communication SCH (02:00)
[2023-07-16] MEDS: oxyCODONE HCL IR 5 MG TAB (IMMEDIATE RELEASE) PO PRN ×3 (05:59→19:32)
[2023-07-16] MEDS: SODIUM CHLORIDE 0.9% 1000ML 1,000 ML IV SCH ×2 (05:59→19:06)
[2023-07-16] MEDS ORDERED: ceFAZolin 2000MG 2,000 MG/15 ML SYR IV SCH (06:00)
[2023-07-16] MEDS: INSULIN ASPART PER UNIT CHARGE SC SCH ×5 (06:03→20:51)
[2023-07-16 07:17] LABS: Hematocrit (blood only) 31.8 % (42.0-52.0); Hemoglobin 10.4 g/dl (14.0-18.0); Mean Corpuscular Hemoglobin 30.1 pg (25.0-34.0); Mean Corpuscular Hgb Conc 32.7 g/dL (32.0-36.0); Mean Corpuscular Volume 92.2 fL (80.0-100.0); Platelet Count 130 K/uL (130-400); RDW Coefficient of Variation 15.7 % (11.5-14.5); RDW Standard Deviation 52.9 fL (36.4-46.3); Red Blood Count 3.45 M/uL (4.70-6.10); White Blood Count 9.48 K/ul (4.8-10.8)
[2023-07-16 07:26] LABS: BUN Creatinine Ratio 22.9 (10-20); Calcium 7.9 mg/dl (8.6-10.3); Creatinine Clr Calc Pharmacy 49.8 ml/min; Est GFR (African American) 69.1 ml/min; Est GFR (Non-African American) 59.6 ml/min; Potassium 4.2 mmol/L (3.5-5.1)
[2023-07-16 07:45] LABS: INR 1.5 (0.9-1.1); Prothrombin Time 16.1 Seconds (9.0-12.0)
[2023-07-16] MEDS: ACETAMINOPHEN 1,000 MG/100 ML VIAL IV SCH ×3 (08:10→23:08)
[2023-07-16] MEDS: EZETIMIBE 10 MG TAB PO SCH (08:13)
[2023-07-16] MEDS: FINASTERIDE 5 MG TAB PO SCH (08:13)
[2023-07-16] MEDS: TAMSULOSIN HCL 0.4 MG CAP PO SCH (08:13)
[2023-07-16] MEDS: GABAPENTIN 300 MG CAP PO SCH ×2 (08:13→21:02)
[2023-07-16] MEDS: allopurinoL 300 MG TAB PO SCH (08:13)
[2023-07-16] MEDS: ASPIRIN 81 MG ECTAB PO SCH (08:56)
[2023-07-16] MEDS ORDERED: ERGOCALCIFEROL 50,000 UNITS 1250 MCG CAP PO SCH (10:00)
--- NOTE | 2023-07-16 11:21 | Student Report ---
[facility] Med Student Progress Note <Tiff Nagel - Last Filed: 07/16/23 17:29> Advanced Practice Practitioner Student Attestation: Not to be used for clinical decision making or plan of care formulation. Date of Service Date of service: July 16, 2023 Subjective Subjective: NAEO. Pt resting in bed for examination. Only complaint of pain is to right hip. Pt denies fever, HAMLIN, CP, SOB, N/V/D. Last BM per RN was 07/12, per pt he only goes every few days. Pt made aware that INR is now at a safe level for surgery and that he will be going to the OR tomorrow to repair his right hip fracture. Pt offers no other questions or complaints at this time. ROS ROS: See above for pertinent positives & negatives. A total of 10 systems reviewed and were otherwise negative. Physical Exam Physical Exam: Vital signs reviewed. General: Well-appearing, in no significant distress. Converses easily and appropriately. HEENT: No scleral icterus, PERRLA, neck supple. Atraumatic. Cardiovascular: Regular rate and rhythm, +2/6 murmur over RSB. Pulmonary: Clear to auscultation bilaterally, normal work of breathing. Abdomen: Soft, nontender, nondistended, positive bowel sounds. Musculoskeletal: Atraumatic, no peripheral edema. Neurologic: Patient awake alert and oriented x 3, full strength in DEVONTE and LL extremities. +2 to RLE, +3 to RUE. Skin: Warm, dry, no rash Results Results: Vital Signs Temp 36.7 C 07/16/23 08:08 Pulse 69 07/16/23 08:08 Resp 18 07/16/23 08:08 BP 111/63 07/16/23 08:08 Pulse Ox 91 07/16/23 08:08 O2 Del Method Room Air 07/16/23 08:08 O2 Flow Rate 1 07/15/23 22:02 Intake & Output 07/15/23 07/16/23 07/16/23 18:59 06:59 18:59 Intake Total 2730.125 / 4510.125 1780 / 4510.125 100 / 100 Output Total 250 / 1200 950 / 1200 Balance 2480.125 / 3310.125 830 / 3310.125 100 / 100 Intake: IV 2250.125 / 4030.125 1780 / 4030.125 100 / 100 Acetaminophen 1,000 mg In 100 200 / 300 100 / 300 100 / 100 ml @ 400 mls/hr IV Q8H [facility] Rx#: [id number] Phytonadione 1.25 mg In 50.125 / 50.125 Dextrose 5% 50 ml @ 100 mls/hr IV ONE ONE Rx#:[id number] Sodium Chloride 0.9% 1000ML 1, 1999 / 3680 1680 / 3680 000 ml @ 100 mls/hr IV .Q10H [facility] Rx#:[id number] Tube Feeding 480 / 480 Output: Urine Amount (Catheter) 250 / 1200 950 / 1200 Chapa/Indwelling 250 / 1200 950 / 1200 Other: # Unmeasured Voids 1 Short CBC 07/15/23 07/15/23 07/16/23 Range/Units 14:32 20:29 06:30 WBC 9.48 (4.8-10.8) K/ul Hgb 11.0 L 10.1 L 10.4 L (14.0-18.0) g/dl Hct 34.5 L 31.6 L 31.8 L (42.0-52.0) % Plt Count 130 (130-400) K/uL BMP 07/16/23 06:30 Sodium 137 Potassium 4.2 Chloride 108 H Carbon Dioxide 23 BUN 27 H Creatinine 1.18 D Glucose 108 H Calcium 7.[address] 07/15/23 09:48 CT hip RT wo con CLINICAL HISTORY: right hip fracture, on Coumadin, eval for hematoma TECHNIQUE: Multidetector row helical CT of the right hip was performed without intravenous contrast. Coronal and sagittal reformations were obtained. Automated dose lowering techniques and/or adjustment according to patient size were utilized for this examination. CT DOSE: 1042.02 mGy.cm Comparison: Comparison is made to hip radiograph 07/14/2023 FINDINGS: Comminuted fracture of the right hip is seen. Degenerative changes are seen in the right hip. A small amount of soft tissue swelling is seen. Breast with calcifications are seen. A Chapa catheter is incidentally noted IMPRESSION: A small amount of soft tissue swelling is seen about a comminuted fracture of the right hip. ACT 112: Negative or not required by law. Electronically signed by: Patricio Ni M.D. 07/15/2023 11:33 AM A&P A&P: 1. Right comminuted intertrochanteric fracture s/p mechanical fall at home. Orthopedics is following. Plan for OR tomorrow. Revised cardiac risk index is moderate. Pre-op/admission EKG without abnormalities, TTE 07/08/2022 shows EF 55- 60%, CXR without abnormalities. Continue scheduled tylenol and PRN oxycodone for pain Daily CBC, BMP, coags Maintain chapa catheter for accurate I&O, decreased mobility Pt will be NPO tonight for surgery tomorrow 2. PE/CVA/PAD Coumadin started with PE in 07/2022. INR today 1.5 (now at goal per ortho recs). Will resume anticoagulation therapy once pt has had hip surgery and is cleared by orthopedics. 3. Hypotension, now resolved Pt rec'd 1L bolus, antihypertensives held yesterday. H&H remains stable. CT hip negative for bleed/hematoma. NSS IV continuous 100 mls/hr while NPO Will consider CT abd/pelvis if pt develops overt s/s bleeding. 4. HTN/HLD Last LDL 124 (2020) Restarted coreg d/t resolution of hypotension. Cont to hold lisinopril/amlodipine Continue exetimibe and atorvastatin daily 5. JANIE on CKD3 Baseline creatinine 1-1.1. Today's level 1.18 down from 1.55 yesterday. Trend BMP daily Avoid nephrotoxic medications 6. DM2 Last Hbg A1C 5.7 (this adm) AC and HS blood glucose with SSI aspart coverage. 7. Diet/Proph Consistant carb diet, NPO at [place] for surgery tomorrow Scheduled colace, PRN culcolax, MOM 8. DVT Proph Holding anticoagulants d/t need for hip surgery. Will resume post-op per ortho ok. 9. Disposition Remains under hospitalist service with orthopedic c/s, no d/c date as pt still requires surgery. <South Peacock MD - Last Filed: 07/17/23 16:07> Advanced Practice Practitioner Student Attestation: Not to be used for clinical decision making or plan of care formulation.
--- NOTE | 2023-07-16 13:53 | Hospitalist Progress Note ---
Date of Service July 16, 2023 Assessment & Plan (1) Fall: (2) Closed right hip fracture: (3) DM (diabetes mellitus), type 2: (4) CKD (chronic kidney disease), stage III: (5) BPH (benign prostatic hyperplasia): (6) PAD (peripheral artery disease): (7) History of pulmonary embolism: (8) HTN (hypertension): (9) History of cerebrovascular accident: (10) Hyperlipidemia: (11) Tobacco use disorder: Plan This is a 78-year-old male with PMH of type 2 diabetes, dyslipidemia, PAD, hypertension, carotid stenosis s/p bilateral endarterectomy, hypertension, CKD 3, BPH, history of CVA, history of PE on Coumadin who presented after fall at home and was found to have R hip fracture. Age-related osteoporosis with current pathologic fracture of right hip Vitamin D def: Ergocalciferol 50k unit q7d for 6 wk, then 1000 unit daily. Mechanical fall at home Hip/pelvis x-ray - mildly comminuted right intratrochanteric hip fracture pre op CXR without abnormalities, EKG without acute ST changes 2D echo from January 2023 with preserved EF, aortic valve sclerosis Per revised cardiac risk index for pre-op risk, class II risk or 6% 30 day risk. Patient considered acceptable risk to proceed surgery. Tentative OR 07/17 On Coumadin for history of PE 07/14 INR 3.2 - s/p 5mg PO vitamin K 07/15 INR 3.9 - s/p PO vitamin K 2.5 mg and IV vitamin K 1mg 07/16 - INR 1.5 Vitamin D level 20.6, start replacement Hypotension 07/15: BP 87/50, asymptomatic Hgb 11.3 (13.6) Hip CT without significant hematoma IVF bolus with improvement, will start maintenance fluids Also noted JANIE, hypotension likely due to hypovolemia and pain medications Hold antihypertensives 07/16: BP improved, will resume carvedilol at reduced dose in anticipation of OR tomorrow Continue maintenance IVF CKD stage III JANIE 07/15 creat 1.5 --> 1.1 today Baseline low1's IVF as above Continue to hold ACEi due to borderline low BPs Right Shoulder injury Fell on shoulder Right shoulder x-ray - Linear lucency in the left glenoid fossa is nonspecific. Correlation with point tenderness is recommended and if there is clinical concern, CT can be performed to exclude a fracture No point tenderness, limited ROM appears to be chronic Outpatient follow-up per Ortho History of PE April 2022, remains on anticoagulation Coumadin as above History of CVA Continue aspirin, statin DM II A1c 6.3 in June 2022 No record of home diabetic medications - patient unsure SSI while in-patient BSG AC HS PAD Continue aspirin, statin HTN Holding antihypertensives as above BPH Continue finasteride, tamsulosin HLD Continue statin Tobacco use Previous h/o smokeless tobacco DVT PROPHYLAXIS SCDs while INR < 2.0 Patient seen in collaboration with Dr. Peacock. Admission and Anticipated Discharge Date Admission Date: July 14, 2023 Supervising Physician Co-Signing Physician Notes Pt seen and examined by myself, South Peacock MD on the day of service. Care was coordinated with [facility]. Please refer to her note for additional information. 78yoM with R hip fracture after mechanical fall at home. Ortho consult- appreciate recs, pain control, pre-op optimization. Likely OR osmin. INR favorable, Coreg initiated, hold other antihypertensives. Resume warfarin postoperatively with orthopedics recommendation. Continue with IV fluids. Monitor for volume overload. N.p.o. midnight. Otherwise as above. Subjective Follow-up for right hip fracture. Patient seen and examined. Resting in bed. Reports pain in right hip however controlled. No chest pain or shortness of breath. Denies abdominal pain or nausea. Haddad catheter in place draining clear yellow urine. Physical Exam Constitutional: WD/WN, vitals as above Respiratory: normal respiratory effort, lungs clear to auscultation Cardiovascular: Rate/Rhythm: regular rate and regular rhythm Vessels: normal peripheral pulses Extremities: no edema Gastrointestinal (Abdomen): Percussion/Palpation: abdomen soft; abdomen nontender Musculoskeletal: tenderness to palpation of right hip Skin: no rashes, warm and dry Neurologic: no focal motor deficits Psychiatric: Orientation: alert, oriented to person and oriented to place; + not oriented to time Insight: + limited insight Results & Data Results & Data Vital Signs (Past 12 Hours) Vital Signs Temp Pulse Resp BP Pulse Ox O2 Del Method 07/16/23 08:08 36.7 C 69 18 111/63 91 Room Air 07/16/23 07:59 Room Air 07/16/23 06:10 36.5 C 88 16 162/88 H 94 Room Air Laboratory Results Short CBC 07/15/23 07/15/23 07/16/23 Range/Units 14:32 20:29 06:30 WBC 9.48 (4.8-10.8) K/ul Hgb 11.0 L 10.1 L 10.4 L (14.0-18.0) g/dl Hct 34.5 L 31.6 L 31.8 L (42.0-52.0) % Plt Count 130 (130-400) K/uL BMP 07/16/23 06:30 Sodium 137 Potassium 4.2 Chloride 108 H Carbon Dioxide 23 BUN 27 H Creatinine 1.18 D Glucose 108 H Calcium 7.9 L (2) Closed right hip fracture Encounter type: initial encounter Qualified Code(s): S72.001A - Fracture of unspecified part of neck of right femur, initial encounter for closed fracture
[2023-07-16] MEDS: ATORVASTATIN 40 MG TAB PO SCH (21:01)
[2023-07-16] MEDS: DOCUSATE SODIUM/SENNA 50/8.6MG TAB PO SCH (21:02)
[2023-07-16] MEDS: carvediloL 12.5 MG TAB PO SCH (21:02)
[2023-07-17] MEDS ORDERED: Nursing to Pharmacy Communication SCH ×2 (04:15→12:15)
[2023-07-17] MEDS ORDERED: ceFAZolin 2000MG 2,000 MG/15 ML SYR IV SCH (06:00)
[2023-07-17] MEDS: INSULIN ASPART PER UNIT CHARGE SC SCH ×5 (06:34→20:45)
[2023-07-17] MEDS: ASPIRIN 81 MG ECTAB PO SCH (07:33)
[2023-07-17] MEDS: ACETAMINOPHEN 1,000 MG/100 ML VIAL IV SCH ×2 (07:37→16:16)
[2023-07-17] MEDS: SODIUM CHLORIDE 0.9% 1000ML 1,000 ML IV SCH ×2 (07:37→20:48)
[2023-07-17 07:39] LABS: Mean Corpuscular Hgb Conc 33.3 g/dL (32.0-36.0); Mean Corpuscular Volume 89.9 fL (80.0-100.0); Mean Platelet Volume 10.9 fL (9.4-12.4); Platelet Count 146 K/uL (130-400); RDW Coefficient of Variation 15.3 % (11.5-14.5); RDW Standard Deviation 50.4 fL (36.4-46.3); Red Blood Count 3.67 M/uL (4.70-6.10); White Blood Count 9.75 K/ul (4.8-10.8)
[2023-07-17 08:08] LABS: INR 1.2 (0.9-1.1); Prothrombin Time 13.4 Seconds (9.0-12.0)
[2023-07-17] MEDS ORDERED: MIDAZOLAM HCL 1 MG/ML 2ML VIAL ONE (08:42)
[2023-07-17] MEDS ORDERED: DEXAMETHASONE SOD INJ 4 MG/ML VIAL ONE (08:42)
[2023-07-17] MEDS ORDERED: ROCURONIUM BROMIDE 10 MG/ML 5 ML VIAL IV ONE (08:42)
[2023-07-17] MEDS ORDERED: fentaNYL citrate PF 100 MCG/2 ML VIAL ONE (08:42)
[2023-07-17] MEDS ORDERED: ONDANSETRON INJ 2 MG/ML 2 ML VIAL ONE (08:42)
[2023-07-17] MEDS ORDERED: PROPOFOL IV EMULSION 10 MG/ML 20 ML VIAL IV ONE (08:42)
[2023-07-17] MEDS ORDERED: LIDOCAINE 2% 2 ML VIAL/AMP(20MG/ML) INFIL ONE (08:42)
[2023-07-17 08:57] LABS: Calcium 8.4 mg/dl (8.6-10.3); Magnesium 1.7 mg/dl (1.7-2.4); Potassium 4.3 mmol/L (3.5-5.1)
[2023-07-17] MEDS: carvediloL 12.5 MG TAB PO SCH (08:57)
[2023-07-17 09:03] LABS: BUN Creatinine Ratio 16.9 (10-20); Est GFR (African American) 96.3 ml/min; Est GFR (Non-African American) 83.1 ml/min
[2023-07-17] MEDS ORDERED: PIPERACILLIN/TAZOBACTAM 4.5 GM (over 30 mins) IV ONE (10:00)
[2023-07-17] MEDS: EZETIMIBE 10 MG TAB PO SCH (10:25)
[2023-07-17] MEDS: FINASTERIDE 5 MG TAB PO SCH (10:25)
[2023-07-17] MEDS: allopurinoL 300 MG TAB PO SCH (10:25)
[2023-07-17] MEDS: TAMSULOSIN HCL 0.4 MG CAP PO SCH (10:25)
[2023-07-17] MEDS: GABAPENTIN 300 MG CAP PO SCH ×2 (10:25→20:48)
[2023-07-17 10:51] LABS: Appearance Urine Clear (Clear); Bilirubin Urine Negative (Negative); Blood Urine Negative (Negative); Color Urine Yellow; Glucose Urine UA Negative (Negative); Ketones Urine Negative (Negative); Leukocyte Esterase Urine Negative (Negative); Nitrite Urine Negative (Negative); Protein Urine Negative (Negative); Specific Gravity Urine 1.006 (1.000-1.030); Urobilinogen Urine Negative (Negative); pH Urine 5.5 (4.5-7.5)
--- NOTE | 2023-07-17 11:43 | XRay Report ---
XR chest 1V portable CLINICAL HISTORY: r/o infxn TECHNIQUE: Single frontal radiograph of the chest was obtained. Comparison: Comparison is made to chest radiograph 07/14/2023 FINDINGS: No lines and tubes are seen. Calcified aortic knob is seen. Lungs are underinflated but clear. No leatha dence of pleural effusion or pneumothorax. IMPRESSION: No acute chest disease. ACT 112: Negative or not required by law. Electronically signed by: Patricio Ni M.D. 07/17/2023 11:42 AM
--- NOTE | 2023-07-17 16:14 | Hospitalist Progress Note ---
Date of Service July 17, 2023 Assessment & Plan (1) Fall: (2) Closed right hip fracture: (3) DM (diabetes mellitus), type 2: (4) CKD (chronic kidney disease), stage III: (5) BPH (benign prostatic hyperplasia): (6) PAD (peripheral artery disease): (7) History of pulmonary embolism: (8) HTN (hypertension): (9) History of cerebrovascular accident: (10) Hyperlipidemia: (11) Tobacco use disorder: Plan This is a 78-year-old male with PMH of type 2 diabetes, dyslipidemia, PAD, hypertension, carotid stenosis s/p bilateral endarterectomy, hypertension, CKD 3, BPH, history of CVA, history of PE on Coumadin who presented after fall at home and was found to have R hip fracture. Age-related osteoporosis with current pathologic fracture of right hip Vitamin D def: Ergocalciferol 50k unit q7d for 6 wk, then 1000 unit daily. Mechanical fall at home Hip/pelvis x-ray - mildly comminuted right intratrochanteric hip fracture pre op CXR without abnormalities, EKG without acute ST changes 2D echo from January 2023 with preserved EF, aortic valve sclerosis Per revised cardiac risk index for pre-op risk, class II risk or 6% 30 day risk. Patient considered acceptable risk to proceed surgery. Tentative OR 07/18; PT/INR acceptable. On Coumadin for history of PE Resume Coumadin as soon as possible after surgery once bleeding risks deemed minimal per orthopedics. Fever: Noted 8/16 AM. Patient offers no new complaints. Empiric Zosyn. UA and CXR with no signs of infection. CBC and Pro-Kali negative. Trend Pro-Kali. Follow blood culture. Doubt it is a true fever, will follow. Hypotension: Resolved. Can resume home blood pressure medication cautiously. Caution with BP meds during perioperative. CKD stage III JANIE: Resolved Right Shoulder injury Fell on shoulder Right shoulder x-ray - Linear lucency in the left glenoid fossa is nonspecific. Correlation with point tenderness is recommended and if there is clinical concern, CT can be performed to exclude a fracture No point tenderness, limited ROM appears to be chronic Outpatient follow-up per Ortho History of PE April 2022, remains on anticoagulation Coumadin as above History of CVA Continue aspirin, statin DM II A1c 6.3 in June 2022 No record of home diabetic medications - patient unsure SSI while in-patient BSG AC HS PAD Continue aspirin, statin HTN Holding antihypertensives as above BPH Continue finasteride, tamsulosin HLD Continue statin Tobacco use Previous h/o smokeless tobacco DVT PROPHYLAXIS SCDs while INR < 2.0 Admission and Anticipated Discharge Date Admission Date: July 14, 2023 Subjective Follow-up for right hip fracture. Patient seen and examined. Resting in bed. Reports pain in right hip however controlled. No chest pain or shortness of breath. Denies abdominal pain or nausea. Haddad catheter in place draining clear yellow urine. Temperature was recorded with a peak of 38 C today morning, procalcitonin is negative, will trend procalcitonin. WBC normal. Empiric Zosyn is started, urinalysis and CXR with no infection. Blood culture has been drawn. Patient offers no new complaints except for right hip pain which has been stable. Physical Exam Physical Exam: Constitutional:WD/WN, vitals as aboveRespiratory:normal respiratory effort, lungs clear to auscultationCardiovascular:Rate/Rhythm: regular rate and regular rhythm Vessels: normal peripheral pulses Extremities: no edema Gastrointestinal (Abdomen):Percussion/Palpation: abdomen soft; abdomen nontenderMusculoskeletal: tenderness to palpation of right hip Skin:no rashes, warm and dryNeurologic:no focal motor deficitsPsychiatric: Orientation: alert, oriented to person and oriented to place; + not oriented to time Insight: + limited insight Results & Data Results & Data Vital Signs (Past 12 Hours) Vital Signs Temp Pulse Resp BP BP Pulse Ox O2 Del Method 07/17/23 15:55 37.1 C 80 18 163/74 H 95 Room Air 07/17/23 10:22 36.9 C 63 18 115/64 95 Room Air 07/17/23 08:53 37.8 C H 160/84 H 07/17/23 07:46 38.0 C H 87 18 176/74 H 92 Room Air (2) Closed right hip fracture Encounter type: initial encounter Qualified Code(s): S72.001A - Fracture of unspecified part of neck of right femur, initial encounter for closed fracture
[2023-07-17] MEDS: PIPERACILLIN/TAZOBACTAM 4.5 GM in DEXTROSE 5% 100 ML IV SCH ×2 (17:09→23:15)
[2023-07-17] MEDS: carvediloL 25 MG TAB PO SCH (20:47)
[2023-07-17] MEDS: ATORVASTATIN 40 MG TAB PO SCH (20:47)
[2023-07-17] MEDS: DOCUSATE SODIUM/SENNA 50/8.6MG TAB PO SCH (20:48)
[2023-07-18] MEDS ORDERED: Nursing to Pharmacy Communication SCH ×2 (04:00→19:30)
[2023-07-18] MEDS: INSULIN ASPART PER UNIT CHARGE SC SCH ×4 (05:42→21:56)
[2023-07-18] MEDS: ASPIRIN 81 MG ECTAB PO SCH (07:30)
[2023-07-18] MEDS: TAMSULOSIN HCL 0.4 MG CAP PO SCH (07:32)
[2023-07-18] MEDS: FINASTERIDE 5 MG TAB PO SCH (07:32)
[2023-07-18] MEDS: EZETIMIBE 10 MG TAB PO SCH (07:32)
[2023-07-18] MEDS: allopurinoL 300 MG TAB PO SCH (07:32)
[2023-07-18] MEDS: carvediloL 25 MG TAB PO SCH ×2 (07:32→19:57)
[2023-07-18] MEDS: GABAPENTIN 300 MG CAP PO SCH ×2 (07:32→19:57)
[2023-07-18] MEDS: lisinopril 20 MG TAB PO SCH (08:17)
[2023-07-18] MEDS: PIPERACILLIN/TAZOBACTAM 4.5 GM in DEXTROSE 5% 100 ML IV SCH ×2 (08:19→16:11)
[2023-07-18] MEDS: ACETAMINOPHEN 1,000 MG/100 ML VIAL IV PRN (08:22)
[2023-07-18 08:38] LABS: Hematocrit (blood only) 31.2 % (42.0-52.0); Hemoglobin 10.4 g/dl (14.0-18.0); Mean Corpuscular Hemoglobin 29.9 pg (25.0-34.0); Mean Corpuscular Hgb Conc 33.3 g/dL (32.0-36.0); Mean Corpuscular Volume 89.7 fL (80.0-100.0); Mean Platelet Volume 11.2 fL (9.4-12.4); Platelet Count 177 K/uL (130-400); RDW Coefficient of Variation 15.2 % (11.5-14.5); Red Blood Count 3.48 M/uL (4.70-6.10); White Blood Count 9.25 K/ul (4.8-10.8)
[2023-07-18 08:47] LABS: BUN Creatinine Ratio 15.5 (10-20); Calcium 8.2 mg/dl (8.6-10.3); Est GFR (African American) 81.4 ml/min; Est GFR (Non-African American) 70.2 ml/min; Magnesium 1.8 mg/dl (1.7-2.4); Phosphorus 2.7 mg/dl (2.5-4.9); Potassium 4.1 mmol/L (3.5-5.1)
[2023-07-18 08:56] LABS: INR 1.1 (0.9-1.1); Prothrombin Time 12.3 Seconds (9.0-12.0)
[2023-07-18] MEDS: SODIUM CHLORIDE 0.9% 1000ML 1,000 ML IV SCH ×2 (10:13→19:48)
[2023-07-18] MEDS: amLODIPine BESYLATE 5 MG TAB PO SCH (11:07)
--- NOTE | 2023-07-18 15:25 | Hospitalist Progress Note ---
Date of Service July 18, 2023 Assessment & Plan (1) Fall: (2) Closed right hip fracture: (3) DM (diabetes mellitus), type 2: (4) CKD (chronic kidney disease), stage III: (5) BPH (benign prostatic hyperplasia): (6) PAD (peripheral artery disease): (7) History of pulmonary embolism: (8) HTN (hypertension): (9) History of cerebrovascular accident: (10) Hyperlipidemia: (11) Tobacco use disorder: Plan This is a 78-year-old male with PMH of type 2 diabetes, dyslipidemia, PAD, hypertension, carotid stenosis s/p bilateral endarterectomy, hypertension, CKD 3, BPH, history of CVA, history of PE on Coumadin who presented after fall at home and was found to have R hip fracture. Age-related osteoporosis with current pathologic fracture of right hip Vitamin D def: Ergocalciferol 50k unit q7d for 6 wk, then 1000 unit daily. Mechanical fall at home Hip/pelvis x-ray - mildly comminuted right intratrochanteric hip fracture pre op CXR without abnormalities, EKG without acute ST changes 2D echo from January 2023 with preserved EF, aortic valve sclerosis Per revised cardiac risk index for pre-op risk, class II risk or 6% 30 day risk. Patient considered acceptable risk to proceed surgery. for OR today; PT/INR acceptable. On Coumadin for history of PE Resume Coumadin as soon as possible after surgery once bleeding risks deemed minimal per orthopedics. Fever: Noted 8/16 AM. Patient offers no new complaints. Empiric Zosyn. UA and CXR with no signs of infection. CBC and Pro-Kali negative. Blood culture no growth for 24 hours. Follow. Doubt it is a true fever, will follow. Hypotension: Resolved. Can resume home blood pressure medication cautiously. Caution with BP meds during perioperative. CKD stage III JANIE: Resolved Right Shoulder injury Fell on shoulder Right shoulder x-ray - Linear lucency in the left glenoid fossa is nonspecific. Correlation with point tenderness is recommended and if there is clinical concern, CT can be performed to exclude a fracture No point tenderness, limited ROM appears to be chronic Outpatient follow-up per Ortho History of PE April 2022, remains on anticoagulation Coumadin as above History of CVA Continue aspirin, statin DM II A1c 6.3 in June 2022 No record of home diabetic medications - patient unsure SSI while in-patient BSG AC HS PAD Continue aspirin, statin HTN Holding antihypertensives as above BPH Continue finasteride, tamsulosin HLD Continue statin Tobacco use Previous h/o smokeless tobacco DVT PROPHYLAXIS SCDs while INR < 2.0 Admission and Anticipated Discharge Date Admission Date: July 14, 2023 Subjective Follow-up for right hip fracture. Patient seen and examined. Resting in bed. Reports pain in right hip however controlled. No chest pain or shortness of breath. Denies abdominal pain or nausea. Haddad catheter in place draining clear yellow urine. Temperature was recorded with a peak of 38 C 8 morning, procalcitonin trend is negative, WBC normal, patient has been afebrile since. Empiric Zosyn was started, urinalysis and CXR with no infection. Blood culture no growth for 24 hours. Patient offers no new complaints except for right hip pain which has been stable/not increasing pain out of proportion. Physical Exam Physical Exam: Constitutional:WD/WN, vitals as aboveRespiratory:normal respiratory effort, lungs clear to auscultationCardiovascular:Rate/Rhythm: regular rate and regular rhythm Vessels: normal peripheral pulses Extremities: no edema Gastrointestinal (Abdomen):Percussion/Palpation: abdomen soft; abdomen nontenderMusculoskeletal: tenderness to palpation of right hip Skin:no rashes, warm and dryNeurologic:no focal motor deficitsPsychiatric: Orientation: alert, oriented to person and oriented to place; + not oriented to time Insight: + limited insight Results & Data Results & Data Vital Signs (Past 12 Hours) Vital Signs Temp Pulse Resp BP BP Pulse Ox O2 Del Method 07/18/23 14:42 36.7 C 75 17 153/79 H 97 Room Air 07/18/23 11:03 36.5 C 65 18 115/59 L 95 Room Air 07/18/23 07:04 37.3 C 71 16 180/84 H 179/78 H 95 Room Air (2) Closed right hip fracture Encounter type: initial encounter Qualified Code(s): S72.001A - Fracture of unspecified part of neck of right femur, initial encounter for closed fracture
[2023-07-18] MEDS ORDERED: DEXAMETHASONE SOD INJ 4 MG/ML VIAL ONE (15:42)
[2023-07-18] MEDS ORDERED: PROPOFOL IV EMULSION 10 MG/ML 20 ML VIAL IV ONE (15:42)
[2023-07-18] MEDS ORDERED: fentaNYL citrate PF 100 MCG/2 ML VIAL ONE ×2 (15:42→17:36)
[2023-07-18] MEDS ORDERED: LIDOCAINE 2% 2 ML VIAL/AMP(20MG/ML) INFIL ONE (15:42)
[2023-07-18] MEDS ORDERED: ONDANSETRON INJ 2 MG/ML 2 ML VIAL ONE (15:42)
[2023-07-18] MEDS ORDERED: MIDAZOLAM HCL 1 MG/ML 2ML VIAL ONE (15:42)
[2023-07-18] MEDS ORDERED: ceFAZolin 2,000 MG/15 ML IV PUSH IV ONE (15:54)
[2023-07-18] MEDS ORDERED: ATROPINE SULFATE 0.1 MG/ML 10ML SYR IV PRN (16:01)
[2023-07-18] MEDS ORDERED: ePHEDrine sulfate 50 MG/ML AMP IV PRN (16:01)
[2023-07-18] MEDS ORDERED: ONDANSETRON INJ 2 MG/ML 2 ML VIAL IV PRN (16:01)
--- NOTE | 2023-07-18 16:08 | History & Physical Bridge Note ---
Date of Service July 18, 2023 History & Physical Bridge Note I have examined the patient, reviewed the History & Physical and in the interval since the performance of the History & Physical I have noted the following changes of clinical significance: no changes noted. Met with the patient, had a discussion regarding risks/benefits and complications of right hip cephalomedullary nail. These include but aren't limited to: infection, dvt, neurovascular injury, nonunion, malunion,hardware failure, future surgery. After reviewing, the patient and his son elected to proceed with surgical intervention and written consent was obtained.
[2023-07-18] MEDS ORDERED: ePHEDrine sulfate 50 MG/ML AMP ONE (17:14)
[2023-07-18] MEDS ORDERED: PHENYLEPHRINE 100MCG/ML 5ML SYR ONE (17:15)
[2023-07-18] MEDS ORDERED: VASOPRESSIN 20 UNIT/ML VIAL ONE (17:15)
[2023-07-18] MEDS ORDERED: ROCURONIUM BROMIDE 10 MG/ML 5 ML VIAL IV ONE (17:15)
[2023-07-18] MEDS ORDERED: GLYCOPYRROLATE 0.2 MG/ML VIAL ONE (18:03)
[2023-07-18] MEDS ORDERED: NEOSTIGMINE METHYLSULFATE 1 MG/ML 10ML VIAL ONE (18:03)
--- NOTE | 2023-07-18 18:07 | Post Operative Brief Note ---
Immediate Post Op Note v1 Date of Surgery July 18, 2023 Pre & Post Diagnosis Operation Date: 07/18/23 07:00 <No data on this case meets the specified criteria> I identified the patient and participated in the time-out.: Yes Procedure Operation Date: 07/18/23 07:00 <No data on this case meets the specified criteria> Surgeon Vincent Anthony, DO Architecture Analyst none Estimated Blood Loss 50 Findings Consistent with Post-Op Diagnosis see dictation Complications none
--- NOTE | 2023-07-18 18:13 | Operative Report ---
Post Operative Report Pre & Post Diagnosis Operation Date: 07/18/23 07:00 <No data on this case meets the specified criteria> I identified the patient and participated in the time-out.: Yes Procedure Operation Date: 07/18/23 07:00 <No data on this case meets the specified criteria> Surgeon Vincent Anthony, DO Flat Cutter none Estimated Blood Loss 50 Findings Consistent with Post-Op Diagnosis See dictation Specimens None Complications none Indications 78-year-old male presenting after sustaining a ground-level fall onto his right side. In the emergency department he was found to have a displaced right intertrochanteric femur fracture. He was admitted to medical service and orthopedics was consulted for operative management. I met with the patient and his son preoperatively and had a lengthy discussion regarding risk benefits potential complications of right hip cephalomedullary nail for his int ertrochanteric femur fracture. After reviewing these he and his son elected proceed with surgical intervention and written consent was obtained Description of Procedure Implants: Synthes TFN a 11 mm x 170 mm 130 degree, 115 mm fenestrated screw, 5 mm x 36 mm locking screw Patient was appropriate identified in the preoperative holding area and the right lower extremity was marked. He was then taken back to the operative suite where he received antibiotics per protocol as well as anesthesia. He was positioned supine on the fracture table. Using the assistance of fluoroscopy the fracture was reduced to a near anatomic position. Patient was then prepped and draped in the standard orthopedic fashion a timeout was then performed. 3 cm incision lateral and superior to the tip of the trochanter was then made with a scalpel through the skin subcutaneous tissue and deep fascia. A threaded guidewire was then advanced into the tip the trochanter and further down the medullary canal. Position was confirmed on AP and lateral fluoroscopy and noted to be satisfactory. Canal opening reamer was then used. An 11 mm x 170 mm nail was then inserted. Proximal outrigger was then attached. Patient was noted to have a very varus neck angle therefore the implant had to be countersunk into the proximal aspect of the femur in order for the nail to be in the appropriate position within the femoral head. Incision was then made for the lag screw. Guide was then inserted down to bone and a threaded guidewire was then advanced in the lateral cortex into the femoral head and a center center position just beneath the subchondral bone. Position was assessed on AP and lateral fluoroscopy. Length was then measured at 115 mm. Lateral cortical reamer was then used followed by tapered reamer set to 115 mm and then finally a screw tap. 115 mm fenestrated screw was then inserted and compressed and the nail was locked statically at the proximal aspect. Attention was then turned to the distal interlock. Incision was made through the skin subcutaneous tissue and gluteal fascia. Guide was then inserted down to bone and drill was used to drill bicortically and a 5 mm x 36 mm locking screw was then inserted. Proximal outrigger was then removed. Final radiographs were then obtained demonstrating satisfactory reduction of the fracture and positioning of the implant. Wounds were then copiously irrigated using normal saline solution. Deep fascia was closed using 0 Vicryl followed by 2-0 Vicryl for subcutaneous tissue and jerilyn for skin. Sterile Silverlon dressing was placed. The patient tolerated the procedure well and was taken the recovery room in hemodynamically stable condition I attest to the content of the Intraoperative Record and any orders documented therein. Any exceptions are noted below.
[2023-07-18] MEDS: fentaNYL citrate PF 100 MCG/2 ML VIAL IV PRN ×3 (18:24→18:34)
--- NOTE | 2023-07-18 18:25 | Fluoroscopy Report ---
FL hip RT 2-3V CLINICAL HISTORY: RT TROCH NAILacute fracture of the right hip COMPARISON STUDY: Right femur radiographs 07/14/2023 FLUOROSCOPY TIME: 79.8 seconds FLUOROSCOPY IMAGES: 6 EXPOSURE DOSE: 20.71 mGy FINDINGS: Status post placement of a trochanteric nail with medullary kaiden fixating the acute intertro chanteric fracture. There is improved alignment. The lesser trochanteric fracture fragment is again d isplaced medially. Expected postoperative soft tissue swelling with deep tissue air. Moderate osteoar thritis. IMPRESSION: Fluoroscopic assistance as above. ACT 112: Negative or not required by law. Electronically signed by: Vincent Ji M.D. 07/18/2023 6:23 PM
--- NOTE | 2023-07-18 18:53 | Anesthesiology Progress Note ---
Date of Service July 18, 2023 Anesthesia Post Procedure Vital Signs Vital Signs: Temp Pulse Resp BP BP Pulse Ox O2 Del Method 07/18/23 18:45 36.6 C 71 16 136/68 98 Nasal Cannula 07/18/23 18:35 63 16 136/66 98 Nasal Cannula 07/18/23 18:25 77 16 171/82 H 98 Oxymask 07/18/23 18:15 36.6 C 82 17 156/80 H 95 Oxymask 07/18/23 15:58 37.2 C 73 18 167/108 H 95 Room Air 07/18/23 14:42 36.7 C 75 17 153/79 H 97 Room Air 07/18/23 11:03 36.5 C 65 18 115/59 L 95 Room Air 07/18/23 07:04 37.3 C 71 16 180/84 H 179/78 H 95 Room Air 07/17/23 20:39 37.2 C 72 18 133/62 96 Room Air O2 Flow Rate 07/18/23 18:45 4 07/18/23 18:35 4 07/18/23 18:25 5 07/18/23 18:15 5 07/18/23 15:58 07/18/23 14:42 07/18/23 11:03 07/18/23 07:04 07/17/23 20:39 Pain Intensity Hip: Pain Intensity: 5 Transfer of Care Handoff Completed per policy Notes Mental Status: alert / awake / arousable and participated in evaluation Patient Amnestic to Procedure: Yes Nausea / Vomiting: adequately controlled Pain: adequately controlled Airway Patency, RR, SpO2: stable & adequate BP & HR: stable & adequate Hydration State: stable & adequate Anesthetic Complications: no major complications apparent
[2023-07-18] MEDS: ATORVASTATIN 40 MG TAB PO SCH (19:57)
[2023-07-18] MEDS: DOCUSATE SODIUM/SENNA 50/8.6MG TAB PO SCH (19:58)
[2023-07-19] MEDS: PIPERACILLIN/TAZOBACTAM 4.5 GM in DEXTROSE 5% 100 ML IV SCH ×2 (00:33→07:53)
[2023-07-19] MEDS: ceFAZolin 2000MG 2,000 MG/15 ML SYR IV SCH ×2 (00:34→07:55)
[2023-07-19] MEDS: ACETAMINOPHEN 1,000 MG/100 ML VIAL IV PRN ×2 (00:42→11:06)
[2023-07-19] MEDS: SODIUM CHLORIDE 0.9% 1000ML 1,000 ML IV SCH (07:51)
[2023-07-19] MEDS: EZETIMIBE 10 MG TAB PO SCH (08:05)
[2023-07-19] MEDS: amLODIPine BESYLATE 5 MG TAB PO SCH (08:05)
[2023-07-19] MEDS: ASPIRIN 81 MG ECTAB PO SCH (08:05)
[2023-07-19] MEDS: allopurinoL 300 MG TAB PO SCH (08:05)
[2023-07-19] MEDS: FINASTERIDE 5 MG TAB PO SCH (08:05)
[2023-07-19] MEDS: carvediloL 25 MG TAB PO SCH ×2 (08:05→20:09)
[2023-07-19] MEDS: lisinopril 20 MG TAB PO SCH (08:06)
[2023-07-19] MEDS: TAMSULOSIN HCL 0.4 MG CAP PO SCH (08:06)
[2023-07-19] MEDS: GABAPENTIN 300 MG CAP PO SCH ×2 (08:06→20:08)
[2023-07-19 08:08] LABS: Basophils # (auto) 0.01 K/uL (0-0.2); Basophils % (auto) 0.1 %; Hematocrit (blood only) 26.5 % (42.0-52.0); Hemoglobin 8.8 g/dl (14.0-18.0); Immature Granulocytes # (auto) 0.03 K/uL (0.01-0.20); Immature Granulocytes % (auto) 0.4 %; Lymphocytes # (auto) 0.44 K/uL (1.2-3.4); Lymphocytes % (auto) 5.5 %; Mean Corpuscular Hemoglobin 29.6 pg (25.0-34.0); Mean Corpuscular Hgb Conc 33.2 g/dL (32.0-36.0); Mean Corpuscular Volume 89.2 fL (80.0-100.0); Mean Platelet Volume 10.4 fL (9.4-12.4); Monocytes # (auto) 0.71 K/uL (0.11-0.59); Monocytes % (auto) 8.8 %; Neutrophils # (auto) 6.84 K/uL (1.40-6.50); Neutrophils % (auto) 85.2 %; Platelet Count 186 K/uL (130-400); RDW Coefficient of Variation 14.8 % (11.5-14.5); RDW Standard Deviation 47.8 fL (36.4-46.3); Red Blood Count 2.97 M/uL (4.70-6.10); White Blood Count 8.03 K/ul (4.8-10.8)
[2023-07-19 08:16] LABS: INR 1.2 (0.9-1.1); Prothrombin Time 12.8 Seconds (9.0-12.0)
[2023-07-19] MEDS: INSULIN ASPART PER UNIT CHARGE SC SCH ×4 (09:02→21:14)
[2023-07-19 09:14] LABS: Calcium 7.9 mg/dl (8.6-10.3); Creatinine Clr Calc Pharmacy 58.8 ml/min; Est GFR (African American) 84.4 ml/min; Est GFR (Non-African American) 72.8 ml/min; Magnesium 1.8 mg/dl (1.7-2.4); Phosphorus 3.8 mg/dl (2.5-4.9); Potassium 4.3 mmol/L (3.5-5.1)
--- NOTE | 2023-07-19 09:54 | Orthopedic Progress Note ---
Date of Service July 19, 2023 Assessment & Plan (1) Closed right hip fracture: Plan: Postop day 1 status post right TFN Acute blood loss anemia-secondary from fracture and surgery. Patient denies symptoms. Watch for now PT/OT protocols. PWB RLE DVT prophylaxis-SCDs. Watch hemoglobin for now and consider resuming anticoagulation tomorrow pending stability of hemoglobin. Pain management as written. Admission and Anticipated Discharge Date Admission Date: July 14, 2023 Subjective Postop day 1 Patient lying in bed asleep. Easily awoken. Hard of hearing. No new complaints. Having some discomfort in the operative hip. Nursing states that the patient is otherwise doing well and is in better spirits since having his hip fracture fixed. Physical Exam Physical Exam: Dressings are clean, dry, and intact. Thigh with swelling consistent with surgery. Calves are soft nontender. Neurovascular is intact. Toes are mobile. Results & Data Vital Signs (Past 12 Hours) Vital Signs Temp Pulse Resp BP Pulse Ox O2 Del Method O2 Flow Rate 07/19/23 07:25 37.1 C 61 18 142/90 H 100 Nasal Cannula 2 07/19/23 03:00 36.6 C 72 18 120/63 100 Nasal Cannula 2 07/18/23 22:10 36.9 C 77 16 166/80 H 100 Nasal Cannula 4 Laboratory Results Laboratory Results WBC 8.03 K/ul (4.8-10.8) 07/19/23 07:42 RBC 2.97 M/uL (4.70-6.10) L 07/19/23 07:42 Hgb 8.8 g/dl (14.0-18.0) L 07/19/23 07:42 Hct 26.5 % (42.0-52.0) L 07/19/23 07:42 MCV 89.2 fL (80.0-100.0) 07/19/23 07:42 MCH 29.6 pg (25.0-34.0) 07/19/23 07:42 MCHC 33.2 g/dL (32.0-36.0) 07/19/23 07:42 RDW Std Deviation 47.8 fL (36.4-46.3) H 07/19/23 07:42 RDW Coeff of Deborah 14.8 % (11.5-14.5) H 07/19/23 07:42 Plt Count 186 K/uL (130-400) 07/19/23 07:42 MPV 10.4 fL (9.4-12.4) 07/19/23 07:42 Immature Gran % (Auto) 0.4 % 07/19/23 07:42 Neut % (Auto) 85.2 % 07/19/23 07:42 Lymph % (Auto) 5.5 % 07/19/23 07:42 [place] % (Auto) 8.8 % 07/19/23 07:42 Eos % (Auto) 0.0 % 07/19/23 07:42 Baso % (Auto) 0.1 % 07/19/23 07:42 Neut # (Auto) 6.84 K/uL (1.40-6.50) H 07/19/23 07:42 Lymph # (Auto) 0.44 K/uL (1.2-3.4) L 07/19/23 07:42 [place] # (Auto) 0.71 K/uL (0.11-0.59) H 07/19/23 07:42 Eos # (Auto) 0.00 K/uL (0-0.50) 07/19/23 07:42 Baso # (Auto) 0.01 K/uL (0-0.2) 07/19/23 07:42 Immature Gran # (Auto) 0.03 K/uL (0.01-0.20) 07/19/23 07:42 PT 12.8 Seconds (9.0-12.0) H 07/19/23 07:42 INR 1.2 (0.9-1.1) H 07/19/23 07:42 APTT 32.7 Seconds (21.0-31.0) H 07/14/23 10:40 PTT Ratio 1.2 07/14/23 10:40 Sodium 136 mmol/L (136-145) 07/19/23 07:42 Potassium 4.3 mmol/L (3.5-5.1) 07/19/23 07:42 Chloride 105 mmol/L (98-107) 07/19/23 07:42 Carbon Dioxide 24 mmol/L (21-32) 07/19/23 07:42 Anion Gap 7 (3-11) 07/19/23 07:42 BUN 16 mg/dl (6-23) 07/19/23 07:42 Creatinine 1.00 mg/dl (0.6-1.4) 07/19/23 07:42 Est Cr Clr Drug Dosing 58.8 ml/min 07/19/23 07:42 Est GFR ( Amer) 84.4 ml/min 07/19/23 07:42 Est GFR (Non-Af Amer) 72.8 ml/min 07/19/23 07:42 BUN/Creatinine Ratio 16.0 (10-20) 07/19/23 07:42 Glucose 132 mg/dl (70-99(Fasting)) H 07/19/23 07:42 POC Glucose 138 mg/dl (70-99) H 07/19/23 08:02 Estimat Average Glucose 117 mg/dl 07/15/23 06:39 Hemoglobin A1c 5.7 % (4.5-5.6) H 07/15/23 06:39 Calcium 7.9 mg/dl (8.6-10.3) L 07/19/23 07:42 Phosphorus 3.8 mg/dl (2.5-4.9) D 07/19/23 07:42 Magnesium 1.8 mg/dl (1.7-2.4) 07/19/23 07:42 25-OH Vitamin D Total 20.6 ng/ml (30-100) L 07/19/23 07:42 Procalcitonin 0.06 ng/ml (0-0.5) 07/18/23 07:45 Urine Color Yellow 07/17/23 10:25 Urine Appearance Clear (Clear) 07/17/23 10:25 Urine pH 5.5 (4.5-7.5) 07/17/23 10:25 Ur Specific [place] 1.006 (1.000-1.030) 07/17/23 10:25 Urine Protein Negative (Negative) 07/17/23 10:25 Urine Glucose (UA) Negative (Negative) 07/17/23 10:25 Urine Ketones Negative (Negative) 07/17/23 10:25 Urine Blood Negative (Negative) 07/17/23 10:25 Urine Nitrite Negative (Negative) 07/17/23 10:25 Urine Bilirubin Negative (Negative) 07/17/23 10:25 Urine Urobilinogen Negative (Negative) 07/17/23 10:25 Ur Leukocyte Esterase Negative (Negative) 07/17/23 10:25 Blood Type A Negative 07/14/23 18:05 Antibody Screen NEGATIVE 07/14/23 18:05 Impressions Chest X-Ray 07/17/23 09:36 XR chest 1V portable CLINICAL HISTORY: r/o infxn TECHNIQUE: Single frontal radiograph of the chest was obtained. Comparison: Comparison is made to chest radiograph 07/14/2023 FINDINGS: No lines and tubes are seen. Calcified aortic knob is seen. Lungs are underinflated but clear. No evidence of pleural effusion or pneumothorax. IMPRESSION: No acute chest disease. ACT 112: Negative or not required by law. Electronically signed by: Patricio Ni M.D. 07/17/2023 11:42 AM Hip X-Ray 07/18/23 15:30 FL hip RT 2-3V CLINICAL HISTORY: RT TROCH NAILacute fracture of the right hip COMPARISON STUDY: Right femur radiographs 07/14/2023 FLUOROSCOPY TIME: 79.8 seconds FLUOROSCOPY IMAGES: 6 EXPOSURE DOSE: 20.71 mGy FINDINGS: Status post placement of a trochanteric nail with medullary kaiden fixating the acute intertrochanteric fracture. There is improved alignment. The lesser trochanteric fracture fragment is again displaced medially. Expected postoperative soft tissue swelling with deep tissue air. Moderate osteoarthritis. IMPRESSION: Fluoroscopic assistance as above. ACT 112: Negative or not required by law. Electronically signed by: Vincent Ji M.D. 07/18/2023 6:23 PM (1) Closed right hip fracture Encounter type: initial encounter Qualified Code(s): S72.001A - Fracture of unspecified part of neck of right femur, initial encounter for closed fracture
[2023-07-19] MEDS: oxyCODONE HCL IR 5 MG TAB (IMMEDIATE RELEASE) PO PRN (13:27)
[2023-07-19] MEDS ORDERED: oxyCODONE HCL IR 5 MG TAB (IMMEDIATE RELEASE) PO PRN ×2 (16:43→21:26)
--- NOTE | 2023-07-19 16:53 | Hospitalist Progress Note ---
Date of Service July 19, 2023 Assessment & Plan (1) Fall: (2) Closed right hip fracture: (3) DM (diabetes mellitus), type 2: (4) CKD (chronic kidney disease), stage III: (5) BPH (benign prostatic hyperplasia): (6) PAD (peripheral artery disease): (7) History of pulmonary embolism: (8) HTN (hypertension): (9) History of cerebrovascular accident: (10) Hyperlipidemia: (11) Tobacco use disorder: Plan 78-year-old male with PMH of type 2 diabetes, dyslipidemia, PAD, hypertension, carotid stenosis s/p bilateral endarterectomy, hypertension, CKD 3, BPH, history of CVA, history of PE on Coumadin who presented after fall at home and was found to have R hip fracture. POD #1 Age-related osteoporosis with current pathologic fracture of right hip Vitamin D def: Mechanical fall at home Hip/pelvis x-ray - mildly comminuted right intratrochanteric hip fracture pre op CXR without abnormalities, EKG without acute ST changes 2D echo from January 2023 with preserved EF, aortic valve sclerosis Per revised cardiac risk index for pre-op risk, class II risk or 6% 30 day risk. Patient considered acceptable risk to proceed surgery. POD#1, s/p right hip cephalomedullary nail On Coumadin for history of PE, per ortho continue to hold due to hgb 8.8 post op. Resume Coumadin as soon as possible if hgb stable per orthopedics. Ergocalciferol 50k unit q7d for 6 wk, then 1000 unit daily. Hypotension: Resolved. CKD stage III JANIE: Resolved Right Shoulder injury Fell on shoulder Right shoulder x-ray - Linear lucency in the left glenoid fossa is nonspecific. Correlation with point tenderness is recommended and if there is clinical concern, CT can be performed to exclude a fracture No point tenderness, limited ROM appears to be chronic Outpatient follow-up per Ortho History of PE April 2022, remains on anticoagulation Coumadin currently on hold History of CVA Continue aspirin, statin DM II A1c 6.3 in June 2022 No record of home diabetic medications - patient unsure SSI while in-patient BSG AC HS PAD Continue aspirin, statin HTN Holding antihypertensives as above BPH Continue finasteride, tamsulosin HLD Continue statin Tobacco use Previous h/o smokeless tobacco DVT PROPHYLAXIS SCDs at this time Admission and Anticipated Discharge Date Admission Date: July 14, 2023 Subjective Pt seen today, laying in bed resting comfortably. Notes he has no pain at this time. Review of Systems Review of Systems: All systems reviewed & are unremarkable except as noted in Subjective Physical Exam Physical Exam: General: Alert. No acute distress Psych: Appropriate mood and affect Neuro: No gross deficits HEENT: NC/AT CV: RRR Resp: no increased effort of breathing Abdomen: Soft, nontender, nondistended. Extremities: No edema in lower extremities bilaterally. Results & Data Results & Data Vital Signs (Past 12 Hours) Vital Signs Temp Pulse Resp BP Pulse Ox O2 Del Method O2 Flow Rate 07/19/23 14:21 36.4 C L 64 18 110/58 L 97 Room Air 07/19/23 12:58 70 114/64 94 Room Air 07/19/23 07:25 37.1 C 61 18 142/90 H 100 Nasal Cannula 2 (2) Closed right hip fracture Encounter type: initial encounter Qualified Code(s): S72.001A - Fracture of unspecified part of neck of right femur, initial encounter for closed fracture
[2023-07-19] MEDS ORDERED: KETOROLAC 30 MG/ML VIAL IV ONE (16:56)
[2023-07-19] MEDS: ATORVASTATIN 40 MG TAB PO SCH (20:07)
[2023-07-19] MEDS: DOCUSATE SODIUM/SENNA 50/8.6MG TAB PO SCH (20:09)
[2023-07-20] MEDS: oxyCODONE HCL IR 5 MG TAB (IMMEDIATE RELEASE) PO PRN ×2 (01:03→11:15)
--- NOTE | 2023-07-20 06:41 | Orthopedic Progress Note ---
Date of Service July 20, 2023 Assessment & Plan (1) Closed right hip fracture: Plan: Postop day 2 status post right TFN Acute blood loss anemia-secondary from fracture and surgery. Patient denies symptoms. Watch for now. AM labs were not complete at the time of the visit. PT/OT protocols. PWB RLE DVT prophylaxis-SCDs. Watch hemoglobin for now and consider resuming anticoagulation tomorrow pending stability of hemoglobin. We will check the labs later today to make a decision on anticoagulation restarting. Pain management as written. If hemoglobin remained stable, orthopedics will sign off. The patient will follow up approximately 10-14 days postop in the [facility]. Admission and Anticipated Discharge Date Admission Date: July 14, 2023 Subjective Patient states he is doing well. Pain within the right hip is controlled. No new complaints today. Denies chest pain, shortness of breath, lightheadedness. Physical Exam Constitutional: WD/WN, vitals as above no acute distress (Lying in bed comfortably.) Musculoskeletal: Hip: + surgical incision (Lateral right hip: Silverlon dressing C/D/I.); no skin erythema and no ecchymosis Skin: no rashes, warm and dry Trauma: no evidence of skin trauma Neurologic: normal touch/pain/proprioception Psychiatric: Orientation: alert Speech: normal rate/rhythm/volume of speech Results & Data Vital Signs (Past 12 Hours) Vital Signs Temp Pulse Resp BP BP Pulse Ox O2 Del Method 07/20/23 05:54 36.7 C 74 18 104/54 L 94 Room Air 07/19/23 20:05 36.7 C 63 14 95/58 L 93 Room Air 07/19/23 20:03 36.7 C 68 14 93/55 L 95/58 L 91 Room Air (1) Closed right hip fracture Encounter type: initial encounter Qualified Code(s): S72.001A - Fracture of unspecified part of neck of right femur, initial encounter for closed fracture
[2023-07-20] MEDS: TAMSULOSIN HCL 0.4 MG CAP PO SCH (07:34)
[2023-07-20] MEDS: carvediloL 25 MG TAB PO SCH ×2 (07:34→20:25)
[2023-07-20] MEDS: GABAPENTIN 300 MG CAP PO SCH ×2 (07:35→20:25)
[2023-07-20] MEDS: EZETIMIBE 10 MG TAB PO SCH (07:35)
[2023-07-20] MEDS: ASPIRIN 81 MG ECTAB PO SCH (07:35)
[2023-07-20] MEDS: FINASTERIDE 5 MG TAB PO SCH (07:35)
[2023-07-20] MEDS: allopurinoL 300 MG TAB PO SCH (07:36)
[2023-07-20] MEDS: amLODIPine BESYLATE 5 MG TAB PO SCH (07:46)
[2023-07-20] MEDS: lisinopril 20 MG TAB PO SCH (07:47)
[2023-07-20] MEDS: INSULIN ASPART PER UNIT CHARGE SC SCH ×4 (08:26→20:24)
[2023-07-20 10:18] LABS: Basophils # (auto) 0.03 K/uL (0-0.2); Basophils % (auto) 0.4 %; Eosinophils # (auto) 0.22 K/uL (0-0.50); Eosinophils % (auto) 3.3 %; Hematocrit (blood only) 23.4 % (42.0-52.0); Hemoglobin 7.6 g/dl (14.0-18.0); Immature Granulocytes # (auto) 0.02 K/uL (0.01-0.20); Immature Granulocytes % (auto) 0.3 %; Lymphocytes # (auto) 1.03 K/uL (1.2-3.4); Lymphocytes % (auto) 15.2 %; Mean Corpuscular Hemoglobin 29.8 pg (25.0-34.0); Mean Corpuscular Hgb Conc 32.5 g/dL (32.0-36.0); Mean Corpuscular Volume 91.8 fL (80.0-100.0); Mean Platelet Volume 10.3 fL (9.4-12.4); Monocytes # (auto) 0.69 K/uL (0.11-0.59); Monocytes % (auto) 10.2 %; Neutrophils # (auto) 4.77 K/uL (1.40-6.50); Neutrophils % (auto) 70.6 %; Platelet Count 184 K/uL (130-400); RDW Coefficient of Variation 15.3 % (11.5-14.5); RDW Standard Deviation 51.1 fL (36.4-46.3); Red Blood Count 2.55 M/uL (4.70-6.10); White Blood Count 6.76 K/ul (4.8-10.8)
[2023-07-20 10:34] LABS: BUN Creatinine Ratio 17.7 (10-20); Calcium 7.6 mg/dl (8.6-10.3); Est GFR (African American) 72.8 ml/min; Est GFR (Non-African American) 62.8 ml/min; Potassium 3.8 mmol/L (3.5-5.1)
[2023-07-20 10:40] LABS: Ovalocytes 1+; Polychromasia 1+
[2023-07-20 10:46] LABS: INR 1.2 (0.9-1.1); Prothrombin Time 12.8 Seconds (9.0-12.0)
--- NOTE | 2023-07-20 15:52 | Hospitalist Progress Note ---
Date of Service July 20, 2023 Assessment & Plan (1) Fall: (2) Closed right hip fracture: (3) DM (diabetes mellitus), type 2: (4) CKD (chronic kidney disease), stage III: (5) BPH (benign prostatic hyperplasia): (6) PAD (peripheral artery disease): (7) History of pulmonary embolism: (8) HTN (hypertension): (9) History of cerebrovascular accident: (10) Hyperlipidemia: (11) Tobacco use disorder: Plan 78-year-old male with PMH of type 2 diabetes, dyslipidemia, PAD, hypertension, carotid stenosis s/p bilateral endarterectomy, hypertension, CKD 3, BPH, history of CVA, history of PE on Coumadin who presented after fall at home and was found to have R hip fracture. POD #2 Age-related osteoporosis with current pathologic fracture of right hip Vitamin D def: Mechanical fall at home Hip/pelvis x-ray - mildly comminuted right intratrochanteric hip fracture pre op CXR without abnormalities, EKG without acute ST changes 2D echo from January 2023 with preserved EF, aortic valve sclerosis Per revised cardiac risk index for pre-op risk, class II risk or 6% 30 day risk. Patient was considered acceptable risk for surgery. POD#2, s/p right hip cephalomedullary nail On Coumadin for history of PE, hgb decreased post-op to 7.8, continuing the hold on coumadin at this time. Resume Coumadin as soon as possible if hgb stable per orthopedics. Ergocalciferol 50k unit q7d for 6 wk, then 1000 unit daily. Hypotension: Resolved. CKD stage III JANIE: Resolved Right Shoulder injury Fell on shoulder Right shoulder x-ray - Linear lucency in the left glenoid fossa is nonspecific. Correlation with point tenderness is recommended and if there is clinical concern, CT can be performed to exclude a fracture No point tenderness, limited ROM appears to be chronic Outpatient follow-up per Ortho History of PE April 2022, remains on anticoagulation Coumadin currently on hold History of CVA Continue aspirin, statin DM II A1c 6.3 in June 2022 No record of home diabetic medications - patient unsure SSI while in-patient BSG AC HS PAD Continue aspirin, statin HTN Holding antihypertensives as above BPH Continue finasteride, tamsulosin HLD Continue statin Tobacco use Previous h/o smokeless tobacco DVT PROPHYLAXIS SCDs at this time Admission and Anticipated Discharge Date Admission Date: July 14, 2023 Subjective Patient states he is doing well. Pain within the right hip is controlled. No new complaints today. States he had a BM yesterday. Denies chest pain, shortness of breath, lightheadedness. Review of Systems Review of Systems: All systems reviewed & are unremarkable except as noted in Subjective Physical Exam Physical Exam: General: Alert. No acute distress Psych: Appropriate mood and affect Neuro: No gross deficits HEENT: NC/AT CV: RRR Resp: no increased effort of breathing Abdomen: Soft, nontender, nondistended. Extremities: No edema in lower extremities bilaterally. Results & Data Results & Data Vital Signs (Past 12 Hours) Vital Signs Temp Pulse Resp BP Pulse Ox O2 Del Method 07/20/23 15:30 37.3 C 83 16 110/56 L 94 Room Air 07/20/23 07:43 69 109/66 07/20/23 05:54 36.7 C 74 18 104/54 L 94 Room Air (2) Closed right hip fracture Encounter type: initial encounter Qualified Code(s): S72.001A - Fracture of unspecified part of neck of right femur, initial encounter for closed fracture
[2023-07-20 17:00] LABS: Hematocrit (blood only) 26.4 % (42.0-52.0); Hemoglobin 8.5 g/dl (14.0-18.0)
[2023-07-20] MEDS: ATORVASTATIN 40 MG TAB PO SCH (20:25)
[2023-07-20] MEDS: DOCUSATE SODIUM/SENNA 50/8.6MG TAB PO SCH (20:25)
--- NOTE | 2023-07-21 07:12 | Orthopedic Progress Note ---
Date of Service July 21, 2023 Assessment & Plan (1) Closed right hip fracture: Plan: Postop day 3 status post right TFN Acute blood loss anemia-secondary from fracture and surgery. Patient denies symptoms. Hemoglobin was 8.5 last evening with recheck. PT/OT protocols. PWB RLE DVT prophylaxis-SCDs. Hemoglobin appears to be stable. Coumadin may be resumed today. Pain management as written. Orthopedics will sign off. The patient will follow up approximately 10-14 days postop in the [place] clinic. Admission and Anticipated Discharge Date Admission Date: July 14, 2023 Subjective Doing well this morning. Pain is controlled in the right hip. No complaints today. Physical Exam Constitutional: WD/WN, vitals as above no acute distress (Lying in bed comfortably.) Musculoskeletal: Hip: + surgical incision (Lateral right hip: Silverlon dressing C/D/I.); no skin erythema and no ecchymosis Skin: no rashes, warm and dry Trauma: no evidence of skin trauma Neurologic: normal touch/pain/proprioception Psychiatric: Orientation: alert Speech: normal rate/rhythm/volume of speech Results & Data Vital Signs (Past 12 Hours) Vital Signs Temp Pulse Resp BP Pulse Ox O2 Del Method 07/21/23 07:01 36.9 C 76 16 142/64 H 94 Room Air 07/20/23 20:21 37.2 C 82 16 113/73 96 Room Air Laboratory Results Laboratory Tests 07/20/23 16:37 Hgb 8.5 L Hct 26.4 L (1) Closed right hip fracture Encounter type: initial encounter Qualified Code(s): S72.001A - Fracture of unspecified part of neck of right femur, initial encounter for closed fracture
[2023-07-21] MEDS: lisinopril 20 MG TAB PO SCH (07:50)
[2023-07-21] MEDS: GABAPENTIN 300 MG CAP PO SCH (07:50)
[2023-07-21] MEDS: EZETIMIBE 10 MG TAB PO SCH (07:50)
[2023-07-21] MEDS: TAMSULOSIN HCL 0.4 MG CAP PO SCH (07:50)
[2023-07-21] MEDS: carvediloL 25 MG TAB PO SCH (07:50)
[2023-07-21] MEDS: FINASTERIDE 5 MG TAB PO SCH (07:50)
[2023-07-21] MEDS: allopurinoL 300 MG TAB PO SCH (07:51)
[2023-07-21] MEDS: ASPIRIN 81 MG ECTAB PO SCH (07:51)
[2023-07-21] MEDS: amLODIPine BESYLATE 5 MG TAB PO SCH (07:51)
[2023-07-21] MEDS: INSULIN ASPART PER UNIT CHARGE SC SCH ×2 (08:50→13:05)
--- NOTE | 2023-07-21 12:00 | Discharge Summary ---
Discharge Summary Date of Service July 21, 2023 Notes For Next Care Provider Monitor INR and adjust warfarin doses as needed to ensure INR therapeutic. Discharged with Lovenox bridging. Medication Changes From Visit Resume home warfarin doses with Lovenox bridge until INR therapeutic. Started on Vitamin D Admission HPI Per Admitting Provider This is a 78-year-old male with PMH of type 2 diabetes, dyslipidemia, PAD, hypertension, carotid stenosis s/p bilateral endarterectomy, hypertension, CKD 3, BPH, history of CVA, history of PE on Coumadin and other medical problems listed below who presents after fall at home. History obtained from extensive chart review and some history provided by patient. He requested I call family for more history and medications but unable to reach over phone. Patient was washing his glasses at the kitchen sink and was leaning over to grab a paper towel when he lost his balance, landing on his right hip and shoulder. Had immediate pain in right groin was brought to ED for further evaluation. Pain is still persisting and is sharp, 7 out of 10, worse with movement. Denies any other symptoms at this time. No fever, chills, lightheadedness, chest pain, shortness of breath, nausea, vomiting, abdominal pain, dysuria, diarrhea or constipation. 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 Family members manage medication, per patient. Uses a cane at baseline for ambulation. Per chart review, patient remains on warfarin for history of PEs in 2021. Admission Exam Per Admitting Provider General Appearance:WD/WN, vitals as above, NAD, sitting up in bed, pleasant, conversing easily Head: normocephalic, atraumatic Eyes:normal inspection, PERRL, conjunctivae normal, anicteric sclerae ENT: external ear and nose normal, oropharynx normal Neck: normal visual inspection, trachea midline, no thyromegaly Respiratory:normal respiratory effort, lungs clear to auscultation, no wheeze, rales, rhonchi. No accessory muscle use Cardiovascular: bradycardic rate, regular rhythm, no murmur, normal peripheral pulses, no BLE edema. Vessels: no JVD Chest: normal inspection of chest Abdomen/GI: normal bowel sounds, soft, nontender, no hepatosplenomegaly Extremities/Musculoskeletal:+ R groin/proximal femur pain, RLE externally rotated and shortened. + R shoulder TTP, no deformity noted. No cyanosis or clubbing, extremities motor strength 5/5 Neurologic: PERRL, EOMI, accommodation nl, no face palsy, no dysarthria, CN's II-XI intact bilaterally and moves all extremities Psychiatric:A+Ox3, euthymic affect Skin: no rashes, normal color, warm/dry Principal Dx & Hospital Course #1 = Principal Diagnosis (1) Fall: (2) Closed right hip fracture: (3) DM (diabetes mellitus), type 2: (4) CKD (chronic kidney disease), stage III: (5) BPH (benign prostatic hyperplasia): (6) PAD (peripheral artery disease): (7) History of pulmonary embolism: (8) HTN (hypertension): (9) History of cerebrovascular accident: (10) Hyperlipidemia: (11) Tobacco use disorder: Plan 78-year-old male with PMH of type 2 diabetes, dyslipidemia, PAD, hypertension, carotid stenosis s/p bilateral endarterectomy, hypertension, CKD 3, BPH, history of CVA, history of PE on Coumadin who presented after fall at home and was found to have R hip fracture. POD #3 s/p R TFN Age-related osteoporosis with current pathologic fracture of right hip Vitamin D def: Mechanical fall at home Hip/pelvis x-ray - mildly comminuted right intratrochanteric hip fracture pre op CXR without abnormalities, EKG without acute ST changes 2D echo from January 2023 with preserved EF, aortic valve sclerosis Per revised cardiac risk index for pre-op risk, class II risk or 6% 30 day risk. Patient was considered acceptable risk for surgery. POD#3 on day of discharge, s/p right TFN with orthopedics On Coumadin for history of PE, hgb stable on day of discharge. Coumadin was re-started on 07/21/2023 with Lovenox bridge as INR was 1.2 on discharge Ergocalciferol 50k unit q7d for 6 wk, then 1000 unit daily. Hypotension: Resolved. CKD stage III JANIE: Resolved Right Shoulder injury Fell on shoulder Right shoulder x-ray - Linear lucency in the left glenoid fossa is nonspecific. Correlation with point tenderness is recommended and if there is clinical concern, CT can be performed to exclude a fracture No point tenderness, limited ROM appears to be chronic Outpatient follow-up per Ortho History of PE April 2022, remains on anticoagulation Home Coumadin restarted with Lovenox bridge as above. History of CVA Continue aspirin, statin DM II A1c 6.3 in June 2022 No record of home diabetic medications - patient unsure SSI while in-patient PAD Continue aspirin, statin HTN Holding antihypertensives as above BPH Continue finasteride, tamsulosin HLD Continue statin Tobacco use Previous h/o smokeless tobacco Discharge Exam General: Alert. No acute distress Psych: Appropriate mood and affect Neuro: No gross deficits HEENT: NC/AT CV: RRR Resp: no increased effort of breathing Abdomen: Soft, nontender, nondistended. Extremities: R hip with no visible erythema, limited movement, no edema in lower extremities bilaterally. Updated Medication List Medication Instructions Recorded Confirmed Type aspirin 81 mg tablet,delayed 81 mg PO QAM 12/06/20 07/14/23 History release nitroglycerin 0.4 mg sublingual 0.4 mg sublingual DIRECTED PRN 12/06/20 07/14/23 History tablet (Nitrostat) Chest Pain acetaminophen 500 mg tablet 1,000 mg PO Q8H PRN Pain 05/22/22 07/14/23 History (Tylenol Extra Strength) allopurinol 300 mg tablet 300 mg PO DAILY 05/22/22 07/14/23 History amlodipine 10 mg tablet 10 mg PO DAILY 05/22/22 07/14/23 History carvedilol 25 mg tablet 25 mg PO BID 05/22/22 07/14/23 History tamsulosin 0.4 mg capsule 0.4 mg PO DAILY 05/22/22 07/14/23 History atorvastatin 40 mg tablet 40 mg PO HS 07/08/22 07/14/23 History finasteride 5 mg tablet 5 mg PO DAILY 07/08/22 07/14/23 History lisinopril 40 mg tablet 20 mg PO DAILY #15 tabs 07/12/22 07/14/23 Rx ezetimibe 10 mg tablet 10 mg PO DAILY 07/14/23 07/14/23 History gabapentin 300 mg capsule 300 mg PO BID 07/14/23 07/14/23 History warfarin 4 mg tablet 2 mg PO SUTUTH@0900 07/14/23 07/14/23 History warfarin 4 mg tablet (Jantoven) 4 mg PO MOWEFRSA@0900 07/14/23 07/14/23 History enoxaparin 40 mg/0.4 mL 40 mg (0.4 mL) subcut Q12H 30 days 07/21/23 Rx subcutaneous syringe (Lovenox) #24 mL ergocalciferol (vitamin D2) 1,250 50,000 unit PO Q7D@0900 #5 caps 07/21/23 Rx mcg (50,000 unit) capsule Hospital Stay Data Consultations 07/14/23 12:12 Consult Orthopedic Surgery Routine ED Decision to Admit Stat 07/14/23 15:11 Consult Anesthesiology Routine Procedures Performed Operation Date: 07/18/23 07:00 Actual Procedures p Right Hip Cephalomedullary Nail Insertion(Right) - Vincent Anthony, Diagnostic Imagining Performed 07/15/23 09:48 CT hip RT wo con Urgent 07/18/23 15:30 FL hip RT 2-3V Routine Discharge Instructions Given to Patient (Per Discharging Provider) 78-year-old male with PMH of type 2 diabetes, dyslipidemia, PAD, hypertension, carotid stenosis s/p bilateral endarterectomy, hypertension, CKD 3, BPH, history of CVA, history of PE on Coumadin who presented after fall at home and was found to have R hip fracture. POD #3 s/p R TFN TO DO FOR NEXT PROVIDER: Monitor INR and adjust warfarin doses as needed to ensure INR therapeutic. Discharged with Lovenox bridging until INR therapeutic. Please see Orthopedics discharge instructions for the hip fracture in additional section below. Age-related osteoporosis with current pathologic fracture of right hip Vitamin D def: Mechanical fall at home Hip/pelvis x-ray - mildly comminuted right intratrochanteric hip fracture pre op CXR without abnormalities, EKG without acute ST changes 2D echo from January 2023 with preserved EF, aortic valve sclerosis Per revised cardiac risk index for pre-op risk, class II risk or 6% 30 day risk. Patient was considered acceptable risk for surgery. POD#3 on day of discharge, s/p right TFN with orthopedics On Coumadin for history of PE, hgb stable on day of discharge. Coumadin was re-started on 07/21/2023 with Lovenox bridge as INR was 1.2 on day of discharge Ergocalciferol 50k unit q7d for 6 wk, then 1000 unit daily. Hypotension: Resolved. CKD stage III JANIE: Resolved Right Shoulder injury Fell on shoulder Right shoulder x-ray - Linear lucency in the left glenoid fossa is nonspecific. Correlation with point tenderness is recommended and if there is clinical concern, CT can be performed to exclude a fracture No point tenderness, limited ROM appears to be chronic Outpatient follow-up per Ortho History of PE April 2022, remains on anticoagulation Coumadin restarted with Lovenox bridge as above. History of CVA Continue aspirin, statin DM II A1c 6.3 in June 2022 No record of home diabetic medications - patient unsure SSI while in-patient PAD Continue aspirin, statin HTN Holding antihypertensives as above BPH Continue finasteride, tamsulosin HLD Continue statin Tobacco use Previous h/o smokeless tobacco Total Time Total Time Spent Total Time Spent (In Minutes): >30 minutes
[2023-07-21] MEDS ORDERED: ENOXAPARIN INJ 40 MG/0.4 ML SYR SQ SCH (12:30)
[2023-07-21 12:55] LABS: Basophils # (auto) 0.05 K/uL (0-0.2); Basophils % (auto) 0.6 %; Eosinophils # (auto) 0.23 K/uL (0-0.50); Eosinophils % (auto) 2.8 %; Hemoglobin 8.2 g/dl (14.0-18.0); Immature Granulocytes # (auto) 0.04 K/uL (0.01-0.20); Immature Granulocytes % (auto) 0.5 %; Lymphocytes # (auto) 0.73 K/uL (1.2-3.4); Lymphocytes % (auto) 8.9 %; Mean Corpuscular Hemoglobin 29.6 pg (25.0-34.0); Mean Corpuscular Hgb Conc 32.8 g/dL (32.0-36.0); Mean Corpuscular Volume 90.3 fL (80.0-100.0); Mean Platelet Volume 10.7 fL (9.4-12.4); Monocytes # (auto) 0.92 K/uL (0.11-0.59); Monocytes % (auto) 11.2 %; Neutrophils # (auto) 6.21 K/uL (1.40-6.50); Platelet Count 229 K/uL (130-400); RDW Coefficient of Variation 15.2 % (11.5-14.5); RDW Standard Deviation 50.5 fL (36.4-46.3); Red Blood Count 2.77 M/uL (4.70-6.10); White Blood Count 8.18 K/ul (4.8-10.8)
[2023-07-21 13:01] LABS: BUN Creatinine Ratio 18.8 (10-20); Creatinine Clr Calc Pharmacy 61.2 ml/min; Est GFR (African American) 88.6 ml/min; Est GFR (Non-African American) 76.5 ml/min; Potassium 3.8 mmol/L (3.5-5.1)
[2023-07-21 13:13] LABS: INR 1.2 (0.9-1.1); Prothrombin Time 12.6 Seconds (9.0-12.0)
[2023-07-22] MEDS ORDERED: WARFARIN SOD 4 MG TAB PO SCH (09:00)
[2023-07-23] MEDS ORDERED: WARFARIN SOD 2 MG TAB PO SCH (09:00)
== END 2023-07-21 14:30 | DRG 481 ==
LOC: ED 10:16 → SUATTDRO 15:11 → EDINP 15:11 → 3N 17:10
DX: M80.051A Age-related osteoporosis with current pathological fracture, right femur, initial encounter for fracture; I12.9 Hypertensive chronic kidney disease with stage 1 through stage 4 chronic kidney disease, or unspecified chronic kidney disease; N17.9 Acute kidney failure, unspecified; E11.51 Type 2 diabetes mellitus with diabetic peripheral angiopathy without gangrene; Z87.891 Personal history of nicotine dependence; N18.30 Chronic kidney disease, stage 3 unspecified; D62 Acute posthemorrhagic anemia; Z79.899 Other long term (current) drug therapy; Z83.42 Family history of familial hypercholesterolemia; E78.5 Hyperlipidemia, unspecified; Z79.01 Long term (current) use of anticoagulants; E11.22 Type 2 diabetes mellitus with diabetic chronic kidney disease; Z79.82 Long term (current) use of aspirin; Z86.73 Personal history of transient ischemic attack (TIA), and cerebral infarction without residual deficits; R50.9 Fever, unspecified; S49.91XA Unspecified injury of right shoulder and upper arm, initial encounter; Y99.8 Other external cause status; E86.1 Hypovolemia; Y92.000 Kitchen of unspecified non-institutional (private) residence as the place of occurrence of the external cause; Z83.3 Family history of diabetes mellitus; Z86.711 Personal history of pulmonary embolism; N40.0 Benign prostatic hyperplasia without lower urinary tract symptoms; W18.39XA Other fall on same level, initial encounter; I95.2 Hypotension due to drugs

== ENCOUNTER 2025-04-14 00:53 | Inpatient (IN) ==
[2025-04-14] MEDS: OPTIRAY 320 125ml IV ONE (00:58)
--- NOTE | 2025-04-14 01:09 | Emergency Department Note ---
Impression & Plan Stroke-like symptoms, Hypertension ED Provider Note ED Provider Note NAME: SEAN LAGUNA AGE:79 SEX: Male : 1945 ARRIVES VIA: EMS INFORMANT: Patient ED PROVIDER(s): Genesis Ku DO CHIEF COMPLAINT: possible stroke HPI: This is a 79-year-old male brought in by EMS from home after son realized he had weakness on the right side and he seems slightly confused when he woke up from being asleep in his recliner when the son got home from work. Patient states he went to bed feeling in his usual state of health at 10 PM. EMS evaluated the patient on scene and called to medical command and patient made a stroke alert prehospital. Patient noted to have markedly elevated blood pressures but states he has been taking his blood pressure medication and other meds routinely. Son notes he had an unwitnessed fall 2 days ago at home but denied any injury. Son also states repeat outpatient labs showed an elevated INR and so he has not taken his Coumadin since Saturday. He denies any recent illness including fevers or chills. He denies any current headaches but states he is mildly dizzy. He denies nausea, vomiting, vision changes. He does admit to noticing that he is weak on the right side. EMS reports his right upper and right lower extremities had no movement or strength upon their arrival however by time of arrival here in the emergency department he does have some movement although is still weak on the right side. EMS also reported they initially noticed slurred speech and a facial droop. Son states the patient takes Coumadin due to a history of blood clots. PAST MEDICAL HISTORY:See Below PAST SURGICAL HISTORY:See Below FAMILY HISTORY:See Below SOCIAL HISTORY:See Below HOME MEDICATIONS:See Below ALLERGIES:See Below VITALS:See Below PHYSICAL EXAMINATION: GENERAL: alert, well appearing, well nourished, no distress, non-toxic EYE EXAM: normal conjunctiva, PERRL and EOM's grossly intact OROPHARYNX: no exudate, no erythema, lips, buccal mucosa, and tongue normal and mucous membranes are moist NECK: supple, no nuchal rigidity, no adenopathy, non-tender LUNGS: Clear to auscultation. Normal chest wall mechanics, no w/r/r HEART: no murmurs, S1 normal and S2 normal ABDOMEN: abdomen soft, non-tender, normo-active bowel sounds, no masses, no rebound or guarding. SKIN: no rashes, petechiae, orbruising UPPER EXTREMITIES: upper extremities are grossly normal. FROM, nml pulses b/l. LOWER EXTREMITIES: No pitting edema. FROM, nml pulses b/l. NEURO EXAM: Normal sensorium, cranial nerves II-XII grossly intact, slurred speech, mild facial droop,right-sided weakness of both the upper and lower extremity compared to the left, no limb ataxia noted. Gross sensation intact. NIHSS 4 Vital Signs: reviewed and remarkable Differential Diagnosis: ischemic Stroke, hemorrhagic stroke, bells palsy, mass, neoplasm, migraine headache, seizure, subarachnoid hemorrhage, TIA, transient global amnesia, medication ADR, as well as others were considered MEDICAL DECISION MAKING: This is a 79-year-old male presents emergency department as a stroke alert due to concern for initial findings of slurred speech, right-sided weakness, and facial droop. Patient with prior stroke. Patient does take Coumadin. Patient was made a stroke alert prehospital and I did evaluate him on his way to CAT scan and then came and spoke with the son who presented to bedside additionally to obtain additional information. Upon patient returning to room labs drawn and sent, IV established, EKG and chest x-ray performed at bedside interpreted by me and patient monitored on telemetry. Patient started on IV fluids and was given IV labetalol due to markedly elevated blood pressure readings. A [id number] INR was performed given his use of Coumadin and found to be 2.7 which would disqualify the patient from TNK. I did discuss the case with the on-call [facility] neurologist. I did ask them to also review the CTs and evaluate the patient at bedside. While patient is not a TNK candidate due to his elevated INR/use of Coumadin as well as his markedly elevated blood pressure readings right now, we were waiting CT read and neuroevaluation to consider the potential for other possible modalities and interventions. No evidence on CTs of LVO. Patient given 2 doses of labetalol with only mild improvement of his blood pressure however it began to trend upwards again and he was then given IV hydralazine with improvement. Reexamined the patient multiple times and he had no other worsening findings. Both initial BLS crew and service attendant felt the by the time of arrival here his symptoms had improved from their initial patient contact. All results discussed with the patient and son at bedside. Case discussed with the hospitalist team for additional evaluation and management. Consultation(s): 0120: Discussed with Vivian Telestroke, Dr. Alvarado. He will evaluate the patient at bedside. 0253: Discussed with Dr. Li, [facility] hospitalist team, for additional evaluation and mgmt. ER Treatment Provided: See below 0105: Discussed with son at bedside. Son states patient had an unwitnessed fall on Saturday additionally but seemed well did not have any complaints. He states he had routine blood work performed by visiting home nurse on Saturday and stated that his INR was high. He has not taken his warfarin since that time. Son states when he arrived home patient was sleeping in his recliner. He woke up and started trying to get dressed which seemed to the sun. He then tried to stand up and the son realized that he could not use his right arm. He also complained of feeling dizzy. Diagnostics Interpreted By Me: -ECG: Normal sinus at 76, normal axis, normal intervals, no acute ST/T wave changes -Cardiac Monitoring: An order was placed for continuous cardiac monitoring. The monitor shows a rate of 78 with normal sinus rhythm. -Laboratory studies: As stated above and show below. -Imaging studies: ct head: no ich Triage Nursing Note Reviewed Prior/Outside Records Reviewed Critical Care: Critical care of 56 min performed to assess and manage high likelihood of life-threatening CVA, involving labs and imaging performed with assessment to evaluate strokelike symptoms and hypertension diagnosis with frequent reassessment. This time includes bedside time, treatment discussions with patient/family/consultants, documentation time and excludes procedure time. Past Med/Surg History Problem List (Updated 04/14/25 @ 15:21 by Juan Ramon Bethea MD) Brainstem stroke Hypertension (Acute) Stroke-like symptoms (Acute) Hypotension (Acute) Diabetic ulcer of right foot Unstageable pressure ulcer of heel (Acute) Encounter for pre-operative examination Ground-level fall (Acute) Closed right hip fracture (Acute) Fall Tobacco use disorder CKD (chronic kidney disease), stage III BPH (benign prostatic hyperplasia) PAD (peripheral artery disease) (Chronic) DM (diabetes mellitus), type 2 History of pulmonary embolism Jul 2022 HTN (hypertension) (Chronic) History of cerebrovascular accident (Acute) 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 Hyperlipidemia (Chronic) Medical History Tobacco use disorder CKD (chronic kidney disease), stage III BPH (benign prostatic hyperplasia) Carotid stenosis PAD (peripheral artery disease) DM (diabetes mellitus), type 2 History of pulmonary embolism Jul 2022 History of cerebrovascular accident 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 HTN (hypertension) Hyperlipidemia Surgical History H/O umbilical hernia repair S/P carotid [place]arte[place] [facility] [place] History of shoulder surgery Family History Other Cancer Diabetes Heart disease Hypertension Social History Smoking Status: Never smoker Tobacco Type: Smokeless Tobacco (Dip or Chew) Do You Dip or Chew Tobacco: Yes; Hx Alcohol Use: No Hx Substance Use: No Preferred Language: Wolof Communication Ability: Effective Jeep Mechanic Required: No Beliefs That Will Affect Care: None marital status: / Current Living Situation: Family Current Living Situation Comment: pt lives in two story house with son How many Children do You have: 2 Feels Safe at Home: Yes Safety Concerns: Feels Safe At This Time Assistive Devices: Cane and Walker Allergies Allergies Allergy/AdvReac Type Severity Reaction Status Date / Time No Known Allergies Allergy Unknown Verified 04/14/25 01:10 Home Meds Home Medications Medication Instructions Recorded Confirmed aspirin 81 mg tablet,delayed 81 mg PO QAM 12/06/20 04/14/25 release allopurinol 300 mg tablet 300 mg PO QAM 05/22/22 04/14/25 carvedilol 25 mg tablet 25 mg PO BIDM 05/22/22 04/14/25 tamsulosin 0.4 mg capsule 0.4 mg PO QAM 05/22/22 04/14/25 atorvastatin 40 mg tablet 40 mg PO QAM 07/08/22 04/14/25 finasteride 5 mg tablet 5 mg PO QAM 07/08/22 04/14/25 ezetimibe 10 mg tablet 10 mg PO QAM 07/14/23 04/14/25 gabapentin 300 mg capsule 300 mg PO AMHS 07/14/23 04/14/25 warfarin 4 mg tablet 2 - 4 mg PO UD 07/14/23 04/14/25 ciclopirox 8 % topical solution See Rx Instructions .Route .COMPLEX 04/14/25 04/14/25 Results & Data (ED) Vital Signs Vital Signs - 24 hr 04/14/25 01:31 04/14/25 01:34 04/14/25 01:34 Pulse Rate 70 70 Pulse Rate [Finger] 69 Pulse Rate from SpO2 Sensor Respiratory Rate 18 Blood Pressure 193/115 H 193/116 H Blood Pressure [Left Arm] 193/115 H Blood Pressure Mean Blood Pressure Mean [Left Arm] 141 Pulse Oximetry 95 Oxygen Delivery Method Room Air 04/14/25 01:40 04/14/25 01:57 04/14/25 01:57 Pulse Rate 71 71 72 Pulse Rate [Finger] Pulse Rate from SpO2 Sensor Respiratory Rate 18 16 Blood Pressure 211/105 H 175/93 H Blood Pressure [Left Arm] Blood Pressure Mean 154 120 Blood Pressure Mean [Left Arm] Pulse Oximetry 95 97 Oxygen Delivery Method 04/14/25 01:59 04/14/25 02:03 04/14/25 02:03 Pulse Rate 74 73 77 Pulse Rate [Finger] Pulse Rate from SpO2 Sensor Respiratory Rate 18 16 18 Blood Pressure 146/95 H 157/104 H 170/117 H Blood Pressure [Left Arm] Blood Pressure Mean 112 121 129 Blood Pressure Mean [Left Arm] Pulse Oximetry 97 96 95 Oxygen Delivery Method Room Air Room Air 04/14/25 02:03 04/14/25 02:10 04/14/25 02:21 Pulse Rate Pulse Rate [Finger] Pulse Rate from SpO2 Sensor Respiratory Rate Blood Pressure 170/117 H 162/99 H 159/87 H Blood Pressure [Left Arm] Blood Pressure Mean 129 132 103 Blood Pressure Mean [Left Arm] Pulse Oximetry Oxygen Delivery Method 04/14/25 02:21 04/14/25 02:21 04/14/25 02:28 Pulse Rate Pulse Rate [Finger] Pulse Rate from SpO2 Sensor Respiratory Rate Blood Pressure 159/87 H 159/87 H 149/80 H Blood Pressure [Left Arm] Blood Pressure Mean 103 103 120 Blood Pressure Mean [Left Arm] Pulse Oximetry Oxygen Delivery Method 04/14/25 02:30 04/14/25 02:30 04/14/25 02:30 Pulse Rate Pulse Rate [Finger] Pulse Rate from SpO2 Sensor Respiratory Rate Blood Pressure 156/87 H 156/87 H 156/87 H Blood Pressure [Left Arm] Blood Pressure Mean 109 109 109 Blood Pressure Mean [Left Arm] Pulse Oximetry Oxygen Delivery Method 04/14/25 02:30 04/14/25 02:36 04/14/25 02:40 Pulse Rate 78 76 Pulse Rate [Finger] Pulse Rate from SpO2 Sensor 78 77 Respiratory Rate 17 21 Blood Pressure 155/87 H Blood Pressure [Left Arm] Blood Pressure Mean 121 Blood Pressure Mean [Left Arm] Pulse Oximetry 95 94 Oxygen Delivery Method 04/14/25 02:50 04/14/25 02:51 04/14/25 02:51 Pulse Rate 77 Pulse Rate [Finger] Pulse Rate from SpO2 Sensor 75 Respiratory Rate 19 Blood Pressure 151/93 H 150/82 H Blood Pressure [Left Arm] Blood Pressure Mean 99 110 Blood Pressure Mean [Left Arm] Pulse Oximetry 94 Oxygen Delivery Method 04/14/25 02:53 04/14/25 02:53 04/14/25 02:54 Pulse Rate 75 Pulse Rate [Finger] Pulse Rate from SpO2 Sensor 74 Respiratory Rate 20 Blood Pressure 155/82 H 155/82 H Blood Pressure [Left Arm] Blood Pressure Mean 117 117 Blood Pressure Mean [Left Arm] Pulse Oximetry 93 Oxygen Delivery Method 04/14/25 02:55 04/14/25 02:55 04/14/25 02:57 Pulse Rate 73 Pulse Rate [Finger] Pulse Rate from SpO2 Sensor 74 Respiratory Rate 17 Blood Pressure 145/88 H 145/88 H Blood Pressure [Left Arm] Blood Pressure Mean 118 118 Blood Pressure Mean [Left Arm] Pulse Oximetry 94 Oxygen Delivery Method 04/14/25 02:59 04/14/25 03:00 04/14/25 03:00 Pulse Rate 75 Pulse Rate [Finger] Pulse Rate from SpO2 Sensor 76 Respiratory Rate 20 Blood Pressure 138/90 142/82 H Blood Pressure [Left Arm] Blood Pressure Mean 96 103 Blood Pressure Mean [Left Arm] Pulse Oximetry 93 Oxygen Delivery Method 04/14/25 03:01 04/14/25 03:03 04/14/25 03:04 Pulse Rate 78 Pulse Rate [Finger] Pulse Rate from SpO2 Sensor 76 Respiratory Rate 17 Blood Pressure 149/83 H 145/82 H Blood Pressure [Left Arm] Blood Pressure Mean 94 112 Blood Pressure Mean [Left Arm] Pulse Oximetry 94 Oxygen Delivery Method 04/14/25 03:04 04/14/25 03:10 04/14/25 03:10 Pulse Rate Pulse Rate [Finger] Pulse Rate from SpO2 Sensor Respiratory Rate Blood Pressure 145/82 H 150/88 H 150/88 H Blood Pressure [Left Arm] Blood Pressure Mean 112 113 113 Blood Pressure Mean [Left Arm] Pulse Oximetry Oxygen Delivery Method 04/14/25 03:10 04/14/25 03:12 04/14/25 03:27 Pulse Rate 75 76 Pulse Rate [Finger] Pulse Rate from SpO2 Sensor 75 75 Respiratory Rate 13 16 Blood Pressure 150/88 H Blood Pressure [Left Arm] Blood Pressure Mean 113 Blood Pressure Mean [Left Arm] Pulse Oximetry 95 95 Oxygen Delivery Method 04/14/25 03:30 04/14/25 03:30 04/14/25 03:30 Pulse Rate 73 Pulse Rate [Finger] Pulse Rate from SpO2 Sensor 70 Respiratory Rate 14 Blood Pressure 183/102 H 183/102 H Blood Pressure [Left Arm] Blood Pressure Mean 142 142 Blood Pressure Mean [Left Arm] Pulse Oximetry 96 Oxygen Delivery Method Laboratory Data 04/14/25 07:04 04/14/25 07:04 Lab Results 04/14/25 04/14/25 Range/Units 01:07 01:13 WBC 7.67 (4.8-10.8) K/ul RBC 4.95 (4.70-6.10) M/uL Hgb 15.0 (14.0-18.0) g/dl Hct 45.3 (42.0-52.0) % MCV 91.5 (80.0-100.0) fL MCH 30.3 (25.0-34.0) pg MCHC 33.1 (32.0-36.0) g/dL RDW Std Deviation 50.1 H (36.4-46.3) fL RDW Coeff of Deborah 15.0 H (11.5-14.5) % Plt Count 168 (130-400) K/uL MPV 9.9 (9.4-12.4) fL Immature Gran % (Auto) 0.4 % Neut % (Auto) 74.2 % Lymph % (Auto) 14.9 % [place] % (Auto) 7.2 % Eos % (Auto) 2.9 % Baso % (Auto) 0.4 % Neut # (Auto) 5.70 (1.40-6.50) K/uL Lymph # (Auto) 1.14 L (1.20-3.40) K/uL [place] # (Auto) 0.55 (0.11-0.59) K/uL Eos # (Auto) 0.22 (0.00-0.50) K/uL Baso # (Auto) 0.03 (0.00-0.20) K/uL Immature Gran # (Auto) 0.03 (0.01-0.20) K/uL PT 24.5 H (9.0-12.0) Seconds POC INR 2.7 H (0.9-1.1) INR 2.4 H (0.9-1.1) APTT 34 H (21-31) Seconds PTT Ratio 1.3 Sodium 139 (136-145) mmol/L Potassium 4.0 (3.5-5.1) mmol/L Chloride 105 (98-107) mmol/L Carbon Dioxide 28 (21-32) mmol/L Anion Gap 6 (3-11) BUN 19 (6-23) mg/dl Creatinine 1.02 (0.6-1.4) mg/dl Est Cr Clr Drug Dosing 62.6 ml/min eGFR 75.70 BUN/Creatinine Ratio 18.6 (10-20) Glucose 112 H (70-99(Fasting)) mg/dl Calcium 8.5 L (8.6-10.3) mg/dl Magnesium 1.7 (1.7-2.4) mg/dl Total Bilirubin 1.0 (0.2-1.0) mg/dl AST 11 L (13-39) U/L ALT 7 (7-52) U/L Alkaline Phosphatase 176 H (34-104) U/L Troponin I High Sens 9.7 (0-20) pg/ml Total Protein 6.3 (6.0-8.3) gm/dl Albumin 3.6 (3.4-5.0) gm/dl Globulin 2.7 (2.5-4.0) gm/dl Albumin/Globulin Ratio 1.3 (0.9-2) Blood Type A Negative Antibody Screen POSITIVE A Antibody Identification Anti-D Antibody ID Comment Administered Medications Allopurinol (Allopurinol 300 Mg Tab) 300 mg PO [facility] Stop: 05/14/25 08:59 Last Admin: 04/14/25 10:21 Dose: 300 mg Documented By: SS Aspirin (Aspirin 81 Mg Ectab) 81 mg PO [facility] Stop: 05/14/25 08:59 Last Admin: 04/14/25 10:20 Dose: 81 mg Documented By: SS Atorvastatin Calcium (Atorvastatin 40 Mg Tab) 40 mg PO [facility] Stop: 05/14/25 08:59 Last Admin: 04/14/25 10:21 Dose: 40 mg Documented By: SS [facility] ([facility] 25 Mg Tab[facility] [place]: 05/14/25 07:59 Last Admin: 04/14/25 18:10 Dose: Not Given Documented By: Admin: 04/14/25 10:20 Dose: 25 mg Documented By: SS Ezetimibe (Ezetimibe 10 Mg Tab) 10 mg PO [facility] Stop: 05/14/25 08:59 Last Admin: 04/14/25 10:20 Dose: 10 mg Documented By: SS Finasteride (Finasteride 5 Mg Tab) 5 mg PO [facility] Stop: 05/14/25 08:59 Last Admin: 04/14/25 10:20 Dose: 5 mg Documented By: SS Gabapentin (Gabapentin 300 Mg Cap) 300 mg PO BID [facility] Stop: 05/14/25 08:59 Last Admin: 04/14/25 21:52 Dose: Not Given Documented By: Admin: 04/14/25 10:20 Dose: 300 mg Documented By: MAY Piperacillin Sod/Tazobactam Sod (Zosyn) 4.5 gm in 100 mls @ 25 mls/hr IV Q8H [facility]; Protocol Stop: 04/21/25 21:59 Last Admin: 04/14/25 23:05 Dose: 25 mls/hr Documented By: ARIA Insulin Aspart (Insulin Aspart Per Unit Charge) 0 units SC Q6 [facility] Stop: 05/15/25 00:00 Last Admin: 04/15/25 00:51 Dose: Not Given Documented By: ARIA Tamsulosin HCl (Tamsulosin Hcl 0.4 Mg Cap) 0.4 mg PO [facility] Stop: 05/14/25 08:59 Last Admin: 04/14/25 10:20 Dose: 0.4 mg Documented By: MAY Warfarin Sodium (Warfarin Sod 2 Mg Tab) 2 mg PO [id number] [facility] Stop: 05/14/25 15:59 Last Admin: 04/14/25 18:10 Dose: Not Given Documented By: MAY Discontinued Medications Gadobutrol (Gadobutrol 65ml Vial) 8 ml IV ONCE ONE Stop: 04/14/25 12:09 Last Admin: 04/14/25 11:52 Dose: 8 ml Documented By: JAZ Hydralazine HCl (Hydralazine Hcl 20 Mg/Ml Vial) 10 mg IV NOW [facility] Stop: 04/14/25 01:49 Last Admin: 04/14/25 01:50 Dose: 10 mg Documented By: ROSE Hydralazine HCl (Hydralazine Hcl 20 Mg/Ml Vial) Confirm Administered Dose 20 mg .ROUTE .STK-MED ONE Stop: 04/14/25 01:51 Last Admin: 04/14/25 02:32 Dose: Not Given Documented By: ROSE Piperacillin Sod/Tazobactam Sod (Zosyn) 4.5 gm in 100 mls @ 200 mls/hr IV ONE ONE; Protocol Stop: 04/14/25 17:44 Last Infusion: 04/14/25 19:28 Dose: Infused Documented By: Admin: 04/14/25 18:18 Dose: 200 mls/hr Documented By: MAY Insulin Aspart (Insulin Aspart Per Unit Charge) 0 units SC Q6 [facility] Stop: 05/14/25 05:59 Last Admin: 04/14/25 12:44 Dose: Not Given Documented By: Admin: 04/14/25 06:13 Dose: Not Given Documented By: LM Insulin Aspart (Insulin Aspart Per Unit Charge) 0 units SC ACHS [facility] Stop: 05/14/25 16:29 Last Admin: 04/14/25 22:16 Dose: Not Given Documented By: Admin: 04/14/25 18:10 Dose: Not Given Documented By: MAY Ioversol (Optiray 320 125ml) 125 ml IV ONCE ONE Stop: 04/14/25 00:59 Last Admin: 04/14/25 00:58 Dose: 118 ml Documented By: ANÍBAL Labetalol HCl (Labetalol Hcl Iv 5 Mg/Ml 20ml) 10 mg IV Q10M PRN PRN Reason: SBP above 185 or DBP above 110 Last Admin: 04/14/25 01:34 Dose: 10 mg Documented By: Admin: 04/14/25 01:19 Dose: 10 mg Documented By: ROSE Labetalol HCl (Labetalol Hcl Iv 5 Mg/Ml 20ml) Confirm Administered Dose 50 mg IV .STK-MED ONE Stop: 04/14/25 01:15 Last Admin: 04/14/25 02:32 Dose: Not Given Documented By: ROSE Imaging Data Radiologist's Impression: Chest X-Ray 04/14/25 00:52 EXAM: XR chest 1V portable CLINICAL HISTORY: Neuro deficit, acute stroke suspected TECHNIQUE: An X-ray image of the chest is obtained in AP projection. COMPARISON: 07/17/2023. FINDINGS: Chest leads are seen. Pulmonary Parenchyma: Prominent gio with perihilar bronchovascular markings, likely due to congestion. No evidence of consolidation, collapse, or focal opacities. No pulmonary nodules are identified. No evidence of pleural effusion or pleural thickening. Heart and Mediastinum: Heart size is apparently prominent. No mediastinal widening or masses. No hilar or mediastinal lymphadenopathy. Bony Thorax: Bony thorax appears intact without fractures or deformities. Osteoarthritic changes at both acromioclavicular and glenohumeral joints. Soft Tissues: Soft tissues overlying the chest wall are unremarkable. IMPRESSION: Prominent gio with perihilar bronchovascular markings, likely due to congestion. Needs clinical correlation. More conspicuous No evidence of consolidation or pleural effusion on either side. Electronically signed by Casey Lr 04-14-2025 01:[address] 04/14/25 00:52 EXAM: CT head/brain wo con CLINICAL HISTORY: neuro deficit, acute stroke suspected TECHNIQUE: Multiple axial images are obtained from the skull base to the vertex without contrast. CT scan was performed according to ALARA (as low as reasonable achievable). COMPARISON: 22:33:33 REFLESHER. FINDINGS: There is cerebral atrophy. Few ill-defined hypodense area noted involving left fronto-parietal cortex and subcortical white matter and left centrum semiovale - appears old ischemic area- new finding since prior study. No evidence of space occupying lesion, hemorrhage, edema, mass effect, midline shift, extra axial collection, or hydrocephalus is noted. Basal cisterns are symmetric and normal in size and configuration. There are scattered periventricular hypodensities as can be seen with chronic microvascular ischemic changes. The martel-white matter differentiation is preserved. Visualized paranasal sinuses and mastoid air cells are well aerated. Orbital contents are within normal limits. Bony structures are intact. IMPRESSION: 1. No evidence of acute intracranial abnormality is demonstrated. 2. Chronic microvascular ischemic changes. -increased 3. Few ill-defined hypodense area noted involving left fronto-parietal cortex and subcortical white matter and left centrum semiovale - appears old ischemic area- new finding since prior study. 4. Cerebral atrophy.-stable. 5. CT scan is negative for large territorial ischemic / hemorrhagic stroke. 6. Non contrast CT can be negative in the setting of hyperacute infarct/small ischemic infarct and further evaluation with diffusion weighted MRI is recommended as clinically appropriate. Electronically signed by Trent Pablo 04-14-2025 01:32 AM Head CTA 04/14/25 00:52 EXAM: CT angio head w con CLINICAL HISTORY: neuro deficit, acute stroke suspected TECHNIQUE: Contrast enhanced thin slice CT angiography scan of the cerebral vessels was performed with intravenous contrast. Angiographic images were processed, 3D MIP images were acquired for interpretation. Contiguous axial images were obtained. Reformatted coronal and sagittal images were also reviewed. If IV contrast material had not been administered, the likelihood of detecting abnormalities relevant to the patients condition would have been substantially decreased. CT scan was performed according to ALARA (as low as reasonable achievable). COMPARISON: none. FINDINGS: Severe atherosclerotic calcifications are noted involving intracranial segment of left vertebral artery causes 70-90% luminal narrowing Atherosclerotic calcifications are noted involving cavernous, clinoid and supraclinoid segment of bilateral internal carotid arteries. About 40%-50% luminal narrowing is noted involving cavernous segment of left carotid artery. Rest of Bilateral internal carotid arteries show normal course, calibre and opacification in the canalicular and cavernous part. Their division into the anterior cerebral artery and middle cerebral artery is defined. A1, A2 and M1, M2 segments are normal on both the sides. Bilateral vertebral arteries are seen to unite the form the basilar artery in a normal fashion. Basilar artery shows normal course, caliber and opacification. Its division into the posterior cerebral arteries is defined. Bilateral P1 and P2 segments are normal. Visualized venous structures show normal opacification. No evidence of intracranial aneurysm or AV malformation is seen. IMPRESSION: 1. Severe atherosclerotic calcifications are noted involving intracranial segment of left vertebral artery causes 70-90% luminal narrowing 2. Atherosclerotic calcifications are noted involving cavernous, clinoid and supraclinoid segment of bilateral internal carotid arteries. 3. About 40%-50% luminal narrowing is noted involving cavernous segment of left carotid artery. Electronically signed by Trent Pablo 04-14-2025 01:58 AM Neck CTA 04/14/25 00:52 EXAM: CT angio neck with con CLINICAL HISTORY: neuro deficit, acute stroke suspected TECHNIQUE: Contrast enhanced thin slice CT angiography scan of the carotid vessels was performed with intravenous contrast. Angiographic images were processed, 3D MIP images were acquired for interpretation.Contiguous axial images were obtained. Reformatted coronal and sagittal images were also reviewed. If IV contrast material had not been administered, the likelihood of detecting abnormalities relevant to the patients condition would have been substantially decreased. CT scan was performed according to ALARA (as low as reasonable achievable). COMPARISON: None. FINDINGS: Multiple patchy atherosclerotic calcifications are noted involving bilateral common carotid arteries, left vertebral artery without significant narrowing. Included great vessels of the aortic arch are grossly unremarkable. Rest of Common carotid artery, carotid Bulb, internal carotid artery , and origin of the external carotid artery are well opacified. Vertebral arteries are well opacified. Jugular veins are well opacified. Included lung apices are grossly unremarkable. Thyroid gland appears unremarkable. IMPRESSION: 1. No evidence of stenosis or aneurysm. No evidence of dissection. 2. Multiple patchy atherosclerotic calcifications are noted involving bilateral common carotid arteries, left vertebral artery without significant narrowing. Electronically signed by Trent Pablo 04-14-2025 01:39 AM Discharge Plan Visit Data Chief Complaint: Stroke Alert Stated Complaint: STROKE ALERT ED Provider: Genesis Ku Discharge Problem: Stroke-like symptoms, Hypertension Patient Disposition: Admitted As Inpatient Condition: Fair Discharge Instructions Interventions: ED Discharge Assessment Last Done: 04/14/25 03:48
[2025-04-14] MEDS: LABETALOL HCL IV 5 MG/ML 20ML IV PRN (01:19)
[2025-04-14] MEDS: SODIUM CHLORIDE 0.9% 1,000 ML IV SCH (01:20)
[2025-04-14 01:29] LABS: Basophils # (auto) 0.03 K/uL (0.00-0.20); Basophils % (auto) 0.4 %; Eosinophils # (auto) 0.22 K/uL (0.00-0.50); Eosinophils % (auto) 2.9 %; Hematocrit (blood only) 45.3 % (42.0-52.0); Immature Granulocytes # (auto) 0.03 K/uL (0.01-0.20); Immature Granulocytes % (auto) 0.4 %; Lymphocytes # (auto) 1.14 K/uL (1.20-3.40); Lymphocytes % (auto) 14.9 %; Mean Corpuscular Hemoglobin 30.3 pg (25.0-34.0); Mean Corpuscular Hgb Conc 33.1 g/dL (32.0-36.0); Mean Corpuscular Volume 91.5 fL (80.0-100.0); Mean Platelet Volume 9.9 fL (9.4-12.4); Monocytes # (auto) 0.55 K/uL (0.11-0.59); Monocytes % (auto) 7.2 %; Neutrophils % (auto) 74.2 %; Platelet Count 168 K/uL (130-400); RDW Standard Deviation 50.1 fL (36.4-46.3); Red Blood Count 4.95 M/uL (4.70-6.10); White Blood Count 7.67 K/ul (4.8-10.8)
--- NOTE | 2025-04-14 01:33 | CT Scan Report ---
EXAM: CT head/brain wo con CLINICAL HISTORY: neuro deficit, acute stroke suspected TECHNIQUE: Multiple axial images are obtained from the skull base to the vertex without contrast. CT scan was performed according to ALARA (as low as reasonable achievable). COMPARISON: 22:33:33 IT TECHNICAL ARCHITECT. FINDINGS: There is cerebral atrophy. Few ill-defined hypodense area noted involving left fronto-parietal cortex and subcortical white matter and left centrum semiovale - appears old ischemic area- new finding since prior study. No evidence of space occupying lesion, hemorrhage, edema, mass effect, midline shift, extra axial collection, or hydrocephalus is noted. Basal cisterns are symmetric and normal in size and configuration. There are scattered periventricular hypodensities as can be seen with chronic microvascular ischemic changes. The martel-white matter differentiation is preserved. Visualized paranasal sinuses and mastoid air cells are well aerated. Orbital contents are within normal limits. Bony structures are intact. IMPRESSION: 1. No evidence of acute intracranial abnormality is demonstrated. 2. Chronic microvascular ischemic changes. -increased 3. Few ill-defined hypodense area noted involving left fronto-parietal cortex and subcortical white matter and left centrum semiovale - appears old ischemic area- new finding since prior study. 4. Cerebral atrophy.-stable. 5. CT scan is negative for large territorial ischemic / hemorrhagic stroke. 6. Non contrast CT can be negative in the setting of hyperacute infarct/small ischemic infarct and further evaluation with diffusion weighted MRI is recommended as clinically appropriate. Electronically signed by Trent Pablo 04-14-2025 01:32 AM
--- NOTE | 2025-04-14 01:39 | CT Scan Report ---
EXAM: CT angio neck with con CLINICAL HISTORY: neuro deficit, acute stroke suspected TECHNIQUE: Contrast enhanced thin slice CT angiography scan of the carotid vessels was performed with intravenous contrast. Angiographic images were processed, 3D MIP images were acquired for interpretation.Contiguous axial images were obtained. Reformatted coronal and sagittal images were also reviewed. If IV contrast material had not been administered, the likelihood of detecting abnormalities relevant to the patients condition would have been substantially decreased. CT scan was performed according to ALARA (as low as reasonable achievable). COMPARISON: None. FINDINGS: Multiple patchy atherosclerotic calcifications are noted involving bilateral common carotid arteries, left vertebral artery without significant narrowing. Included great vessels of the aortic arch are grossly unremarkable. Rest of Common carotid artery, carotid Bulb, internal carotid artery , and origin of the external carotid artery are well opacified. Vertebral arteries are well opacified. Jugular veins are well opacified. Included lung apices are grossly unremarkable. Thyroid gland appears unremarkable. IMPRESSION: 1. No evidence of stenosis or aneurysm. No evidence of dissection. 2. Multiple patchy atherosclerotic calcifications are noted involving bilateral common carotid arteries, left vertebral artery without significant narrowing. Electronically signed by Trent Pablo 04-14-2025 01:39 AM
[2025-04-14 01:46] LABS: Albumin Globulin Ratio 1.3 (0.9-2); Albumin Level 3.6 gm/dl (3.4-5.0); BUN Creatinine Ratio 18.6 (10-20); Calcium 8.5 mg/dl (8.6-10.3); Creatinine Clr Calc Pharmacy 62.6 ml/min; Globulin 2.7 gm/dl (2.5-4.0); Magnesium 1.7 mg/dl (1.7-2.4); Total Protein 6.3 gm/dl (6.0-8.3)
[2025-04-14] MEDS: hydrALAZINE HCL 20 MG/ML VIAL IV STA (01:50)
[2025-04-14 01:52] LABS: Troponin I High Sensitivity 9.7 pg/ml (0-20)
--- NOTE | 2025-04-14 01:53 | XRay Report ---
EXAM: XR chest 1V portable CLINICAL HISTORY: Neuro deficit, acute stroke suspected TECHNIQUE: An X-ray image of the chest is obtained in AP projection. COMPARISON: 07/17/2023. FINDINGS: Chest leads are seen. Pulmonary Parenchyma: Prominent gio with perihilar bronchovascular markings, likely due to congestion. No evidence of consolidation, collapse, or focal opacities. No pulmonary nodules are identified. No evidence of pleural effusion or pleural thickening. Heart and Mediastinum: Heart size is apparently prominent. No mediastinal widening or masses. No hilar or mediastinal lymphadenopathy. Bony Thorax: Bony thorax appears intact without fractures or deformities. Osteoarthritic changes at both acromioclavicular and glenohumeral joints. Soft Tissues: Soft tissues overlying the chest wall are unremarkable. IMPRESSION: Prominent gio with perihilar bronchovascular markings, likely due to congestion. Needs clinical correlation. More conspicuous No evidence of consolidation or pleural effusion on either side. Electronically signed by Casey Lr 04-14-2025 01:53 AM
--- NOTE | 2025-04-14 01:58 | CT Scan Report ---
EXAM: CT angio head w con CLINICAL HISTORY: neuro deficit, acute stroke suspected TECHNIQUE: Contrast enhanced thin slice CT angiography scan of the cerebral vessels was performed with intravenous contrast. Angiographic images were processed, 3D MIP images were acquired for interpretation. Contiguous axial images were obtained. Reformatted coronal and sagittal images were also reviewed. If IV contrast material had not been administered, the likelihood of detecting abnormalities relevant to the patients condition would have been substantially decreased. CT scan was performed according to ALARA (as low as reasonable achievable). COMPARISON: none. FINDINGS: Severe atherosclerotic calcifications are noted involving intracranial segment of left vertebral artery causes 70-90% luminal narrowing Atherosclerotic calcifications are noted involving cavernous, clinoid and supraclinoid segment of bilateral internal carotid arteries. About 40%-50% luminal narrowing is noted involving cavernous segment of left carotid artery. Rest of Bilateral internal carotid arteries show normal course, calibre and opacification in the canalicular and cavernous part. Their division into the anterior cerebral artery and middle cerebral artery is defined. A1, A2 and M1, M2 segments are normal on both the sides. Bilateral vertebral arteries are seen to unite the form the basilar artery in a normal fashion. Basilar artery shows normal course, caliber and opacification. Its division into the posterior cerebral arteries is defined. Bilateral P1 and P2 segments are normal. Visualized venous structures show normal opacification. No evidence of intracranial aneurysm or AV malformation is seen. IMPRESSION: 1. Severe atherosclerotic calcifications are noted involving intracranial segment of left vertebral artery causes 70-90% luminal narrowing 2. Atherosclerotic calcifications are noted involving cavernous, clinoid and supraclinoid segment of bilateral internal carotid arteries. 3. About 40%-50% luminal narrowing is noted involving cavernous segment of left carotid artery. Electronically signed by Trent Pablo 04-14-2025 01:58 AM
[2025-04-14 02:01] LABS: INR 2.4 (0.9-1.1); Partial Thromboplastin Ratio 1.3; Partial Thromboplastin Time 34 Seconds (21-31); Prothrombin Time 24.5 Seconds (9.0-12.0)
[2025-04-14] MEDS: hydrALAZINE HCL 20 MG/ML VIAL ONE (02:32)
[2025-04-14] MEDS: LABETALOL HCL IV 5 MG/ML 20ML IV ONE (02:32)
--- OUTSIDE RECORDS SUMMARY | 2025-04-14 03:32 | External Medical Summary | Summary of Care ---
Author Name Unknown Organization [facility] Address [address] [facility] [place] [address] Phone [phone] Care Team Providers Care Microbiology Director Name Role Phone Juan Ramon Thurman MD Primary Care Provider [phone] Reason for Visit * Reason Comments Ingrown Toenail Pt states L foot has 4 ingrown toe nails and R foot has 2 ingrown toe nails Encounter Details Date Type Department Care Team (Latest Contact Info) Description 04/08/2025 1:30 PM EDT Convenient Care Visit [facility] [place] [address] [phone] Jonathon Lange PA-C [address] [phone] Pain of right heel*; History of skin ulcer; Onychomycosis Allergies No known active allergiesdocumented as of this encounter (statuses as of 04/08/2025) Medications Aspirin 81 MG Oral Tablet Delayed Release (Aspirin Low Dose) take 1 tablet by mouth once daily 100 Tab 3 021 Active Ergocalciferol 1.25 MG (64896 UT) Oral Capsule Take 1 Capsule by mouth once a week. Every saturday Active Polyethylene Glycol 3350 17 GM Oral Packet Take 1 Packet by mouth as needed for Constipation. Active Therems-M Oral Tablet Take 1 Tablet by mouth in the morning. 023 Active Bisacodyl 10 MG Rectal Suppository (Dulcolax) Administer 1 Suppository into the rectum as needed for Constipation. 12 Suppository 1 024 Active Carvedilol 25 MG Oral Tablet (Coreg)Indicatio ns:HTN, goal below 130/80 TAKE 1 TABLET BY MOUTH TWICE DAILY WITH MORNING MEAL AND WITH EVENING MEAL 180 Tablet 3 024 Active Atorvastatin Calcium 40 MG Oral Tablet (Lipitor)Indicat ions:Dyslipidemi a TAKE 1 TABLET BY MOUTH ONCE DAILY IN THE MORNING 90 Tablet 3 024 Active Ezetimibe 10 MG Oral Tablet (Zetia)Indicatio ns:Dyslipidemia TAKE 1 TABLET BY MOUTH ONCE DAILY IN THE MORNING 90 Tablet 3 024 Active Finasteride 5 MG Oral Tablet (Proscar)Indicat ions:BPH with obstruction/lowe r urinary tract symptoms TAKE 1 TABLET BY MOUTH IN THE MORNING 90 Tablet 3 024 Active Tamsulosin HCl 0.4 MG Oral Capsule (Flomax)Indicati ons:BPH with obstruction/lowe r urinary tract symptoms Take 1 capsule by mouth once daily in the morning 90 Capsule 1 025 Active Warfarin Sodium 4 MG Oral Tablet (Coumadin)Indica tions:History of CVA (cerebrovascular accident) Take 0.5-1 Tablets by mouth every evening. Or as instructed by the [facility] 90 Tablet 3 025 Active Allopurinol 300 MG Oral Tablet (Zyloprim)Indica tions:Idiopathic chronic gout of foot without tophus, unspecified laterality TAKE 1 TABLET BY MOUTH ONCE DAILY IN THE MORNING 90 Tablet 1 025 Active Gabapentin 300 MG Oral Capsule (Neurontin)Indic ations:Spinal stenosis of lumbar region with neurogenic claudication,Femi ateral lumbar radiculopathy TAKE 1 CAPSULE BY MOUTH ONCE DAILY IN THE MORNING AND 1 ONCE DAILY AT BEDTIME 60 Capsule 025 Active Ciclopirox 8 % External SolutionIndicati ons:Onychomycosi s Apply over nail and surrounding skin. Apply daily over previous coat. After seven (7) days, may remove with alcohol and continue cycle. Do this for up to 48 weeks 6.6 mL 025 Active Ciclopirox 8 % External SolutionIndicati ons:Onychomycosi s Apply over nail and surrounding skin. Apply daily over previous coat. After seven (7) days, may remove with alcohol and continue cycle. Do this for up to 48 weeks 6.6 mL 025 2024 Discontinued documented as of this encounter (statuses as of 04/08/2025) Active Problems Problem Noted Date Diagnosed Date History of pulmonary embolism 01/18/2025 Overweight (BMI 25.0-29.9) 11/18/2023 Multiple subsegmental pulmon keisha emboli without acute cor pulmonale 08/13/2023 Pressure injury of right heel, stage 2 Stage 3a chronic kidney disease 02/11/2023 S/P carotid endarterectomy 02/11/2023 Primary osteoarthritis involving multiple joints 10/01/2022 History of CVA (cerebrovascular accident) 2021 BPH with obstruction/lower urinary tract symptom s 05/30/2022 Type 2 diabetes mellitus wit h hemoglobin A1c goal of less than 8.0% 07/30/2021 PAD (peripheral artery disease) 02/09/2021 ASCVD (arteriosclerotic cardiovascular disease) 12/23/2020 HTN, goal below 130/80 04/06/2020 Hyperuricemia 04/06/2020 Gastroesophageal reflux disease with esophagitis 12/08/2012 Smokeless tobacco use 01/27/2003 Dyslipidemia documented as of this encounter (statuses as of 04/08/2025) Resolved Problems Problem Noted Date Diagnosed Date Resolved Date Postoperative anemia due to acute blood loss 3 11/18/2023 Closed nondisplaced intertro chanteric fracture of right femur 08/13/2023 11/18/2023 Cerebrovascular disease, art eriosclerotic, post-stroke 08/13/2023 11/18/2023 Type 2 diabetes mellitus wit h diabetic peripheral angiopathy without gangrene, without long-term current use of insulin 02/11/2023 11/18/2023 Food insecurity 02/11/2023 11/18/2023 Overview: Per [facility] Protocol Dyslipidemia 01/15/2023 11/18/2023 HTN, goal below 140/90 01/15/202311/18 Asymptomatic stenosis of right carotid artery 12/05/1911/18/2023 History of pulmonary embolism 07/12/2022 11/18/2023 Acute idiopathic gout involv ing toe of right foot 03/24/2021 11/06/2021 Primary osteoarthritis of both knees 01/12/2021 11/18/2023 Dyslipidemia, goal LDL below 70 12/23/2020 12/28/2020 PAD (peripheral artery disease) 12/23/2020 11/18/2023 Prediabetes 06/13/2020 08/17/2021 Overview: Per Prediabetes protocol Kidney disease, chronic, sta ge III (GFR 30-59 ml/min) 04/06/2020 02/11/2023 Benign hypertension with chr onic kidney disease, stage III 04/08/2019 05/04/2019 Kidney disease, chronic, sta ge III (GFR 30-59 ml/min) 03/11/2018 04/15/2019 Overview: Per CKD protocol #1 Laceration of forehead 02/09/201304/06 Hypertensive urgency 12/08/2012 020 Obesity, Class I, BMI 30.0-3 4.9 (see actual BMI) 02/15/2012 01/12/2021 Overview (02/15/2012): bmi= 31.00 02/15/12 Chews tobacco 02/15/2012 05/30/2022 Special screening for malign ant neoplasms, colon 02/15/2012 04/06/2020 Special screening for malign ant neoplasms, colon 08/20/2011 02/15/2012 ADVANCE DIRECTIVE INFORMATION 03/01/2008 04/06/2020 Overview (03/01/2008): No, Advance Directive brochure given to patient 03/01/08. NEUROPATHY, RIGHT FOOT 02/16/200804/06 ADHESIVE CAPSULIT SHLDER, LEFT 02/16/2008 04/06/2020 Special screening for malign ant neoplasms, colon 02/16/2008 02/09/2009 Overview (02/09/2009): Resolved per Screening Diagnosis Protocol #6 Cervicalgia 10/14/2007 04/06/2020 DISLOCAT-SHLDER, LEFT 02/28/20072019 JOINT PAIN-SHLDER, LEFT 02/28/2007 05/0 05/2020 Contusion of shoulder region 02/28/2007 04/06/2020 CONTUSION OF LOWER LEG, RIGHT 02/28/2007 10/14/2007 Edema 02/28/2007 10/14/2007 MUSCLE PAIN, ABDOMEN 02/28/2007 007 DIASTASIS RECTI 02/28/2007 04/06/2020 SPRAIN LUMBOSACRAL 12/10/2006 7 Spasm of muscle 12/10/2006 04/06/2020 HYPERURICEMIA 05/01/2006 04/06/2020 Hearing loss 05/01/2006 04/06/2020 ROUTINE MEDICAL EXAM 06/29/2003 020 Screening for prostate cancer 06/29/2003 02/09/2009 Overview (02/09/2009): Resolved per Screening Diagnosis Protocol #6 SCREEN MAL NEOP-RECTUM 06/29/200310/14 PROPHY. VACCINATION AGAINST TETANUS-DIPHTHERIA (TD) 06/29/2003 04/06/2020 Chronic rhinitis 01/27/2003 12/28/2020 GASTRODUODENITIS 09/02/2002 10/14/2007 COPD, severity to be determined 09/02/2002 02/15/2012 Constipation 07/08/2002 04/06/2020 Overview (02/23/2016): ICD-10 update of inactive term DJD, NECK 06/01/2002 04/06/2020 Benign hypertension with CKD (chronic kidney disease) stage III 07/30/2001 05/30/2022 Abnormal electrocardiogram 07/30/2001 0 04/06/2020 Ventral hernia, unspecified, without mention of obstruction or gangrene 01/02/2000 10/07/2008 Overview (03/03/2025): ICD-10 Update of Inactive Term Esophageal reflux 12/08/2012 Dyslipidemia, goal to be determined 08/23/2010 ABN LIVER FUNCTION STUDY 05/2020 Dysphonia 11/18/2023 Pharyngeal edema 11/18/2023 documented as of this encounter (statuses as of 04/08/2025) Immunizations Name Administration Dates Next Due Pneumococcal Polysaccharide PPV23 (Pneumovax) 01/12/2021,09/09/2007 Season Influenza, Quad, PF, Adjuvanted, 65+ Yrs, IM (FLUAD) 11/17/2020 Seasonal Influenza Vac., MDV , IM, 0.5 mL (Fluzone) 08/08/2012,08/23/2010,10/07/2008,10/0 08/2007,12/10/2006 08/23/2011 TD - Tetanus/Diptheria (ADULT) 06/29/2003 TDAP (age 10 and older)(Boostrix) 02/09/2013 documented as of this encounter Social History Tobacco Use Types Packs/Day Years Used Date Smoking Tobacco: Never Smokeless Tobacco: Current Chew Comments:chews 1 cans each w confederated coos, not at this time in nursing facility Alcohol Use Standard Drinks/Week Comments No 0 (1 standard drink = 0.6 oz pur e alcohol) none PHQ-2 Answer Date Recorded PHQ Adult Total Score 0 09/25/2024 Hunger Vital Sign Answer Date Recorded Within the past 12 months, y ou worried that your food would run out before you got the money to buy more. Never true 09/25/20 24 Within the past 12 months, t he food you bought just didn't last and you didn't have money to get more. Never true 09/25/2024 Childcare Answer Date Recorded Do you feel overwhelmed with taking care of a child, family member or friend? No 09/25/2024 Does your family need help f inding childcare? (Household - for ages 0-17 years) Not on file 09/25/2024 Clothing Answer Date Recorded Have you been unable to get clothing when it was really needed? No 09/25/2024 Is your family able to get c lothes or diapers when needed? (Household - for ages 0-17 years) Not on file 09/25/2024 Personal Safety Answer Date Recorded Do you feel unsafe or have concerns for your saf ety? No 09/25/2024 Do you have concerns for you r family's safety? (Household - for ages 0-17 years) Not on file 09/25/2024 Utilities Answer Date Recorded Do you have trouble paying y our heating, water, or electric bill? No 09/25/2024 Is your family able to pay t he heat, water, or electric bill? (Household - for ages 0-17 years) Not on file 09/25/2024 Does your family have access to good internet? (Household - for ages 0-17 years) Not on file 09/25/2024 Employment Status Answer Date Recorded Are you unemployed or without regular income? No 09/25/2024 Does the household have a re gular source of income? (Household - for ages 0-17 years) Not on file 09/25/2024 Social Connections Answer Date Recorded How often do you feel lonely or isolated from th ose around you? Never 09/25/2024 Financial Resource Strain Answer Date R ecorded Do you have any trouble payi ng for your medications, or do you think you might in the future? No 09/25/2024 Does your family have troubl e paying for medicine? (Household - for ages 0-17 years) Not on file 09/25/2024 Transportation Needs Answer Date Record ed Do you have trouble getting a ride to medical visits or work? (Adult - for ages 18 years and over) Not on file 09/25/2024 Does your family have a hard time getting a ride to doctors visits? (Household - for ages 0-17 years) Not on file 09/25/2024 Has lack of transportation k ept you from medical appointments, meetings, work, or from getting things needed for daily living? Check all that apply. No 09/25/2024 Do you (or your family) have trouble finding or paying for a ride (transportation)? (Household - for ages 0-17 years) Not on file 09/25/2024 Housing Stability Answer Date Recorded Do you currently live in a s helter or have no steady place to sleep at night? No 09/25/2024 Do you think you are at risk of becoming homeless? (Adult - for ages 18 years and over) Not on file 09/25/2024 Does your family worry about paying for your home or becoming homeless? (Household - for ages 0-17 years) Not on file 1 Are you homeless or worried that you might be in the future? No 09/25/2024 Are you (or your family) parviz eless or worried that you might be in the future? (Household - for ages 0-17 years) Not on file Food Insecurity Answer Date Recorded Do you need food for this week? No 09/25/2024 Are you able to get enough f ood for your family? (Household - for ages 0-17 years) Not on file 09/25/2024 Does your family need food t his week? (Household - for ages 0-17 years) Not on file 09/25/2024 Do you always have enough fo od for your family? (Household - for ages 0-17 years) Not on file 09/25/2024 Food Insecurity Answer Date Recorded Within the past 12 months, y ou worried that your food would run out before you got the money to buy more. Never true 09/25/20 Within the past 12 months, t he food you bought just didn't last and you didn't have money to get more. Never true 09/25/2024 Do you need food for this week? 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 Answer Date of Assessment Author Yes 10/11/2023 11:55 PM Renetta Hills i, RN * Are you blind or do you have serious difficulty seeing, even when wearing glasses? Answer Date of Assessment Author No 10/11/2023 11:55 PM Renetta Hills i, RN * Do you have serious difficulty walking or climbing stairs? (5 years old or older) Answer Date of Assessment Author Yes 10/12/2023 8:04 AM Swati Melendrez RN * Do you have difficulty dressing or bathing? (5 years old or older) Answer Date of Assessment Author Yes 10/11/2023 11:55 PM Renetta Hills i, RN * Because of a physical, mental, or emotional condition, do you have difficulty doing errands alone such as visiting a doctor’s office or shopping? (15 years old or older) Answer Date of Assessment Author Yes 10/11/2023 11:55 PM Renetta Hills i, RN documented as of this encounter Mental Status * Because of a physical, mental, or emotional condition, do you have serious difficulty concentrating, remembering, or making decisions? (5 years old or older) Answer Entry Date Author No 10/11/2023 11:55 PM Renetta Hills i, RN documented in this encounter Patient Instructions * Patient Instructions* Jonathon Lange PA-C - 04/08/2025 1:58 PM EDT Apply antifungal lacquer to toenails daily. Every 7 days, remove with alcohol, then reapply. Do this daily for up to 48 weeks. Xray of heel to rule out deep space infection. Follow-up with PCP in 1-2 weeks. ER if acutely worsens documented in this encounter Progress Notes * Mary Alice Mireles LPN - 04/08/2025 1:29 PM EDT Images from the original note were not included. Jeannine Lawson is a 79 year old male who presents to walk-in clinic today complaining of Chief Complaint Patient presents with Ingrown Toenail Pt states L foot has 4 ingrown toe nails and R foot has 2 ingrown toe nails Main Symptoms: pain and redness in ingrown toenails Pt states he also has a spot on R heel that is painful and he is unable to wear his boots Cause: unknown How lon weeks Tried: nothing Pt accompanied by: self Subjective Jeannine Lawson is a 79 year old male that presents for Ingrown Toenail (Pt states L foot has 4 ingrown toe nails and R foot has 2 ingrown toe nails ) He reports "ingrown toenails on several toes on each foot for a few weeks," as well as a sore spot on back of R heel. He notes that he had surgery to this spot in 2022 d/t an infection. It has become more painful again, but has always had a red spot there. Denies fever, drainage from nails. Objective Pulse 74 | Temp 37.1 °C (98.7 °F) | Resp 18 | Ht 1.702 m (5' 7") | Wt 80.3 kg (177 lb) | SpO2 95%| BMI 27.72 kg/m² | BSA 1.95 m² Body mass index is 27.72 kg/m². BP Readings from Last 3 Encounters: 08/10/24 122/80 08/05/24 110/64 03/25/24 108/62 Wt Readings from Last 3 Encounters: 04/08/25 80.3 kg (177 lb) 08/05/24 77.6 kg (171 lb) 03/25/24 77.6 kg (171 lb) Physical Exam Vitals and nursing note reviewed. Constitutional: General: He is not in acute distress. Appearance: Normal appearance. He is not ill-appearing, toxic-appearing or diaphoretic. HENT: Right Ear: External ear normal. Left Ear: External ear normal. Nose: Nose normal. Eyes: Conjunctiva/sclera: Conjunctivae normal. Musculoskeletal: Legs: Feet: Comments: Diffuse onychomycosis of toenails. No obvious ingrown toe nails noted Neurological: Mental Status: He is alert. Assessment and plan 1. Pain of right heel D/t h/o infection in this area and surgical procedure, will r/o deep space infection as it is becoming more painful again. No obvious infection noted today, however. - XR HEEL 2 OR MORE VIEWS 2. History of skin ulcer - XR HEEL 2 OR MORE VIEWS 3. Onychomycosis No obvious ingrown nails, Does have diffuse fungal disease, however. Podiatry if no improvement - Ciclopirox 8 % External Solution; Apply over nail and surrounding skin. Apply daily over previouscoat. After seven (7) days, may remove with alcohol and continue cycle. Do this for up to 48 weeks Dispense: 6.6 mL; Refill: 0 Follow up Apply antifungal lacquer to toenails daily. Every 7 days, remove with alcohol, then reapply. Do this daily for up to 48 weeks. Xray of heel to rule out deep space infection. Follow-up with PCP in 1-2 weeks. ER if acutely worsens The above was discussed and understanding was expressed. Jonathon Lange PA-C documented in this encounter Miscellaneous Notes * Addendum Note - Jonathon Lange PA-C - 04/08/2025 2:45 PM EDTAddended by: JONATHON LANGE on: 04/08/2025 02:45 PM Modules accepted: Orders documented in this encounter Plan of Treatment Upcoming Encounters Date Type Department Care Team (Late st Contact Info) Description 04/09/2025 6:00 AM EDT Anticoagulation [facility], Eunice Rich [address] [place] [address] [place] [address] [place] [phone] 04/21/2025 9:30 AM EDT Imaging Vascular Lab, [address] [place] [phone] 04/21/2025 10:30 AM EDT Imaging Vascular Lab, [address] [place] [phone] 04/21/2025 11:30 AM EDT Imaging Vascular Lab, [facility] [address] [facility], [place] [address] [place] [phone] 04/21/2025 12:30 PM EDT Office Visit Vascular Surgery, [facility] [address] [phone] Scott Mckay MD [address] [place] [address] Health Maintenance Due Date Last Done Comments Diabetic Foot Exam 1965 Zoster Vaccines (1 of 2) 1997 Adult Wellness Visit 2013 Pneumococcal Vaccine: 50+ Years (2 of 2 - PCV) 01/12/2022 01/12/2021, 09/09/2007 FOBT ANNUALLY,AGES 18-90 05/30/2022 05/30/2021, 05/03 Albumin/Creatinine Ratio 02/08/2023 02/08/2022 DTap/Tdap Vaccines (2 - Td or Tdap) 02/09/2023 02/09/2013, 06/29/2003 Diabetic Eye Exam 08/09/2023 08/09/2022, , 08/09/2022, Additional history exists COVID-19 Vaccine ( season) 2024 Influenza Vaccine (FLU shot) (Season Ended) 2025 11/17/2020, 08/08/2012, 08/23/2010, Additional history exists GFR 08/21/2025 02/18/2025, 05/02, 11/04/2023, Additional history exists HbA1c 08/21/2025 02/18/2025, 05/02, 10/12/2023, Additional history exists Depression Screening 09/25/2025 09/25/2024 CKD HGB USE SMARTSET 93294 02/18/202602/18, 11/18/2023, 11/18/2023, Additional history exists CKD PHOS USE SMARTSET 03760 02/18/2026 03/2 , 11/18/2023, 05/22/2022, Additional history exists Colonoscopy Discontinued 05/30/2021, 05/30/2021 Colorectal Cancer Screening Discontinued EKG Completed 01/11/2023, 11/07/2021 Cologuard Discontinued Fecal Occult Blood Test Discontinued HPV (Gardasil) Vaccine Aged Out No lo nger eligible based on patient's age to complete this topic Hepatitis B Vaccine Aged Out No longe r eligible based on patient's age to complete this topic MENINGOCOCCAL (MENACTRA/MENVEO) Aged Out No longer eligible based on patient's age to complete this topic Meningitis B Vaccine (Bexsero/Trumemba) Aged Out No longer eligible based on patient's age to complete this topic Sigmoidoscopy Discontinued documented as of this encounter Medical Devices Not on filedocumented as of this encounter Procedures Procedure Name Priority Date/Time Associated Diagnosis Comments XR HEEL 2 OR MORE VIEWS STAT 04/08/2025 2:13 PM EDT Pain of right heel History of skin ulcer documented in this encounter Results * XR HEEL 2 OR MORE VIEWS (04/08/2025 2:13 PM EDT) Anatomical Region Laterality Modality Lower Extremity, Foot Digital Ra diography 04/08/2025 2:22 PM EDT Impressions 04/08/2025 2:20 PM EDT IMPRESSION As above. Narrative 04/08/2025 2:20 PM EDT EXAM XR HEEL 2 OR MORE VIEWS-04/08/2025 2:13 pm HISTORY r/o osteo/gas COMPARISON Right calcaneal radiographs 09/30/2023. TECHNIQUE Two views of the right calcaneus. FINDINGS No radiographic evidence of osteomyelitis. No large soft tissue emphysema. No radiographically apparent fracture. No dislocation. Atherosclerosis. Procedure Note Sunita Patino MD - 04/08/2025 EXAM XR HEEL 2 OR MORE VIEWS-04/08/2025 2:13 pm HISTORY r/o osteo/gas COMPARISON Right calcaneal radiographs 09/30/2023. TECHNIQUE Two views of the right calcaneus. FINDINGS No radiographic evidence of osteomyelitis. No large soft tissueemphysema. No radiographically apparent fracture. No dislocation. Atherosclerosis. IMPRESSION IMPRESSION As above. Jonathon Lange PA-C RADIOLOGY (RAD GENER AL) Final Result documented in this encounter Visit Diagnoses Diagnosis Pain of right heel- Primary Pain in limb History of skin ulcer Personal history of diseases of skin and subcutaneous tissue Onychomycosis Dermatophytosis of nail documented in this encounter Advance Directives * No Code (Latest Code Status on File) Date Activated Date Inactivated Comments 10/11/2023 4:12 PM 10/18/2023 7:36 PM This order reflects the patients wishes and were consensually agreed upon. Question Answer Comments Discussion of Advance Direct brittany occurred with: Power of Raw Hide Trimmer/Patient Medical Insurance Collector Does the patient have a Living Will? No Does the patient have Health Care Power of Raw Hide Trimmer? No * Full Code Date Activated Date Inactivated Comments 01/12/2023 7:31 PM 01/15/2023 11:17 PM This order reflects the patients wishes and were consensually agreed upon. Question Answer Comments Discussion of Advance Directives occurred with: Patient * Full Code Date Activated Date Inactivated Comments 01/11/2023 12:34 PM 01/12/2023 7:30 PM Question Answer Comments Discussion of Advance Direct brittany occurred with: Not Discussed due to patient's condition Healthcare Agents on File Name Relationship Healthcare Agent Relationshi p Communication Katie Arnold Adult Child Health Care Repr esentative (appointed verbally by patient or by statute hierarchy) Cuco Powell Adult Child Health Care Repr esentative (appointed verbally by patient or by statute hierarchy) Care Teams Microbiology Director Relationship Specialty Start Date End Date Juan Ramon Thurman MD [address] [address] [phone] PCP - General Family Medicine 11/14/23 documented as of this encounter
--- OUTSIDE RECORDS SUMMARY | 2025-04-14 03:32 | External Medical Summary ---
Author Name Unknown Address Unknown Organization K0G:LAB[facility]ATORY [facility] [address] [place] [address] Laboratory Report Ordering Provider Test Date Status OSIEL JAY 04/12/2025 08:14:00 Final Standing order for pt/inr. < br/>Please draw pt/inr every 1 to 4 weeks as requested
Results to [facility]

Warfarin Therapy
INR: 2.0-3.0 conventional anticoagulation
INR: 2.5-3.5 high intensity anticoagulation Observation Date Value Abnormality Reference (Units ) Status PT 04/12/2025 08:14:00 26.9 Above high normal 11 .6-15.2 (seconds) Final INR 04/12/2025 08:14:00 2.4 Above high normal 0. 8-1.2 Final Performing Location LAB[facility]ATORY [facility] 57[address] - [address] [place] [address]
--- OUTSIDE RECORDS SUMMARY | 2025-04-14 03:32 | External Medical Summary | Summary of Care ---
Author Name Unknown Organization [facility] Address [address] [facility] [place] [address] Phone [phone] Care Team Providers Care Data Operations Leader Name Role Phone Salima Thurman MD Primary Care Provider [phone] [phone] Reason for Visit * Reason Comments eRx-Medication Refill Encounter Details Date Type Department Care Team (Late st Contact Info) Description 04/02/2025 Refill Family Practice [facility] [address] [facility] [place] [address] Nancy Martines CRNP [address] [facility] [place] [address] Spinal stenosis of lumbar region with neurogenic claudication; Bilateral lumbar radiculopathy Allergies No known active allergiesdocumented as of this encounter (statuses as of 04/03/2025) Medications Aspirin 81 MG Oral Tablet Delayed Release (Aspirin Low Dose) take 1 tablet by mouth once daily 100 Tab 3 021 Active Ergocalciferol 1.25 MG (60515 UT) Oral Capsule Take 1 Capsule by [...] every evening. Or as instructed by the [facility] 90 Tablet 3 025 Active [...] DAILY AT BEDTIME 60 Capsule 025 Active Gabapentin 300 MG Oral Capsule (Neurontin)Indic ations:Spinal stenosis of lumbar region with neurogenic claudication,Femi ateral lumbar radiculopathy TAKE 1 CAPSULE BY MOUTH ONCE DAILY IN THE MORNING AND 1 ONCE DAILY AT BEDTIME 60 Capsule 1 025 2024 Discontinued documented as of this encounter (statuses as of 04/03/2025) Active Problems Problem Noted Date Diagnosed Date [...] as of this encounter (statuses as of 04/03/2025) Resolved Problems Problem Noted Date Diagnosed Date [...] as of this encounter (statuses as of 04/03/2025) Immunizations Name Administration Dates Next Due Pneumococcal Polysaccharide PPV23 (Pneumovax) 01/12/2021,09/09/2007 Season Influenza, Quad, PF, Adjuvanted, 65+ Yrs, IM (FLUAD) 11/17/2020 Seasonal Influenza Vac., MDV , IM, 0.5 mL (Fluzone) 08/08/2012,08/23/2010,10/07/2008,10/0 08/2007,12/10/2006 08/23/2011 TDAP (age 10 and older)(Boostrix) 02/09/2013 documented as of this encounter Social History Tobacco Use Types Packs/Day Years Used Date Smoking Tobacco: Never Smokeless Tobacco: Current Chew Comments:chews 1 cans each w [place], not at this time in nursing facility [...] 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 file Not on file documented as of this encounter Functional Status * Are you [...] of Assessment Author Yes 10/12/2023 8:04 AM EST Swati Kaur RN * Do you have difficulty dressing [...] Entry Date Author No 10/11/2023 11:55 PM EST Renetta Krishnamurthy i RN documented in this encounter Miscellaneous Notes * Telephone Encounter - Salima Thurman MD - 04/03/2025 11:51 AM EDTSigned Prescriptions: Disp Refills Gabapentin 300 MG Oral Capsule (Neurontin) 60 Cap*0 Sig: TAKE 1 CAPSULE BY MOUTH ONCE DAILY IN THE MORNING AND 1 ONCE DAILY AT BEDTIME Authorizing Provider: SALIMA THURMAN * Telephone Encounter - Dulce Burgos LPN - 04/03/2025 10:01 AM EDTPending Prescriptions: Disp Refills Gabapentin 300 MG Oral Capsule [Pharmacy M*60 Cap*0 Sig: TAKE 1 CAPSULE BY MOUTH ONCE DAILY IN THE MORNING AND 1 ONCE DAILY AT BEDTIME * Telephone Encounter - Dulce Burgos LPN - 04/03/2025 10:01 AM EDT Did you pend patient's preferred pharmacy and medication before forwarding?yes Pharmacy: [facility] [id number] [address] [address] [place] Pending Prescriptions: Disp Refills Gabapentin 300 MG Oral Capsule (Neurontin*60 Cap*0 Sig: TAKE 1 CAPSULE BY MOUTH ONCE DAILY IN THE MORNING AND 1 ONCE DAILY AT BEDTIME Last Visit: 08/10/2024 (in office), 12/15/2020 (telemedicine) Next Visit: 04/06/2025 If no future appointments scheduled, and last appointment is greater than a year ago, please schedule patient for a follow-up appointment Last date the medication was ordered: 02/04/25 Is this request for a controlled substance?No Urine Drug Screen:No results found for this or any previous visit. Patient Phone Numbers Labs: Lab Results Component Value Date/Time CREAT 0.9 02/18/2025 08:40 AM CREAT 1.29 05/22/2022 12:00 AM CREAT 1.5 (H) 05/24/2020 12:02 PM POTASSIUM 3.9 02/18/2025 08:40 AM POTASSIUM 4.1 10/11/2023 01:56 PM POTASSIUM 3.9 05/22/2022 12:00 AM POTASSIUM 4.3 05/24/2020 12:02 PM TSH 11.744 (A) 05/22/2022 12:00 AM TSH 4.44 (H) 07/10/2017 04:55 PM LDL 53 10/08/2024 08:55 AM LDL 128 06/07/2020 01:54 PM LDL NOT APPLICABLE 06/07/2020 01:54 PM ALT 16 02/18/2025 08:40 AM ALT 29 07/10/2017 04:55 PM HGBA1C 6.0 (H) 02/18/2025 08:40 AM HGBA1C 6.0 (H) 06/07/2020 01:54 PM * Telephone Encounter - Kj Edwards - 04/02/2025 7:05 PM EDTPending Prescriptions: Disp Refills Gabapentin 300 MG Oral Capsule [Pharmacy M*60 Cap*0 Sig: TAKE 1CAPSULE BY MOUTH ONCE DAILY IN THE MORNING AND 1 ONCE DAILY AT BEDTIME documented in this encounter Plan of Treatment Upcoming Encounters Date Type Department Care Team (Miller Contact Info) Description 04/06/2025 8:40 AM EDT Office Visit Family Practice [facility] [address] [place] [address] Salima Thurman MD [address] [place] [address] 04/08/2025 7:05 AM EDT Laboratory Lab Mobile Phlebotomy [address] [place] [address] [facility] Mobile Home Draw [address] [place] [address] [place] [address] 04/09/2025 6:00 AM EDT Anticoagulation Centralized Clinical Pharmacy Services, Eunice Rich [address] [place] [address] [place] [address] [facility] [place] [address] 04/21/2025 9:30 AM EDT Imaging Vascular Lab, [address] [place] [address] 04/21/2025 10:30 AM EDT Imaging Vascular Lab, [address] [place] [address] 04/21/2025 11:30 AM EDT Imaging Vascular Lab, [address] [place] [address] 04/21/2025 12:30 PM EDT Office Visit Vascular Surgery, [facility] [address] [place] [phone] Scott Mckay MD [address] [facility] [place] [address] Health Maintenance Due Date Last Done Comments [...] Screening 09/25/2025 09/25/2024 CKD HGB USE SMARTSET 47275 02/18/202602/18, 11/18/2023, 11/18/2023, Additional history exists CKD PHOS USE SMARTSET 60701 02/18/202601/31, 11/18/2023, 05/22/2022, Additional history exists Colonoscopy Discontinued 05/30/2021, 05/30/2021 Colorectal Cancer Screening Discontinued Cologuard Discontinued Fecal Occult Blood Test Discontinued [...] Not on filedocumented as of this encounter Visit Diagnoses Diagnosis Spinal stenosis of lumbar region with neurogenic claudication Spinal stenosis, lumbar region, with neurogenic claudication Bilateral lumbar radiculopathy documented in this encounter Advance Directives * No Code (Latest Code Status on File) Date Activated Date Inactivated Comments 10/11/2023 4:12 PM 10/18/2023 7:36 PM This order reflects the patients wishes and were consensually agreed upon. Question Answer Comments Discussion of Advance Direct brittany occurred with: Power of Acid Etch Operator/Patient Project Intern Does the patient have a Living Will? No Does the patient have Health Care Power of Acid Etch Operator? No * Full Code Date Activated Date [...] patient or by statute hierarchy) Care Teams Data Operations Leader Relationship Specialty Start Date End Date Salima Thurman MD [address] [address] PCP - General Family Medicine 11/14/23 documented as of this encounter
--- OUTSIDE RECORDS SUMMARY | 2025-04-14 03:32 | External Medical Summary | Summary of Care ---
Author Name Unknown Organization [facility] Address [address] [facility] [place] [address] Phone [phone] Care Team Providers Care Ripsaw Matcher Name Role Phone Juan Ramon Thurman MD Primary Care Provider [phone] Reason for Visit * Reason Onset Date Comments Health Maintenance 02/12/2025 Encounter Details Date Type Department Care Team (Late st Contact Info) Description 02/12/2025 Telephone Family Practice [facility] [address] [place] [address] Juan Ramon Thurman MD [address] [place] [address] Health Maintenance Allergies No known active allergiesdocumented as of this encounter (statuses as of 03/18/2025) Medications Aspirin 81 MG Oral Tablet Delayed Release (Aspirin Low Dose) take 1 tablet by mouth once daily 100 Tab 3 07/19/20 21 Active Ergocalciferol 1.25 MG (42542 UT) Oral Capsule Take 1 Capsule by mouth once a week. Every saturday Active Polyethylene Glycol 3350 17 GM Oral Packet Take 1 Packet by mouth as needed for Constipation. Active Therems-M Oral Tablet Take 1 Tablet by mouth in the morning. 11/02/20 23 Active Bisacodyl 10 MG Rectal Suppository (Dulcolax) Administer 1 Suppository into the rectum as needed for Constipation. 12 Suppository 1 08/10/20 24 Active Carvedilol 25 MG Oral Tablet (Coreg)Indication s:HTN, goal below 130/80 TAKE 1 TABLET BY MOUTH TWICE DAILY WITH MORNING MEAL AND WITH EVENING MEAL 180 Tablet 3 09/27/20 24 Active Atorvastatin Calcium 40 MG Oral Tablet (Lipitor)Indicati ons:Dyslipidemia TAKE 1 TABLET BY MOUTH ONCE DAILY IN THE MORNING 90 Tablet 3 09/27/20 24 Active Ezetimibe 10 MG Oral Tablet (Zetia)Indication s:Dyslipidemia TAKE 1 TABLET BY MOUTH ONCE DAILY IN THE MORNING 90 Tablet 3 09/27/20 24 Active Finasteride 5 MG Oral Tablet (Proscar)Indicati ons:BPH with obstruction/lower urinary tract symptoms TAKE 1 TABLET BY MOUTH IN THE MORNING 90 Tablet 3 11/28/20 24 Active Tamsulosin HCl 0.4 MG Oral Capsule (Flomax)Indicatio ns:BPH with obstruction/lower urinary tract symptoms Take 1 capsule by mouth once daily in the morning 90 Capsule 1 12/30/19 25 Active Warfarin Sodium 4 MG Oral Tablet (Coumadin)Indicat ions:History of CVA (cerebrovascular accident) Take 0.5-1 Tablets by mouth every evening. Or as instructed by the [facility] Cou[facility]in [facility] 90 Tablet 3 01/18/20 25 Active Allopurinol 300 MG Oral Tablet (Zyloprim)Indicat ions:Idiopathic chronic gout of foot without tophus, unspecified laterality TAKE 1 TABLET BY MOUTH ONCE DAILY IN THE MORNING 90 Tablet 1 01/28/20 25 Active Gabapentin 300 MG Oral Capsule (Neurontin)Indica tions:Spinal stenosis of lumbar region with neurogenic claudication,Bila teral lumbar radiculopathy TAKE 1 CAPSULE BY MOUTH ONCE DAILY IN THE MORNING AND 1 ONCE DAILY AT BEDTIME 60 Capsule 1 02/05/20 25 Active documented as of this encounter (statuses as of 03/18/2025) Active Problems Problem Noted Date Diagnosed Date History of pulmonary embolism 01/18/2025 Overweight (BMI 25.0-29.9) 11/18/2023 Multiple subsegmental pulmon keisha emboli without acute cor pulmonale 08/13/2023 Pressure injury of right heel, stage 2 3 Stage 3a chronic kidney disease 02/11/2023 S/P [...] as of this encounter (statuses as of 03/18/2025) Resolved Problems Problem Noted Date Diagnosed Date Resolved Date Postoperative anemia due to acute blood loss 11/18/2023 Closed nondisplaced intertro chanteric fracture of [...] as of this encounter (statuses as of 03/18/2025) Immunizations Name Administration Dates Next Due Pneumococcal Polysaccharide PPV23 (Pneumovax) 01/12/2021,09/09/2007 Season Influenza, Quad, PF, Adjuvanted, 65+ Yrs, IM (FLUAD) 11/17/2020 Seasonal Influenza Vac., MDV , IM, 0.5 mL (Fluzone) 08/08/2012,08/23/2010,10/07/2008,08/2007,12/10/2006 08/23/2011 TDAP (age 10 and older)(Boostrix) 02/09/2013 documented as of this encounter Social History Tobacco Use Types Packs/Day Years Used Date Smoking Tobacco: Never Smokeless Tobacco: Current Chew Comments:chews 1 cans each w [place], not at this time in nursing facility [...] 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 Not [...] [place] i, RN documented in this encounter Miscellaneous Notes * Telephone Encounter - Francy Mascorro LPN - 02/12/2025 12:07 PM EDT Care Gaps Comprehensive Care Outreach Last Office/Telemedicine Visit: 08/10/2024 (in office), 12/15/2020 (telemedicine) Next Office Visit: 02/16/2025 Hemoglobin AIC Results: Lab Results Component Value Date/Time HEMOGLOBIN A1C - [facility] 5.8 (H) 05/14/2024 06:22 AM HEMOGLOBIN A1C - [facility] 5.3 10/12/2023 05:53 AM HEMOGLOBIN A1C - [facility] 5.6 06/03/2023 09:02 AM HEMOGLOBIN A1C - [facility] 6.0 (H) 06/07/2020 01:54 PM BP Readings from Last 1 Encounters: 08/10/24 122/80 Reviewed Health Maintenance below: Health Maintenance Topic Date Due Diabetic Foot Exam Never done Zoster Vaccines (1 of 2) Never done Adult Wellness Visit Never done Pneumococcal Vaccine: 50+ Years (2 of 2 - PCV) 01/12/2022 FOBT ANNUALLY,AGES 18-90 05/30/2022 Albumin/Creatinine Ratio 02/08/2023 DTap/Tdap Vaccines (2 - Td or Tdap) 02/09/2023 Diabetic Eye Exam 08/09/2023 Influenza Vaccine (FLU shot) (1) 08/02/2024 COVID-19 Vaccine (1 - season) Never done HbA1c 11/13/2024 GFR 11/13/2024 CKD HGB USE SMARTSET 21010 11/18/2024 CKD PHOS USE SMARTSET 23964 11/18/2024 Labs mobile lab is coming Saturday eye Care Gap Outreach Action Taken: Spoke to patient son documented in this encounter Plan of Treatment Upcoming Encounters Date Type Department Care Team (Late st Contact Info) Description 04/06/2025 8:40 AM EDT Office Visit Family Practice [facility] [address] [place] [address] Juan Ramon Thurman MD [address] [place] [address] 04/08/2025 7:05 AM EDT Laboratory Lab Mobile Phlebotomy [place] [address] [address] [place] [address] Juan Ramon aguilar Mobile Home Draw [facility] [employer] [place] [address] 04/09/2025 6:00 AM EDT Anticoagulation Centralized Clinical Pharmacy Services, Eunice Rich [address] [place] [address] [place] [address] [place] [address] 04/21/2025 9:30 AM EDT Imaging Vascular Lab, [address] [place] [address] 04/21/2025 10:30 AM EDT Imaging Vascular Lab, [address] [place] [address] 04/21/2025 11:30 AM EDT Imaging Vascular Lab, [address] [place] [address] 04/21/2025 12:30 PM EDT Office Visit Vascular Surgery, [facility] [address] [place] [phone] Scott Mckay MD [address] [place], [place] [id number] Health Maintenance Due Date Last Done Comments [...] Screening 09/25/2025 09/25/2024 CKD HGB USE SMARTSET 67090 02/18/202602/18, 11/18/2023, 11/18/2023, Additional history exists CKD PHOS USE SMARTSET 36157 02/18/2026 03, 11/18/2023, 05/22/2022, Additional history exists Colonoscopy Discontinued [...] Not on filedocumented as of this encounter Results * PHOSPHORUS (02/18/2025 8:40 AM EDT) Phosphorus 3.8 2.5 - 4.8 mg/dL 02/18/2025 10:35 PM EDT LABORATORY GM Blood Venous blood specimen / Unknown Venipuncture / Unknown 02/18/2025 8:40 AM EDT 02/18/2025 11:39 AM EDT us Juan Ramon Thurman MD LAB BLOOD ORDERABLES Patircia l Result LAB[facility]ATORY [facility] [address] [place] [address] * (ABNORMAL) CBC (02/18/2025 8:40 AM EDT) WBC 8.80 4.00 - 10.80 K/uL 02/18/2025 10:32 PM EDT LABORATORY [facility] RBC 5.26 4.50 - 5.25 M/uL 02/18/2025 10:32 PM EDT LABORATORY [facility] HGB 15.9 14.0 - 16.8 g/dL 02/18/2025 10:32 PM EDT LABORATORY [facility] HCT 51.4(H) 40.0 - 48.4 % 02/18/2025 10:32 PM EDT LABORATORY [facility] MCV 97.7 82.0 - 99.5 fL 02/18/2025 10:32 PM EDT LABORATORY [facility] MCH 30.2 27.0 - 34.0 pg 02/18/2025 10:32 PM EDT LABORATORY [facility] MCHC 30.9 32.0 - 36.0 g/dL 02/18/2025 10:32 PM EDT LABORATORY GM RDW 15.7 11.5 - 15.5 % 02/18/2025 10:32 PM EDT LABORATORY [facility] PLT 184 140 - 400 K/uL 02/18/2025 10:32 PM EDT LABORATORY GM MPV 11.3 6.6 - 11.1 fL 02/18/2025 10:32 PM EDT LABORATORY GM NRBCs 0 <=0 /100 WBCs 02/18/2025 10:32 PM EDT LABORATORY [facility] Blood Venous blood specimen / Unknown Venipuncture / Unknown 02/18/2025 8:40 AM EDT 02/18/2025 11:40 AM EDT us Juan Ramon Thurman MD LAB BLOOD ORDERABLES Patricia aguilar Result LABORATORY [facility] [address] [place] [address] * (ABNORMAL) COMPREHENSIVE METABOLIC PANEL (02/18/2025 8:40 AM EDT) Pathologist [facility] BUN 17 6 - 20 mg/dL 02/18/2025 10:35 PM EDT LABORATORY [facility] CREATININE 0.9 0.6 - 1.2 mg/dL 02/18/2025 10:35 PM EDT LABORATORY [facility] EGFR 85 >=60 mL/min 02/18/2025 10:35 PM EDT LABORATORY [facility] Comment:eGFR is calculated b ased on the CKD-EPI 2020 equation. SODIUM 143 135 - 146 mmol/L 02/18/2025 10:35 PM EDT LABORATORY [facility] POTASSIUM 3.9 3.5 - 5.1 mmol/L 02/18/2025 10:35 PM EDT LABORATORY [facility] CHLORIDE 105 98 - 107 mmol/L 02/18/2025 10:35 PM EDT LABORATORY [facility] CO2 27 22 - 32 mmol/L 02/18/2025 10:35 PM EDT LABORATORY [facility] ANION GAP 11 7 - 15 mmol/L 02/18/2025 10:35 PM EDT LAB[facility]ATORY [facility] GLUCOSE 95 70 - 120 mg/dL 02/18/2025 10:35 PM EDT LABORATORY [facility] Albumin 4.0 3.8 - 5.0 g/dL 02/18/2025 10:35 PM EDT LABORATORY [facility] AST 17 10 - 50 U/L 02/18/2025 10:35 PM EDT LABORATORY [facility] Alkaline Phosphatase 238(H) 35 - 130 U/L 02/18/2025 10:35 PM EDT LABORATORY [facility] Bilirubin, Total 0.9 <=1.2 mg/dL 02/18/2025 10:35 PM EDT LABORATORY [facility] CALCIUM 8.7 8.4 - 10.2 mg/dL 02/18/2025 10:35 PM EDT LABORATORY [facility] Protein 6.6 6.0 - 8.3 g/dL 02/18/2025 10:35 PM EDT LABORATORY [facility] ALT 16 10 - 50 U/L 02/18/2025 10:35 PM EDT LABORATORY [facility] Blood Venous blood specimen / Unknown Venipuncture / Unknown 02/18/2025 8:40 AM EDT 02/18/2025 11:39 AM EDT us Juan Ramon Thurman MD LAB BLOOD ORDERABLES Patricia l Result LABORATORY [facility] [address] [place] [address] * (ABNORMAL) HEMOGLOBIN A1C (02/18/2025 8:40 AM EDT) Hemoglobin A1C 6.0(H) 4.0 - 5.6 % 02/18/2025 10:38 PM EDT LABORATORY [facility] Comment:The use of HbA1c to monitor glycemic status is based on normal hemoglobin and HbA composition. This test should not be used in patients with abnormal hemoglobin that affects the half life of the red blood cell or the in vivo glycation rates. Estimated Average Glucose 126(H) <126 mg/dL 02/18/2025 10:38 PM EDT LABORATORY [facility] Blood Venous blood specimen / Unknown Venipuncture / Unknown 02/18/2025 8:40 AM EDT 02/18/2025 11:40 AM EDT Juan Ramon Thurman MD LAB BLOOD ORDERABLES Patricia sheikh Result LABORATORY [address] [address] documented in this encounter Visit Diagnoses Diagnosis Diabetes mellitus (HCC)- Primary Type II or unspecified type diabetes mellitus without mention of complication, not stated as uncontrolled Chronic kidney disease, unspecified CKD stage documented in this encounter Advance Directives * No Code (Latest Code Status on File) Date Activated Date Inactivated Comments 10/11/2023 4:12 PM 10/18/2023 7:36 PM This order reflects the patients wishes and were consensually agreed upon. Question Answer Comments Discussion of Advance Direct brittany occurred with: Power of Safety Assistant/Patient Licensed Practical Nurse Clinic Nurse Does the patient have a Living Will? No Does the patient have Health Care Power of Safety Assistant? No * Full Code Date Activated Date [...] Relationship Healthcare Agent Relationshi p Communication Katie Clayton Adult Child Health Care Repr esentative (appointed verbally by patient or by statute hierarchy) Cuco Powell Adult Child Health Care Repr esentative (appointed verbally by patient or by statute hierarchy) Care Teams Ripsaw Matcher Relationship Specialty Start Date End Date Juan Ramon Thurman MD [address] [place] [address] PCP - General Family Medicine 11/14/23 documented as of this encounter
--- OUTSIDE RECORDS SUMMARY | 2025-04-14 03:32 | External Medical Summary | Summary of Care ---
Author Name Unknown Organization [facility] Address [address] [facility] [place] [address] Phone [phone] Care Team Providers Care Atmospheric Physicist Name Role Phone Juan Ramon Thurman MD Primary Care Provider [phone] Reason for Visit * Reason Comments Ingrown Toenail Pt states L foot has 4 ingrown toe nails and R foot has 2 ingrown toe nails Encounter Details Date Type Department Care Team (Latest Contact Info) Description 04/08/2025 1:30 PM EDT Convenient Care Visit [facility] [address] [place] [phone] Jonathon Lange PA-C [address] [place] [address] Pain of right heel*; History of skin ulcer; Onychomycosis Allergies No known active allergiesdocumented as of this encounter (statuses as of 04/08/2025) Medications Aspirin 81 MG Oral Tablet Delayed Release (Aspirin Low Dose) take 1 tablet by mouth once daily 100 Tab 3 021 Active Ergocalciferol 1.25 MG (70442 UT) Oral Capsule Take 1 Capsule by [...] every evening. 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 [...] Anticoagulation Centralized Clinical Pharmacy Services, Eunice Rich [address] [place] [address] [place] [address] [place] [address] 04/21/2025 9:30 AM EDT Imaging Vascular Lab, [address] [place] [phone] 04/21/2025 10:30 AM EDT Imaging Vascular Lab, [address] [place] [phone] 04/21/2025 11:30 AM EDT Imaging Vascular Lab, [facility] [facility] [address] [place] [phone] 04/21/2025 12:30 PM EDT Office Visit Vascular Surgery, [facility] [address] [place] [phone] Scott Mckay MD [address] [place] [address] Health Maintenance Due Date Last Done Comments [...] Screening 09/25/2025 09/25/2024 CKD HGB USE SMARTSET 29872 02/18/202602/18, 11/18/2023, 11/18/2023, Additional history exists CKD PHOS USE SMARTSET 35877 02/18/2026 03/2 , 11/18/2023, 05/22/2022, Additional history [...] Advance Direct brittany occurred with: Power of Police Reserves Commander/Patient Retail Cashier Does the patient have a Living Will? No Does the patient have Health Care Power of Police Reserves Commander? No * Full Code Date Activated Date [...] patient or by statute hierarchy) Care Teams Atmospheric Physicist Relationship Specialty Start Date End Date Juan Ramon Thurman MD [address] [place] [address] PCP - General Family Medicine 11/14/23 documented as of this encounter
--- OUTSIDE RECORDS SUMMARY | 2025-04-14 03:32 | External Medical Summary | Summary of Care ---
Author Name Unknown Organization [facility] Address [address] [facility] [place] [address] Phone [phone] Care Team Providers Care Fishing Hand Name Role Phone Juan Ramon Thurman MD Primary Care Provider [phone] Reason for Visit * Reason Comments eRx-Medication Refill Encounter Details Date Type Department Care Team (Late st Contact Info) Description 04/05/2025 Refill Family Practice [facility] [address] [facility] [place] [address] Nancy Martines CRNP [address] [place] [address] Spinal stenosis of lumbar region with neurogenic claudication; Bilateral lumbar radiculopathy Allergies No known active allergiesdocumented as of this encounter (statuses as of 04/05/2025) Medications Aspirin 81 MG Oral Tablet Delayed Release (Aspirin Low Dose) take 1 tablet by mouth once daily 100 Tab 3 07/19/20 21 Active Ergocalciferol 1.25 MG (64711 UT) Oral Capsule Take 1 Capsule by [...] every evening. Or as instructed by the [facility] Cou[facility]in [facility] 90 Tablet 3 [...] 1 ONCE DAILY AT BEDTIME 60 Capsule 04/03/20 25 Active documented as of this encounter (statuses as of 04/05/2025) Active Problems Problem Noted Date Diagnosed Date [...] as of this encounter (statuses as of 04/05/2025) Resolved Problems Problem Noted Date Diagnosed Date [...] DISLOCAT-SHLDER, LEFT 02/28/20072019 JOINT PAIN-SHLDER, LEFT 02/28/2007 05/05/2020 Contusion of shoulder region 02/28/2007 04/06/2020 CONTUSION [...] as of this encounter (statuses as of 04/05/2025) Immunizations Name Administration Dates Next Due Pneumococcal [...] Current Chew Comments:chews 1 cans each w [place], not at this time in nursing facility [...] 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 Not [...] encounter Miscellaneous Notes * Telephone Encounter - Kj Damon - 04/05/2025 2:17 PM EDTRefused Prescriptions: Disp Refills Gabapentin 300 MG Oral Capsule (Neurontin) 60 Cap*0 Sig: TAKE 1CAPSULE BY MOUTH ONCE DAILY IN THE MORNING AND 1 ONCE DAILY AT BEDTIMERefused By: Vance DAMON for Refusal: Duplicate Request documented in this encounter Plan of Treatment Upcoming Encounters Date Type Department Care Team (Late st Contact Info) Description 04/06/2025 8:40 AM EDT Office Visit Family Practice [facility] [address] [place] [address] Juan Ramon Thurman MD [address] [place] [address] 04/08/2025 7:05 AM EDT Laboratory Lab Mobile Phlebotomy [address] [place] [address] [facility] Mobile Home Draw [address] [place] [address] [place] [address] 04/09/2025 6:00 AM EDT Anticoagulation Centralized Clinical Pharmacy Services, Eunice Rich [address] [place] [address] [place] [address] [place] [address] 04/21/2025 9:30 AM EDT Imaging Vascular Lab, [address] [place] [phone] 04/21/2025 10:30 AM EDT Imaging Vascular Lab, [address] [place] [address] 04/21/2025 11:30 AM EDT Imaging Vascular Lab, [address] [place] [phone] 04/21/2025 12:30 PM EDT Office Visit Vascular Surgery, [facility] [address] [place] [phone] Scott Mckay MD [address] [facility], [place] [address] Health Maintenance Due Date Last Done Comments [...] Screening 09/25/2025 09/25/2024 CKD HGB USE SMARTSET 46376 02/18/202602/18, 11/18/2023, 11/18/2023, Additional history exists CKD PHOS USE SMARTSET 87196 02/18/2026 03/2 , 11/18/2023, 05/22/2022, Additional history [...] Advance Direct brittany occurred with: Power of Project Manager/Patient Cloth Examiner Hand Does the patient have a Living Will? No Does the patient have Health Care Power of Project Manager? No * Full Code Date Activated Date [...] patient or by statute hierarchy) Care Teams Fishing Hand Relationship Specialty Start Date End Date Jaun Ramon Thurman MD [address] [place] [address] PCP - General Family Medicine 11/14/23 documented as of this encounter
--- OUTSIDE RECORDS SUMMARY | 2025-04-14 03:32 | External Medical Summary | Summary of Care ---
Author Name Unknown Organization [facility] Address [address] [address] Phone [phone] Care Team Providers Care Vector Control Specialist Name Role Phone Juan Ramon Thurman MD Primary Care Provider [phone] Reason for Visit * Reason Comments Dosage Adjustment Via Phone (anticoag Cl inic) Encounter Details Date Type Department Care Team (Late st Contact Info) Description 04/13/2025 6:00 AM EDT Anticoagulation Centralized Clinical Pharmacy Services, Eunice Rich [address] [place] [address] [place] [address] [place] [address] History of CVA (cerebrovascular accident)*; History of pulmonary embolism Allergies No known active allergiesdocumented as of this encounter (statuses as of 04/13/2025) Medications Aspirin 81 MG Oral Tablet Delayed Release (Aspirin Low Dose) take 1 tablet by mouth once daily 100 Tab 3 07/19/20 21 Active Ergocalciferol 1.25 MG (64944 UT) Oral Capsule Take 1 Capsule by [...] every evening. Or as instructed by the [facility] Coumadin [facility] 90 Tablet 3 01/18/20 [...] AT BEDTIME 60 Capsule 04/03/20 25 Active Ciclopirox 8 % External SolutionIndicatio ns:Onychomycosis Apply over nail and surrounding skin. Apply daily over previous coat. After seven (7) days, may remove with alcohol and continue cycle. 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 Subjective Advised patient to contact Anticoagulation Clinic if any unusual bruising or bleeding, recent illness, changes in medication, or questions/concerns. PT/INR results, Coumadin dose instructions, and next PT/INR date communicated as noted by Pharmacist: Rocco CAZARES CPhT 04/13/2025, 8:50 AM * Farideh Delgado RPh - 04/13/2025 8:08 AM EDT Coumadin Clinic (region specific) Objective Current Warfarin Dose As of 04/13/2025 Warfarin maintenance plan: 4 mg (4 mg x 1) every Fri; 2 mg (4 mg x 0.5) all other days INR Result As of 04/13/2025 INR goal: 2.0-3.0 INR used for dosin.4 (04/12/2025) Assessment & Plan Warfarin Plan As of 04/13/2025 Full warfarin instructions: 4 mg every Fri; 2 mg all other days No change documented: Farideh Delgado RPh Next INR check: 05/10/2025 Repeat PT/INR in 4 week(s) Weekly dose: not changed Additional Dosing Information: Description GML- M,T,Th Tech to contact patient with dose instructions as noted. Farideh Delgado RPh 04/13/2025, 8:08 AM documented in this encounter Plan of Treatment Upcoming Encounters Date Type Department Care Team (Late st Contact Info) Description 04/21/2025 9:30 AM EDT Imaging Vascular Lab, [address], [place] [address] [place] [phone] 04/21/2025 10:30 AM EDT Imaging Vascular Lab, [address], [place] [address] [place] [phone] 04/21/2025 11:30 AM EDT Imaging Vascular Lab, [address], [place] [address] [place] [phone] 04/21/2025 12:30 PM EDT Office Visit Vascular Surgery, [facility] [address] [place] [phone] Scott [facility]ck[facility] MD [address] [facility] [address] 05/11/2025 6:00 AM EDT Anticoagulation Centralized Clinical Pharmacy Services, Eunice Rich [address] [place] [address] [place] [address] [facility], [address] [place] [address] Health Maintenance Due Date Last Done Comments [...] , 08/09/2022, Additional history exists COVID-19 Vaccine (1 - 2024-25 season) 2024 Influenza Vaccine (FLU shot) (Season Ended) 2025 11/17/2020, 08/08/2012, 08/23/2010, Additional history exists GFR 08/21/2025 02/18/2025, 05/02, 11/04/2023, Additional history exists HbA1c 08/21/2025 02/18/2025, 05/02, 10/12/2023, Additional history exists Depression Screening 09/25/2025 09/25/2024 CKD HGB USE SMARTSET 14986 02/18/202602/18, 11/18/2023, 11/18/2023, Additional history exists CKD PHOS USE SMARTSET 76951 02/18/2026 03/, 11/18/2023, 05/22/2022, Additional history exists Colonoscopy Discontinued 05/30/2021, 05/30/2021 Colorectal Cancer Screening Discontinued EKG Completed 01/11/2023, 06/2021, 10/07/2008, Additional history exists Cologuard Discontinued Fecal Occult Blood Test Discontinued [...] as of this encounter Visit Diagnoses Diagnosis History of CVA (cerebrovascular accident)- Primary Transient ischemic attack (TIA), and cerebral infarction without residual deficits History of pulmonary embolism Personal history of pulmonary embolism documented in this encounter Advance Directives * No Code (Latest Code Status on File) Date Activated Date Inactivated Comments 10/11/2023 4:12 PM 10/18/2023 7:36 PM This order reflects the patients wishes and were consensually agreed upon. Question Answer Comments Discussion of Advance Direct brittany occurred with: Power of Glass Carrier/Patient Metal Tester Does the patient have a Living Will? No Does the patient have Health Care Power of Glass Carrier? No * Full Code Date Activated Date [...] patient or by statute hierarchy) Care Teams Vector Control Specialist Relationship Specialty Start Date End Date Juan Ramon Thurman MD [address] [place] [address] PCP - General Family Medicine 11/14/23 documented as of this encounter
--- OUTSIDE RECORDS SUMMARY | 2025-04-14 03:33 | External Medical Summary | Summary of Care ---
Author Name Unknown Organization [facility] Address [address] [place] [address] Phone [phone] Care Team Providers Care Manager Intranet Name Role Phone Juan Ramon Thurman MD Primary Care Provider [phone] Reason for Visit * Reason Onset Date Comments Appointment 01/29/2025 Vascular Study 01/29/2025 Encounter Details Date Type Department Care Team (Late st Contact Info) Description 01/29/2025 Telephone Vascular Surgery, [facility] [address] [facility] [place] [address] Dougie Walter PA-C [address] [place] [address] Appointment; Vascular Study Allergies No known active allergiesdocumented as of this encounter (statuses as of 02/01/2025) Medications Aspirin 81 MG Oral Tablet Delayed Release (Aspirin Low Dose) take 1 tablet by mouth once daily 100 Tab 3 07/19/20 21 Active Ergocalciferol 1.25 MG (61411 UT) Oral Capsule Take 1 Capsule by [...] morning 90 Capsule 1 12/30/19 25 Active Gabapentin 300 MG Oral Capsule (Neurontin)Indica tions:Spinal stenosis of lumbar region with neurogenic claudication,Bila teral lumbar radiculopathy TAKE 1 CAPSULE BY MOUTH ONCE DAILY IN THE MORNING AND 1 ONCE DAILY AT BEDTIME 60 Capsule 01/04/20 25 Active Warfarin Sodium 4 MG Oral Tablet (Coumadin)Indicat ions:History of CVA (cerebrovascular accident) Take 0.5-1 Tablets by mouth every evening. Or as instructed by the [facility] Coumadin Clinic 90 Tablet 3 01/18/20 25 Active Allopurinol 300 MG Oral Tablet (Zyloprim)Indicat ions:Idiopathic chronic gout of foot without tophus, unspecified laterality TAKE 1 TABLET BY MOUTH ONCE DAILY IN THE MORNING 90 Tablet 1 01/28/20 25 Active documented as of this encounter (statuses as of 02/01/2025) Active Problems Problem Noted Date Diagnosed Date [...] as of this encounter (statuses as of 02/01/2025) Resolved Problems Problem Noted Date Diagnosed Date [...] mention of obstruction or gangrene 01/02/2000 10/07/2008 Esophageal reflux 12/08/2012 Dyslipidemia, goal to be determined 08/23/2010 ABN LIVER FUNCTION STUDY 05/2020 Dysphonia 11/18/2023 Pharyngeal edema 11/18/2023 documented as of this encounter (statuses as of 02/01/2025) Immunizations Name Administration Dates Next Due Pneumococcal [...] Current Chew Comments:chews 1 cans each w [place], not at this time in nursing facility [...] 09/25/2024 Transportation Needs Answer Date Record ed READ ONLY Do you have troubl e getting a ride to medical visits or work? Never True 09/25/2024 Does your family have a hard [...] place to sleep at night? No 09/25/2024 READ ONLY Do you think you a re at risk of becoming homeless? 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 Answer Date of Assessment Author Yes 10/11/2023 11:55 PM EST Renetta Krishnamurthy i RN * Are you blind or do you have serious difficulty seeing, even when wearing glasses? Answer Date of Assessment Author No 10/11/2023 11:55 PM Renetta Hills i RN * Do you have serious difficulty walking or climbing stairs? (5 years old or older) Answer Date of Assessment Author Yes 10/12/2023 8:04 AM EST Swati Kaur RN * Do you have difficulty dressing or bathing? (5 years old or older) Answer Date of Assessment Author Yes 10/11/2023 11:55 PM Renetta Hills i RN * Because of a physical, mental, or emotional condition, do you have difficulty doing errands alone such as visiting a doctor’s office or shopping? (15 years old or older) Answer Date of Assessment Author Yes 10/11/2023 11:55 PM Renetta Hills i RN documented as of this encounter Mental Status * Because of a physical, mental, or emotional condition, do you have serious difficulty concentrating, remembering, or making decisions? (5 years old or older) Answer Entry Date Author No 10/11/2023 11:55 PM Renetta Hlils i RN documented in this encounter Miscellaneous Notes * Telephone Encounter - Laquita Ling LPN - 02/01/2025 1:31 PM EST 02/03 appt has been cancelled. Laquita Ling LPN 02/01/2025 1:31 PM * Telephone Encounter - Dougie Walter PA-C - 02/01/2025 1:29 PM EST Duly noted, then May it will be Can you please cancel his 02/03 visit with us Thank you ALEX * Telephone Encounter - Laquita Ling LPN - 02/01/2025 1:13 PM EST Spoke with patient son, Cuco and they do not wish to do two different days d/t it takes an hour to get there for him. He wishes to keep at is all in one day in April. Laquita Ling LPN 02/01/2025 1:14 PM * Telephone Encounter - Dougie Walter PA-C - 02/01/2025 7:56 AM EST OK, that makes total sense I told Mr. Lawson' son that we are down a police service technician so likelihood of same day vascular studies will continue to be a challenge for the next few months So, let's separate studies from visit Thank you ALEX * Telephone Encounter - Laquita Ling LPN - 01/29/2025 1:37 PM EST So the first available to get testing and office visit on on same day since he has three studies isnot until April. I know they want all in one day but if they two different days we can get him in sooner. If we two different days I could do testing mid january and Dr. Mckay in March. Please advise. Laquita Ling LPN 01/29/2025 1:40 PM * Telephone Encounter - Dougie Walter PA-C - 01/29/2025 1:26 PM EST See if we can get studies and visit earlier than April. Strange that re-schedule was "pushed" all theway out to April? * Telephone Encounter - Laquita Ling LPN - 01/29/2025 12:00 PM EST Upon chart review I went to reschedule testing and everything has been already reschedule until 04/21/25. Please advise if that is ok or if you want me to see if I can find something sooner. Laquita Ling LPN 01/29/2025 12:01 PM * Telephone Encounter - Dougie Walter PA-C - 01/29/2025 8:30 AM EST Pt missed vascular labs on 01/27, in preparation for 02/03 return @ [facility] I called pt, his son answered the call He thought labs were for next week He asked if labs and visit can be re-scheduled to be done on same day. See if [facility] has room to have labs done next Wed, prior to 1:30 appointment If unable, re-schedule both labs and visit, all on same day Thank you ALEX documented in this encounter Plan of Treatment Upcoming Encounters Date Type Department Care Team (Late st Contact Info) Description 02/02/2025 6:00 AM EST Anticoagulation Centralized Clinical Pharmacy Services, Eunice Rich [address] [place] [address] [place] [address] [place] [address] 02/16/2025 4:00 PM EDT Office Visit Family Practice [facility] [address] [place] [address] Juan Ramon Thurman MD 132 [facility] [address] 04/21/2025 9:30 AM EDT Imaging Vascular Lab, [facility] [address] [facility], [address] [place] [address] 04/21/2025 10:30 AM EDT Imaging Vascular Lab, [address], [address] [place] [address] 04/21/2025 11:30 AM EDT Imaging Vascular Lab, [address], [address] [place] [address] 04/21/2025 12:30 PM EDT Office Visit Vascular Surgery, [facility] [address] [place] [address] Scott Mckay MD [address] [place] [address] Health Maintenance Due Date Last Done Comments [...] ( season) 2024 Influenza Vaccine (FLU shot) (#1) 2024 11/17/2020, 08/08/2012, 08/23/2010, Additional history exists GFR 11/13/2024 05/14/2024, 1203/2023, 10/28/2023, Additional history exists HbA1c 11/13/2024 05/14/2024, 10/02, 06/03/2023, Additional history exists CKD HGB USE SMARTSET 45788 11/18/202411/18, 11/18/2023, 11/04/2023, Additional history exists CKD PHOS USE SMARTSET 94515 11/18/202411/01, 05/22/2022, 05/23/2021, Additional history exists Depression Screening 09/25/2025 09/25/2024 Colonoscopy Discontinued 05/30/2021, 05/30/2021 Colorectal Cancer Screening [...] Not on filedocumented as of this encounter Advance Directives * No Code (Latest Code Status on File) Date Activated Date Inactivated Comments 10/11/2023 4:12 PM 10/18/2023 7:36 PM This order reflects the patients wishes and were consensually agreed upon. Question Answer Comments Discussion of Advance Direct brittany occurred with: Power of Wet Char Conveyor Tender/Patient Industrial Security Analyst Does the patient have a Living Will? No Does the patient have Health Care Power of Wet Char Conveyor Tender? No * Full Code Date Activated Date [...] patient or by statute hierarchy) Care Teams Manager Intranet Relationship Specialty Start Date End Date Juan Ramon Thurman MD [address] [place] [address] PCP - General Family Medicine 11/14/23 documented as of this encounter
--- OUTSIDE RECORDS SUMMARY | 2025-04-14 03:33 | External Medical Summary ---
Author Name Unknown Address Unknown Organization K01[place] [place] [address] [facility] [address] Laboratory Report Ordering Provider Test Date Status EVELIA BORREGO 02/18/2025 08:40:00 Final Observation Date Value Abnormality Reference (Units ) Status HbA1C 02/18/2025 08:40:00 6.0 Above high normal 4. 0-5.6 (%) Final The use of HbA1c to monitor glycemic status is based on normal hemoglobin and HbA composition. This test should not be used in patients with abnormal hemoglobin that affects the half life of the red blood cell or the in vivo glycation rates. Glucose, estimated average 02/18/2025 08:40:00 126 Above high normal <126 (mg/dL) Vicente marcos Performing Location [facility] [place] [address] [facility] [address]
--- OUTSIDE RECORDS SUMMARY | 2025-04-14 03:33 | External Medical Summary ---
Author Name Unknown Address Unknown Organization K01:LABORATORY [facility] [place] - [address] [place] [address] Laboratory Report Ordering Provider Test Date Status OSIEL JAY 02/18/2025 08:40:00 Final Standing order for pt/inr. < br/>Please draw pt/inr every 1 to 4 weeks as requested
Results to [facility] Anticoagulation [facility]

Warfarin Therapy
INR: 2.0-3.0 conventional anticoagulation
INR: 2.5-3.5 high intensity anticoagulation Observation Date Value Abnormality Reference (Units ) Status PT 02/18/2025 08:40:00 23.2 Above high normal 11 .6-15.2 (seconds) Final INR 02/18/2025 08:40:00 2.0 Above high normal 0. 8-1.2 Final Performing Location LABORATORY [facility] [place] - [address] [place] [address]
--- OUTSIDE RECORDS SUMMARY | 2025-04-14 03:33 | External Medical Summary ---
Author Name Unknown Address Unknown Organization K01:LABORATORY [facility] [place] - [address] [place] [address] Laboratory Report Ordering Provider Test Date Status EVELIA BORREGO 02/18/2025 08:40:00 Final Observation Date Value Abnormality Reference (Units ) Status BUN 02/18/2025 08:40:00 17 6-20 (mg/dL) Final Creatinine 02/18/2025 08:40:00 0.9 0.6-1.2 (mg/dL) Final Glomerular filtration rate/1.73 sq M.predicted [Volume Rate/Area] in Serum, Plasma or Blood by Creatinine-based formula (CKD-EPI) 02/18/2025 08:40:00 85 >=60 (mL/min) Final eGFR is calculated based on the CKD-EPI 2020 equation. Sodium 02/18/2025 08:40:00 143 135-146 (m mol/L) Final Potassium 02/18/2025 08:40:00 3.9 3.5-5.1 (m mol/L) Final Cl 02/18/2025 08:40:00 105 98-107 (mm ol/L) Final CO2 02/18/2025 08:40:00 27 22-32 (mmo l/L) Final Anion gap 02/18/2025 08:40:00 11 7-15 (mmol /L) Final Glucose 02/18/2025 08:40:00 95 70-120 (mg /dL) Final Albumin 02/18/2025 08:40:00 4.0 3.8-5.0 (g /dL) Final AST (Aspartate aminotransferase) 02/18/2025 08:40:00 17 10-50 (U/L) Fin al Alk Phos 02/18/2025 08:40:00 238 Above high normal 35 -130 (U/L) Final Bilirubin, Total 02/18/2025 08:40:00 0.9 <=1 .2 (mg/dL) Final Calcium 02/18/2025 08:40:00 8.7 8.4-10.2 ( mg/dL) Final Protein 02/18/2025 08:40:00 6.6 6.0-8.3 (g /dL) Final ALT (Alanine aminotransferase) 02/18/2025 08:40:00 16 10-50 (U/L) Vicente marcos Performing Location LABORATORY [facility] [place] - [address] [facility] [address]
--- OUTSIDE RECORDS SUMMARY | 2025-04-14 03:33 | External Medical Summary | Summary of Care ---
Author Name Unknown Organization [facility] Address [address] [facility] [place] [address] Phone [phone] Care Team Providers Care Wrecking Mechanic Name Role Phone Juan Ramon Thurman MD Primary Care Provider [phone] Reason for Visit * Reason Onset Date Comments Medication Refill 02/04/2025 Encounter Details Date Type Department Care Team (Late st Contact Info) Description 02/04/2025 Refill Family Practice [facility] [address] [place] [address] Juan Ramon Thurman MD [address] [place] [address] Spinal stenosis of lumbar region with neurogenic claudication; Bilateral lumbar radiculopathy Allergies No known active allergiesdocumented as of this encounter (statuses as of 02/04/2025) Medications Aspirin 81 MG Oral Tablet Delayed Release (Aspirin Low Dose) take 1 tablet by mouth once daily 100 Tab 3 07/19/20 21 Active Ergocalciferol 1.25 MG (68742 UT) Oral Capsule Take 1 Capsule by [...] 24 Active Carvedilol 25 MG Oral Tablet (Coreg)Indicatio ns:HTN, goal below 130/80 TAKE 1 TABLET BY MOUTH TWICE DAILY WITH MORNING MEAL AND WITH EVENING MEAL 180 Tablet 3 09/27/20 24 Active Atorvastatin Calcium 40 MG Oral Tablet (Lipitor)Indicat ions:Dyslipidemi a TAKE 1 TABLET BY MOUTH ONCE DAILY IN THE MORNING 90 Tablet 3 09/27/20 24 Active Ezetimibe 10 MG Oral Tablet (Zetia)Indicatio ns:Dyslipidemia TAKE 1 TABLET BY MOUTH ONCE DAILY IN THE MORNING 90 Tablet 3 09/27/20 24 Active Finasteride 5 MG Oral Tablet (Proscar)Indicat [...] every evening. Or as instructed by the [facility] 90 Tablet 3 01/18/20 25 Active Allopurinol 300 MG Oral Tablet (Zyloprim)Indica tions:Idiopathic chronic gout of foot without tophus, unspecified laterality TAKE 1 TABLET BY MOUTH ONCE DAILY IN THE MORNING 90 Tablet 1 01/28/20 25 Active Gabapentin 300 MG Oral Capsule (Neurontin)Indic ations:Spinal stenosis of lumbar region with neurogenic claudication,Femi ateral lumbar radiculopathy TAKE 1 CAPSULE BY MOUTH ONCE DAILY IN THE MORNING AND 1 ONCE DAILY AT BEDTIME 60 Capsule 1 02/05/20 25 Active Gabapentin 300 MG Oral Capsule (Neurontin)Indic ations:Spinal stenosis of lumbar region with neurogenic claudication,Femi ateral lumbar radiculopathy TAKE 1 CAPSULE BY MOUTH ONCE DAILY IN THE MORNING AND 1 ONCE DAILY AT BEDTIME 60 Capsule 01/04/20 25 025 Discontin ued(Refil l) documented as of this encounter (statuses as of 02/04/2025) Active Problems Problem Noted Date Diagnosed Date [...] as of this encounter (statuses as of 02/04/2025) Resolved Problems Problem Noted Date Diagnosed Date [...] as of this encounter (statuses as of 02/04/2025) Immunizations Name Administration Dates Next Due Pneumococcal Polysaccharide PPV23 (Pneumovax) 01/12/2021,09/09/2007 Season Influenza, Quad, PF, Adjuvanted, 65+ Yrs, IM (FLUAD) 11/17/2020 Seasonal Influenza Vac., MDV , IM, 0.5 mL (Fluzone) 08/08/2012,08/23/2010,10/07/2008,10/08/2007,12/10/2006 08/23/2011 TDAP (age 10 and older)(Boostrix) 02/09/2013 documented as of this encounter Social History Tobacco Use Types Packs/Day Years Used Date Smoking Tobacco: Never Smokeless Tobacco: Current Chew Comments:chews 1 cans each w [place], not at this time in nursing facility [...] 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 Did you pend patient's preferred pharmacy and medication before forwarding?yes Pharmacy: [facility] [address] [facility] Pending Prescriptions: Disp Refills Gabapentin 300 MG Oral Capsule (Neurontin)60 Cap*1 Sig: TAKE 1 CAPSULE BY MOUTH ONCE DAILY IN THE MORNING AND 1 ONCE DAILY AT BEDTIME Last Visit: 08/10/2024 (in office), 12/15/2020 (telemedicine) Next Visit: 02/16/2025 If no future appointments scheduled, and last appointment is greater than a year ago, please schedule patient for a follow-up appointment Last date the medication was ordered: 01/04/25 Is this request for a controlled substance?No Urine Drug Screen:No results found for this or any previous visit. Patient Phone Numbers Labs: Lab Results Component Value Date/Time CREAT 1.0 05/14/2024 09:22 AM CREAT 1.29 05/22/2022 12:00 AM CREAT 1.5 (H) 05/24/2020 12:02 PM POTASSIUM 4.3 05/14/2024 09:22 AM POTASSIUM 4.1 10/11/2023 01:56 PM POTASSIUM 3.9 05/22/2022 12:00 AM POTASSIUM 4.3 05/24/2020 12:02 PM TSH 11.744 (A) 05/22/2022 12:00 AM TSH 4.44 (H) 07/10/2017 04:55 PM LDL 53 10/08/2024 08:55 AM LDL 128 06/07/2020 01:54 PM LDL NOT APPLICABLE 06/07/2020 01:54 PM ALT 22 05/14/2024 09:22 AM ALT 29 07/10/2017 04:55 PM HGBA1C 5.8 (H) 05/14/2024 06:22 AM HGBA1C 6.0 (H) 06/07/2020 01:54 PM documented in this encounter Plan of Treatment Upcoming Encounters Date Type Department Care Team (Late st Contact Info) Description 02/15/2025 7:05 AM EDT Laboratory Lab Mobile Phlebotomy [address] [place] [address] [facility] Home Draw [address] [place] [address] [place] [address] 02/16/2025 6:00 AM EDT Anticoagulation Centralized Clinical Pharmacy Services, Eunice Rich [address] [place] [address] [place] [address] [facility], [address] [place] [address] 02/16/2025 4:00 PM EDT Office Visit Family Practice [facility] [address] [place] [address] Juan Ramon Thurman MD [address] [place] [address] 04/21/2025 9:30 AM EDT Imaging Vascular Lab, [address] [place] [address] 04/21/2025 10:30 AM EDT Imaging Vascular Lab, [address], [place] [address] [place] [address] 04/21/2025 11:30 AM EDT Imaging Vascular Lab, [facility] 2nd Floor, [place] [address] [place] [address] 04/21/2025 12:30 PM EDT Office Visit Vascular Surgery, [facility] [address] [place] [address] Scott Mckay MD [address] [place] [address] Health Maintenance Due Date Last Done [...] 08/23/2010, Additional history exists GFR 11/13/2024 05/14/2024, 03/2023, 10/28/2023, Additional history exists HbA1c 11/13/2024 05/14/2024, 10/02, 06/03/2023, Additional history exists CKD HGB USE SMARTSET 80098 11/18/202411/18, 11/18/2023, 11/04/2023, Additional history exists CKD PHOS USE SMARTSET 36796 11/18/202411/01, 05/22/2022, 05/23/2021, Additional history exists Depression [...] Advance Direct brittany occurred with: Power of Route Clerk/Patient Recreation Programmer Does the patient have a Living Will? No Does the patient have Health Care Power of Route Clerk? No * Full Code Date Activated Date [...] patient or by statute hierarchy) Care Teams Wrecking Mechanic Relationship Specialty Start Date End Date Juan Ramon Thurman MD [address] [address] PCP - General Family Medicine 11/14/23 documented as of this encounter
--- OUTSIDE RECORDS SUMMARY | 2025-04-14 03:33 | External Medical Summary | Summary of Care ---
Author Name Unknown Organization [facility] Address [address] [facility] [place] [address] Phone [phone] Care Team Providers Care Compliance Field Technician Name Role Phone Juan Ramon Thurman MD Primary Care Provider [phone] [phone] Reason for Visit * Reason Comments Dosage Adjustment Via Phone (anticoag Cl inic) Encounter Details Date Type Department Care Team (Late st Contact Info) Description 03/12/2025 6:00 AM EDT Anticoagulation Centralized Clinical Pharmacy Services, Eunice Rich [address] [place] [address] [place] [address] [facility], [address] [place] [address] History of CVA (cerebrovascular accident)*; History of pulmonary embolism Allergies No known active allergiesdocumented as of this encounter (statuses as of 03/12/2025) Medications Aspirin 81 MG Oral Tablet Delayed Release (Aspirin Low Dose) take 1 tablet by mouth once daily 100 Tab 3 07/19/20 21 Active Ergocalciferol 1.25 MG (48999 UT) Oral Capsule Take 1 Capsule by [...] every evening. 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 Not on [...] documented in this encounter Progress Notes * Mahnaz Go CPhT - 03/12/2025 9:03 AM EDT Contacts Contact Date/Time Type Contact Phone/Fax 03/12/2025 04:00 AM EDT Email SMS () [phone] Patient not accepting updates 03/12/2025 09:02 AM EDT Phone (Outgoing) Jeannine Lawson (Self) [phone] (M) Spoke to Patient Subjective Patient Findings Negatives: Signs/symptoms of bleeding, Change in health, Change in activity, Upcoming invasive procedure, Missed doses, Extra doses, Change in medications, Change in diet/appetite, Bruising Advised patient to contact Anticoagulation Clinic if any unusual bruising or bleeding, recent illness, changes in medication, or questions/concerns. PT/INR results, Coumadin dose instructions, and next PT/INR date communicated as noted by Pharmacist: Yes MAHNAZ GO CPhT 03/12/2025, 9:03 AM * Fang Gonsales RPh - 03/12/2025 8:50 AM EDT Coumadin Clinic (region specific) Objective Current Warfarin Dose As of 03/12/2025 Warfarin maintenance plan: 4 mg (4 mg x 1) every Fri; 2 mg (4 mg x 0.5) all other days INR Result As of 03/12/2025 INR goal: 2.0-3.0 INR used for dosin.3 (03/11/2025) Assessment & Plan Warfarin Plan As of 03/12/2025 Full warfarin instructions: 4 mg every Fri; 2 mg all other days No change documented: Fang Gonsales RPh Next INR check: 04/08/2025 Repeat PT/INR in 4 week(s) Weekly dose: not changed Additional Dosing Information: Description GML- M,T,Th Tech to contact patient with dose instructions as noted. Fang Gonsales RPh 03/12/2025, 8:50 AM documented in this encounter Plan of Treatment Upcoming Encounters Date Type Department Care Team (Late st Contact Info) Description 04/06/2025 8:40 AM EDT Office Visit [facility] [address] [facility] [place] [address] Juan Ramon Thurman MD [address] [place] [address] 04/09/2025 6:00 AM EDT Anticoagulation Centralized Clinical Pharmacy Services, Enuice Rich [address] [place] [address] [place] [address] [facility], [address] [place] [address] 04/21/2025 9:30 AM EDT Imaging Vascular Lab, [address], [place] [address] [address] [place] [id number] 04/21/2025 10:30 AM EDT Imaging Vascular Lab, [address], [place] [address] [place] [address] 04/21/2025 11:30 AM EDT Imaging Vascular Lab, [address], [place] [address] [place] [address] 04/21/2025 12:30 PM EDT Office Visit Vascular Surgery, [facility] [address] [place] [phone] Scott Mckay MD [address] [place], [place] [address] Health Maintenance Due Date Last Done Comments [...] Screening 09/25/2025 09/25/2024 CKD HGB USE SMARTSET 40246 02/18/202602/18, 11/18/2023, 11/18/2023, Additional history exists CKD PHOS USE SMARTSET 11579 02/18/2026 03/, 11/18/2023, 05/22/2022, Additional history exists [...] Advance Direct brittany occurred with: Power of Manager Of School/Patient Stamp Analyst Does the patient have a Living Will? No Does the patient have Health Care Power of Manager Of School? No * Full Code Date Activated Date [...] patient or by statute hierarchy) Care Teams Compliance Field Technician Relationship Specialty Start Date End Date Juan Ramon Thurman MD [address] [place] [address] PCP - General Family Medicine 11/14/23 documented as of this encounter
--- OUTSIDE RECORDS SUMMARY | 2025-04-14 03:33 | External Medical Summary | Summary of Care ---
Author Name Unknown Organization [facility] Address [address] [place] [address] Phone [phone] Care Team Providers Care Retort Furnace Helper Name Role Phone Juan Ramon Thurman MD Primary Care Provider [phone] Reason for Visit * Reason Onset Date Comments Appointment 01/29/2025 Vascular Study 01/29/2025 Encounter Details Date Type Department Care Team (Late st Contact Info) Description 01/29/2025 Telephone Vascular Surgery, [facility] 132 [facility] [place] [address] Dougie Walter PA-C [address] [place] [address] Appointment; Vascular Study Allergies No known active allergiesdocumented as of this encounter (statuses as of 02/01/2025) Medications Aspirin 81 MG Oral Tablet Delayed Release (Aspirin Low Dose) take 1 tablet by mouth once daily 100 Tab 3 07/19/20 21 Active Ergocalciferol 1.25 MG (62385 UT) Oral Capsule Take 1 Capsule by [...] every evening. 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 Answer Date of Assessment Author Yes 10/11/2023 11:55 PM EST Renetta Krishnamurthy i, RN * Are you blind or [...] encounter Miscellaneous Notes * Telephone Encounter - Dougie Walter PA-C - 02/01/2025 7:56 AM EST OK, that makes total sense I told Mr. Lawson' son that we are down a technical producer so likelihood of same day vascular studies [...] 1:40 PM * Telephone Encounter - Dougie Watler PA-C - 01/29/2025 1:26 PM EST See [...] 01/27, in preparation for 02/03 return @ [facility] I called pt, his son answered the call He thought labs were for next week He asked if labs and visit can be re-scheduled to be done on same day. See if s has room to have labs done next Wed, prior to 1:30 appointment If unable, re-schedule both labs and visit, all on same day Thank you ALEX documented in this encounter Plan of Treatment Upcoming Encounters Date Type Department Care Team (Late st Contact Info) Description 02/02/2025 6:00 AM EST Anticoagulation Centralized Clinical Pharmacy Services, Eunice Rich [address] [place] [address] [place] [address] [facility], [address] [place] [address] 02/03/2025 1:30 PM EST Office Visit Vascular Surgery, [facility] 132 [facility] [place] [address] Scott Mckay MD [address] [place] [address] 02/16/2025 4:00 PM EDT Office Visit Family Practice [facility] [address] [facility] [place] [address] Juan Ramon Thurman MD 132 [facility] [place] [address] 04/21/2025 9:30 AM EDT Imaging Vascular Lab, [address] [place] [address] 04/21/2025 10:30 AM EDT Imaging Vascular Lab, [address] [place] [address] 04/21/2025 11:30 AM EDT Imaging Vascular Lab, [address] [place] [address] 04/21/2025 12:30 PM EDT Office Visit Vascular Surgery, [facility] [address] [place] [address] Scott Mckay MD [address] [facility] [place] [address] Health Maintenance Due Date Last Done Comments [...] Additional history exists CKD HGB USE SMARTSET 23533 11/18/202411/18, 11/18/2023, 11/04/2023, Additional history exists CKD PHOS USE SMARTSET 32428 11/18/202411/01, 05/22/2022, 05/23/2021, Additional history exists Depression [...] Advance Direct brittany occurred with: Power of Ammonium Hydroxide Operator/Patient Senior Radiation Protection Technician Does the patient have a Living Will? No Does the patient have Health Care Power of Ammonium Hydroxide Operator? No * Full Code Date Activated [...] patient or by statute hierarchy) Care Teams Retort Furnace Helper Relationship Specialty Start Date End Date Juan Ramon Thurman MD [address] [place] [address] PCP - General Family Medicine 11/14/23 documented as of this encounter
--- OUTSIDE RECORDS SUMMARY | 2025-04-14 03:33 | External Medical Summary ---
Author Name Unknown Address Unknown Organization K01:[facility] [address] [place] [address] Laboratory Report Ordering Provider Test Date Status EVELIA BORREGO 02/18/2025 08:40:00 Final Observation Date Value Abnormality Reference (Units ) Status Phosphate 02/18/2025 08:40:00 3.8 2.5-4.8 (m g/dL) Final Performing Location [facility] [address] [place] [address]
--- OUTSIDE RECORDS SUMMARY | 2025-04-14 03:33 | External Medical Summary | Summary of Care ---
Author Name Unknown Organization [facility] Address [address] [place] [address] Phone [phone] Care Team Providers Care Cyber Policy And Strategy Planner Name Role Phone Juan Ramon Thurman MD Primary Care Provider [phone] [phone] Reason for Visit * Reason Onset Date Comments Appointment 01/29/2025 Vascular Study 01/29/2025 Encounter Details Date Type Department Care Team (Late st Contact Info) Description 01/29/2025 Telephone Vascular Surgery, [facility] 132 [facility] [place] [address] Dougie Walter PA-C [address] [place] [address] Appointment; Vascular Study Allergies No known active allergiesdocumented as of this encounter (statuses as of 02/01/2025) Medications Aspirin 81 MG Oral Tablet Delayed Release (Aspirin Low Dose) take 1 tablet by mouth once daily 100 Tab 3 07/19/20 21 Active Ergocalciferol 1.25 MG (23181 UT) Oral Capsule Take 1 Capsule by [...] every evening. 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 See if [facility] has room to have labs done next Wed, prior to 1:30 appointment If unable, re-schedule both labs and visit, all on same day Thank you ALEX documented in this encounter Plan of Treatment Upcoming Encounters Date Type Department Care Team (Late st Contact Info) Description 02/02/2025 6:00 AM EST Anticoagulation Centralized Clinical Pharmacy Services, Eunice Rich [address] [place] [address] [place] [address] [place] [address] 02/16/2025 4:00 PM EDT Office Visit Family Practice [facility] 132 [place] [address] Juan Ramon Thurman MD 132 [place] [address] 04/21/2025 9:30 AM EDT Imaging Vascular Lab, [facility] 2nd [facility], [address] [place] [address] 04/21/2025 10:30 AM EDT Imaging Vascular Lab, [address], [address] [place] [address] 04/21/2025 11:30 AM EDT Imaging Vascular Lab, [address], [address] [place] [address] 04/21/2025 12:30 PM EDT Office Visit Vascular Surgery, [facility] [address] [place] [address] Scott Mckay MD [address] [place] [address] Health Maintenance Due Date Last Done Comments [...] Additional history exists CKD HGB USE SMARTSET 09611 11/18/202411/18, 11/18/2023, 11/04/2023, Additional history exists CKD PHOS USE SMARTSET 08838 11/18/202411/01, 05/22/2022, 05/23/2021, Additional history exists Depression [...] Advance Direct brittany occurred with: Power of Rug Sizer/Patient Coal Conveyor Operator Does the patient have a Living Will? No Does the patient have Health Care Power of Rug Sizer? No * Full Code Date Activated Date [...] patient or by statute hierarchy) Care Teams Cyber Policy And Strategy Planner Relationship Specialty Start Date End Date Juan Ramon Thurman MD [address] [place] [address] PCP - General Family Medicine 11/14/23 documented as of this encounter
--- OUTSIDE RECORDS SUMMARY | 2025-04-14 03:33 | External Medical Summary ---
Author Name Unknown Address Unknown Organization K0G:[facility] [place] [address] [place] [address] Laboratory Report Ordering Provider Test Date Status OSIEL JAY 03/11/2025 08:52:00 Final Standing order for pt/inr. < br/>Please draw pt/inr every 1 to 4 weeks as requested
Results to [facility]

Warfarin Therapy
INR: 2.0-3.0 conventional anticoagulation
INR: 2.5-3.5 high intensity anticoagulation Observation Date Value Abnormality Reference (Units ) Status PT 03/11/2025 08:52:00 25.3 Above high normal 11 .6-15.2 (seconds) Final INR 03/11/2025 08:52:00 2.3 Above high normal 0. 8-1.2 Final Performing Location [facility] [place] [address] - [address] [place] [address]
--- OUTSIDE RECORDS SUMMARY | 2025-04-14 03:33 | External Medical Summary | Summary of Care ---
Author Name Unknown Organization [facility] Address [address] [facility] [place] [address] Phone [phone] Care Team Providers Care Client Service Representative Name Role Phone Juan Ramon Thurman MD Primary Care Provider [phone] [phone] Reason for Visit * Reason Comments Dosage Adjustment Via Phone (anticoag Cl inic) Encounter Details Date Type Department Care Team (Late st Contact Info) Description 02/02/2025 6:00 AM EST Anticoagulation Centralized Clinical Pharmacy Services, Eunicelinsey Rich [address] [place] [address] [place] [address] [facility], [address] [place] [address] History of CVA (cerebrovascular accident)*; History of pulmonary embolism Allergies No known active allergiesdocumented as of this encounter (statuses as of 02/02/2025) Medications Aspirin 81 MG Oral Tablet Delayed Release (Aspirin Low Dose) take 1 tablet by mouth once daily 100 Tab 3 07/19/20 21 Active Ergocalciferol 1.25 MG (38848 UT) Oral Capsule Take 1 Capsule by [...] every evening. Or as instructed by the [facility] Coumadin Clinic 90 Tablet 3 01/18/20 25 Active Allopurinol 300 MG Oral Tablet (Zyloprim)Indicat ions:Idiopathic chronic gout of foot without tophus, unspecified laterality TAKE 1 TABLET BY MOUTH ONCE DAILY IN THE MORNING 90 Tablet 1 01/28/20 25 Active documented as of this encounter (statuses as of 02/02/2025) Active Problems Problem Noted Date Diagnosed Date [...] as of this encounter (statuses as of 02/02/2025) Resolved Problems Problem Noted Date Diagnosed Date [...] as of this encounter (statuses as of 02/02/2025) Immunizations Name Administration Dates Next Due Pneumococcal [...] Current Chew Comments:chews 1 cans each w [place], not at this time in nursing facility [...] 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 Clinical Pharmacist Centralized Clinical [facility]acy Services ([facility]) [phone] 02/02/2025,9:44 AM * Ronny Schroeder CPhT - 02/02/2025 9:31 AM EST Contacts Contact Date/Time Type Contact Phone/Fax 02/02/2025 09:23 AM EST Phone (Outgoing) Cuco Powell (Emergency Contact) [phone] (M) Spoke to Patient - Spoke with patient's son Cuco Subjective Patient Findings Positives: Other complaints (Per patient's son Cuco on 01/19 he stated he has been doing 4MG on Mon and Fri 2MG all other days but he had dosing wrong he was giving 4MG on Saturday only and 2MG all other days. Advised patient to continue dosing since INR is within range and retest 02/15.) Negatives: Signs/symptoms of thrombosis, Signs/symptoms of bleeding, Change in health, Change in alcohol use, Change in activity, Upcoming invasive procedure, Missed doses, Extra doses, Change in medications, Change in diet/appetite, Bruising Advised patient to contact Anticoagulation Clinic if any unusual bruising or bleeding, recent illness, changes in medication, or questions/concerns. PT/INR results, Coumadin dose instructions, and next PT/INR date communicated as noted by Pharmacist: Yes RONNY SCHROEDER CPhT 02/02/2025, 9:31 AM * Farideh Delgado RPh - 02/02/2025 8:41 AM EST Coumadin Clinic (region specific) Objective Current Warfarin Dose As of 02/02/2025 Warfarin maintenance plan: 4 mg (4 mg x 1) every Mon, Fri; 2 mg (4 mg x 0.5) all other days INR Result As of 02/02/2025 INR goal: 2.0-3.0 INR used for dosin.1 (02/01/2025) Assessment & Plan Warfarin Plan As of 02/02/2025 Full warfarin instructions: 4 mg every Mon, Fri; 2 mg all other days No change documented: Farideh Delgado RPh Next INR check: 02/15/2025 Repeat PT/INR in 2 week(s) Weekly dose: not changed Additional Dosing Information: Description GML- M,T,Th Tech to contact patient with dose instructions as noted. Farideh Delgado RPh 02/02/2025, 8:41 AM documented in this encounter Plan of Treatment Upcoming Encounters Date Type Department Care Team (Late st Contact Info) Description 02/16/2025 6:00 AM EDT Anticoagulation Centralized Clinical Pharmacy Services, Eunice Rich [address] [place] [address] [place] [address] [facility], [address] [place] [address] 02/16/2025 4:00 PM EDT Office Visit Family Practice [facility] [address] [facility] [place] [address] Juan Ramon Thurman MD 132 [facility] [place] [address] 04/21/2025 9:30 AM EDT Imaging Vascular Lab, [address] [place] [address] 04/21/2025 10:30 AM EDT Imaging Vascular Lab, [address] [place] [address] 04/21/2025 11:30 AM EDT Imaging Vascular Lab, [address] 132 [facility] [place] [address] 04/21/2025 12:30 PM EDT Office Visit Vascular Surgery, [facility] [address] [facility] [place] [address] Scott Mckay MD [address] [place] [address] Health Maintenance Due Date Last Done Comments [...] Additional history exists CKD HGB USE SMARTSET 96840 11/18/202411/18, 11/18/2023, 11/04/2023, Additional history exists CKD PHOS USE SMARTSET 12947 11/18/202411/01, 05/22/2022, 05/23/2021, Additional history exists Depression [...] Advance Direct brittany occurred with: Power of Eating Disorder Psychologist/Patient Cadd Technician Does the patient have a Living Will? No Does the patient have Health Care Power of Eating Disorder Psychologist? No * Full Code Date Activated Date [...] patient or by statute hierarchy) Care Teams Client Service Representative Relationship Specialty Start Date End Date Juan Ramon Thurman MD 132 [place] [address] PCP - General Family Medicine 11/14/23 documented as of this encounter
--- OUTSIDE RECORDS SUMMARY | 2025-04-14 03:33 | External Medical Summary ---
Author Name Unknown Address Unknown Organization [id number]:[facility]ATORY [facility] - [facility] [address] [facility] [address] Laboratory Report Ordering Provider Test Date Status EVELIA BORRGEO 02/18/2025 08:40:00 Final Observation Date Value Abnormality Reference (Units ) Status WBC, Total 02/18/2025 08:40:00 8.80 4.00-10.80 (K/uL) Final RBC 02/18/2025 08:40:00 5.26 4.50-5.25 (M/uL) Final Hemoglobin 02/18/2025 08:40:00 15.9 14.0-16.8 (g/dL) Final HCT 02/18/2025 08:40:00 51.4 Above high normal 40.0-48.4 (%) Final MCV 02/18/2025 08:40:00 97.7 82.0-99.5 (fL) Final MCH 02/18/2025 08:40:00 30.2 27.0-34.0 (pg) Final MCHC 02/18/2025 08:40:00 30.9 32.0-36.0 (g/dL) Final RDW 02/18/2025 08:40:00 15.7 11.5-15.5 (%) Final Platelets 02/18/2025 08:40:00 184 140-400 (K/uL) Final MPV 02/18/2025 08:40:00 11.3 6.6-11.1 (fL) Final Nucleated erythrocytes/100 leukocytes [Ratio] in Blood by Automated count 02/18/2025 08:40:00 0 <=0 (/100 WBCs) Final Performing Location LAB[facility]ORY [facility] - [address] [place] [address]
--- OUTSIDE RECORDS SUMMARY | 2025-04-14 03:33 | External Medical Summary | Summary of Care ---
Author Name Unknown Organization [facility] Address [address] [place] [address] Phone [phone] Care Team Providers Care Receiving And Processing Supervisor Name Role Phone Juan Ramon Thurman MD Primary Care Provider [phone] Reason for Visit * Reason Onset Date Comments Appointment 01/29/2025 Vascular Study 01/29/2025 Encounter Details Date Type Department Care Team (Late st Contact Info) Description 01/29/2025 Telephone Vascular Surgery, [facility] [address] [facility] [place] [address] Dougie Walter PA-C [address] [place] [address] Appointment; Vascular Study Allergies No known active allergiesdocumented as of this encounter (statuses as of 02/01/2025) Medications Aspirin 81 MG Oral Tablet Delayed Release (Aspirin Low Dose) take 1 tablet by mouth once daily 100 Tab 3 07/19/20 21 Active Ergocalciferol 1.25 MG (35200 UT) Oral Capsule Take 1 Capsule by [...] every evening. 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 Lawson' son that we are down a senior process control tech so likelihood of same day vascular studies [...] 01/27, in preparation for 02/03 return @ [facility] I called pt, his son answered the call He thought labs were for next week He asked if labs and visit can be re-scheduled to be done on same day. See if [facility] has room to have labs done next Wed, prior to 1:30 appointment If unable, re-schedule both labs and visit, all on same day Thank you ALEX documented in this encounter Plan of Treatment Upcoming Encounters Date Type Department Care Team (Late st Contact Info) Description 02/02/2025 6:00 AM EST Anticoagulation Centralized Clinical Pharmacy Services, Enuice Rich [address] [place] [address] [place] [address] [place] [address] 02/16/2025 4:00 PM EDT Office Visit Family Practice [facility] 132 [place] [address] Juan Ramon Thurman MD 132 [place] [address] 04/21/2025 9:30 AM EDT Imaging Vascular Lab, [facility], [address] [place] [address] 04/21/2025 10:30 AM EDT Imaging Vascular Lab, [address], [address] [place] [address] 04/21/2025 11:30 AM EDT Imaging Vascular Lab, [address], [address] [place] [address] 04/21/2025 12:30 PM EDT Office Visit Vascular Surgery, [facility] [address] [place] [address] Scott Mckay MD [address] [place] [address] Health Maintenance Due Date Last Done Comments [...] Additional history exists CKD HGB USE SMARTSET 95406 11/18/202411/18, 11/18/2023, 11/04/2023, Additional history exists CKD PHOS USE SMARTSET 95404 11/18/202411/01, 05/22/2022, 05/23/2021, Additional history exists Depression [...] Advance Direct brittany occurred with: Power of Radio Installer Automobile/Patient Machine Learning Intern Does the patient have a Living Will? No Does the patient have Health Care Power of Radio Installer Automobile? No * Full Code Date Activated Date [...] patient or by statute hierarchy) Care Teams Receiving And Processing Supervisor Relationship Specialty Start Date End Date Juan Ramon Thurman MD 132 [place] [address] PCP - General Family Medicine 11/14/23 documented as of this encounter
--- OUTSIDE RECORDS SUMMARY | 2025-04-14 03:33 | External Medical Summary | Summary of Care ---
Author Name Unknown Organization [facility] Address [address] [facility] [place] [address] Phone [phone] Care Team Providers Care Patient Services Assistant Name Role Phone Juan Ramon Thurman MD Primary Care Provider [phone] [phone] Reason for Visit * Reason Comments Dosage Adjustment Via Phone (anticoag Cl inic) Encounter Details Date Type Department Care Team (Late st Contact Info) Description 02/19/2025 6:00 AM EDT Anticoagulation Centralized Clinical Pharmacy Services, Eunice Rich [address] [place] [address] [place] [address] [facility], [address] [place] [address] History of CVA (cerebrovascular accident)*; History of pulmonary embolism Allergies No known active allergiesdocumented as of this encounter (statuses as of 02/19/2025) Medications Aspirin 81 MG Oral Tablet Delayed Release (Aspirin Low Dose) take 1 tablet by mouth once daily 100 Tab 3 07/19/20 21 Active Ergocalciferol 1.25 MG (50114 UT) Oral Capsule Take 1 Capsule by [...] every evening. 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 PT/INR results, Coumadin dose instructions, and next PT/INR date communicated as noted by Pharmacist: Yes DIANNA BRAY CPhT 02/19/2025, 8:07 AM * Farideh Delgado RPh - 02/19/2025 7:58 AM EDT Coumadin Clinic (region specific) Objective Current Warfarin Dose As of 02/19/2025 Warfarin maintenance plan: 4 mg (4 mg x 1) every Fri; 2 mg (4 mg x 0.5) all other days INR Result As of 02/19/2025 INR goal: 2.0-3.0 INR used for dosin.0 (02/18/2025) Assessment & Plan Warfarin Plan As of 02/19/2025 Full warfarin instructions: 4 mg every Fri; 2 mg all other days No change documented: Farideh Delgado RPh Next INR check: 03/11/2025 Repeat PT/INR in 3 week(s) Weekly dose: not changed Additional Dosing Information: Description L- M,T,Th Tech to contact patient with dose instructions as noted. Farideh Delgado RPh 02/19/2025, 7:58 AM documented in this encounter Plan of Treatment Upcoming Encounters Date Type Department Care Team (Late st Contact Info) Description 03/12/2025 6:00 AM EDT Anticoagulation Centralized Clinical Pharmacy Services, Eunice Rich [address] [place] [address] [place] [address] [place] [address] 04/06/2025 8:40 AM EDT Office Visit Family Practice [facility] [address] [place] [address] Juan Ramon Thurman MD [address] [place] [address] 04/21/2025 9:30 AM EDT Imaging Vascular Lab, [facility] [address] [facility], [place] [address] [place] [address] 04/21/2025 10:30 AM EDT Imaging Vascular Lab, [address], [place] [address] [place] [address] 04/21/2025 11:30 AM EDT Imaging Vascular Lab, [address], [place] [address] [place] [address] 04/21/2025 12:30 PM EDT Office Visit Vascular Surgery, [facility] [address] [place] [address] Scott Mckay MD [address] [place] [address] Health Maintenance Due Date Last Done Comments [...] Screening 09/25/2025 09/25/2024 CKD HGB USE SMARTSET 35521 02/18/202602/18, 11/18/2023, 11/18/2023, Additional history exists CKD PHOS USE SMARTSET 97170 02/18/202601/31, 11/18/2023, 05/22/2022, Additional history exists Colonoscopy [...] Advance Direct brittany occurred with: Power of Cloth Winder/Patient Gm/Svp Global Publisher Business Does the patient have a Living Will? No Does the patient have Health Care Power of Cloth Winder? No * Full Code Date Activated Date [...] patient or by statute hierarchy) Care Teams Patient Services Assistant Relationship Specialty Start Date End Date Juan Ramon Thurman MD [address] [place] [address] PCP - General Family Medicine 11/14/23 documented as of this encounter
--- OUTSIDE RECORDS SUMMARY | 2025-04-14 03:34 | External Medical Summary | Summary of Care ---
Author Name Unknown Organization [facility] Address [address] [place] [address] Phone [phone] Care Team Providers Care Ball Ender Name Role Phone Juan Ramon Thurman MD Primary Care Provider [phone] [phone] Reason for Visit * Reason Onset Date Comments Appointment 01/29/2025 Vascular Study 01/29/2025 Encounter Details Date Type Department Care Team (Late st Contact Info) Description 01/29/2025 Telephone Vascular Surgery, [facility] 132 [facility] [place] [address] Dougie Walter PA-C [address] [place] [address] Appointment; Vascular Study Allergies No known active allergiesdocumented as of this encounter (statuses as of 01/29/2025) Medications Aspirin 81 MG Oral Tablet Delayed Release (Aspirin Low Dose) take 1 tablet by mouth once daily 100 Tab 3 07/19/20 21 Active Ergocalciferol 1.25 MG (08875 UT) Oral Capsule Take 1 Capsule by [...] every evening. Or as instructed by the [facility] Coumadin Clinic 90 Tablet 3 01/18/20 25 Active Allopurinol 300 MG Oral Tablet (Zyloprim)Indicat ions:Idiopathic chronic gout of foot without tophus, unspecified laterality TAKE 1 TABLET BY MOUTH ONCE DAILY IN THE MORNING 90 Tablet 1 01/28/20 25 Active documented as of this encounter (statuses as of 01/29/2025) Active Problems Problem Noted Date Diagnosed Date [...] as of this encounter (statuses as of 01/29/2025) Resolved Problems Problem Noted Date Diagnosed Date [...] as of this encounter (statuses as of 01/29/2025) Immunizations Name Administration Dates Next Due Pneumococcal [...] Current Chew Comments:chews 1 cans each w [place], not at this time in nursing facility [...] 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 See if [facility] has room to have labs done next Sat, prior to 1:30 appointment If unable, re-schedule both labs and visit, all on same day Thank you ALEX documented in this encounter Plan of Treatment Upcoming Encounters Date Type Department Care Team (Late st Contact Info) Description 02/01/2025 7:15 AM EST Laboratory Lab Mobile Phlebotomy [address] [place] [address] [place], [facility] Mobile Home Draw [address] [place] [address] [place] [address] 02/02/2025 6:00 AM EST Anticoagulation Centralized Clinical Pharmacy Services, Eunice Rich [address] [place] [address] [place] [address] [facility], [address] [place] [address] 02/03/2025 1:30 PM EST Office Visit Vascular Surgery, [facility] 132 [facility] [place] [address] Scott Mckay MD [address] [place], [place] [address] 02/16/2025 4:00 PM EDT Office Visit Family Practice [facility] [place] [address] Juan Ramon Thurman MD [address] [place] [address] 04/21/2025 9:30 AM EDT Imaging Vascular Lab, [address] [facility] [place] [address] 04/21/2025 10:30 AM EDT Imaging Vascular Lab, [address] [facility] [place] [address] 04/21/2025 11:30 AM EDT Imaging Vascular Lab, [address] [facility] [place] [address] 04/21/2025 12:30 PM EDT Office Visit Vascular Surgery, [facility] [address] [facility] [place] [address] Scott Mckay MD [address] [place] [address] Health Maintenance Due Date Last Done Comments [...] Additional history exists CKD HGB USE SMARTSET 43567 11/18/202411/18, 11/18/2023, 11/04/2023, Additional history exists CKD PHOS USE SMARTSET 16916 11/18/202411/01, 05/22/2022, 05/23/2021, Additional history exists Depression [...] Advance Direct brittany occurred with: Power of Dietary Supervisor/Patient Asbestos Handler Does the patient have a Living Will? No Does the patient have Health Care Power of Dietary Supervisor? No * Full Code Date Activated Date [...] patient or by statute hierarchy) Care Teams Ball Ender Relationship Specialty Start Date End Date Juan Ramon Thurman MD 132 [place] [address] PCP - General Family Medicine 11/14/23 documented as of this encounter
--- OUTSIDE RECORDS SUMMARY | 2025-04-14 03:34 | External Medical Summary ---
Author Name Unknown Address Unknown Organization K0G:LAB[facility]ATORY [place] [address] - [address] [place] [address] Laboratory Report Ordering Provider Test Date Status OSIEL JAY 02/01/2025 08:37:00 Final Standing order for pt/inr. < br/>Please draw pt/inr every 1 to 4 weeks as requested
Results to [facility] Anticoagulation [facility]

Warfarin Therapy
INR: 2.0-3.0 conventional anticoagulation
INR: 2.5-3.5 high intensity anticoagulation Observation Date Value Abnormality Reference (Units ) Status PT 02/01/2025 08:37:00 23.6 Above high normal 11 .6-15.2 (seconds) Final INR 02/01/2025 08:37:00 2.1 Above high normal 0. 8-1.2 Final Performing Location LAB[facility]ORY [place] [address] - [address] [place] [address]
--- OUTSIDE RECORDS SUMMARY | 2025-04-14 03:34 | External Medical Summary | Summary of Care ---
Author Name Unknown Organization [facility] Address [address] [place] [address] Phone [phone] Care Team Providers Care Group Art Supervisor Name Role Phone Juan Ramon Thurman MD Primary Care Provider [phone] Reason for Visit * Reason Onset Date Comments Appointment 01/29/2025 Vascular Study 01/29/2025 Encounter Details Date Type Department Care Team (Late st Contact Info) Description 01/29/2025 Telephone Vascular Surgery, [facility] 132 [facility] [place] [address] Dougie Walter PA-C [address] [place] [address] Appointment; Vascular Study Allergies No known active allergiesdocumented as of this encounter (statuses as of 01/29/2025) Medications Aspirin 81 MG Oral Tablet Delayed Release (Aspirin Low Dose) take 1 tablet by mouth once daily 100 Tab 3 07/19/20 21 Active Ergocalciferol 1.25 MG (18325 UT) Oral Capsule Take 1 Capsule by [...] Current Chew Comments:chews 1 cans each w [place], not at this time in nursing facility [...] 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 See if [facility] has room to have labs done next Sat, prior to 1:30 appointment If unable, re-schedule both labs and visit, all on same day Thank you ALEX documented in this encounter Plan of Treatment Upcoming Encounters Date Type Department Care Team (Late st Contact Info) Description 02/01/2025 7:15 AM EST Laboratory Lab Mobile Phlebotomy [address] [place] [address] [place], [facility] Mobile Home Draw [address] [place] [address] [place] [address] 02/02/2025 6:00 AM EST Anticoagulation Centralized Clinical Pharmacy Services, Eunice Rich [address] [place] [address] [place] [address] [facility], [address] [place] [address] 02/03/2025 1:30 PM EST Office Visit Vascular Surgery, [facility] 132 [facility] [place] [address] Scott Mckay MD [address] [place], [place] [id number] 02/16/2025 4:00 PM EDT Office Visit Family Practice [facility] [place] [address] Juan Ramon Thurman MD [address] [place] [address] 04/21/2025 9:30 AM EDT Imaging Vascular Lab, [address] 132 [facility] [place] [address] 04/21/2025 10:30 AM EDT Imaging Vascular Lab, [address] [facility] [place] [address] 04/21/2025 11:30 AM EDT Imaging Vascular Lab, [address] 132 [facility] [place] [address] 04/21/2025 12:30 PM EDT Office Visit Vascular Surgery, [facility] 132 [facility] [place] [address] Scott Mckay MD [address] [place] [address] Health Maintenance Due Date Last Done Comments [...] Additional history exists CKD HGB USE SMARTSET 98308 11/18/202411/18, 11/18/2023, 11/04/2023, Additional history exists CKD PHOS USE SMARTSET 72383 11/18/202411/01, 05/22/2022, 05/23/2021, Additional history exists Depression [...] Advance Direct brittany occurred with: Power of Rivet Machine Operator/Patient Blue Line Hanger Does the patient have a Living Will? No Does the patient have Health Care Power of Rivet Machine Operator? No * Full Code Date Activated [...] patient or by statute hierarchy) Care Teams Group Art Supervisor Relationship Specialty Start Date End Date Juan Ramon Thurman MD [address] [place] [address] PCP - General Family Medicine 11/14/23 documented as of this encounter
--- OUTSIDE RECORDS SUMMARY | 2025-04-14 03:34 | External Medical Summary | Summary of Care ---
Author Name Unknown Organization [facility] Address [address] [place] [address] Phone [phone] Care Team Providers Care Derrick Boat Leverman Name Role Phone Juan Ramon Thurman MD Primary Care Provider [phone] Encounter Details Date Type Department Care Team (Late st Contact Info) Description 02/01/2025 Orders Only Outcomes Research Department [address] [place], [place] [id number] Marce Toro [facility]RA [facility] Research Other*[id number] Allergies No known active allergiesdocumented as of this encounter (statuses as of 02/01/2025) Medications Aspirin 81 MG Oral Tablet Delayed Release (Aspirin Low Dose) take 1 tablet by mouth once daily 100 Tab 3 07/19/20 21 Active Ergocalciferol 1.25 MG (05227 UT) Oral Capsule Take 1 Capsule by [...] every evening. 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 Not [...] [place] i, RN documented in this encounter Plan of Treatment Upcoming Encounters Date Type Department Care Team (Late st Contact Info) Description 02/02/2025 6:00 AM EST Anticoagulation Centralized Clinical Pharmacy Services, Eunice Rich [address] [place] [address] [place] [address] [place] [address] 02/03/2025 1:30 PM EST Office Visit Vascular Surgery, [facility] [address] [place] [address] Scott Mckay MD [address] [facility] [place] [id number] 02/16/2025 4:00 PM EDT Office Visit Family Practice [facility] 132 [place] [address] Juan Ramon Thurman MD 132 [place] [address] 04/21/2025 9:30 AM EDT Imaging Vascular Lab, [address], [address] [place] [address] 04/21/2025 10:30 AM EDT Imaging Vascular Lab, [address], [address] [place] [address] 04/21/2025 11:30 AM EDT Imaging Vascular Lab, [address] [place] [address] 04/21/2025 12:30 PM EDT Office Visit Vascular Surgery, [address] [place] [address] Scott Mckay MD [address] [place] [address] Scheduled Orders Name Type Priority Associated Diagnoses Orde r Schedule MYCODE SUBSEQUENT ADULT Lab Routine MyCode Research Other*[id number] Every 6 Months for 2 Occurrences starting 02/01/2025 until 02/21/2026 Health Maintenance Due Date Last Done Comments [...] Additional history exists CKD HGB USE SMARTSET 21430 11/18/202411/18, 11/18/2023, 11/04/2023, Additional history exists CKD PHOS USE SMARTSET 97267 11/18/202411/01, 05/22/2022, 05/23/2021, Additional history exists Depression [...] as of this encounter Visit Diagnoses Diagnosis MyCode Research Other*[id number] documented in this encounter Advance Directives * No Code (Latest Code Status on File) Date Activated Date Inactivated Comments 10/11/2023 4:12 PM 10/18/2023 7:36 PM This order reflects the patients wishes and were consensually agreed upon. Question Answer Comments Discussion of Advance Direct brittany occurred with: Power of Water/Wastewater Project Engineer/Patient Teenage Babysitter Does the patient have a Living Will? No Does the patient have Health Care Power of Water/Wastewater Project Engineer? No * Full Code Date Activated Date [...] patient or by statute hierarchy) Care Teams Derrick Boat Leverman Relationship Specialty Start Date End Date Juan Ramon Thurman MD [address] [place] [address] PCP - General Family Medicine 11/14/23 documented as of this encounter
--- OUTSIDE RECORDS SUMMARY | 2025-04-14 03:34 | External Medical Summary | Summary of Care ---
Author Name Unknown Organization [facility] Address [address] [place] [address] Phone [phone] Care Team Providers Care Marking Room Supervisor Name Role Phone Juan Ramon Thurman MD Primary Care Provider [phone] Reason for Visit * Reason Onset Date Comments Appointment 01/29/2025 Vascular Study 01/29/2025 Encounter Details Date Type Department Care Team (Late st Contact Info) Description 01/29/2025 Telephone Vascular Surgery, [facility] 132 [facility] [place] [address] Dougie Walter PA-C [address] [place] [address] Appointment; Vascular Study Allergies No known active allergiesdocumented as of this encounter (statuses as of 01/29/2025) Medications Aspirin 81 MG Oral Tablet Delayed Release (Aspirin Low Dose) take 1 tablet by mouth once daily 100 Tab 3 07/19/20 21 Active Ergocalciferol 1.25 MG (51852 UT) Oral Capsule Take 1 Capsule by [...] every evening. 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 See if [facility] has room to have labs done next Wed, prior to 1:30 appointment If unable, re-schedule both labs and visit, all on same day Thank you ALEX documented in this encounter Plan of Treatment Upcoming Encounters Date Type Department Care Team (Late st Contact Info) Description 02/01/2025 7:15 AM EST Laboratory Lab Mobile Phlebotomy [address] [place] [address] [place], [facility] Mobile Home Draw [address] [place] [address] [place] [address] 02/02/2025 6:00 AM EST Anticoagulation Centralized Clinical Pharmacy Services, Eunice Rcih [address] [place] [address] [place] [address] [facility], [address] [place] [address] 02/03/2025 1:30 PM EST Office Visit Vascular [facility], [facility] [place] [address] Scott Mckay MD [address] [place] [address] 02/16/2025 4:00 PM EDT Office Visit Family [facility] [address] [place] [address] Juan Ramon Thurman MD 132 [facility] [place] [address] Health Maintenance Due Date Last Done Comments [...] Additional history exists CKD HGB USE SMARTSET 73769 11/18/202411/18, 11/18/2023, 11/04/2023, Additional history exists CKD PHOS USE SMARTSET 65133 11/18/202411/01, 05/22/2022, 05/23/2021, Additional history exists Depression [...] Advance Direct brittany occurred with: Power of Auto Parts Delivery Driver/Patient Synthetic Filament Spinner Does the patient have a Living Will? No Does the patient have Health Care Power of Auto Parts Delivery Driver? No * Full Code Date Activated Date [...] patient or by statute hierarchy) Care Teams Marking Room Supervisor Relationship Specialty Start Date End Date Juan Ramon Thurman MD [address] [place] [address] PCP - General Family Medicine 11/14/23 documented as of this encounter
--- OUTSIDE RECORDS SUMMARY | 2025-04-14 03:34 | External Medical Summary | Summary of Care ---
Author Name Unknown Organization [facility] Address [address] [place] [address] Phone [phone] Care Team Providers Care Wine Manager Name Role Phone Juan Ramon Thurman MD Primary Care Provider [phone] Reason for Visit * Reason Onset Date Comments Appointment 01/29/2025 Vascular Study 01/29/2025 Encounter Details Date Type Department Care Team (Late st Contact Info) Description 01/29/2025 Telephone Vascular Surgery, [facility] 132 [facility] [place] [address] Dougie Walter PA-C [address] [place] [address] Appointment; Vascular Study Allergies No known active allergiesdocumented as of this encounter (statuses as of 01/29/2025) Medications Aspirin 81 MG Oral Tablet Delayed Release (Aspirin Low Dose) take 1 tablet by mouth once daily 100 Tab 3 07/19/20 21 Active Ergocalciferol 1.25 MG (87371 UT) Oral Capsule Take 1 Capsule by [...] as instructed by the 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 See if [facility] has room to have labs done next Sat, prior to 1:30 appointment If unable, re-schedule both labs and visit, all on same day Thank you ALEX documented in this encounter Plan of Treatment Upcoming Encounters Date Type Department Care Team (Late st Contact Info) Description 02/01/2025 7:15 AM EST Laboratory Lab Mobile Phlebotomy [address] [place] [address] [place], [facility] Mobile Home Draw [address] [place] [address] [place] [address] 02/02/2025 6:00 AM EST Anticoagulation Centralized Clinical Pharmacy Services, Eunice Rich [address] [place] [address] [place] [address] [facility], [address] [place] [address] 02/03/2025 1:30 PM EST Office Visit Vascular Surgery, [facility] 132 [facility] [place] [address] Scott Mckay MD [address] [place], [place] [address] 02/16/2025 4:00 PM EDT Office Visit Family Practice [facility] [place] [address] Juan Ramon Thurman MD [address] [place] [address] 04/21/2025 9:30 AM EDT Imaging Vascular Lab, [address] 132 [facility] [place] [address] 04/21/2025 10:30 AM EDT Imaging Vascular Lab, [address] [facility] [place] [address] 04/21/2025 11:30 AM EDT Imaging Vascular Lab, [address] [facility] [place] [address] 04/21/2025 12:30 PM EDT Office Visit Vascular Surgery, [facility] 132 [facility] [place] [address] Scott Mckay MD [address] [place] [address] Health Maintenance Due Date Last Done Comments [...] Additional history exists CKD HGB USE SMARTSET 39938 11/18/202411/18, 11/18/2023, 11/04/2023, Additional history exists CKD PHOS USE SMARTSET 61777 11/18/202411/01, 05/22/2022, 05/23/2021, Additional history exists Depression [...] Advance Direct brittany occurred with: Power of Gluer/Patient Mechanical Engineering Officer Does the patient have a Living Will? No Does the patient have Health Care Power of Gluer? No * Full Code Date Activated Date [...] patient or by statute hierarchy) Care Teams Wine Manager Relationship Specialty Start Date End Date Juan Ramon Thurman MD [address] [place] [address] PCP - General Family Medicine 11/14/23 documented as of this encounter
--- OUTSIDE RECORDS SUMMARY | 2025-04-14 03:35 | External Medical Summary | Summary of Care ---
Author Name Unknown Organization [facility] Address [address] [facility] [place] [address] Phone [phone] Care Team Providers Care Parts Sales Manager Name Role Phone Salima Altamirano MD Primary Care Provider [phone] [phone] Reason for Visit * Reason Comments eRx-Medication Refill Encounter Details Date Type Department Care Team (Late st Contact Info) Description 01/27/2025 Refill Family Practice [facility] [address] [place] [address] Salima Altamirano MD [address] [facility] [address] Idiopathic chronic gout of foot without tophus, unspecified laterality Allergies No known active allergiesdocumented as of this encounter (statuses as of 01/28/2025) Medications Aspirin 81 MG Oral Tablet Delayed Release (Aspirin Low Dose) take 1 tablet by mouth once daily 100 Tab 3 021 Active Ergocalciferol 1.25 MG (27876 UT) Oral Capsule Take 1 Capsule by [...] the morning 90 Capsule 1 025 Active Gabapentin 300 MG Oral Capsule (Neurontin)Indic ations:Spinal stenosis of lumbar region with neurogenic claudication,Femi ateral lumbar radiculopathy TAKE 1 CAPSULE BY MOUTH ONCE DAILY IN THE MORNING AND 1 ONCE DAILY AT BEDTIME 60 Capsule 025 Active Warfarin Sodium 4 MG Oral Tablet (Coumadin)Indica tions:History of CVA (cerebrovascular accident) Take 0.5-1 Tablets by mouth every evening. Or as instructed by the [facility] 90 Tablet 3 025 Active Allopurinol 300 MG Oral Tablet (Zyloprim)Indica tions:Idiopathic chronic gout of foot without tophus, unspecified laterality TAKE 1 TABLET BY MOUTH ONCE DAILY IN THE MORNING 90 Tablet 1 025 Active Allopurinol 300 MG Oral Tablet (Zyloprim)Indica tions:Idiopathic chronic gout of foot without tophus, unspecified laterality TAKE 1 TABLET BY MOUTH IN THE MORNING 30 Tablet 5 024 2024 Discontinued documented as of this encounter (statuses as of 01/28/2025) Active Problems Problem Noted Date Diagnosed Date History of pulmonary embolism 01/18/2025 Overweight (BMI 25.0-29.9) 11/18/2023 Multiple subsegmental pulmon keihsa emboli without acute cor pulmonale 08/13/2023 Pressure [...] as of this encounter (statuses as of 01/28/2025) Resolved Problems Problem Noted Date Diagnosed Date [...] as of this encounter (statuses as of 01/28/2025) Immunizations Name Administration Dates Next Due Pneumococcal [...] Current Chew Comments:chews 1 cans each w [place], not at this time in nursing facility [...] 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 - 01/28/2025 11:52 AM ESTSigned Prescriptions: Disp Refills Allopurinol 300 MG Oral Tablet (Zyloprim) 90 Tab*1 Sig: TAKE 1 TABLET BY MOUTH ONCE DAILY IN THE MORNINGAuthorizing Provider: SALIMA ALTAMRIANOOrdersilas User: JULIA VALDIVIA documented in this encounter Plan of Treatment Upcoming Encounters Date Type Department Care Team (Late st Contact Info) Description 02/01/2025 7:15 AM EST Laboratory Lab Mobile Phlebotomy [address] [place] [address] [facility] Mobile Home Draw [address] [place] [address] [place] [address] 02/02/2025 6:00 AM EST Anticoagulation Centralized Clinical Pharmacy Services, Eunicelinsey Rich [address] [place] [address] [place] [address] [place] [address] 02/03/2025 1:30 PM EST Office Visit Vascular Surgery, [facility] 132 [employer] [place] [address] Scott Mckay MD [address] [place] [address] 02/16/2025 4:00 PM EDT Office Visit Family Practice [facility] [address] [place] [address] Salima Altamirano MD [address] [place] [address] Health Maintenance Due Date Last Done Comments [...] Additional history exists CKD HGB USE SMARTSET 81044 11/18/202411/18, 11/18/2023, 11/04/2023, Additional history exists CKD PHOS USE SMARTSET 29143 11/18/202411/01, 05/22/2022, 05/23/2021, Additional history exists Depression [...] as of this encounter Visit Diagnoses Diagnosis Idiopathic chronic gout of foot without tophus, unspecified laterality documented in this encounter Advance Directives * No Code (Latest Code Status on File) Date Activated Date Inactivated Comments 10/11/2023 4:12 PM 10/18/2023 7:36 PM This order reflects the patients wishes and were consensually agreed upon. Question Answer Comments Discussion of Advance Direct brittany occurred with: Power of Editor At Large/Patient Level Vial Grinder Does the patient have a Living Will? No Does the patient have Health Care Power of Editor At Large? No * Full Code Date Activated Date [...] Agents on File Name Relationship Healthcare Agent [facility] Communication Katie Arnold Adult Child Health Care Repr esentative (appointed verbally by patient or by statute hierarchy) Cuco Powell Adult Child Health Care Repr esentative (appointed verbally by patient or by statute hierarchy) Care Teams Parts Sales Manager Relationship Specialty Start Date End Date Salima Altamirano MD [address] [place] [address] PCP - General Family Medicine 11/14/23 documented as of this encounter
--- OUTSIDE RECORDS SUMMARY | 2025-04-14 03:35 | External Medical Summary | Summary of Care ---
Author Name Unknown Organization [facility] Address [address] [facility] [place] [address] Phone [phone] Care Team Providers Care Physics Instructor Name Role Phone Juan Ramon Thurman MD Primary Care Provider [phone] Encounter Details Date Type Department Care Team (Late st Contact Info) Description 12/21/2024 Population Health External Data Unspecified Department Allergies No known active allergiesdocumented as of this encounter (statuses as of 12/21/2024) Medications Aspirin 81 MG Oral Tablet Delayed Release (Aspirin Low Dose) take 1 tablet by mouth once daily 100 Tab 3 07/19/20 21 Active Ergocalciferol 1.25 MG (27087 UT) Oral Capsule Take 1 Capsule by mouth once a week. Every saturday Active Polyethylene Glycol 3350 17 GM Oral Packet Take 1 Packet by mouth as needed for Constipation. Active Therems-M Oral Tablet Take 1 Tablet by mouth in the morning. 11/02/20 23 Active Warfarin Sodium 4 MG Oral Tablet (Coumadin)Indicat ions:History of CVA (cerebrovascular accident) Take 0.5-1 Tablets by mouth every evening. Or take as instructed by the [facility] 90 Tablet 3 11/22/20 23 Active Tamsulosin HCl 0.4 MG Oral Capsule (Flomax)Indicatio ns:BPH with obstruction/lower urinary tract symptoms Take 1 capsule by mouth in the morning 90 Capsule 1 06/20/20 24 Active Allopurinol 300 MG Oral Tablet (Zyloprim)Indicat ions:Idiopathic chronic gout of foot without tophus, unspecified laterality TAKE 1 TABLET BY MOUTH IN THE MORNING 30 Tablet 5 07/29/20 24 Active Bisacodyl 10 MG Rectal Suppository (Dulcolax) [...] MORNING 90 Tablet 3 11/28/20 24 Active Gabapentin 300 MG Oral Capsule (Neurontin)Indica tions:Spinal stenosis of lumbar region with neurogenic claudication,Bila teral lumbar radiculopathy TAKE 1 CAPSULE BY MOUTH ONCE DAILY IN THE MORNING AND 1 ONCE DAILY AT BEDTIME 60 Capsule 12/07/19 25 Active documented as of this encounter (statuses as of 12/21/2024) Active Problems Problem Noted Date Diagnosed Date Overweight (BMI 25.0-29.9) 11/18/2023 Multiple subsegmental pulmon [...] as of this encounter (statuses as of 12/21/2024) Resolved Problems Problem Noted Date Diagnosed Date [...] as of this encounter (statuses as of 12/21/2024) Immunizations Name Administration Dates Next Due Pneumococcal [...] Current Chew Comments:chews 1 cans each w [place], not at this time in nursing facility [...] No 09/25/2024 Does the household have a [facility] source of income? 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 [...] Care Team (Late st Contact Info) Description 12/22/2024 7:10 AM EST Laboratory Lab Mobile Phlebotomy [facility] [address] [facility] [place] [address] [facility], [facility] Mobile Home Draw [address] [facility] [place] [address] 12/23/2024 6:00 AM EST Anticoagulation Centralized Clinical Pharmacy Services, [address] [place] [address] [place] [address] 01/27/2025 11:15 AM EST Office Visit Orthopaedics [facility] [address] [place] [phone] Britton Wayne, [address] [place] [address] 01/27/2025 1:00 PM EST Imaging Vascular Lab, [facility] 2nd Floor, [place] [address] [place] [address] 01/27/2025 2:00 PM EST Imaging Vascular Lab, [facility] 2nd [facility] [place] [address] 01/27/2025 3:00 PM EST Imaging Vascular Lab, [address], [place] 132 [place] [address] 02/03/2025 1:30 PM EST Office Visit Vascular Surgery, [facility] [address] [facility] [place] [address] Scott Mckay MD [address] [place] [address] 02/16/2025 4:00 PM EDT Office Visit Family Practice [facility] [address] Juan Ramon Thurman MD 132 [facility] [place] [address] Health Maintenance Due Date Last Done Comments [...] Additional history exists CKD HGB USE SMARTSET 37922 11/18/202411/18, 11/18/2023, 11/04/2023, Additional history exists CKD PHOS USE SMARTSET 40495 11/18/202411/01, 05/22/2022, 05/23/2021, Additional history exists Depression [...] Advance Direct brittany occurred with: Power of Horse Trekking Guide/Patient Manager Proposal Does the patient have a Living Will? No Does the patient have Health Care Power of Horse Trekking Guide? No * Full Code Date Activated Date [...] patient or by statute hierarchy) Care Teams Physics Instructor Relationship Specialty Start Date End Date Juan Ramon Thurman MD [address] [place] [address] PCP - General Family Medicine 11/14/23 documented as of this encounter
--- OUTSIDE RECORDS SUMMARY | 2025-04-14 03:35 | External Medical Summary | Summary of Care ---
Author Name Unknown Organization [facility] Address [address] [facility] [place] [address] Phone [phone] Care Team Providers Care Side Guider Name Role Phone Juan Ramon Thurman MD Primary Care Provider [phone] Reason for Visit * Reason Comments Dosage Adjustment Via Phone (anticoag Cl inic) Encounter Details Date Type Department Care Team (Late st Contact Info) Description 01/05/2025 6:00 AM EST Anticoagulation Centralized Clinical Pharmacy Services, Eunice Rich [address] [place] [address] [place] [address] [facility], [address] [place] [address] Anticoagulation management encounter* Allergies No known active allergiesdocumented as of this encounter (statuses as of 01/05/2025) Medications Aspirin 81 MG Oral Tablet Delayed Release (Aspirin Low Dose) take 1 tablet by mouth once daily 100 Tab 3 07/19/20 21 Active Ergocalciferol 1.25 MG (63026 UT) Oral Capsule Take 1 Capsule by [...] evening. Or take as instructed by the [facility] 90 Tablet 3 11/22/20 23 Active Allopurinol 300 MG Oral Tablet (Zyloprim)Indicat [...] AT BEDTIME 60 Capsule 01/04/20 25 Active documented as of this encounter (statuses as of 01/05/2025) Active Problems Problem Noted Date Diagnosed Date [...] as of this encounter (statuses as of 01/05/2025) Resolved Problems Problem Noted Date Diagnosed Date [...] as of this encounter (statuses as of 01/05/2025) Immunizations Name Administration Dates Next Due Pneumococcal Polysaccharide PPV23 (Pneumovax) 01/12/2021,09/09/2007 Season Influenza, Quad, PF, Adjuvanted, 65+ Yrs, IM (FLUAD) 11/17/2020 Seasonal Influenza Vac., MDV , IM, 0.5 mL (Fluzone) 08/08/2012,08/23/2010,10/07/2008,1008/2007,12/10/2006 08/23/2011 TDAP (age 10 and older)(Boostrix) 02/09/2013 documented as of this encounter Social History Tobacco Use Types Packs/Day Years Used Date Smoking Tobacco: Never Smokeless Tobacco: Current Chew Comments:chews 1 cans each week, not at this time in nursing facility [...] No 09/25/2024 Does the household have a [facility] source of income? 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 PT/INR results, Coumadin dose instructions, and next PT/INR date communicated as noted by Pharmacist: Yes JENNIFER DOWNS CPhT 01/05/2025, 8:12 AM * Farideh Delgado [facility] - 01/05/2025 7:56 AM EST Images from the original note were not included. Coumadin Clinic (region specific) Objective Current Warfarin Dose As of 01/05/2025 Warfarin maintenance plan: 4 mg (4 mg x 1) every Mon, Fri; 2 mg (4 mg x 0.5) all other days INR Result As of 01/05/2025 INR goal: 2.0-3.0 INR used for dosin.1 (01/04/2025) Assessment & Plan Warfarin Plan As of 01/05/2025 Full warfarin instructions: 01/05: Hold; Otherwise 4 mg every Fri; 2 mg all other days Next INR check: 01/14/2025 Repeat PT/INR in 1.5 week(s) Weekly dose: decreased Additional Dosing Information: Description [facility]- M,T,Th Tech to contact patient with dose instructions as noted. Farideh Delgado RPh 01/05/2025, 7:56 AM documented in this encounter Plan of Treatment Upcoming Encounters Date Type Department Care Team (Late st Contact Info) Description 01/14/2025 7:00 AM EST Laboratory Lab [facility] [address] [facility] [address] [facility], [facility] Mobile Home Draw [address] [facility] [address] 01/15/2025 6:00 AM EST Anticoagulation Centralized Clinical Pharmacy Services, Eunice Rich [address] [place] [address] [place] [address] [place] [address] 01/27/2025 11:15 AM EST Office Visit Orthopaedics [facility] [address] [place] [phone] Britton Wayne, [address] [place] [phone] 01/27/2025 1:00 PM EST Imaging Vascular Lab, [address], [address] [address] 01/27/2025 2:00 PM EST Imaging Vascular Lab, [address], [address] [place] [address] 01/27/2025 3:00 PM EST Imaging Vascular Lab, [address], [place] 132 [place] [address] 02/03/2025 1:30 PM EST Office Visit Vascular Surgery, [address] [place] [address] Scott Mckay MD [address] [place] [address] 02/16/2025 4:00 PM EDT Office Visit Family Practice [facility] [address] [place] [address] Juan Ramon Thurman MD [address] [place] [address] Health Maintenance Due Date Last Done Comments [...] Additional history exists CKD HGB USE SMARTSET 77630 11/18/202411/18, 11/18/2023, 11/04/2023, Additional history exists CKD PHOS USE SMARTSET 36148 11/18/202411/01, 05/22/2022, 05/23/2021, Additional history exists Depression [...] as of this encounter Visit Diagnoses Diagnosis Anticoagulation management encounter- Primary Encounter for therapeutic drug monitoring documented in this encounter Advance Directives * No Code (Latest Code Status on File) Date Activated Date Inactivated Comments 10/11/2023 4:12 PM 10/18/2023 7:36 PM This order reflects the patients wishes and were consensually agreed upon. Question Answer Comments Discussion of Advance Direct brittany occurred with: Power of Business Insurance Agent/Patient Equipment Manager Does the patient have a Living Will? No Does the patient have Health Care Power of Business Insurance Agent? No * Full Code Date Activated Date [...] patient or by statute hierarchy) Care Teams Side Guider Relationship Specialty Start Date End Date Juan Ramon Thurman MD [address] [place] [address] PCP - General Family Medicine 11/14/23 documented as of this encounter
--- OUTSIDE RECORDS SUMMARY | 2025-04-14 03:35 | External Medical Summary ---
Author Name Unknown Address Unknown Organization [facility] [address] [place] [address] Laboratory Report Ordering Provider Test Date Status OSIEL JAY 01/04/2025 08:51:00 Final Standing order for pt/inr. < br/>Please draw pt/inr every 1 to 4 weeks as requested
Results to [facility]

Warfarin Therapy
INR: 2.0-3.0 conventional anticoagulation
INR: 2.5-3.5 high intensity anticoagulation Observation Date Value Abnormality Reference (Units ) Status PT 01/04/2025 08:51:00 32.0 Above high normal 11 .6-15.2 (seconds) Final INR 01/04/2025 08:51:00 3.1 Above high normal 0. 8-1.2 Final Performing Location [facility] [address] [place] [address]
--- OUTSIDE RECORDS SUMMARY | 2025-04-14 03:35 | External Medical Summary | Summary of Care ---
Author Name Unknown Organization [facility] Address [address] [facility] [place] [address] Phone [phone] Care Team Providers Care [id number] Armor Crewman Name Role Phone Juan Ramon Thurman MD Primary Care Provider [phone] Reason for Visit * Reason Onset Date Comments Referral 01/19/2025 Coag referral Encounter Details Date Type Department Care Team (Late st Contact Info) Description 01/19/2025 Telephone Centralized Clinical Pharmacy Services, Euniec Rich [address] [place] [address] [place] [address] [place] [address] Referral (Coag referral) Allergies No known active allergiesdocumented as of this encounter (statuses as of 01/19/2025) Medications Aspirin 81 MG Oral Tablet Delayed Release (Aspirin Low Dose) take 1 tablet by mouth once daily 100 Tab 3 07/19/20 21 Active Ergocalciferol 1.25 MG (20574 UT) Oral Capsule Take 1 Capsule by mouth once a week. Every saturday Active Polyethylene Glycol 3350 17 GM Oral Packet Take 1 Packet by mouth as needed for Constipation. Active Therems-M Oral Tablet Take 1 Tablet by mouth in the morning. 11/02/20 23 Active Allopurinol 300 MG Oral Tablet [...] every evening. Or as instructed by the [facility] 90 Tablet 3 01/18/20 25 Active documented as of this encounter (statuses as of 01/19/2025) Active Problems Problem Noted Date Diagnosed Date [...] as of this encounter (statuses as of 01/19/2025) Resolved Problems Problem Noted Date Diagnosed Date [...] as of this encounter (statuses as of 01/19/2025) Immunizations Name Administration Dates Next Due Pneumococcal [...] Current Chew Comments:chews 1 cans each w [place], not at this time in nursing facility [...] 09/25/2024 Does the household have a re lar source of income? 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 [facility] will continue to manage with no change in previous treatment plan. Thanks, Fang Gonsales PharmD Clinical Pharmacist [facility] ([facility]) [phone] 01/19/2025 8:10 AM * Telephone Encounter - Ally Mendoza CPhT - 01/19/2025 7:44 AM EST Anticoagulation referral for management of: Warfarin Indication and INR goal for Warfarin Management: VTE: Treatment of Pulmonary Embolism, INR Goal: 2.0 - 3.0 Relevant History: N/A Enoxaparin bridging required? Yes Minimum frequency patient should be seen in person for medication management: as appropriate per clinical condition and patient status By my signature, I understand that my patient Jeannine Lawson will have his medication therapy managed by the [facility] ([facility]) per established policies, procedures, and protocols. I also certify that this referral may serve as an initiation of service forthe management of drug therapy in the above noted patient. [facility] providers will be responsible for scheduling patient visits, obtaining appropriate laboratory studies, and adjusting medication management therapy per patient's need, in addition to those roles spelled out in the clinic policy, procedures, and drug management protocols. I understand that the service provided by the [facility] Clinic is voluntary and have informed patient that they can refuse the service at their discretion. I am aware that the [facility] Clinic will provide me with a copy of the patient encounter via my [facility] In[facility]. I authorize the [facility] Clinic to carry out these activities on my behalf. I consider this program to be a necessary part of the patient's medical care. Order Specific Questions Referral Priority Within 3 days (urgent) Where should this appointment be scheduled? Nona documented in this encounter Plan of Treatment Upcoming Encounters Date Type Department Care Team (Late st Contact Info) Description 01/27/2025 11:15 AM EST Office Visit Orthopaedics [facility] [address] [place] [phone] Britton Wayne, [address] [place] [phone] 01/27/2025 1:00 PM EST Imaging Vascular Lab, [address] 132 [facility] [place] [address] 01/27/2025 2:00 PM EST Imaging Vascular Lab, [address] 132 [facility] [place] [address] 01/27/2025 3:00 PM EST Imaging Vascular Lab, [address] 132 [facility] [place] [address] 02/03/2025 1:30 PM EST Office Visit Vascular Surgery, [facility] 132 [facility] [place] [address] Scott Mckay MD [address] [place] [address] 02/16/2025 4:00 PM EDT Office Visit Family Practice [facility] 132 [facility] [address] Juan Ramon Thurman MD 132 [place] [address] Health Maintenance Due Date Last Done Comments [...] 08/23/2010, Additional history exists GFR 11/13/2024 05/14/2024, 12/0 03/2023, 10/28/2023, Additional history exists HbA1c 11/13/2024 05/14/2024, 10/02, 06/03/2023, Additional history exists CKD HGB USE SMARTSET 06511 11/18/202411/18, 11/18/2023, 11/04/2023, Additional history exists CKD PHOS USE SMARTSET 83454 11/18/202411/01, 05/22/2022, 05/23/2021, Additional history exists Depression [...] Advance Direct brittany occurred with: Power of Broacher/Patient Loader Machine Does the patient have a Living Will? No Does the patient have Health Care Power of Broacher? No * Full Code Date Activated Date [...] patient or by statute hierarchy) Care Teams [id number] Armor Crewman Relationship Specialty Start Date End Date Juan Ramon Thurman MD [address] [place] [address] PCP - General Family Medicine 11/14/23 documented as of this encounter
--- OUTSIDE RECORDS SUMMARY | 2025-04-14 03:35 | External Medical Summary | Summary of Care ---
Author Name Unknown Organization [facility] Address [address] [place] [address] Phone [phone] Care Team Providers Care Infection Prevention Coordinator Name Role Phone Salima Thurman MD Primary Care Provider +1 [phone] Reason for Visit * Reason Comments eRx-Medication Refill Encounter Details Date Type Department Care Team (Late st Contact Info) Description 01/16/2025 Refill Family Practice [facility] [address] [place] [address] Salima Thurman MD 132 [facility] [address] History of CVA (cerebrovascular accident) Allergies No known active allergiesdocumented as of this encounter (statuses as of 01/19/2025) Medications Aspirin 81 MG Oral Tablet Delayed Release (Aspirin Low Dose) take 1 tablet by mouth once daily 100 Tab 3 021 Active Ergocalciferol 1.25 MG (85363 UT) Oral Capsule Take 1 Capsule by mouth once a week. Every saturday Active Polyethylene Glycol 3350 17 GM Oral Packet Take 1 Packet by mouth as needed for Constipation. Active Therems-M Oral Tablet Take 1 Tablet by mouth in the morning. 023 Active Allopurinol 300 MG Oral Tablet (Zyloprim)Indica tions:Idiopathic chronic gout of foot without tophus, unspecified laterality TAKE 1 TABLET BY MOUTH IN THE MORNING 30 Tablet 5 024 Active Bisacodyl 10 MG Rectal Suppository (Dulcolax) [...] evening. Or as instructed by the [facility] 90 Tablet 3 025 Active Warfarin Sodium 4 MG Oral Tablet (Coumadin)Indica tions:History of CVA (cerebrovascular accident) Take 0.5-1 Tablets by mouth every evening. 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 Answer Date of Assessment Author Yes 10/11/2023 11:55 PM Renetta Hlils i, RN * Are you blind or [...] Miscellaneous Notes * Telephone Encounter - Fang Mart, [facility] - 01/18/2025 4:57 PM ESTSigned Prescriptions: Disp Refills Warfarin Sodium 4 MG Oral Tablet (Coumadin)90 Tab*3 Sig: Take 0.5-1 Tablets by mouth every evening. Or as instructed by the [facility] Coumadin ClinicAuthorizing Provider: SALIMA THURMAN User: FANG MART * Telephone Encounter - Fang Mart [facility] - 01/18/2025 4:51 PM EST Assessment & Plan Warfarin Plan As of 01/05/2025 Full warfarin instructions: 01/05: Hold; Otherwise 4 mg every Fri; 2 mg all other days Next INR check: 01/14/2025 TE created to pend referral to Dr. Thurman. Thanks, Fang Mart, PharmD Clinical Pharmacist [facility] ([facility]) [phone] 01/18/2025 4:51 PM * Telephone Encounter - Juani Castillo [facility] - 01/18/2025 10:22 AM ESTPending Prescriptions: Disp Refills Warfarin Sodium 4 MG Oral Tablet (Coumadin)30 Tab*5 Sig: TAKE 1/2 TO 1 (ONE-HALF TO ONE) TABLET BY MOUTH IN THE EVENING OR TAKE DIRECTED BY THE [facility] * Telephone Encounter - Juani Castillo [facility] - 01/18/2025 10:20 AM EST The anticoagulation clinic requires an updated referral to continue managing coumadin for this patient. Please sign pended referral if appropriate. Thank you, Juani Castillo, PharmD Clinical Pharmacist [facility] ([facility]) [phone] 01/18/2025, 10:20 AM documented in this encounter Plan of Treatment Upcoming Encounters Date Type Department Care Team (Late st Contact Info) Description 01/19/2025 6:00 AM EST Anticoagulation [facility], Eunice Rich [address] [place] [address] [place] [address] [facility], [address] [place] [address] 01/27/2025 11:15 AM EST Office [facility] [place] [phone] Britton Wayne, [address] [place] [phone] 01/27/2025 1:00 PM EST Imaging Vascular Lab, [facility] [address] [facility], [address] [place] [address] 01/27/2025 2:00 PM EST Imaging Vascular Lab, [facility] [address]nd [facility] [address] [facility] [place] [address] 01/27/2025 3:00 PM EST Imaging Vascular Lab, [facility] [address] [facility] [address] [facility] [place] [address] 02/03/2025 1:30 PM EST Office Visit Vascular Surgery, [facility] [address] [facility] [place] [address] Scott Mckay MD [address] [place] [address] 02/16/2025 4:00 PM EDT Office Visit Family Practice [facility] [address] [place] [address] Salima Thurman MD [address] [place] [address] Health Maintenance Due Date Last Done Comments [...] Additional history exists CKD HGB USE SMARTSET 97792 11/18/202411/18, 11/18/2023, 11/04/2023, Additional history exists CKD PHOS USE SMARTSET 99517 11/18/202411/01, 05/22/2022, 05/23/2021, Additional history exists Depression [...] Visit Diagnoses Diagnosis History of CVA (cerebrovascular accident) Transient ischemic attack (TIA), and cerebral infarction without residual deficits documented in this encounter Advance Directives * No Code (Latest Code Status on File) Date Activated Date Inactivated Comments 10/11/2023 4:12 PM 10/18/2023 7:36 PM This order reflects the patients wishes and were consensually agreed upon. Question Answer Comments Discussion of Advance Direct brittany occurred with: Power of Intake Counselor/Patient Wage And Salary Specialist Does the patient have a Living Will? No Does the patient have Health Care Power of Intake Counselor? No * Full Code Date Activated Date [...] Agents on File Name Relationship Healthcare Agent [facility] Communication Katie Arnold Adult Child Health Care Repr esentative (appointed verbally by patient or by statute hierarchy) Cuco Powell Adult Child Health Care Repr esentative (appointed verbally by patient or by statute hierarchy) Care Teams Infection Prevention Coordinator Relationship Specialty Start Date End Date Salima Thurman MD [address] [place] [address] PCP - General Family Medicine 11/14/23 documented as of this encounter
--- OUTSIDE RECORDS SUMMARY | 2025-04-14 03:35 | External Medical Summary | Summary of Care ---
Author Name Unknown Organization [facility] Address [address] [facility] [place] [address] Phone [phone] Care Team Providers Care Events Solutions Consultant Name Role Phone Salima Altamirano MD Primary Care Provider [phone] [phone] Reason for Visit * Reason Comments eRx-Medication Refill Encounter Details Date Type Department Care Team (Late st Contact Info) Description 01/02/2025 Refill Family Practice [facility] [address] [place] [address] Salima Altamirano MD [address] [place] [address] Spinal stenosis of lumbar region with neurogenic claudication; Bilateral lumbar radiculopathy Allergies No known active allergiesdocumented as of this encounter (statuses as of 01/04/2025) Medications Aspirin 81 MG Oral Tablet Delayed Release (Aspirin Low Dose) take 1 tablet by mouth once daily 100 Tab 3 021 Active Ergocalciferol 1.25 MG (06299 UT) Oral Capsule Take 1 Capsule by mouth once a week. Every saturday Active Polyethylene Glycol 3350 17 GM Oral Packet Take 1 Packet by mouth as needed for Constipation. Active Therems-M Oral Tablet Take 1 Tablet by mouth in the morning. 023 Active Warfarin Sodium 4 MG Oral Tablet (Coumadin)Indica tions:History of CVA (cerebrovascular accident) Take 0.5-1 Tablets by mouth every evening. Or take as instructed by the [facility] 90 Tablet 3 023 Active Allopurinol 300 MG Oral Tablet [...] ONCE DAILY AT BEDTIME 60 Capsule 025 2024 Discontinued documented as of this encounter (statuses as of 01/04/2025) Active Problems Problem Noted Date Diagnosed Date [...] as of this encounter (statuses as of 01/04/2025) Resolved Problems Problem Noted Date Diagnosed Date [...] as of this encounter (statuses as of 01/04/2025) Immunizations Name Administration Dates Next Due Pneumococcal [...] Current Chew Comments:chews 1 cans each w [place], not at this time in nursing facility [...] 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 [...] Miscellaneous Notes * Telephone Encounter - Salima Altamirano MD - 01/04/2025 8:02 AM ESTSigned Prescriptions: Disp Refills Gabapentin 300 MG Oral Capsule (Neurontin) 60 Cap*0 Sig: TAKE 1 CAPSULE BY MOUTH ONCE DAILY IN THE MORNING AND 1 ONCE DAILY AT BEDTIME Authorizing Provider: SALIMA ALTAMIRANO * Telephone Encounter - Zenia Escamilla MED ASSIST - 01/04/2025 7:50 AM EST Pending Prescriptions: Disp Refills Gabapentin 300 MG Oral Capsule [Pharmacy M*60 Cap*0 Sig: TAKE 1 CAPSULE BY MOUTH ONCE DAILY IN THE MORNING AND 1 ONCE DAILY AT BEDTIME * Telephone Encounter - Zenia Escamilla MED ASSIST - 01/04/2025 7:50 AM EST Did you pend patient's preferred pharmacy and medication before forwarding?yes Pharmacy: [facility] [id number] [place] Pending Prescriptions: Disp Refills Gabapentin 300 MG [...] appointment Last date the medication was ordered: Is this request for a controlled substance?No [...] * Telephone Encounter - Kj Edwards - 01/02/2025 1:09 PM ESTPending Prescriptions: Disp Refills Gabapentin 300 MG Oral Capsule [Pharmacy M*60 Cap*0 Sig: TAKE 1 CAPSULE BY MOUTH ONCE DAILY IN THE MORNING AND 1 ONCE DAILY AT BEDTIME documented in this encounter Plan of Treatment Upcoming Encounters Date Type Department Care Team (Late st Contact Info) Description 01/06/2025 6:00 AM EST Anticoagulation [facility], Eunice Rich [address] [place] [address] [place] [address] [place] [address] 01/27/2025 11:15 AM EST Office Visit Orthopaedics [facility] [address] [place] [phone] Britton Wayne, [address] [place] [phone] 01/27/2025 1:00 PM EST Imaging Vascular Lab, [address], [place] [facility] [address] 01/27/2025 2:00 PM EST Imaging Vascular Lab, [address], [address] [address] 01/27/2025 3:00 PM EST Imaging Vascular Lab, [address], [place] [facility] [address] 02/03/2025 1:30 PM EST Office Visit Vascular Surgery, [facility] 132 [place] [address] Scott Mckay MD [address] [place] [address] 02/16/2025 4:00 PM EDT Office Visit Family Practice [facility] 132 [place] [address] Salima Altamirano MD 132 [place] [address] Health Maintenance Due Date Last Done Comments [...] Additional history exists CKD HGB USE SMARTSET 14639 11/18/202411/18, 11/18/2023, 11/04/2023, Additional history exists CKD PHOS USE SMARTSET 11635 11/18/202411/01, 05/22/2022, 05/23/2021, Additional history exists Depression [...] Advance Direct brittany occurred with: Power of Cheese Grader/Patient Broodmare Foreman Does the patient have a Living Will? No Does the patient have Health Care Power of Cheese Grader? No * Full Code Date Activated Date [...] patient or by statute hierarchy) Care Teams Events Solutions Consultant Relationship Specialty Start Date End Date Salima Altamirano MD [address] [place] [address] PCP - General Family Medicine 11/14/23 documented as of this encounter
--- OUTSIDE RECORDS SUMMARY | 2025-04-14 03:35 | External Medical Summary | Summary of Care ---
Author Name Unknown Organization [facility] Address [address] [facility] [place] [address] Phone [phone] Care Team Providers Care Graphics Manager Name Role Phone Juan Ramon Thurman MD Primary Care Provider [phone] [phone] Reason for Visit * Reason Comments Dosage Adjustment Via Phone (anticoag Cl inic) * Evaluate & Treat - Unlimited Visits (Within 3 days (urgent)) - Authorized Specialty Diagnoses / Procedures Referred By Contwu t Referred To Contact ANTI-COAG CLINIC / Pharmacy Diagnoses History of CVA (cerebrovascular accident) History of pulmonary embolism Juan Ramon Thurman MD [address] [place] [address] Phone: tel: fax: Referral ID Status Reason Start Date Expiration Date Visits Requested Visits Authorized [id number] Authorized Specialty Services Required 01/18/2025 07/17/2025 99 99 Encounter Details Date Type Department Care Team (Late st Contact Info) Description 01/19/2025 6:00 AM EST Anticoagulation [facility], Eunice Rich [address] [place] [address] [place] [address] [place] [address] History of CVA (cerebrovascular accident)*; History of pulmonary embolism Allergies No known active allergiesdocumented as of this encounter (statuses as of 01/20/2025) Medications Aspirin 81 MG Oral Tablet Delayed Release (Aspirin Low Dose) take 1 tablet by mouth once daily 100 Tab 3 07/19/20 21 Active Ergocalciferol 1.25 MG (98379 UT) Oral Capsule Take 1 Capsule by [...] as of this encounter (statuses as of 01/20/2025) Active Problems Problem Noted Date Diagnosed Date [...] as of this encounter (statuses as of 01/20/2025) Resolved Problems Problem Noted Date Diagnosed Date [...] DISLOCAT-SHLDER, LEFT 02/28/20072019 JOINT PAIN-SHLDER, LEFT 02/28/2007 0505/2020 Contusion of shoulder region 02/28/2007 04/06/2020 CONTUSION [...] as of this encounter (statuses as of 01/20/2025) Immunizations Name Administration Dates Next Due Pneumococcal [...] Current Chew Comments:chews 1 cans each w [place], not at this time in nursing facility [...] No 10/11/2023 11:55 PM EST Renetta Krishnamurthy i, RN documented in this encounter Progress Notes * Kinza Martínez RPh - 01/19/2025 4:52 PM EST Noted. ACC tracker updated. No changes from pt reported dosing at this time. Thank you, Elizabeth IsaacsD Clinical Pharmacist [facility] ([facility]) 01/19/2025 4:52 PM * Mil Foreman CPhT - 01/19/2025 11:05 AM EST Contacts Contact Date/Time Type Contact Phone/Fax 01/19/2025 11:01 AM EST Phone (Outgoing) Cuco Powell (Emergency Contact) [phone] (M) spoke with Cuco Subjective Patient Findings Positives: Change in medications (patient has been taking 4 mg every Mon, Fri; 2 mg all other days.) Negatives: Signs/symptoms of thrombosis, Signs/symptoms of bleeding, Change in health, Change in alcohol use, Change in activity, Upcoming invasive procedure, Missed doses, Extra doses, Change in diet/appetite, Bruising Comments: Advised to continue 4 mg every Mon, Fri; 2 mg all other days since INR was in range. Advised patient to contact Anticoagulation Clinic if any unusual bruising or bleeding, recent illness, changes in medication, or questions/concerns. PT/INR results, Coumadin dose instructions, and next PT/INR date communicated as noted by Pharmacist: Yes Mil Foreman CPhT 01/19/2025, 11:05 AM * Kinza Martínez RPh - 01/19/2025 8:52 AM EST Coumadin Clinic (region specific) Objective Current Warfarin Dose As of 01/19/2025 Warfarin maintenance plan: 4 mg (4 mg x 1) every Fri; 2 mg (4 mg x 0.5) all other days INR Result As of 01/19/2025 INR goal: 2.0-3.0 INR used for dosin.4 (01/18/2025) Assessment & Plan Warfarin Plan As of 01/19/2025 Full warfarin instructions: 4 mg every Mon, Fri; 2 mg all other days Next INR check: 02/01/2025 Repeat PT/INR in 2 week(s) Weekly dose: not changed (from pt reported dosing) Additional Dosing Information: Description [facility]- M,T, Tech to contact patient with dose instructions as noted. Kinza Martínez RPh 01/19/2025, 8:52 AM documented in this encounter Plan of Treatment Upcoming Encounters Date Type Department Care Team (Late st Contact Info) Description 01/27/2025 11:15 AM EST Office Visit Orthopaedics [facility] [address] [place] [phone] Britton Wayne DO [address] [place] [phone] 01/27/2025 1:00 PM EST Imaging Vascular Lab, [address] [facility] [place] [address] 01/27/2025 2:00 PM EST Imaging Vascular Lab, [address] 132 [facility] [place] [address] 01/27/2025 3:00 PM EST Imaging Vascular Lab, [address] 132 [facility] [place] [address] 02/01/2025 7:15 AM EST Laboratory Lab [facility] [address] [facility] [place] [address] [facility] Draw [address] [place] [address] 02/02/2025 6:00 AM EST Anticoagulation [facility], [address] [place] [address] [facility], [address] [place] [address] 02/03/2025 1:30 PM EST Office Visit Vascular Surgery, [facility] [address] [place] [address] Scott Mckay MD [address] [place] [address] 02/16/2025 4:00 PM EDT Office Visit Family Practice [facility] [address] [place] [address] Juan Ramon Thurman MD [address] [place] [address] Scheduled Referrals Name Type Priority Associated Diagnoses Orde r Schedule ANTI-COAGULATION REFERRAL OP Referral Within 3 days (urgent) History of CVA (cerebrovascular accident) History of pulmonary embolism Ordered: 01/18/2025 Health Maintenance Due Date Last Done Comments [...] 08/09/2022, Additional history exists COVID-19 Vaccine ( - season) 2024 Influenza Vaccine (FLU shot) (#1) 2024 11/17/2020, 08/08/2012, 08/23/2010, Additional history exists GFR 11/13/2024 05/14/2024, 1203/2023, 10/28/2023, Additional history exists HbA1c 11/13/2024 05/14/2024, 10/02, 06/03/2023, Additional history exists CKD HGB USE SMARTSET 37973 11/18/202411/18, 11/18/2023, 11/04/2023, Additional history exists CKD PHOS USE SMARTSET 97797 11/18/202411/01, 05/22/2022, 05/23/2021, Additional history exists Depression [...] Advance Direct brittany occurred with: Power of Buck Swamper/Patient Telegraph Office Telephone Clerk Does the patient have a Living Will? No Does the patient have Health Care Power of Buck Swamper? No * Full Code Date Activated Date [...] patient or by statute hierarchy) Care Teams Graphics Manager Relationship Specialty Start Date End Date Juan Ramon Thurman MD [address] [place] [address] PCP - General Family Medicine 11/14/23 documented as of this encounter
--- OUTSIDE RECORDS SUMMARY | 2025-04-14 03:35 | External Medical Summary | Summary of Care ---
Author Name Unknown Organization [facility] Address [address] [facility] [place] [address] Phone [phone] Care Team Providers Care Account Executive Software Sales Name Role Phone Juan Ramon Thurman MD Primary Care Provider [phone] [phone] Reason for Visit * Reason Comments Dosage Adjustment Via Phone (anticoag Cl inic) Encounter Details Date Type Department Care Team (Late st Contact Info) Description 12/23/2024 6:00 AM EST Anticoagulation Centralized Clinical Pharmacy Services, Eunice Rich [address] [place] [address] [place] [address] [facility], [address] [place] [address] Anticoagulation management encounter* Allergies No known active allergiesdocumented as of this encounter (statuses as of 12/23/2024) Medications Aspirin 81 MG Oral Tablet Delayed Release (Aspirin Low Dose) take 1 tablet by mouth once daily 100 Tab 3 07/19/20 21 Active Ergocalciferol 1.25 MG (27507 UT) Oral Capsule Take 1 Capsule by [...] Or take as instructed by the [facility] 90 Tablet 3 11/22/20 [...] as of this encounter (statuses as of 12/23/2024) Active Problems Problem Noted Date Diagnosed Date [...] as of this encounter (statuses as of 12/23/2024) Resolved Problems Problem Noted Date Diagnosed Date [...] as of this encounter (statuses as of 12/23/2024) Immunizations Name Administration Dates Next Due Pneumococcal [...] Current Chew Comments:chews 1 cans each w [place], not at this time in nursing facility [...] No 09/25/2024 Does the household have a [facility] center[facility] source of income? 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 Coumadin Clinic (region specific) Objective Current Warfarin Dose As of 12/23/2024 Warfarin maintenance plan: 4 mg (4 mg x 1) every Mon, Wed, Fri; 2 mg (4 mg x 0.5) all other days INR Result As of 12/23/2024 INR goal: 2.0-3.0 INR used for dosin.7 (12/22/2024) Assessment & Plan Warfarin Plan As of 12/23/2024 Full warfarin instructions: 12/23: Hold; Otherwise 4 mg every Mon, Fri; 2 mg all other days Next INR check: 01/05/2025 Repeat PT/INR in 2 week(s) kept at 2 weeks to see dose decrease Weekly dose: decreased Additional Dosing Information: Description L- M,T, Tech to contact patient with dose instructions as noted. Farideh Delgado RPh 12/23/2024, 7:56 AM documented in this encounter Plan of Treatment Upcoming Encounters Date Type Department Care Team (Late st Contact Info) Description 01/06/2025 6:00 AM EST Anticoagulation Centralized Clinical Pharmacy Services, Euniec Rich [address] [place] [address] [place] [address] [place] [address] 01/27/2025 11:15 AM EST Office Visit Orthopaedics [facility] [address] [place] [phone] Britton Wayne, [address] [place] [phone] 01/27/2025 1:00 PM EST Imaging Vascular Lab, [address] 132 [facility] [address] 01/27/2025 2:00 PM EST Imaging Vascular Lab, [address] 132 [facility] [place] [address] 01/27/2025 3:00 PM EST Imaging Vascular Lab, [address] [facility] [place] [address] 02/03/2025 1:30 PM EST Office Visit Vascular Surgery, [facility] 132 [place] [address] Scott Mckay MD [address] [place] [address] 02/16/2025 4:00 PM EDT Office Visit Family Practice [facility] 132 [place] [address] Juan Ramon Thurman MD 132 [place] [address] Health Maintenance Due Date Last Done Comments [...] Additional history exists CKD HGB USE SMARTSET 60491 11/18/202411/18, 11/18/2023, 11/04/2023, Additional history exists CKD PHOS USE SMARTSET 24341 11/18/202411/01, 05/22/2022, 05/23/2021, Additional history exists Depression [...] Advance Direct brittany occurred with: Power of Maintenance Aide/Patient Patent Litigation Associate Does the patient have a Living Will? No Does the patient have Health Care Power of Maintenance Aide? No * Full Code Date Activated Date [...] patient or by statute hierarchy) Care Teams Account Executive Software Sales Relationship Specialty Start Date End Date Juan Ramon Thurman MD [address] [place] [address] PCP - General Family Medicine 11/14/23 documented as of this encounter
--- OUTSIDE RECORDS SUMMARY | 2025-04-14 03:35 | External Medical Summary | Summary of Care ---
Author Name Unknown Organization [facility] Address [address] [place] [address] Phone [phone] Care Team Providers Care Cash Applications Coordinator Name Role Phone Juan Ramon Thurman MD Primary Care Provider [phone] [phone] Reason for Referral * Evaluate & Treat - Unlimited Visits (Within 3 days (urgent)) - Authorized Specialty Diagnoses / Procedures Referred By Ca lopez Referred To Contact ANTI-COAG CLINIC / Pharmacy Diagnoses History of CVA (cerebrovascular accident) History of pulmonary embolism Juan Ramon Thurman MD [address] [place] [address] Phone: tel: fax: Referral ID Status Reason Start Date Expiration Date Visits Requested Visits Authorized [id number] Authorized Specialty Services Required 01/18/2025 07/17/2025 99 99 Question Answer Referral Priority Within 3 days (urgent) Where should this appointment be scheduled? Nona Comments Anticoagulation referral for management of: Warfarin Indication [...] have his medication therapy managed by the [facility] ([facility]) per established policies, procedures, and protocols. I also certify that this referral may serve as an initiation of service for the management of drug therapy in the above noted patient. [facility] providers will be responsible for scheduling patient visits, obtaining appropriate laboratory studies, and adjusting medication management therapy per patient's need, in addition to those roles spelled out in the clinic policy, procedures, and drug management protocols. I understand that the service provided by the [facility] Clinic is voluntary and have informed patient that they can refuse the service at their discretion. I am aware that the [facility] Clinic will provide me with a copy of the patient encounter via my [employer] In[employer]pliiqsk[employer]. I authorize the [facility] Clinic to carry out these activities on my behalf. I consider this program to be a necessary part of the patient's medical care. Reason for Visit * Reason Onset Date Comments Referral 01/18/2025 Encounter Details Date Type Department Care Team (Late st Contact Info) Description 01/18/2025 Telephone Family Practice [facility] [address] [place] [address] Juan Ramon Thurman MD [address] [place] [address] Referral Allergies No known active allergiesdocumented as of this encounter (statuses as of 01/19/2025) Medications Aspirin 81 MG Oral Tablet Delayed Release (Aspirin Low Dose) take 1 tablet by mouth once daily 100 Tab 3 07/19/20 21 Active Ergocalciferol 1.25 MG (36260 UT) Oral Capsule Take 1 Capsule by [...] every evening. 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 Thanks, Fang Gonsales PharmD Clinical Pharmacist [facility] ([facility]) [phone] 01/18/2025 4:55 PM documented in this encounter Plan of Treatment Upcoming Encounters Date Type Department Care Team (Late st Contact Info) Description 01/19/2025 6:00 AM EST Anticoagulation Centralized Clinical Pharmacy Services, Eunice Rich [address] [place] [address] [place] [address] [place] [address] 01/27/2025 11:15 AM EST Office Visit Orthopaedics [facility] [address] [place] [phone] Britton Wayne, [address] [place] [phone] 01/27/2025 1:00 PM EST Imaging Vascular Lab, [address], [place] 132 [facility] [place] [address] 01/27/2025 2:00 PM EST Imaging Vascular Lab, [address], [place] 132 [facility] [place] [address] 01/27/2025 3:00 PM EST Imaging Vascular Lab, [address], [place] 132 [facility] [place] [address] 02/03/2025 1:30 PM EST Office Visit Vascular Surgery, [facility] 132 [facility] [place] [address] Scott Mckay MD [address] [place] [address] 02/16/2025 4:00 PM EDT Office Visit Family Practice [facility] 132 [facility] [place] [address] Juan Ramon Thurman MD [address] [place] [address] Scheduled Referrals Name Type Priority Associated Diagnoses [...] Additional history exists CKD HGB USE SMARTSET 24116 11/18/202411/18, 11/18/2023, 11/04/2023, Additional history exists CKD PHOS USE SMARTSET 04685 11/18/202411/01, 05/22/2022, 05/23/2021, Additional history exists Depression [...] Advance Direct brittany occurred with: Power of Bobbin Loose End Finder/Patient Joint Special Operations Does the patient have a Living Will? No Does the patient have Health Care Power of Bobbin Loose End Finder? No * Full Code Date Activated Date [...] patient or by statute hierarchy) Care Teams Cash Applications Coordinator Relationship Specialty Start Date End Date Juan Ramon Thurman MD [address] [place] [address] PCP - General Family Medicine 11/14/23 documented as of this encounter
--- OUTSIDE RECORDS SUMMARY | 2025-04-14 03:35 | External Medical Summary ---
Author Name Unknown Address Unknown Organization [facility] [place] [address] [place] [address] Laboratory Report Ordering Provider Test Date Status OSIEL JAY 12/22/2024 08:17:00 Final Standing order for pt/inr. < br/>Please draw pt/inr every 1 to 4 weeks as requested
Results to [facility]ticoagulation [facility]

Warfarin Therapy
INR: 2.0-3.0 conventional anticoagulation
INR: 2.5-3.5 high intensity anticoagulation Observation Date Value Abnormality Reference (Units ) Status PT 12/22/2024 08:17:00 37.6 Above high normal 11 .6-15.2 (seconds) Final INR 12/22/2024 08:17:00 3.7 Above high normal 0. 8-1.2 Final Performing Location [facility] [place] [facility] - [address] [place] [address]
--- OUTSIDE RECORDS SUMMARY | 2025-04-14 03:35 | External Medical Summary ---
Author Name Unknown Address Unknown Organization [facility] [place] [address] - [address] [place] [address] Laboratory Report Ordering Provider Test Date Status OSIEL JAY 01/18/2025 08:41:00 Final Standing order for pt/inr. < br/>Please draw pt/inr every 1 to 4 weeks as requested
Results to [facility]

Warfarin Therapy
INR: 2.0-3.0 conventional anticoagulation
INR: 2.5-3.5 high intensity anticoagulation Observation Date Value Abnormality Reference (Units ) Status PT 01/18/2025 08:41:00 26.5 Above high normal 11 .6-15.2 (seconds) Final INR 01/18/2025 08:41:00 2.4 Above high normal 0. 8-1.2 Final Performing Location [facility] [place] [facility] - [address] [place] [address]
--- OUTSIDE RECORDS SUMMARY | 2025-04-14 03:36 | External Medical Summary | Summary of Care ---
Author Name Unknown Organization [facility] Address [address] [facility] [place] [address] Phone [phone] Care Team Providers Care Television Parts Tester Name Role Phone Juan Ramon Thurman MD Primary Care Provider [phone] Reason for Visit * Reason Comments Dosage Adjustment Via Phone (anticoag Cl inic) Encounter Details Date Type Department Care Team (Late st Contact Info) Description 11/12/2024 6:00 PM EST Anticoagulation Centralized Clinical Pharmacy Services, Eunice Rich [address] [place] [address] [place] [address] [facility], [address] [place] [address] Anticoagulation management encounter* Allergies No known active allergiesdocumented as of this encounter (statuses as of 11/12/2024) Medications Aspirin 81 MG Oral Tablet Delayed Release (Aspirin Low Dose) take 1 tablet by mouth once daily 100 Tab 3 07/19/20 21 Active Ergocalciferol 1.25 MG (86544 UT) Oral Capsule Take 1 Capsule by [...] evening. Or take as instructed by the [facility] Cou[facility] 90 Tablet 3 11/22/20 23 [...] MORNING 30 Tablet 5 07/29/20 24 Active Finasteride 5 MG Oral Tablet (Proscar)Indicati ons:BPH with obstruction/lower urinary tract symptoms TAKE 1 TABLET BY MOUTH IN THE MORNING 30 Tablet 07/31/20 24 Active Bisacodyl 10 MG Rectal Suppository [...] MORNING 90 Tablet 3 09/27/20 24 Active Gabapentin 300 MG Oral Capsule (Neurontin)Indica tions:Spinal stenosis of lumbar region with neurogenic claudication,Bila teral lumbar radiculopathy TAKE 1 CAPSULE BY MOUTH ONCE DAILY IN THE MORNING AND 1 ONCE DAILY AT BEDTIME 60 Capsule 11/03/20 24 Active documented as of this encounter (statuses as of 11/12/2024) Active Problems Problem Noted Date Diagnosed Date [...] as of this encounter (statuses as of 11/12/2024) Resolved Problems Problem Noted Date Diagnosed Date [...] as of this encounter (statuses as of 11/12/2024) Immunizations Name Administration Dates Next Due Pneumococcal Polysaccharide PPV23 (Pneumovax) 01/12/2021,09/09/2007 Season Influenza, Quad, PF, Adjuvanted, 65+ Yrs, IM (FLUAD) 11/17/2020 Seasonal Influenza Vac., MDV , IM, 0.5 mL (Fluzone) 08/08/2012,08/23/2010,10/07/2008,08/2007,12/10/2006 08/23/2011 TD - Tetanus/Diptheria (ADULT) 06/29/2003 TDAP (age 10 and older)(Boostrix) 02/09/2013 documented as of this encounter Social History Tobacco Use Types Packs/Day Years Used Date Smoking Tobacco: Never Smokeless Tobacco: Current Chew Comments:chews 1 cans each w [place], not at this time in nursing facility [...] 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 Not [...] documented in this encounter Progress Notes * Mil Foreman, [facility] - 11/12/2024 3:50 PM EST Contacts Contact Date/Time Type Contact Phone/Fax 11/12/2024 03:42 PM EST Phone (Outgoing) Jeannine Lawson (Self) [phone] (M) Left Message 11/12/2024 03:49 PM EST Phone (Incoming) Jeannine Lawson (Self) [phone] (M) Subjective Patient Findings Negatives: Signs/symptoms of thrombosis, [...] noted by Pharmacist: Yes Mil Foreman CPhT 11/12/2024, 3:50 PM * Cait Cisse PHARM Tech - 11/12/2024 3:45 PM EST Contacts Contact Date/Time Type Contact Phone/Fax 11/12/2024 03:42 PM EST Phone (Outgoing) Jeannine Lawson (Self) [phone] (M) Left Message Subjective Advised patient to contact Anticoagulation Clinic if any unusual bruising or bleeding, recent illness, changes in medication, or questions/concerns. PT/INR results, Coumadin dose instructions, and next PT/INR date communicated as noted by Pharmacist: Yes KATTY Johnson 11/12/2024, 3:45 PM * Farideh Delgado RPh - 11/12/2024 3:33 PM EST Images from the original note were not included. Coumadin Clinic (region specific) Objective Current Warfarin Dose As of 11/12/2024 Warfarin maintenance plan: 2 mg (4 mg x 0.5) every Sat, Sat, Michelle; 4 mg (4 mg x 1) all other days INR Result As of 11/12/2024 INR goal: 2.0-3.0 INR used for dosin.2 (11/12/2024) Assessment & Plan Warfarin Plan As of 11/12/2024 Full warfarin instructions: 11/12: Hold; 11/13: Hold; Otherwise 4 mg every Mon, Wed, Fri; 2 mg all other days Next INR check: 11/19/2024 Repeat PT/INR in 1 week(s) Weekly dose: decreased Additional Dosing Information: Description [facility]- M,T,Th Tech to contact patient with dose instructions as noted. Farideh Delgado RPh 11/12/2024, 3:33 PM documented in this encounter Plan of Treatment Upcoming Encounters Date Type Department Care Team (Late st Contact Info) Description 11/20/2024 6:00 AM EST Anticoagulation Centralized Clinical Pharmacy Services, Eunice Rich [address] [place] [address] [place] [address] [facility], [address] [place] [address] 01/27/2025 11:15 AM EST Office Visit Orthopaedics [facility] [address] [place] [address] Britton Wayne DO [address] [place] [address] 01/27/2025 1:00 PM EST Imaging Vascular Lab, [facility] 2nd Floor, [place] 132 [facility] [place] [address] 01/27/2025 2:00 PM EST Imaging Vascular Lab, [facility] 2nd Floor, [place] 132 [facility] [place] [address] 01/27/2025 3:00 PM EST Imaging Vascular Lab, [facility] 2nd [facility], [place] [address] [facility] [place] [address] 02/03/2025 1:30 PM EST Office Visit Vascular Surgery, [facility] 132 [facility] [place] [address] Scott Mckay MD [address] [place] [facility] [place] [address] 02/16/2025 4:00 PM EDT Office Visit Family Practice [facility] [address] [place] [address] Juan Ramon Thurman MD [address] [place] [address] Health Maintenance Due Date Last Done Comments Diabetic Foot Exam 1965 Zoster Vaccines (1 of 2) 1997 Adult Wellness Visit 2013 Pneumococcal Vaccine: 65+ Years (2 of 2 - PCV) 01/12/2022 [...] Additional history exists CKD HGB USE SMARTSET 47332 11/18/202411/18, 11/18/2023, 11/04/2023, Additional history exists CKD PHOS USE SMARTSET 18347 11/18/202411/01, 05/22/2022, 05/23/2021, Additional history exists Depression [...] Advance Direct brittany occurred with: Power of Relay Engineer/Patient Senior Instructional Designer Does the patient have a Living Will? No Does the patient have Health Care Power of Relay Engineer? No * Full Code Date Activated [...] patient or by statute hierarchy) Care Teams Television Parts Tester Relationship Specialty Start Date End Date Juan Ramon Thurman MD [address] [place] [address] PCP - General Family Medicine 11/14/23 documented as of this encounter
--- OUTSIDE RECORDS SUMMARY | 2025-04-14 03:36 | External Medical Summary ---
Author Name Unknown Address Unknown Organization [facility] - [address] [place] [address] Laboratory Report Ordering Provider Test Date Status OSIEL JAY 12/08/2024 08:46:00 Final Standing order for pt/inr. < br/>Please draw pt/inr every 1 to 4 weeks as requested
Results to [facility] Anticoagulation Clinic

Warfarin Therapy
INR: 2.0-3.0 conventional anticoagulation
INR: 2.5-3.5 high intensity anticoagulation Observation Date Value Abnormality Reference (Units ) Status PT 12/08/2024 08:46:00 32.3 Above high normal 11 .6-15.2 (seconds) Final INR 12/08/2024 08:46:00 3.1 Above high normal 0. 8-1.2 Final Performing Location [facility] [facility] - [address] [place] [address]
--- OUTSIDE RECORDS SUMMARY | 2025-04-14 03:36 | External Medical Summary | Summary of Care ---
Author Name Unknown Organization [facility] Address [address] [facility] [place] [address] Phone [phone] Care Team Providers Care Executive Services Administrator Name Role Phone Juan Ramon Thurman MD Primary Care Provider [phone] Reason for Visit * Reason Comments Dosage Adjustment Via Phone (anticoag Cl inic) Encounter Details Date Type Department Care Team (Late st Contact Info) Description 11/27/2024 6:00 AM EST Anticoagulation Centralized Clinical Pharmacy Services, Isabelalinsey Rich [address] [place] [address] [place] [address] [facility], [address] [place] [address] Multiple subsegmental pulmonary emboli without acute cor pulmonale (HCC)* Allergies No known active allergiesdocumented as of this encounter (statuses as of 11/27/2024) Medications Aspirin 81 MG Oral Tablet Delayed Release (Aspirin Low Dose) take 1 tablet by mouth once daily 100 Tab 3 07/19/20 21 Active Ergocalciferol 1.25 MG (14486 UT) Oral Capsule Take 1 Capsule by [...] evening. Or take as instructed by the [facility] Coumadin Clinic 90 Tablet 3 11/22/20 [...] as of this encounter (statuses as of 11/27/2024) Active Problems Problem Noted Date Diagnosed Date [...] as of this encounter (statuses as of 11/27/2024) Resolved Problems Problem Noted Date Diagnosed Date [...] as of this encounter (statuses as of 11/27/2024) Immunizations Name Administration Dates Next Due Pneumococcal [...] documented in this encounter Progress Notes * Marce Davies CPhT - 11/27/2024 9:02 AM EST Contacts Contact Date/Time Type Contact Phone/Fax 11/27/2024 09:00 AM EST Phone (Outgoing) Cuco Powell (Emergency Contact) [phone] (M) Spoke to Patient Subjective Patient Findings [...] date communicated as noted by Pharmacist: Yes Marce Davies CPhT 11/27/2024, 9:02 AM * Danica Foreman RP - 11/27/2024 8:38 AM EST Coumadin Clinic (region specific) Objective Current Warfarin Dose As of 11/27/2024 Warfarin maintenance plan: 4 mg (4 mg x 1) every Mon, Wed, Fri; 2 mg (4 mg x 0.5) all other days INR Result As of 11/27/2024 INR goal: 2.0-3.0 INR used for dosin.9 (11/26/2024) Assessment & Plan Warfarin Plan As of 11/27/2024 Full warfarin instructions: 4 mg every Mon, Wed, Fri; 2 mg all other days No change documented: Danica Foreman RPh Next INR check: 12/10/2024 Repeat PT/INR in 2 week(s) Weekly dose: not changed Additional Dosing Information: Description [facility]- M,T, Tech to contact patient with dose instructions as noted. Danica Foreman RPh 11/27/2024, 8:39 AM documented in this encounter Plan of Treatment Upcoming Encounters Date Type Department Care Team (Late st Contact Info) Description 12/11/2024 6:00 AM EST Anticoagulation Centralized Clinical Pharmacy Services, Eunice Rich [address] [place] [address] [place] [address] [place] [address] 01/27/2025 11:15 AM EST Office Visit Orthopaedics [facility] 132 [facility] [place] [address] Britton Wayne, [address] [place] [address] 01/27/2025 1:00 PM EST Imaging Vascular Lab, [facility] 2nd Floor, [place] 132 [facility] [place] [address] 01/27/2025 2:00 PM EST Imaging Vascular Lab, [facility] 2nd [facility], [place] 132 [facility] [place] [address] 01/27/2025 3:00 PM EST Imaging Vascular Lab, [facility] 2nd [facility], [place] 132 [facility] [place] [address] 02/03/2025 1:30 PM EST Office Visit Vascular Surgery, [facility] 132 [facility] [place] [address] Scott Mckay MD [address] [place] [address] 02/16/2025 4:00 PM EDT Office Visit Family Practice [facility] 132 [facility] [place] [address] Juan Ramon Thurman MD [address] [facility] [address] Health Maintenance Due Date Last Done Comments [...] Additional history exists CKD HGB USE SMARTSET 80711 11/18/202411/18, 11/18/2023, 11/04/2023, Additional history exists CKD PHOS USE SMARTSET 24237 11/18/202411/01, 05/22/2022, 05/23/2021, Additional history exists Depression [...] as of this encounter Visit Diagnoses Diagnosis Multiple subsegmental pulmonary emboli without acute cor pulmonale (HCC)- Primary documented in this encounter Advance Directives * No Code (Latest Code Status on File) Date Activated Date Inactivated Comments 10/11/2023 4:12 PM 10/18/2023 7:36 PM This order reflects the patients wishes and were consensually agreed upon. Question Answer Comments Discussion of Advance Direct brittany occurred with: Power of Passenger Rate Clerk/Patient Warp Hanger Does the patient have a Living Will? No Does the patient have Health Care Power of Passenger Rate Clerk? No * Full Code Date Activated [...] patient or by statute hierarchy) Care Teams Executive Services Administrator Relationship Specialty Start Date End Date Juan Ramon Thurman MD [address] [place] [address] PCP - General Family Medicine 11/14/23 documented as of this encounter
--- OUTSIDE RECORDS SUMMARY | 2025-04-14 03:36 | External Medical Summary | Summary of Care ---
Author Name Unknown Organization [facility] Address [address] [facility] [place] [address] Phone [phone] Care Team Providers Care Master Fire Control Technician Name Role Phone Juan Ramon Thurman MD Primary Care Provider +1 [phone] Reason for Visit * Reason Comments Dosage Adjustment Via Phone (anticoag Cl inic) Encounter Details Date Type Department Care Team (Late st Contact Info) Description 12/09/2024 6:00 AM EST Anticoagulation Centralized Clinical Pharmacy Services, Eunice Rich [address] [place] [address] [place] [address] [facility], [address] [place] [address] Anticoagulation management encounter* Allergies No known active allergiesdocumented as of this encounter (statuses as of 12/09/2024) Medications Aspirin 81 MG Oral Tablet Delayed Release (Aspirin Low Dose) take 1 tablet by mouth once daily 100 Tab 3 07/19/20 21 Active Ergocalciferol 1.25 MG (69943 UT) Oral Capsule Take 1 Capsule by [...] evening. Or take as instructed by the [facility] Coumadin [facility] 90 Tablet 3 11/22/20 [...] as of this encounter (statuses as of 12/09/2024) Active Problems Problem Noted Date Diagnosed Date [...] as of this encounter (statuses as of 12/09/2024) Resolved Problems Problem Noted Date Diagnosed Date [...] as of this encounter (statuses as of 12/09/2024) Immunizations Name Administration Dates Next Due Pneumococcal [...] Current Chew Comments:chews 1 cans each w [place], not at this time in nursing facility [...] No 09/25/2024 Does the household have a [facility] source of income? 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 Coumadin Clinic (region specific) Objective Current Warfarin Dose As of 12/09/2024 Warfarin maintenance plan: 4 mg (4 mg x 1) every Mon, Wed, Fri; 2 mg (4 mg x 0.5) all other days INR Result As of 12/09/2024 INR goal: 2.0-3.0 INR used for dosin.1 (12/08/2024) Assessment & Plan Warfarin Plan As of 12/09/2024 Full warfarin instructions: 12/09: Hold; Otherwise 4 mg every Mon, Wed, Fri; 2 mg all other days Next INR check: 12/22/2024 Repeat PT/INR in 2 week(s) Weekly dose: not changed Additional Dosing Information: Description [facility]- ,T[facility] to contact patient with dose instructions as noted. Farideh Delgado [facility] 12/08/2024, 8:42 PM documented in this encounter Plan of Treatment Upcoming Encounters Date Type Department Care Team (Late st Contact Info) Description 12/22/2024 7:10 AM EST Laboratory Lab Mobile Phlebotomy [facility] [address] [facility] [place] [address] [facility], [facility] Mobile Home Draw [address] [place] [address] 12/23/2024 6:00 AM EST Anticoagulation Centralized Clinical Pharmacy Services, Eunice Rich [address] [place] [address] [place] [address] [place] [address] 01/27/2025 11:15 AM EST Office Visit Orthopaedics [facility] [address] [place] [address] Britton Wayne, DO [address] [place] [address] 01/27/2025 1:00 PM EST Imaging Vascular Lab, [address], [place] [facility] [place] [address] 01/27/2025 2:00 PM EST Imaging Vascular Lab, [address], [place] 132 [facility] C[place] [address] 01/27/2025 3:00 PM EST Imaging Vascular Lab, [address], [place] [facility] [place] [address] 02/03/2025 1:30 PM EST Office Visit Vascular Surgery, [facility] [place] [address] Scott Mckay MD [address] [place] [address] 02/16/2025 4:00 PM EDT Office Visit Family Practice [facility] [place] [address] Juan Ramon Thurman MD [address] [place] [address] Health Maintenance Due Date Last Done Comments [...] Additional history exists CKD HGB USE SMARTSET 95972 11/18/202411/18, 11/18/2023, 11/04/2023, Additional history exists CKD PHOS USE SMARTSET 39430 11/18/202411/01, 05/22/2022, 05/23/2021, Additional history exists Depression [...] Advance Direct brittany occurred with: Power of Salmon Gillnet Vessel Operator/Patient Document Control Manager Does the patient have a Living Will? No Does the patient have Health Care Power of Sal[place] Gill[place] Vessel Operator? No * Full Code Date Activated [...] patient or by statute hierarchy) Care Teams Master Fire Control Technician Relationship Specialty Start Date End Date Juan Ramon Thurman MD [address] [place] [address] PCP - General Family Medicine 11/14/23 documented as of this encounter
--- OUTSIDE RECORDS SUMMARY | 2025-04-14 03:36 | External Medical Summary | Summary of Care ---
Author Name Unknown Organization [facility] Address [address] [facility] [place] [address] Phone [phone] Care Team Providers Care Information Technology Security Manager Name Role Phone Juan Ramon Thurman MD Primary Care Provider [phone] [phone] Reason for Visit * Reason Comments Dosage Adjustment Via Phone (anticoag Cl inic) Encounter Details Date Type Department Care Team (Late st Contact Info) Description 11/20/2024 6:00 AM EST Anticoagulation Centralized Clinical Pharmacy Services, Eunice Rich [address] [place] [address] [place] [address] [facility], [address] [place] [address] Anticoagulation management encounter* Allergies No known active allergiesdocumented as of this encounter (statuses as of 11/20/2024) Medications Aspirin 81 MG Oral Tablet Delayed Release (Aspirin Low Dose) take 1 tablet by mouth once daily 100 Tab 3 07/19/20 21 Active Ergocalciferol 1.25 MG (44235 UT) Oral Capsule Take 1 Capsule by [...] evening. Or take as instructed by the [facility] Coumadin [facility] 90 Tablet 3 11/22/20 [...] as of this encounter (statuses as of 11/20/2024) Active Problems Problem Noted Date Diagnosed Date [...] as of this encounter (statuses as of 11/20/2024) Resolved Problems Problem Noted Date Diagnosed Date [...] as of this encounter (statuses as of 11/20/2024) Immunizations Name Administration Dates Next Due Pneumococcal [...] Current Chew Comments:chews 1 cans each w [place], not at this time in nursing facility [...] No 09/25/2024 Does the household have a [facility] source [facility] income? 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 [...] Progress Notes * Marce Davies CPhT - 11/20/2024 8:09 AM EST Contacts Contact Date/Time Type Contact Phone/Fax 11/20/2024 08:08 AM EST Phone (Outgoing) Cuco Powell (Emergency Contact) [phone] (M) Spoke to Patient Subjective Patient Findings [...] noted by Pharmacist: Yes Marce Davies CPhT 11/20/2024, 8:09 AM * Farideh Delgado RPh - 11/20/2024 8:00 AM EST Coumadin Clinic (region specific) Objective Current Warfarin Dose As of 11/20/2024 Warfarin maintenance plan: 4 mg (4 mg x 1) every Mon, Wed, Fri; 2 mg (4 mg x 0.5) all other days INR Result As of 11/20/2024 INR goal: 2.0-3.0 INR used for dosin.3 (11/19/2024) Assessment & Plan Warfarin Plan As of 11/20/2024 Full warfarin instructions: 4 mg every Mon, Wed, Fri; 2 mg all other days No change documented: Farideh Delgado RPh Next INR check: 11/26/2024 Repeat PT/INR in 1 week(s) Weekly dose: not changed Additional Dosing Information: Description [facility]- M,T, Tech to contact patient with dose instructions as noted. Farideh Delgado RPh 11/20/2024, 8:00 AM documented in this encounter Plan of Treatment Upcoming Encounters Date Type Department Care Team (Late st Contact Info) Description 11/27/2024 6:00 AM EST Anticoagulation Centralized Clinical Pharmacy Services, Eunicelinsey Rich [address] [place] [address] [place] [address] [place] [address] 01/27/2025 11:15 AM EST Office Visit Orthopaedics [facility] [address] [place] [address] Britton Wayne DO 132 [place] [address] 01/27/2025 1:00 PM EST Imaging Vascular Lab, [facility] 2nd Floor, [place] [address] [place] [address] 01/27/2025 2:00 PM EST Imaging Vascular Lab, [facility] 2nd [facility] 132 [facility] [place] [address] 01/27/2025 3:00 PM EST Imaging Vascular Lab, [address] 132 [facility] [place] [address] 02/03/2025 1:30 PM EST Office Visit Vascular Surgery, [facility] [address] [place] [address] Scott Mckay MD [address] [place] [address] 02/16/2025 4:00 PM EDT Office Visit Family Practice [facility] [address] [place] [address] Juan Ramon Thurman MD 132 [place] [address] Health Maintenance Due Date Last Done Comments [...] Additional history exists CKD HGB USE SMARTSET 75487 11/18/202411/18, 11/18/2023, 11/04/2023, Additional history exists CKD PHOS USE SMARTSET 15346 11/18/202411/01, 05/22/2022, 05/23/2021, Additional history exists Depression [...] Advance Direct brittany occurred with: Power of Slitter Creaser Slotter Helper/Patient Foreman Shipping Department Does the patient have a Living Will? No Does the patient have Health Care Power of Slitter Creaser Slotter Helper? No * Full Code Date Activated Date [...] Healthcare Agent Relationshi p Communication Katie Arnold [facility] Repr esentative (appointed verbally by patient or by statute hierarchy) [facility] Repr esentative (appointed verbally by patient or by statute hierarchy) Care Teams Information Technology Security Manager Relationship Specialty Start Date End Date Juan Ramon Thurman MD [address] [place] [address] PCP - General Family Medicine 11/14/23 documented as of this encounter
--- OUTSIDE RECORDS SUMMARY | 2025-04-14 03:36 | External Medical Summary ---
Author Name Unknown Address Unknown Organization [facility] [address] - [address] [place] [address] Laboratory Report Ordering Provider Test Date Status OSIEL JAY 11/19/2024 08:51:00 Final Standing order for pt/inr. < br/>Please draw pt/inr every 1 to 4 weeks as requested
Results to [facility] Anticoagulation Clinic

Warfarin Therapy
INR: 2.0-3.0 conventional anticoagulation
INR: 2.5-3.5 high intensity anticoagulation Observation Date Value Abnormality Reference (Units ) Status PT 11/19/2024 08:51:00 25.7 Above high normal 11 .6-15.2 (seconds) Final Results rechecked. INR 11/19/2024 08:51:00 2.3 Above high normal 0. 8-1.2 Final Results rechecked. Performing Location [facility] 0 - [address] [place] [address]
--- OUTSIDE RECORDS SUMMARY | 2025-04-14 03:36 | External Medical Summary | Summary of Care ---
Author Name Unknown Organization [facility] Address [address] [facility] [place] [address] Phone [phone] Care Team Providers Care Material Liaison Name Role Phone Salima Thurman MD Primary Care Provider [phone] [phone] Reason for Visit * Reason Comments eRx-Medication Refill Encounter Details Date Type Department Care Team (Late st Contact Info) Description 12/04/2024 Refill Family Practice [facility] [address] [place] [address] Salima Thurman MD [address] [place] [address] Spinal stenosis of lumbar region with neurogenic claudication; Bilateral lumbar radiculopathy Allergies No known active allergiesdocumented as of this encounter (statuses as of 12/07/2024) Medications Aspirin 81 MG Oral Tablet Delayed Release (Aspirin Low Dose) take 1 tablet by mouth once daily 100 Tab 3 021 Active Ergocalciferol 1.25 MG (09584 UT) Oral Capsule Take 1 Capsule by [...] evening. Or take as instructed by the [facility] Coumadin Clinic 90 Tablet 3 023 Active Tamsulosin HCl 0.4 MG Oral Capsule (Flomax)Indicati ons:BPH with obstruction/lowe r urinary tract symptoms Take 1 capsule by mouth in the morning 90 Capsule 1 024 Active Allopurinol 300 MG Oral Tablet (Zyloprim)Indica [...] THE MORNING 90 Tablet 3 024 Active Gabapentin 300 MG Oral Capsule (Neurontin)Indic [...] 1 ONCE DAILY AT BEDTIME 60 Capsule 024 2024 Discontinued documented as of this encounter (statuses as of 12/07/2024) Active Problems Problem Noted Date Diagnosed Date [...] as of this encounter (statuses as of 12/07/2024) Resolved Problems Problem Noted Date Diagnosed Date [...] as of this encounter (statuses as of 12/07/2024) Immunizations Name Administration Dates Next Due Pneumococcal [...] Current Chew Comments:chews 1 cans each w [place], not at this time in nursing facility [...] 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 [...] Telephone Encounter - Salima Thurman MD - 12/07/2024 11:57 AM ESTSigned Prescriptions: Disp Refills Gabapentin 300 MG Oral Capsule (Neurontin) 60 Cap*0 Sig: TAKE 1 CAPSULE BY MOUTH ONCE DAILY IN THE MORNING AND 1 ONCE DAILY AT BEDTIME Authorizing Provider: SALIMA THURMAN * Telephone Encounter - Aisha Chavez LPN - 12/07/2024 11:28 AM ESTPending Prescriptions: Disp Refills Gabapentin 300 MG Oral Capsule [Pharmacy M*60 Cap*0 Sig: TAKE 1 CAPSULE BY MOUTH ONCE DAILY IN THE MORNING AND 1 ONCE DAILY AT BEDTIME * Telephone Encounter - Kj Edwards - 12/04/2024 7:05 PM ESTPending Prescriptions: Disp Refills Gabapentin 300 MG Oral Capsule [Pharmacy M*60 Cap*0 Sig: TAKE 1CAPSULE BY MOUTH ONCE DAILY IN THE MORNING AND 1 ONCE DAILY AT BEDTIME documented in this encounter Plan of Treatment Upcoming Encounters Date Type Department Care Team (Late st Contact Info) Description 12/08/2024 7:25 AM EST Laboratory Lab Mobile Phlebotomy [facility] [address] [place] [address] [facility], [facility] Mobile Home Draw [address] [facility] [place] [address] 12/11/2024 6:00 AM EST Anticoagulation Centralized Clinical Pharmacy Services, Eunice Rich [address] [place] [address] [place] [address] [place] [address] 01/27/2025 11:15 AM EST Office Visit Orthopaedics [facility] [address] [place] [address] Britton Wayne DO [address] [facility] [place] [address] 01/27/2025 1:00 PM EST Imaging Vascular Lab, [facility] 2nd [facility], [place] 132 [facility] [place] [address] 01/27/2025 2:00 PM EST Imaging Vascular Lab, [facility] 2nd [facility], [place] 132 [facility] [place] [address] 01/27/2025 3:00 PM EST Imaging Vascular Lab, [facility] 2nd [facility] [place] [facility] [address] 02/03/2025 1:30 PM EST Office Visit Vascular Surgery, [facility] 132 [place] [address] Scott Mckay MD [address] [place] [address] 02/16/2025 4:00 PM EDT Office Visit Family Practice [facility] 132 [facility] [place] [address] Salima Thurman MD [facility] [place] [address] Health Maintenance Due Date Last Done Comments [...] Additional history exists CKD HGB USE SMARTSET 13492 11/18/202411/18, 11/18/2023, 11/04/2023, Additional history exists CKD PHOS USE SMARTSET 24252 11/18/202411/01, 05/22/2022, 05/23/2021, Additional history exists Depression [...] Advance Direct brittany occurred with: Power of Packing Clerk/Patient Respiratory Therapy Director Does the patient have a Living Will? No Does the patient have Health Care Power of Packing Clerk? No * Full Code Date Activated [...] patient or by statute hierarchy) Care Teams Material Liaison Relationship Specialty Start Date End Date Salima Thurman MD 132 [place] [address] PCP - General Family Medicine 11/14/23 documented as of this encounter
--- OUTSIDE RECORDS SUMMARY | 2025-04-14 03:36 | External Medical Summary | Summary of Care ---
Author Name Unknown Organization [facility] Address [address] [place] [address] Phone [phone] Care Team Providers Care Health Benefits Specialist Name Role Phone Salima Thurman MD Primary Care Provider +1 [phone] Reason for Visit * Reason Comments eRx-Medication Refill Encounter Details Date Type Department Care Team (Late st Contact Info) Description 11/27/2024 Refill Family Practice [facility] [address] [facility] [place] [address] Salima Thurman MD [address] [facility] [place] [address] BPH with obstruction/lower urinary tract symptoms Allergies No known active allergiesdocumented as of this encounter (statuses as of 11/28/2024) Medications Aspirin 81 MG Oral Tablet Delayed Release (Aspirin Low Dose) take 1 tablet by mouth once daily 100 Tab 3 021 Active Ergocalciferol 1.25 MG (56776 UT) Oral Capsule Take 1 Capsule by [...] evening. Or take as instructed by the [facility] Coumadin Clinic 90 Tablet 3 023 Active [...] ONCE DAILY AT BEDTIME 60 Capsule 024 Active Finasteride 5 MG Oral Tablet (Proscar)Indicat ions:BPH with obstruction/lowe r urinary tract symptoms TAKE 1 TABLET BY MOUTH IN THE MORNING 90 Tablet 3 024 Active Finasteride 5 MG Oral Tablet (Proscar)Indicat ions:BPH with obstruction/lowe r urinary tract symptoms TAKE 1 TABLET BY MOUTH IN THE MORNING 30 Tablet 024 2023 Discontinued documented as of this encounter (statuses as of 11/28/2024) Active Problems Problem Noted Date Diagnosed Date [...] as of this encounter (statuses as of 11/28/2024) Resolved Problems Problem Noted Date Diagnosed Date [...] as of this encounter (statuses as of 11/28/2024) Immunizations Name Administration Dates Next Due Pneumococcal [...] Current Chew Comments:chews 1 cans each w [place], not at this time in nursing facility [...] encounter Miscellaneous Notes * Telephone Encounter - Nubia Gallagher [facility] - 11/28/2024 8:56 PM ESTSigned Prescriptions: Disp Refills Finasteride 5 MG Oral Tablet (Proscar) 90 Tab*3 Sig: TAKE 1 TABLET BY MOUTH IN THE MORNINGAuthorizing Provider: SALIMA THURMAN User: NUBIA GALLAGHER documented in this encounter Plan of Treatment Upcoming Encounters Date Type Department Care Team (Late st Contact Info) Description 12/10/2024 7:00 AM EST Laboratory Lab Mobile Phlebotomy [facility] [address] [facility] [place] [address] M[facility], [facility] Mobile Home Draw [address] [facility] [place] [address] 12/11/2024 6:00 AM EST Anticoagulation Centralized Clinical Pharmacy Services, Eunice Rich [address] [place] [address] [place] [address] [facility], [address] [place] [address] 01/27/2025 11:15 AM EST Office Visit Orthopaedics [facility] 132 [facility] [place] [address] Britton Wayne, 132 [facility] [place] [address] 01/27/2025 1:00 PM EST Imaging Vascular Lab, [address] 132 [facility] [place] [address] 01/27/2025 2:00 PM EST Imaging Vascular Lab, [address] 132 [facility] [place] [address] 01/27/2025 3:00 PM EST Imaging Vascular Lab, [address] 132 [facility] [place] [address] 02/03/2025 1:30 PM EST Office Visit Vascular Surgery, [facility] 132 [facility] [place] [address] Scott Mckay MD [address] [facility] [place] [address] 02/16/2025 4:00 PM EDT Office Visit Family Practice [facility] [address] [place] [address] Salima Thurman MD [address] [place] [address] Health Maintenance Due Date Last Done Comments [...] Additional history exists CKD HGB USE SMARTSET 40880 11/18/202411/18, 11/18/2023, 11/04/2023, Additional history exists CKD PHOS USE SMARTSET 91409 11/18/202411/01, 05/22/2022, 05/23/2021, Additional history exists Depression [...] as of this encounter Visit Diagnoses Diagnosis BPH with obstruction/lower urinary tract symptoms Hypertrophy of prostate with urinary obstruction and other lower urinary tract symptoms (LUTS) documented in this encounter Advance Directives * No Code (Latest Code Status on File) Date Activated Date Inactivated Comments 10/11/2023 4:12 PM 10/18/2023 7:36 PM This order reflects the patients wishes and were consensually agreed upon. Question Answer Comments Discussion of Advance Direct brittany occurred with: Power of Mailroom Personnel/Patient Extruder Operator Multiple Does the patient have a Living Will? No Does the patient have Health Care Power of Mailroom Personnel? No * Full Code Date Activated Date [...] patient or by statute hierarchy) Care Teams Health Benefits Specialist Relationship Specialty Start Date End Date Salima Thurman MD [address] [place] [address] PCP - General Family Medicine 11/14/23 documented as of this encounter
--- OUTSIDE RECORDS SUMMARY | 2025-04-14 03:36 | External Medical Summary ---
Author Name Unknown Address Unknown Organization [facility] [address] - [address] [place] [address] Laboratory Report Ordering Provider Test Date Status OSIEL JAY 11/26/2024 08:19:00 Final Standing order for pt/inr. < br/>Please draw pt/inr every 1 to 4 weeks as requested
Results to [facility] Anticoagulation [facility]

Warfarin Therapy
INR: 2.0-3.0 conventional anticoagulation
INR: 2.5-3.5 high intensity anticoagulation Observation Date Value Abnormality Reference (Units ) Status PT 11/26/2024 08:19:00 30.3 Above high normal 11 .6-15.2 (seconds) Final INR 11/26/2024 08:19:00 2.9 Above high normal 0. 8-1.2 Final Performing Location [facility] 57-[address] 0 - [address] [place] [address]
--- OUTSIDE RECORDS SUMMARY | 2025-04-14 03:36 | External Medical Summary | Summary of Care ---
Author Name Unknown Organization [facility] Address [address] [facility] [place] [address] Phone [phone] Care Team Providers Care Chamfering Machine Operator Name Role Phone Juan Ramon Thurman MD Primary Care Provider [phone] Reason for Visit * Reason Comments Dosage Adjustment Via Phone (anticoag Cl inic) Encounter Details Date Type Department Care Team (Late st Contact Info) Description 11/12/2024 6:00 PM EST Anticoagulation Centralized Clinical Pharmacy Services, Eunice Rich [address] [place] [address] [place] [address] [facility], [address] [place] [address] Anticoagulation management encounter* Allergies No known active allergiesdocumented as of this encounter (statuses as of 11/12/2024) Medications Aspirin 81 MG Oral Tablet Delayed Release (Aspirin Low Dose) take 1 tablet by mouth once daily 100 Tab 3 07/19/20 21 Active Ergocalciferol 1.25 MG (51551 UT) Oral Capsule Take 1 Capsule by [...] evening. 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 Not on [...] this encounter Progress Notes * Mil Foreman, [facility] - 11/12/2024 3:50 PM EST Contacts Contact Date/Time Type Contact Phone/Fax 11/12/2024 03:42 PM EST Phone (Outgoing) Jeannine Lawson (Self) [phone] (M) Left Message 11/12/2024 03:49 PM EST Phone (Incoming) Jeannine Lawson (Self) [phone] (M) Subjective Patient Findings Negatives: Signs/symptoms of [...] PM EST Phone (Outgoing) Jeannine Lawson (Self) [phone] (M) Left Message Subjective Advised patient to [...] Weekly dose: decreased Additional Dosing Information: Description [facility]- M,T,Th Tech to contact patient with dose instructions as noted. Farideh Delgado RPh 11/12/2024, 3:33 PM documented in this encounter Plan of Treatment Upcoming Encounters Date Type Department Care Team (Late st Contact Info) Description 11/20/2024 6:00 AM EST Anticoagulation Centralized Clinical Pharmacy Services, Eunice Rich [address] [place] [address] [place] [address] [facility], [address] [place] [address] 01/27/2025 11:15 AM EST Office Visit Orthopaedics [facility] [address] [place] [address] Britton Wayne DO [address] [place] [address] 01/27/2025 1:00 PM EST Imaging Vascular Lab, [facility] 2nd Floor, [place] 132 [facility] [place] [address] 01/27/2025 2:00 PM EST Imaging Vascular Lab, [facility] 2nd Floor, [place] 132 [place] [address] 01/27/2025 3:00 PM EST Imaging Vascular Lab, [facility] 2nd [facility], [place] [address] [facility] [place] [address] 02/03/2025 1:30 PM EST Office Visit Vascular Surgery, [facility] [address] [facility] [place] [address] Scott Mckay MD [address] [facility] [place] [address] 02/16/2025 4:00 PM EDT Office Visit Family Practice [facility] [address] [place] [address] Juan Ramon Thurman MD [address] [place] [address] Health Maintenance Due Date Last Done Comments [...] Additional history exists CKD HGB USE SMARTSET 70522 11/18/202411/18, 11/18/2023, 11/04/2023, Additional history exists CKD PHOS USE SMARTSET 32082 11/18/202411/01, 05/22/2022, 05/23/2021, Additional history exists Depression [...] Advance Direct brittany occurred with: Power of Flight Data Technician/Patient Entry Level Manager Does the patient have a Living Will? No Does the patient have Health Care Power of Flight Data Technician? No * Full Code Date Activated Date [...] patient or by statute hierarchy) Care Teams Chamfering Machine Operator Relationship Specialty Start Date End Date Juan Ramon Thurman MD [address] [place] [address] PCP - General Family Medicine 11/14/23 documented as of this encounter
--- OUTSIDE RECORDS SUMMARY | 2025-04-14 03:36 | External Medical Summary ---
Author Name Unknown Address Unknown Organization [facility] [place] [address] [place] [address] Laboratory Report Ordering Provider Test Date Status OSIEL JAY 11/12/2024 07:41:00 Final Standing order for pt/inr. < br/>Please draw pt/inr every 1 to 4 weeks as requested
Results to [facility]

Warfarin Therapy
INR: 2.0-3.0 conventional anticoagulation
INR: 2.5-3.5 high intensity anticoagulation Observation Date Value Abnormality Reference (Units ) Status PT 11/12/2024 07:41:00 41.5 Above high normal 11 .6-15.2 (seconds) Final INR 11/12/2024 07:41:00 4.2 Above high normal 0. 8-1.2 Final Performing Location [facility] [address] [place] [address]
--- OUTSIDE RECORDS SUMMARY | 2025-04-14 03:37 | External Medical Summary | Summary of Care ---
Author Name Unknown Organization [facility] Address [address] [facility] [place] [address] Phone [phone] Care Team Providers Care Pickling Tank Operator Name Role Phone Salima Thurman MD Primary Care Provider [phone] Reason for Visit * Reason Comments eRx-Medication Refill Encounter Details Date Type Department Care Team (Late st Contact Info) Description 11/02/2024 Refill Family Practice [facility] [address] [place] [address] Salima Thurman MD [address] [place] [address] Spinal stenosis of lumbar region with neurogenic claudication; Bilateral lumbar radiculopathy Allergies No known active allergiesdocumented as of this encounter (statuses as of 11/03/2024) Medications Aspirin 81 MG Oral Tablet Delayed Release (Aspirin Low Dose) take 1 tablet by mouth once daily 100 Tab 3 021 Active Ergocalciferol 1.25 MG (29589 UT) Oral Capsule Take 1 Capsule by [...] evening. Or take as instructed by the [facility] 90 Tablet 3 023 Active Tamsulosin HCl 0.4 MG Oral Capsule (Flomax)Indicati ons:BPH with obstruction/lowe r urinary tract symptoms Take 1 capsule by mouth in the morning 90 Capsule 1 024 Active Allopurinol 300 MG Oral Tablet (Zyloprim)Indica tions:Idiopathic chronic gout of foot without tophus, unspecified laterality TAKE 1 TABLET BY MOUTH IN THE MORNING 30 Tablet 5 024 Active Finasteride 5 MG Oral Tablet (Proscar)Indicat ions:BPH with obstruction/lowe r urinary tract symptoms TAKE 1 TABLET BY MOUTH IN THE MORNING 30 Tablet 024 Active Bisacodyl 10 MG Rectal Suppository [...] DAILY AT BEDTIME 60 Capsule 024 Active Gabapentin 300 MG Oral Capsule (Neurontin)Indic ations:Spinal stenosis of lumbar region with neurogenic claudication,Femi ateral lumbar radiculopathy TAKE 1 CAPSULE BY MOUTH IN THE MORNING AND 1 CAPSULE AT BEDTIME 60 Capsule 024 2023 Discontinued documented as of this encounter (statuses as of 11/03/2024) Active Problems Problem Noted Date Diagnosed Date [...] as of this encounter (statuses as of 11/03/2024) Resolved Problems Problem Noted Date Diagnosed Date [...] as of this encounter (statuses as of 11/03/2024) Immunizations Name Administration Dates Next Due Pneumococcal [...] Current Chew Comments:chews 1 cans each w [place], not at this time in nursing facility [...] 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 Not [...] Telephone Encounter - Salima Thurman MD - 11/03/2024 10:24 AM ESTSigned Prescriptions: Disp Refills Gabapentin 300 MG Oral Capsule (Neurontin) 60 Cap*0 Sig: TAKE 1 CAPSULE BY MOUTH ONCE DAILY IN THE MORNING AND 1 ONCE DAILY AT BEDTIME Authorizing Provider: SALIMA THURMAN * Telephone Encounter - Aisha Chavez LPN - 11/03/2024 6:45 AM ESTPending Prescriptions: Disp Refills Gabapentin 300 MG Oral Capsule 60 Cap*0 Sig: TAKE 1 CAPSULE BY MOUTH ONCE DAILY IN THE MORNING AND 1 ONCE DAILY AT BEDTIME * Telephone Encounter - Kj Edwards - 11/02/2024 7:06 PM ESTPending Prescriptions: Disp Refills Gabapentin 300 MG Oral Capsule 60 Cap*0 Sig: TAKE 1 CAPSULE BY MOUTH ONCE DAILY IN THE MORNING AND 1 ONCE DAILY AT BEDTIME documented in this encounter Plan of Treatment Upcoming Encounters Date Type Department Care Team (Late st Contact Info) Description 11/12/2024 7:00 AM EST Laboratory Lab [facility] [address] [place] [address] [address] [facility] [address] [place] [address] [address] 11/13/2024 6:00 AM EST Anticoagulation Centralized Clinical Pharmacy Services, Eunice Rich [address] [place] [address] [place] [address] [place] [address] 01/27/2025 11:15 AM EST Office Visit Orthopaedics [facility] [address] [facility] [place] [address] Britton Wayne DO [address] [facility] [place] [address] 01/27/2025 1:00 PM EST Imaging Vascular Lab, [facility] 2nd [facility] [place] [address] [facility] [place] [address] 01/27/2025 2:00 PM EST Imaging Vascular Lab, [facility] [address] [facility] [place] [address] [facility] [place] [address] 01/27/2025 3:00 PM EST Imaging Vascular Lab, [facility] [address] [facility] [place] [address] [facility] [place] [address] 02/03/2025 1:30 PM EST Office Visit Vascular Surgery, [facility] [address] [facility] [place] [address] Scott Mckay MD [address] [place] [address] 02/16/2025 4:00 PM EDT Office Visit Family Practice [facility] [address] [facility] [place] [address] Salima Thurman MD [address] [facility] [place] [address] Health Maintenance Due Date Last Done Comments [...] Additional history exists CKD HGB USE SMARTSET 86624 11/18/202411/18, 11/18/2023, 11/04/2023, Additional history exists CKD PHOS USE SMARTSET 53524 11/18/202411/01, 05/22/2022, 05/23/2021, Additional history exists Depression [...] Advance Direct brittany occurred with: Power of Fire Technician/Patient Bakeshop Cleaner Does the patient have a Living Will? No Does the patient have Health Care Power of Fire Technician? No * Full Code Date Activated [...] patient or by statute hierarchy) Care Teams Pickling Tank Operator Relationship Specialty Start Date End Date Salima Thurman MD [address] [place] [address] PCP - General Family Medicine 11/14/23 documented as of this encounter
--- NOTE | 2025-04-14 03:57 | History & Physical Report ---
Date of Service April 14, 2025 Assessment & Plan (1) Stroke-like symptoms: Plan: 79-year-old male with past med history significant for type 2 diabetes, dyslipidemia, hyperuricemia, peripheral artery disease, hypertension, history of PE, GERD, BPH, CKD stage III, osteoarthritis, history of CVA, status post right carotid endarterectomy who lives at home with his son and daughter and ambulates with a cane was brought in because of strokelike symptoms. Son is in the room. As per son patient fell on Saturday and his right upper extremity was entangled in a walker . He seemed to hit his head. He is on Coumadin and Coumadin level was drawn on Saturday. Son checked Coumadin levels on line and the levels were in the mid twos and son thought it was high and because of fall held Coumadin on Saturday and Saturday. He was waiting for the anticoagulation clinic to call him and as they did not called, son was planning to call Coumadin clinic tomorrow. Checking in epic INR was 2.4 on 04/12/2022. Tonight when son came back home patient was sleeping on the recliner. Patient's last well-known was around 10 PM. As per son patient woke up and seemed confused. Son noticed patient's right extremity was weak and was also having slurred speech. EMS was called and stroke alert was initiated. Currently as per son patient's speech is better. Patient having minimal movement in right upper extremity. Can move his right lower extremity but seems weak. Speech is still slurred. Mild right facial droop seen. Patient is alert and oriented x 3. Denies any headache. No runny nose or sore throat. No cough. Afebrile. Denies any chest pain or shortness of breath. No nausea. No abdominal pain. Normal bowel and bladder movements. Blood pressure was elevated in the ER and received IV labetalol and hydralazine. INR is 2.4. CT head and CTA head and neck are unremarkable for any acute findings. Because of the high blood pressure and INR being 2.4 was thought not to be a TNK candidate. Strokelike symptoms Right-sided weakness Slurred speech Right facial droop CT head no acute findings. Old stroke in left frontoparietal cortex CTA head. Left vertebral artery 70 to 90% luminal narrowing. 40 to 50% left carotid artery narrowing CTA neck no acute findings Continue home aspirin and statin Continue home warfarin unless hold recommendations from neurology Will do full stroke workup Will follow lipid profile and HbA1c levels Neurochecks every 2 hours Permissive hypertension Will follow MRI scan and echo Will keep him n.p.o. for now, IV fluids Speech evaluation PT OT evaluation Neurology consult in a.m. for further recommendations Diabetes Not on medications Sliding scale Will monitor blood sugars History of pulmonary embolism On Coumadin INR 2.4 Follow PT/INR History of hypertension Continue home Coreg. Can consider reducing dose for now for permissive HTN Blood pressure elevated on presentation Permissive hypertension IV labetalol as needed Hyperlipidemia On statin and Zetia Will follow lipid profile History of CVA On aspirin and statin History of peripheral artery disease On aspirin and statin BPH On finasteride CKD stage III Presented creatinine 1.02 Will follow labs DVT prophylaxis INR 2.4 Disposition Telemetry Full code. History of Present Illness Chief Complaint: Strokelike symptoms Primary Care Provider: Juan Ramon Thurman MD 79-year-old male with past med history significant for type 2 diabetes, dyslipidemia, hyperuricemia, peripheral artery disease, hypertension, history of PE, GERD, BPH, CKD stage III, osteoarthritis, history of CVA, status post right carotid endarterectomy who lives at home with his son and daughter and ambulates with a cane was brought in because of strokelike symptoms. Son is in the room. As per son patient fell on Saturday and his right upper extremity was entangled in a walker . He seemed to hit his head. He is on Coumadin and Coumadin level was drawn on Saturday. Son checked Coumadin levels on line and the levels were in the mid twos and son thought it was high and because of fall held Coumadin on and Saturday. He was waiting for the anticoagulation clinic to call him and as they did not called, son was planning to call Coumadin clinic tomorrow. Checking in epic INR was 2.4 on 04/12/2022. Tonight when son came back home patient was sleeping on the recliner. Patient's last well-known was around 10 PM. As per son patient woke up and seemed confused. Son noticed patient's right extremity was weak and was also having slurred speech. EMS was called and stroke alert was initiated. Currently as per son patient's speech is better. Patient having minimal movement in right upper extremity. Can move his right lower extremity but seems weak. Speech is still slurred. Mild right facial droop seen. Patient is alert and oriented x 3. Denies any headache. No runny nose or sore throat. No cough. Afebrile. Denies any chest pain or shortness of breath. No nausea. No abdominal pain. Normal bowel and bladder movements. Blood pressure was elevated in the ER and received IV labetalol and hydralazine. INR is 2.4. CT head and CTA head and neck are unremarkable for any acute findings. Because of the high blood pressure and INR being 2.4 was thought not to be a TNK candidate. Past medical history. As mentioned above Past surgical history. Colonoscopy EGD with biopsy. Femoral popliteal artery revascularization with stent placement. Hemorrhoidectomy. Right carotid endarterectomy. Incision drainage of right foot fascia. Umbilical hernia repair. Right femoral-popliteal bypass graft. Social history. No smoking. Chews tobacco. No alcohol use. No drug use. Family history. Mother had cancer. Father had hypertension. Stroke. Daughter had pancreatitis. Daughter has asthma. Brother has hypertension and [place]. Allergies Allergy/AdvReac Type Severity Reaction Status Date / Time No Known Allergies Allergy Unknown Verified 04/14/25 01:10 Home Medications Medication Instructions Recorded Confirmed Type aspirin 81 mg tablet,delayed 81 mg PO QAM 12/06/20 04/14/25 History release allopurinol 300 mg tablet 300 mg PO QAM 05/22/22 04/14/25 History carvedilol 25 mg tablet 25 mg PO BIDM 05/22/22 04/14/25 History tamsulosin 0.4 mg capsule 0.4 mg PO QAM 05/22/22 04/14/25 History atorvastatin 40 mg tablet 40 mg PO QAM 07/08/22 04/14/25 History finasteride 5 mg tablet 5 mg PO QAM 07/08/22 04/14/25 History ezetimibe 10 mg tablet 10 mg PO QAM 07/14/23 04/14/25 History gabapentin 300 mg capsule 300 mg PO [facility] 07/14/23 04/14/25 History warfarin 4 mg tablet 2 - 4 mg PO UD 07/14/23 04/14/25 History ciclopirox 8 % topical solution See Rx Instructions .Route .COMPLEX 04/14/25 04/14/25 History Past Med/Surg History Problem List (Updated 04/14/25 @ 07:44 by Genesis Ku DO) Hypertension (Acute) Stroke-like symptoms (Acute) Hypotension (Acute) Diabetic ulcer of right foot Unstageable pressure ulcer of heel (Acute) Encounter for pre-operative examination Ground-level fall (Acute) Closed right hip fracture (Acute) Fall Tobacco use disorder CKD (chronic kidney disease), stage III BPH (benign prostatic hyperplasia) PAD (peripheral artery disease) (Chronic) DM (diabetes mellitus), type 2 History of pulmonary embolism Jul 2022 HTN (hypertension) (Chronic) History of cerebrovascular accident (Acute) 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 Hyperlipidemia (Chronic) Medical History Tobacco use disorder CKD (chronic kidney disease), stage III BPH (benign prostatic hyperplasia) Carotid stenosis PAD (peripheral artery disease) DM (diabetes mellitus), type 2 History of pulmonary embolism Jul 2022 History of cerebrovascular accident 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 HTN (hypertension) Hyperlipidemia Surgical History H/O umbilical hernia repair S/P carotid endarterectomy R: Jan 2023 @ [facility] [place] 20[place] in [place] History of shoulder surgery Family History Other Cancer Diabetes Heart disease Hypertension Social History Smoking Status: Never smoker Tobacco Type: Smokeless Tobacco (Dip or Chew) Do You Dip or Chew Tobacco: Yes; Hx Alcohol Use: No Hx Substance Use: No Preferred Language: Ukrainian Communication Ability: Effective Waybill Clerk Required: No Beliefs That Will Affect Care: None marital status: / Current Living Situation: Family Current Living Situation Comment: pt lives in two story house with son How many Children do You have: 2 Feels Safe at Home: Yes Safety Concerns: Feels Safe At This Time Assistive Devices: Cane, Glasses and Hearing Aid - Bilateral Review of Systems Review of Systems: All systems reviewed & are unremarkable except as noted in HPI & below Physical Exam Physical Exam: General- Not in acute distress Head- atraumatic. Slight right facial droop seen Eyes- PERRL, EOMI. ENT- oropharynx clear Neck- supple, no JVD. Lungs- clear to auscultation no wheezing or crackles. Heart- regular rate and rhythm; no murmur, no gallop. Abdomen- normal bowel sounds, soft, nontender, no distension. Extremities- no pretibial edema, no erythema seen. Neuro- alert, oriented x 3; PERRL, EOMI; mild right facial droop seen ; dysarthria; motor 5/5 left extremities 0/5 right upper extremity 3/5 right lower extremity, sensations intact. Results & Data Results & Data Vital Signs (Past 12 Hours) Vital Signs Pulse Pulse Resp BP BP Pulse Ox O2 Del Method 04/14/25 02:03 77 18 170/117 H 95 04/14/25 02:03 73 16 157/104 H 96 Room Air 04/14/25 01:59 74 18 146/95 H 97 Room Air 04/14/25 01:57 72 16 175/93 H 97 04/14/25 01:57 71 04/14/25 01:40 71 18 211/105 H 95 04/14/25 01:34 70 193/116 H 04/14/25 01:34 70 193/115 H 04/14/25 01:31 69 18 193/115 H 95 Room Air 04/14/25 01:19 72 226/110 H 04/14/25 01:08 78 04/14/25 01:08 74 16 226/110 H 94 Room Air Diagnostic Findings Laboratory Results WBC 7.67 K/ul (4.8-10.8) 04/14/25 01:07 RBC 4.95 M/uL (4.70-6.10) 04/14/25 01:07 Hgb 15.0 g/dl (14.0-18.0) 04/14/25 01:07 Hct 45.3 % (42.0-52.0) 04/14/25 01:07 MCV 91.5 fL (80.0-100.0) 04/14/25 01:07 MCH 30.3 pg (25.0-34.0) 04/14/25 01:07 MCHC 33.1 g/dL (32.0-36.0) 04/14/25 01:07 RDW Std Deviation 50.1 fL (36.4-46.3) H 04/14/25 01:07 RDW Coeff of Deborah 15.0 % (11.5-14.5) H 04/14/25 01:07 Plt Count 168 K/uL (130-400) 04/14/25 01:07 MPV 9.9 fL (9.4-12.4) 04/14/25 01:07 Immature Gran % (Auto) 0.4 % 04/14/25 01:07 Neut % (Auto) 74.2 % 04/14/25 01:07 Lymph % (Auto) 14.9 % 04/14/25 01:07 [place] % (Auto) 7.2 % 04/14/25 01:07 Eos % (Auto) 2.9 % 04/14/25 01:07 Baso % (Auto) 0.4 % 04/14/25 01:07 Neut # (Auto) 5.70 K/uL (1.40-6.50) 04/14/25 01:07 Lymph # (Auto) 1.14 K/uL (1.20-3.40) L 04/14/25 01:07 [place] # (Auto) 0.55 K/uL (0.11-0.59) 04/14/25 01:07 Eos # (Auto) 0.22 K/uL (0.00-0.50) 04/14/25 01:07 Baso # (Auto) 0.03 K/uL (0.00-0.20) 04/14/25 01:07 Immature Gran # (Auto) 0.03 K/uL (0.01-0.20) 04/14/25 01:07 PT 24.5 Seconds (9.0-12.0) H 04/14/25 01:07 POC INR 2.7 (0.9-1.1) H 04/14/25 01:13 INR 2.4 (0.9-1.1) H 04/14/25 01:07 APTT 34 Seconds (21-31) H 04/14/25 01:07 PTT Ratio 1.3 04/14/25 01:07 Sodium 139 mmol/L (136-145) 04/14/25 01:07 Potassium 4.0 mmol/L (3.5-5.1) 04/14/25 01:07 Chloride 105 mmol/L (98-107) 04/14/25 01:07 Carbon Dioxide 28 mmol/L (21-32) 04/14/25 01:07 Anion Gap 6 (3-11) 04/14/25 01:07 BUN 19 mg/dl (6-23) 04/14/25 01:07 Creatinine 1.02 mg/dl (0.6-1.4) 04/14/25 01:07 Est Cr Clr Drug Dosing 62.6 ml/min 04/14/25 01:07 eGFR 75.70 04/14/25 01:07 BUN/Creatinine Ratio 18.6 (10-20) 04/14/25 01:07 Glucose 112 mg/dl (70-99(Fasting)) H 04/14/25 01:07 Calcium 8.5 mg/dl (8.6-10.3) L 04/14/25 01:07 Magnesium 1.7 mg/dl (1.7-2.4) 04/14/25 01:07 Total Bilirubin 1.0 mg/dl (0.2-1.0) 04/14/25 01:07 AST 11 U/L (13-39) L 04/14/25 01:07 ALT 7 U/L (7-52) 04/14/25 01:07 Alkaline Phosphatase 176 U/L (34-104) H 04/14/25 01:07 Troponin I High Sens 9.7 pg/ml (0-20) 04/14/25 01:07 Total Protein 6.3 gm/dl (6.0-8.3) 04/14/25 01:07 Albumin 3.6 gm/dl (3.4-5.0) 04/14/25 01:07 Globulin 2.7 gm/dl (2.5-4.0) 04/14/25 01:07 Albumin/Globulin Ratio 1.3 (0.9-2) 04/14/25 01:07 Blood Type A Negative 04/14/25 01:07 Antibody Screen POSITIVE A 04/14/25 01:07 Impressions Chest X-Ray 04/14/25 00:52 EXAM: XR chest 1V portable CLINICAL HISTORY: Neuro deficit, acute stroke suspected TECHNIQUE: An X-ray image of the chest is obtained in AP projection. COMPARISON: 07/17/2023. FINDINGS: Chest leads are seen. Pulmonary Parenchyma: Prominent gio with perihilar bronchovascular markings, likely due to congestion. No evidence of consolidation, collapse, or focal opacities. No pulmonary nodules are identified. No evidence of pleural effusion or pleural thickening. Heart and Mediastinum: Heart size is apparently prominent. No mediastinal widening or masses. No hilar or mediastinal lymphadenopathy. Bony Thorax: Bony thorax appears intact without fractures or deformities. Osteoarthritic changes at both acromioclavicular and glenohumeral joints. Soft Tissues: Soft tissues overlying the chest wall are unremarkable. IMPRESSION: Prominent gio with perihilar bronchovascular markings, likely due to congestion. Needs clinical correlation. More conspicuous No evidence of consolidation or pleural effusion on either side. Electronically signed by Casey Lr 04-14-2025 01:[address] 04/14/25 00:52 EXAM: CT head/brain wo con CLINICAL HISTORY: neuro deficit, acute stroke suspected TECHNIQUE: Multiple axial images are obtained from the skull base to the vertex without contrast. CT scan was performed according to ALARA (as low as reasonable achievable). COMPARISON: 22:33:33 ANIMAL DOCTOR. FINDINGS: There is cerebral atrophy. Few ill-defined hypodense area noted involving left fronto-parietal cortex and subcortical white matter and left centrum semiovale - appears old ischemic area- new finding since prior study. No evidence of space occupying lesion, hemorrhage, edema, mass effect, midline shift, extra axial collection, or hydrocephalus is noted. Basal cisterns are symmetric and normal in size and configuration. There are scattered periventricular hypodensities as can be seen with chronic microvascular ischemic changes. The martel-white matter differentiation is preserved. Visualized paranasal sinuses and mastoid air cells are well aerated. Orbital contents are within normal limits. Bony structures are intact. IMPRESSION: 1. No evidence of acute intracranial abnormality is demonstrated. 2. Chronic microvascular ischemic changes. -increased 3. Few ill-defined hypodense area noted involving left fronto-parietal cortex and subcortical white matter and left centrum semiovale - appears old ischemic area- new finding since prior study. 4. Cerebral atrophy.-stable. 5. CT scan is negative for large territorial ischemic / hemorrhagic stroke. 6. Non contrast CT can be negative in the setting of hyperacute infarct/small ischemic infarct and further evaluation with diffusion weighted MRI is recommended as clinically appropriate. Electronically signed by Trent Pablo 04-14-2025 01:32 AM Head CTA 04/14/25 00:52 EXAM: CT angio head w con CLINICAL HISTORY: neuro deficit, acute stroke suspected TECHNIQUE: Contrast enhanced thin slice CT angiography scan of the cerebral vessels was performed with intravenous contrast. Angiographic images were processed, 3D MIP images were acquired for interpretation. Contiguous axial images were obtained. Reformatted coronal and sagittal images were also reviewed. If IV contrast material had not been administered, the likelihood of detecting abnormalities relevant to the patients condition would have been substantially decreased. CT scan was performed according to ALARA (as low as reasonable achievable). COMPARISON: none. FINDINGS: Severe atherosclerotic calcifications are noted involving intracranial segment of left vertebral artery causes 70-90% luminal narrowing Atherosclerotic calcifications are noted involving cavernous, clinoid and supraclinoid segment of bilateral internal carotid arteries. About 40%-50% luminal narrowing is noted involving cavernous segment of left carotid artery. Rest of Bilateral internal carotid arteries show normal course, calibre and opacification in the canalicular and cavernous part. Their division into the anterior cerebral artery and middle cerebral artery is defined. A1, A2 and M1, M2 segments are normal on both the sides. Bilateral vertebral arteries are seen to unite the form the basilar artery in a normal fashion. Basilar artery shows normal course, caliber and opacification. Its division into the posterior cerebral arteries is defined. Bilateral P1 and P2 segments are normal. Visualized venous structures show normal opacification. No evidence of intracranial aneurysm or AV malformation is seen. IMPRESSION: 1. Severe atherosclerotic calcifications are noted involving intracranial segment of left vertebral artery causes 70-90% luminal narrowing 2. Atherosclerotic calcifications are noted involving cavernous, clinoid and supraclinoid segment of bilateral internal carotid arteries. 3. About 40%-50% luminal narrowing is noted involving cavernous segment of left carotid artery. Electronically signed by Trent Pablo 04-14-2025 01:58 AM Neck CTA 04/14/25 00:52 EXAM: CT angio neck with con CLINICAL HISTORY: neuro deficit, acute stroke suspected TECHNIQUE: Contrast enhanced thin slice CT angiography scan of the carotid vessels was performed with intravenous contrast. Angiographic images were processed, 3D MIP images were acquired for interpretation.Contiguous axial images were obtained. Reformatted coronal and sagittal images were also reviewed. If IV contrast material had not been administered, the likelihood of detecting abnormalities relevant to the patients condition would have been substantially decreased. CT scan was performed according to ALARA (as low as reasonable achievable). COMPARISON: None. FINDINGS: Multiple patchy atherosclerotic calcifications are noted involving bilateral common carotid arteries, left vertebral artery without significant narrowing. Included great vessels of the aortic arch are grossly unremarkable. Rest of Common carotid artery, carotid Bulb, internal carotid artery , and origin of the external carotid artery are well opacified. Vertebral arteries are well opacified. Jugular veins are well opacified. Included lung apices are grossly unremarkable. Thyroid gland appears unremarkable. IMPRESSION: 1. No evidence of stenosis or aneurysm. No evidence of dissection. 2. Multiple patchy atherosclerotic calcifications are noted involving bilateral common carotid arteries, left vertebral artery without significant narrowing. Electronically signed by Trent Pablo 04-14-2025 01:39 AM Code Status & VTE Plan VTE Prophylaxis Plan VTE Prophylaxis will be ordered: Yes
[2025-04-14] MEDS ORDERED: GLUCAGON FOR INJ 1 MG VIAL SQ PRN (04:18)
[2025-04-14] MEDS ORDERED: GLUCOSE 10 TAB/TUBE PO PRN (04:18)
[2025-04-14] MEDS ORDERED: CARBOHYDRATES FOR HYPOGLYCEMIA PO PRN (04:18)
[2025-04-14] MEDS ORDERED: ACETAMINOPHEN 325 MG TAB PO PRN (04:18)
[2025-04-14] MEDS ORDERED: DEXTROSE 50% 50 ML SYRINGE IV PRN (04:18)
[2025-04-14] MEDS ORDERED: PHARMACIST DISCHARGE MED REC CONSULT PRN (04:18)
[2025-04-14] MEDS ORDERED: GLUCOSE 40% GEL 15 GM TUBE PO PRN (04:18)
[2025-04-14] MEDS ORDERED: LABETALOL HCL IV 5 MG/ML 20ML IV PRN (04:18)
[2025-04-14] MEDS ORDERED: NITROGLYCERIN SL 0.4 MG/TAB TAB SL PRN (04:18)
[2025-04-14] MEDS ORDERED: POLYETHYLENE (MIRALAX) 17 GM PACK PO PRN (04:18)
[2025-04-14 04:47] LABS: Appearance Urine Clear (Clear); Bilirubin Urine Negative (Negative); Blood Urine Negative (Negative); Color Urine Yellow; Glucose Urine UA Negative (Negative); Ketones Urine Negative (Negative); Leukocyte Esterase Urine Negative (Negative); Nitrite Urine Negative (Negative); Protein Urine Negative (Negative); Specific Gravity Urine > 1.045 (1.000-1.030); Urobilinogen Urine Negative (Negative)
[2025-04-14] MEDS: INSULIN ASPART PER UNIT CHARGE SC SCH ×2 (06:13→18:10)
[2025-04-14 07:37] LABS: Basophils # (auto) 0.04 K/uL (0.00-0.20); Basophils % (auto) 0.5 %; Eosinophils % (auto) 2.6 %; Hematocrit (blood only) 44.1 % (42.0-52.0); Immature Granulocytes # (auto) 0.03 K/uL (0.01-0.20); Immature Granulocytes % (auto) 0.4 %; Lymphocytes % (auto) 15.5 %; Mean Corpuscular Hemoglobin 30.7 pg (25.0-34.0); Mean Corpuscular Volume 90.2 fL (80.0-100.0); Monocytes # (auto) 0.61 K/uL (0.11-0.59); Monocytes % (auto) 7.9 %; Neutrophils # (auto) 5.65 K/uL (1.40-6.50); Neutrophils % (auto) 73.1 %; Platelet Count 199 K/uL (130-400); RDW Coefficient of Variation 14.6 % (11.5-14.5); Red Blood Count 4.89 M/uL (4.70-6.10); White Blood Count 7.73 K/ul (4.8-10.8)
[2025-04-14 07:53] LABS: Chol HDL Ratio 3.6 (0-5); Magnesium 1.7 mg/dl (1.7-2.4)
[2025-04-14 07:58] LABS: Prothrombin Time 20.8 Seconds (9.0-12.0)
[2025-04-14 07:59] LABS: Troponin I High Sensitivity 10.5 pg/ml (0-20)
[2025-04-14 08:00] LABS: BUN Creatinine Ratio 21.7 (10-20); Calcium 8.6 mg/dl (8.6-10.3); Creatinine Clr Calc Pharmacy 72.7 ml/min; Potassium 3.9 mmol/L (3.5-5.1)
[2025-04-14 08:58] LABS: Estimated Average Glucose 128 mg/dl; Hemoglobin A1C 6.1 % (4.5-5.6)
[2025-04-14] MEDS: EZETIMIBE 10 MG TAB PO SCH (10:20)
[2025-04-14] MEDS: carvediloL 25 MG TAB PO SCH (10:20)
[2025-04-14] MEDS: GABAPENTIN 300 MG CAP PO SCH (10:20)
[2025-04-14] MEDS: ASPIRIN 81 MG ECTAB PO SCH (10:20)
[2025-04-14] MEDS: FINASTERIDE 5 MG TAB PO SCH (10:20)
[2025-04-14] MEDS: TAMSULOSIN HCL 0.4 MG CAP PO SCH (10:20)
[2025-04-14] MEDS: allopurinoL 300 MG TAB PO SCH (10:21)
[2025-04-14] MEDS: ATORVASTATIN 40 MG TAB PO SCH (10:21)
--- NOTE | 2025-04-14 11:18 | XRay Report ---
XR elbow RT min 3V routine CLINICAL HISTORY: FALL, PAIN COMPARISON: None FINDINGS: There are moderate degenerative changes. No fracture or dislocation. IMPRESSION: No fracture seen. ACT 112: Negative or not required by law. Electronically signed by: Ru Robertson M.D. 04/14/2025 11:17 AM
--- NOTE | 2025-04-14 11:20 | XRay Report ---
XR hip RT 2V w pelvis CLINICAL HISTORY: HIP PAIN, FALL COMPARISON: 07/14/2023 FINDINGS: There is an interval short right femoral gamma nail with no hardware complication seen. Th e prior proximal right femur fracture appears healed. No acute fracture or dislocation seen. There ar e mild degenerative changes of both hips. There is residual contrast in the urinary bladder. There ar e lower lumbar degenerative changes. IMPRESSION: No acute findings. ACT 112: Negative or not required by law. Electronically signed by: Ru Robertson M.D. 04/14/2025 11:18 AM
--- NOTE | 2025-04-14 11:20 | XRay Report ---
XR shoulder RT min 2V routine CLINICAL HISTORY: PAIN, FALL COMPARISON: 07/14/2023 FINDINGS: No acute fracture or dislocation. There is severe narrowing of the subacromial space consi stent with chronic rotator cuff injury. There are moderate degenerative changes. IMPRESSION: No acute fracture seen. ACT 112: Negative or not required by law. Electronically signed by: Ru Robertson M.D. 04/14/2025 11:19 AM
[2025-04-14] MEDS: GADOBUTROL 65ML VIAL IV ONE (11:52)
--- NOTE | 2025-04-14 12:30 | Magnetic Resonance Report ---
MR brain wo/w con HISTORY: 79 years-old Male stroke like symptoms acute stroke like symptoms COMPARISON: Head CT of same day, brain MRI 05/23/2022 TECHNIQUE: Multiplanar multisequence MRI of the brain was obtained with and without IV contrast. FINDINGS: 6 mm focus of restricted diffusion involves the left paramedian medullary brainstem, image 6 series 4 with low to intermediate signal on the ADC map and mildly increased T2/FLAIR signal. No acute or sub acute territorial infarct. Degenerative changes of the cervical spine. Midline structures are unremar kable. No acute intracranial hemorrhage, midline shift, abnormal extra-axial collection, hydrocephalu s or intra-axial mass. Senescent mineralization of the basal ganglia. Foci of chronic hemosiderin not ed within the left cerebrum and cerebellum. Involutional changes with extensive chronic microvascular ischemic disease. Areas of encephalomalacia and gliosis noted within the left cerebrum related to ch ronic infarcts. No abnormal enhancement. Cerebral venous sinuses and major arterial flow voids appear patent. The skull, orbits and soft tissu es are unremarkable. Moderate mastoid effusions. Minimal mucosal thickening of the paranasal sinuses. IMPRESSION: 1. 6 mm acute versus subacute left paramedian medullary brainstem infarct. 2. No acute or subacute territorial infarct. 3. No abnormal enhancement. 4. Involutional changes with advanced chronic microvascular ischemic disease. 5. Chronic left cerebral infarcts. ACT 112: Negative or not required by law. The above report was generated using voice recognition software. It may contain grammatical, syntax o r spelling errors. Electronically signed by: Vincent Ji M.D. 04/14/2025 12:28 PM
--- NOTE | 2025-04-14 12:44 | Hospitalist Progress Note ---
Date of Service April 14, 2025 Assessment & Plan (1) Stroke-like symptoms: Plan: 79-year-old male with past med history significant for type 2 diabetes, dyslipidemia, hyperuricemia, peripheral artery disease, hypertension, history of PE, GERD, BPH, CKD stage III, osteoarthritis, history of CVA, status post right carotid endarterectomy who lives at home with his son and daughter and ambulates with a cane was brought in because of strokelike symptoms. Son is in the room. As per son patient fell on Saturday and his right upper extremity was entangled in a walker . He seemed to hit his head. He is on Coumadin and Coumadin level was drawn on Saturday. Son checked Coumadin levels on line and the levels were in the mid twos and son thought it was high and because of fall held Coumadin on Saturday and Saturday. He was waiting for the anticoagulation clinic to call him and as they did not called, son was planning to call Coumadin clinic tomorrow. Checking in epic INR was 2.4 on 04/12/2022. Tonight when son came back home patient was sleeping on the recliner. Patient's last well-known was around 10 PM. As per son patient woke up and seemed confused. Son noticed patient's right extremity was weak and was also having slurred speech. EMS was called and stroke alert was initiated. Currently as per son patient's speech is better. Patient having minimal movement in right upper extremity. Can move his right lower extremity but seems weak. Speech is still slurred. Mild right facial droop seen. Patient is alert and oriented x 3. Denies any headache. No runny nose or sore throat. No cough. Afebrile. Denies any chest pain or shortness of breath. No nausea. No abdominal pain. Normal bowel and bladder movements. Blood pressure was elevated in the ER and received IV labetalol and hydralazine. INR is 2.4. CT head and CTA head and neck are unremarkable for any acute findings. Because of the high blood pressure and INR being 2.4 was thought not to be a TNK candidate. Strokelike symptoms/Presumed Acute CVA H/O CVA, PAD s/p R carotid endarterectomy --CT Head:Chronic microvascular ischemic changes. -increased. Few ill-defined hypodense area noted involving left fronto-parietal cortex and subcortical white matter and left centrum semiovale --CTA head. Left vertebral artery 70 to 90% luminal narrowing. 40 to 50% left carotid artery narrowing --MRI Brain:pending --HbA1C: 6.1 --Lipid Panel: TC 107, LDL:65 --ECHO pending Continue aspirin, Lipitor Also on Coumadin, INR therapeutic Continue neurochecks Advance diet as tolerated Continue PT OT, speech therapy Requested neurology evaluation Allow permissive hypertension DM II Diet controlled HbA1c 6.1 Insulin sliding scale while hospitalized Monitor blood glucose levels H/O Pulmonary Embolism Continue Coumadin Monitor INR: 2.0 today Hypertension Continue Coreg Monitor BP Hyperlipidemia Continue atorvastatin, Zetia Peripheral artery disease Continue aspirin and statin BPH On finasteride CKD stage III Monitor renal function Avoid nephrotoxic agents as able DVT Px: Continue Coumadin CODE STATUS Full code Disposition Will need rehab placement Admission and Anticipated Discharge Date Admission Date: April 14, 2025 Subjective Patient is seen and examined at bedside States having right hip, right shoulder pain Poor historian secondary to slurred speech, no dysarthria Also reports right upper sided weakness Denies any chest pain, dyspnea, nausea, vomiting, abdominal pain No other complaints Had speech eval earlier today Review of Systems Review of Systems: All systems reviewed & are unremarkable except as noted in Subjective Physical Exam Physical Exam: Physical Exam: Vitals signs as noted above General Appearance:Moderately built and nourished, no apparent distress Head: normocephalic, Atraumatic Eyes: normal inspection, EOMI Neck: supple, Trachea midline Respiratory/Chest: Normal breath sounds, CTA, No accessory muscle use Cardiovascular: S1, S2, No murmur Abdomen/GI:Soft, Non tender, Bowel sounds present Extremities/Musculoskeletal:normal inspection, no edema Neurologic/Psych:AAOX3,? Minimal right facial droop, dysarthria, RUE 0/5, RLE 1/5 Skin: normal color, warm Results & Data Results & Data Vital Signs (Past 12 Hours) Vital Signs Temp Pulse Pulse Resp BP BP Pulse Ox 04/14/25 08:00 73 04/14/25 07:21 36.3 C L 66 18 156/78 H 94 04/14/25 04:38 72 04/14/25 04:24 36.4 C L 68 18 180/94 H 95 04/14/25 03:48 04/14/25 03:42 71 17 96 04/14/25 03:40 157/101 H 04/14/25 03:40 157/101 H 04/14/25 03:39 73 15 95 04/14/25 03:30 73 14 96 04/14/25 03:30 183/102 H 04/14/25 03:30 183/102 H 04/14/25 03:27 76 16 95 04/14/25 03:12 75 13 95 04/14/25 03:10 150/88 H 04/14/25 03:10 150/88 H 04/14/25 03:10 150/88 H 04/14/25 03:04 145/82 H 04/14/25 03:04 145/82 H 04/14/25 03:03 78 17 94 04/14/25 03:01 149/83 H 04/14/25 03:00 142/82 H 04/14/25 03:00 75 20 93 04/14/25 02:59 138/90 04/14/25 02:57 73 17 94 04/14/25 02:55 145/88 H 04/14/25 02:55 145/88 H 04/14/25 02:54 75 20 93 04/14/25 02:53 155/82 H 04/14/25 02:53 155/82 H 04/14/25 02:51 150/82 H 04/14/25 02:51 77 19 94 04/14/25 02:50 151/93 H 04/14/25 02:40 155/87 H 04/14/25 02:36 76 21 94 04/14/25 02:30 78 17 95 04/14/25 02:30 156/87 H 04/14/25 02:30 156/87 H 04/14/25 02:30 156/87 H 04/14/25 02:28 149/80 H 04/14/25 02:21 159/87 H 04/14/25 02:21 159/87 H 04/14/25 02:21 159/87 H 04/14/25 02:10 162/99 H 04/14/25 02:03 170/117 H 04/14/25 02:03 77 18 170/117 H 95 04/14/25 02:03 73 16 157/104 H 96 04/14/25 01:59 74 18 146/95 H 97 04/14/25 01:57 72 16 175/93 H 97 04/14/25 01:57 71 04/14/25 01:40 71 18 211/105 H 95 04/14/25 01:34 70 193/116 H 04/14/25 01:34 70 193/115 H 04/14/25 01:31 69 18 193/115 H 95 04/14/25 01:19 72 226/110 H 04/14/25 01:08 78 04/14/25 01:08 74 16 226/110 H 94 O2 Del Method 04/14/25 08:00 04/14/25 07:21 Room Air 04/14/25 04:38 04/14/25 04:24 Room Air 04/14/25 03:48 Room Air 04/14/25 03:42 04/14/25 03:40 04/14/25 03:40 04/14/25 03:39 04/14/25 03:30 04/14/25 03:30 04/14/25 03:30 04/14/25 03:27 04/14/25 03:12 04/14/25 03:10 04/14/25 03:10 04/14/25 03:10 04/14/25 03:04 04/14/25 03:04 04/14/25 03:03 04/14/25 03:01 04/14/25 03:00 04/14/25 03:00 04/14/25 02:59 04/14/25 02:57 04/14/25 02:55 04/14/25 02:55 04/14/25 02:54 04/14/25 02:53 04/14/25 02:53 04/14/25 02:51 04/14/25 02:51 04/14/25 02:50 04/14/25 02:40 04/14/25 02:36 04/14/25 02:30 04/14/25 02:30 04/14/25 02:30 04/14/25 02:30 04/14/25 02:28 04/14/25 02:21 04/14/25 02:21 04/14/25 02:21 04/14/25 02:10 04/14/25 02:03 04/14/25 02:03 04/14/25 02:03 Room Air 04/14/25 01:59 Room Air 04/14/25 01:57 04/14/25 01:57 04/14/25 01:40 04/14/25 01:34 04/14/25 01:34 04/14/25 01:31 Room Air 04/14/25 01:19 04/14/25 01:08 04/14/25 01:08 Room Air Laboratory Results Short CBC 04/14/25 04/14/25 Range/Units 01:07 07:04 WBC 7.67 7.73 (4.8-10.8) K/ul Hgb 15.0 15.0 (14.0-18.0) g/dl Hct 45.3 44.1 (42.0-52.0) % Plt Count 168 199 (130-400) K/uL BMP 04/14/25 04/14/25 01:07 07:04 Sodium 139 139 Potassium 4.0 3.9 Chloride 105 107 Carbon Dioxide 28 27 BUN 19 18 Creatinine 1.02 0.83 Glucose 112 H 103 H Calcium 8.5 L 8.6 Liver Function 04/14/25 Range/Units 01:07 Total Bilirubin 1.0 (0.2-1.0) mg/dl AST 11 L (13-39) U/L ALT 7 (7-52) U/L Alkaline Phosphatase 176 H (34-104) U/L Albumin 3.6 (3.4-5.0) gm/dl Urine 04/14/25 Range/Units Unknown Urine Color Yellow Urine Appearance Clear (Clear) Urine pH 6.0 (4.5-7.5) Ur Specific [place] > 1.045 H (1.000-1.030) Urine Protein Negative (Negative) Urine Glucose (UA) Negative (Negative)
--- NOTE | 2025-04-14 14:14 | Electrocardiogram Report ---
Test Reason : Blood Pressure : */* mmHG Vent. Rate : 76 BPM Atrial Rate : 76 BPM P-R Int : 158 ms QRS Dur : 84 ms QT Int : 406 ms P-R-T Axes : 41 33 11 degrees QTcB Int : 456 ms Normal sinus rhythm Normal ECG When compared with ECG of 14-Jul-2023 17:51, No significant change was found Confirmed by London Umaña ([id number]) on 04/14/2025 2:14:05 PM Referred By: REFERRED SELF Confirmed By: London Umaña
--- NOTE | 2025-04-14 14:15 | Electrocardiogram Report ---
Test Reason : Blood Pressure : */* mmHG Vent. Rate : 72 BPM Atrial Rate : 72 BPM P-R Int : 154 ms QRS Dur : 84 ms QT Int : 406 ms P-R-T Axes : 34 28 46 degrees QTcB Int : 444 ms Sinus rhythm with Premature atrial complexes Nonspecific ST abnormality Abnormal ECG When compared with ECG of 14-Apr-2025 01:08, (unconfirmed) Premature atrial complexes are now Present Confirmed by London Umaña ([id number]) on 04/14/2025 2:15:11 PM Referred By: REFERRED SELF Confirmed By: London Umaña
--- NOTE | 2025-04-14 15:25 | Neurology Consultation ---
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 He is already on maximal medical therapy with warfarin and aspirin. His worsening condition today could be related to swelling of the stroke or secondary infection. Recommend further workup for the neuro worsening including infectious workup and repeat head CT. Would still continue aspirin and warfarin but will need a swallow re-eval. I am concerned about his overall prognosis due to the severity of his stroke deficits. -- Continue warfarin/aspirin -- Swallow eval repeat -- Repeat CT head -- Infectious workup per medicine -- Consider increased level of care for apnea (suspect central) and clarify goals of care if needing intubation in this context. Telehealth Consultation Telehealth Information Telehealth Information: I performed this visit using a real-time telehealth connection between my location and the patients location ([facility]). After connecting through interactive tele-video, patient was identified by name and date of and/or wristband check.Patient (or authorized healthcare outbound call center representative) was informed that this was a telemedicine visit and it was being conducted confidentially over secure lines. My office door was closed and no one else was present in the room with me.Patient (or authorized healthcare outbound call center representative) provided consent to proceed with the visit, expressed an understanding of privacy and security of the telemedicine visit, and gave permission to have a hospital outbound call center representative in the room in order to assist with the visit and to conduct portions of the visit, as needed. I informed the patient (or authorized healthcare outbound call center representative) that I reviewed their record and presented the opportunity for them to ask any questions regarding the visit today. The patient agreed to participate. History of Present Illness Reason for Consultation: Stroke Requesting Physician: Dr. Deleon Attending Physician: Aurelio Deleon MD History of Present Illness Jeannine Lawson is a 79 yo M presenting with R sided weakness from home where he lives with his son. He fell 2 days ago and complained of R arm numbness but yesterday was unable to move the R side at all and was brought to the hospital. At baseline he ambulates with a walker or cane. His R side has been flaccid for nursing but he was able to eat lunch. Currently he is more somnolent and has significant dysarthria as well as periods of apnea during the encounter. He is otherwise unable to contribute to the history due to his stroke deficits. Allergies Allergy/AdvReac Type Severity Reaction Status Date / Time No Known Allergies Allergy Unknown Verified 04/14/25 01:10 Home Medications Medication Instructions Recorded Confirmed Type aspirin 81 mg tablet,delayed 81 mg PO QAM 12/06/20 04/14/25 History release allopurinol 300 mg tablet 300 mg PO QAM 05/22/22 04/14/25 History carvedilol 25 mg tablet 25 mg PO BIDM 05/22/22 04/14/25 History tamsulosin 0.4 mg capsule 0.4 mg PO QAM 05/22/22 04/14/25 History atorvastatin 40 mg tablet 40 mg PO QAM 07/08/22 04/14/25 History finasteride 5 mg tablet 5 mg PO QAM 07/08/22 04/14/25 History ezetimibe 10 mg tablet 10 mg PO QAM 07/14/23 04/14/25 History gabapentin 300 mg capsule 300 mg PO AMHS 07/14/23 04/14/25 History warfarin 4 mg tablet 2 - 4 mg PO UD 07/14/23 04/14/25 History ciclopirox 8 % topical solution See Rx Instructions .Route .COMPLEX 04/14/25 04/14/25 History Patient History Medical History Tobacco use disorder CKD (chronic kidney disease), stage III BPH (benign prostatic hyperplasia) Carotid stenosis PAD (peripheral artery disease) DM (diabetes mellitus), type 2 History of pulmonary embolism Jul 2022 History of cerebrovascular accident 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 HTN (hypertension) Hyperlipidemia Surgical History H/O umbilical hernia repair S/P carotid [place]arte[place] [facility] [place] History of shoulder surgery Family History Other Cancer Diabetes Heart disease Hypertension Social History Smoking Status: Never smoker Tobacco Type: Smokeless Tobacco (Dip or Chew) Do You Dip or Chew Tobacco: Yes; Hx Alcohol Use: No Hx Substance Use: No Preferred Language: Irish Communication Ability: Effective Slope Runner Required: No Beliefs That Will Affect Care: None marital status: / Current Living Situation: Family Current Living Situation Comment: pt lives in two story house with son How many Children do You have: 2 Feels Safe at Home: Yes Assistive Devices: Cane and Walker Review of Systems Unable to obtain Physical Exam Alerts easily to voice, Oriented, speech severely dysarthric. R facial droop, R arm and leg flaccid. Results & Data Vital Signs (Past 12 Hours) Vital Signs Temp Pulse Pulse Resp BP BP Pulse Ox 04/14/25 15:13 36.8 C 54 L 18 103/63 94 04/14/25 12:36 36.6 C 67 18 133/75 92 04/14/25 08:00 73 04/14/25 07:21 36.3 C L 66 18 156/78 H 94 04/14/25 04:38 72 04/14/25 04:24 36.4 C L 68 18 180/94 H 95 04/14/25 03:48 04/14/25 03:42 71 17 96 04/14/25 03:40 157/101 H 04/14/25 03:40 157/101 H 04/14/25 03:39 73 15 95 04/14/25 03:30 73 14 96 04/14/25 03:30 183/102 H 04/14/25 03:30 183/102 H 04/14/25 03:27 76 16 95 O2 Del Method 04/14/25 15:13 Room Air 04/14/25 12:36 Room Air 04/14/25 08:00 04/14/25 07:21 Room Air 04/14/25 04:38 04/14/25 04:24 Room Air 04/14/25 03:48 Room Air 04/14/25 03:42 04/14/25 03:40 04/14/25 03:40 04/14/25 03:39 04/14/25 03:30 04/14/25 03:30 04/14/25 03:30 04/14/25 03:27 Laboratory Results Abnormal lab results 04/14/25 04/14/25 04/14/25 Range/Units 01:07 01:13 06:02 RDW Std Deviation 50.1 H (36.4-46.3) fL RDW Coeff of Deborah 15.0 H (11.5-14.5) % Lymph # (Auto) 1.14 L (1.20-3.40) K/uL Bowman # (Auto) (0.11-0.59) K/uL PT 24.5 H (9.0-12.0) Seconds POC INR 2.7 H (0.9-1.1) INR 2.4 H (0.9-1.1) APTT 34 H (21-31) Seconds BUN/Creatinine Ratio (10-20) Glucose 112 H (70-99(Fasting)) mg/dl POC Glucose 105 H (70-99) mg/dl Hemoglobin A1c (4.5-5.6) % Calcium 8.5 L (8.6-10.3) mg/dl AST 11 L (13-39) U/L Alkaline Phosphatase 176 H (34-104) U/L Ur Specific [place] (1.000-1.030) Antibody Screen POSITIVE A 04/14/25 04/14/25 Range/Units 07:04 Unknown RDW Std Deviation 48.0 H (36.4-46.3) fL RDW Coeff of Deborah 14.6 H (11.5-14.5) % Lymph # (Auto) (1.20-3.40) K/uL Bowman # (Auto) 0.61 H (0.11-0.59) K/uL PT 20.8 H (9.0-12.0) Seconds POC INR (0.9-1.1) INR 2.0 H (0.9-1.1) APTT (21-31) Seconds BUN/Creatinine Ratio 21.7 H (10-20) Glucose 103 H (70-99(Fasting)) mg/dl POC Glucose (70-99) mg/dl Hemoglobin A1c 6.1 H (4.5-5.6) % Calcium (8.6-10.3) mg/dl AST (13-39) U/L Alkaline Phosphatase (34-104) U/L Ur Specific [place] > 1.045 H (1.000-1.030) Antibody Screen Diagnostic Findings MRI brain - medial medullary stroke CTA head and neck - Severe intracranial L vert stenosis
--- NOTE | 2025-04-14 15:29 | Communication Note ---
Date of Service: April 14, 2025 Informed by RN that patient right-sided weakness and dysarthria got worse from this morning. Also was made aware that patient's oxygen saturation dropped to 80s. Discussed with neurologist on-call who informed that his medullary CVA can contribute to apneic episodes and recommended supplemental oxygen and repeat CT head. Will make patient n.p.o. again and request speech to reevaluate. Repeat CT head currently pending. Discussed in detail with patient and patient's son at bedside regarding goals of care--both agree patient prefers to be DNI DNR. Further management to be determined based on repeat CT head.
--- NOTE | 2025-04-14 15:51 | CT Scan Report ---
CT head/brain wo con CLINICAL HISTORY: CVA. TECHNIQUE: Multiple axial CT images of the head were obtained without contrast. A dose lowering tech nique was utilized adhering to the principles of ALARA. CT DOSE: 900.54 mGy.cm COMPARISON: 04/14/2025 CT and MRI FINDINGS: There is motion artifact. No intracranial hemorrhage seen. No mass effect, midline shift, o r hydrocephalus. Stable moderate patchy periventricular hypodensity consistent with chronic small ves amos ischemic changes. Stable old left frontal and parietal small infarctions. The tiny brainstem infa rction is not visualized by CT. No skull fracture. IMPRESSION: Stable exam. No intracranial hemorrhage seen. ACT 112: Negative or not required by law. The above report was generated using voice recognition software. It may contain grammatical, syntax o r spelling errors. Electronically signed by: Ru Robertson M.D. 04/14/2025 3:49 PM
--- NOTE | 2025-04-14 16:39 | XRay Report ---
EXAM: XR chest 1V portable CLINICAL HISTORY: Apnea. TECHNIQUE: An X-ray image of the chest is obtained in AP projection. COMPARISON: Prior study done 04/14/2025 (14 hours earlier to the current study). FINDINGS: Chest leads are seen. Pulmonary Parenchyma: Newly seen left lung lower zone reticular opacity. Prominent gio with perihilar bronchovascular markings, likely due to congestion. (Stable finding). No evidence of consolidation, collapse, or focal opacities. No pulmonary nodules are identified. No evidence of pleural effusion or pleural thickening. Heart and Mediastinum: Heart size is apparently prominent. No mediastinal widening or masses. No hilar or mediastinal lymphadenopathy. Bony Thorax: Bony thorax appears intact without fractures or deformities. Osteoarthritic changes at both acromioclavicular and glenohumeral joints as well as the partially visualized thoracic spine. Soft Tissues: Soft tissues overlying the chest wall are unremarkable. IMPRESSION: 1. Newly seen left lung lower zone reticular opacity. 2. Prominent gio with perihilar bronchovascular markings, likely due to congestion. (Stable finding). 3. No evidence of pleural effusion on either side. Electronically signed by Casey Lr 04-14-2025 4:39 PM
[2025-04-14] MEDS: WARFARIN SOD 2 MG TAB PO SCH (18:10)
[2025-04-14] MEDS: PIPERACILLIN/TAZOBACTAM 4.5 GM/100 ML BAG IV ONE (18:18)
[2025-04-14] MEDS ORDERED: Nursing to Pharmacy Communication SCH (22:00)
[2025-04-14] MEDS: PIPERACILLIN/TAZOBACTAM 4.5 GM/100 ML BAG IV SCH (23:05)
[2025-04-15] MEDS: INSULIN ASPART PER UNIT CHARGE SC SCH ×2 (00:51→16:08)
[2025-04-15 06:13] LABS: Basophils # (auto) 0.04 K/uL (0.00-0.20); Basophils % (auto) 0.5 %; Eosinophils # (auto) 0.28 K/uL (0.00-0.50); Eosinophils % (auto) 3.7 %; Hematocrit (blood only) 43.3 % (42.0-52.0); Hemoglobin 14.3 g/dl (14.0-18.0); Immature Granulocytes # (auto) 0.02 K/uL (0.01-0.20); Immature Granulocytes % (auto) 0.3 %; Lymphocytes # (auto) 1.15 K/uL (1.20-3.40); Lymphocytes % (auto) 15.3 %; Mean Corpuscular Hemoglobin 30.2 pg (25.0-34.0); Mean Corpuscular Volume 91.5 fL (80.0-100.0); Mean Platelet Volume 10.6 fL (9.4-12.4); Monocytes # (auto) 0.58 K/uL (0.11-0.59); Monocytes % (auto) 7.7 %; Neutrophils # (auto) 5.44 K/uL (1.40-6.50); Neutrophils % (auto) 72.5 %; Platelet Count 182 K/uL (130-400); RDW Coefficient of Variation 15.1 % (11.5-14.5); RDW Standard Deviation 50.7 fL (36.4-46.3); Red Blood Count 4.73 M/uL (4.70-6.10); White Blood Count 7.51 K/ul (4.8-10.8)
[2025-04-15 06:33] LABS: BUN Creatinine Ratio 17.8 (10-20); Calcium 8.5 mg/dl (8.6-10.3); Creatinine Clr Calc Pharmacy 56.4 ml/min
[2025-04-15 06:42] LABS: INR 1.4 (0.9-1.1); Prothrombin Time 15.1 Seconds (9.0-12.0)
--- NOTE | 2025-04-15 11:49 | Pharmacy Report ---
- Date of Service April 15, 2025 - Pharmacy CVA/TIA Medication Review Medications to Prevent Stroke handout has been added to the patients discharge packet. Antiplatelet(s) * Aspirin 81 mg - continued Cholesterol * High intensity statin: atorvastatin 40 mg daily -- continued DVT Prophylaxis * SCD thigh Therapeutic Anticoagulation * Patient on warfarin prior to event- continue per neurology Type 2 Diabetes * Patient does not have T2DM
--- NOTE | 2025-04-15 13:26 | Fluoroscopy Report ---
FL video swallow CLINICAL HISTORY: assess for aspiration COMPARISON STUDY: None TECHNIQUE: The patient was given a barium mixture of varying consistencies in conjunction with speech pathology. The examination was observed fluoroscopically with rapid sequence filming documentation. Total fluoroscopy time 1.4 minutes. Total dose 9.64mGy FINDINGS: The patient had repeated penetration with thin liquids. There was also easily demonstrable aspiration with thin liquids after repetitive swallowing. IMPRESSION: Penetration and aspiration observed with thin liquids. Please refer to the speech pathol ogy report for additional analysis and recommendations. ACT 112: Negative or not required by law. Electronically signed by: Maris Albarado M.D. 04/15/2025 1:24 PM
[2025-04-15] MEDS: HEPARIN SOD 5,000 UNIT/0.5 ML VIAL SQ SCH (13:43)
--- NOTE | 2025-04-15 14:20 | Hospitalist Progress Note ---
Date of Service April 15, 2025 Assessment & Plan (1) Stroke-like symptoms: Plan: 79-year-old male with past med history significant for type 2 diabetes, dyslipidemia, hyperuricemia, peripheral artery disease, hypertension, history of PE, GERD, BPH, CKD stage III, osteoarthritis, history of CVA, status post right carotid endarterectomy who lives at home with his son and daughter and ambulates with a cane was brought in because of strokelike symptoms. Son is in the room. As per son patient fell on Saturday and his right upper extremity was entangled in a walker . He seemed to hit his head. He is on Coumadin and Coumadin level was drawn on Saturday. Son checked Coumadin levels on line and the levels were in the mid twos and son thought it was high and because of fall held Coumadin on Saturday and Saturday. He was waiting for the anticoagulation clinic to call him and as they did not called, son was planning to call Coumadin clinic tomorrow. Checking in epic INR was 2.4 on 04/12/2022. Tonight when son came back home patient was sleeping on the recliner. Patient's last well-known was around 10 PM. As per son patient woke up and seemed confused. Son noticed patient's right extremity was weak and was also having slurred speech. EMS was called and stroke alert was initiated. Currently as per son patient's speech is better. Patient having minimal movement in right upper extremity. Can move his right lower extremity but seems weak. Speech is still slurred. Mild right facial droop seen. Patient is alert and oriented x 3. Denies any headache. No runny nose or sore throat. No cough. Afebrile. Denies any chest pain or shortness of breath. No nausea. No abdominal pain. Normal bowel and bladder movements. Blood pressure was elevated in the ER and received IV labetalol and hydralazine. INR is 2.4. CT head and CTA head and neck are unremarkable for any acute findings. Because of the high blood pressure and INR being 2.4 was thought not to be a TNK candidate. Strokelike symptoms/Presumed Acute CVA H/O CVA, PAD s/p R carotid endarterectomy --CT Head:Chronic microvascular ischemic changes. -increased. Few ill-defined hypodense area noted involving left fronto-parietal cortex and subcortical white matter and left centrum semiovale --CTA head. Left vertebral artery 70 to 90% luminal narrowing. 40 to 50% left carotid artery narrowing --MRI Brain: 6 mm acute versus subacute left paramedian medullary brainstem infarct. No acute or subacute territorial infarct.. No abnormal enhancement.. Involutional changes with advanced chronic microvascular ischemic disease. Chronic left cerebral infarcts. --HbA1C: 6.1 --Lipid Panel: TC 107, LDL:65 --ECHO: Left ventricular systolic function is normal. EF 60 to 65% with mild consult LVH. Grade 1 diastolic dysfunction. No interatrial shunt. Aortic valve sclerosis mild, without significant stenosis. Continue aspirin, Lipitor Also on Coumadin Continue neurochecks Continue PT OT, speech therapy Appreciate neurology input Adjust medications as needed to control high blood pressure Needs follow-up with neurology on discharge Plan to discharge to rehab facility as able Aspiration pneumonia Hypoxia secondary to above --Video Swallow:Penetration and aspiration observed with thin liquids. Please refer to the speech pathology report for additional analysis and recommendations. --CXR:Newly seen left lung lower zone reticular opacity. Empirically on Zosyn Supplemental oxygen as needed Appreciate speech therapy recommendations: [place] thick liquids, soft bite sized Continue aspiration precautions DM II Diet controlled HbA1c 6.1 Insulin sliding scale while hospitalized Monitor blood glucose levels H/O Pulmonary Embolism INR 1.4 today Subtherapeutic INR due to missed Coumadin dose yesterday Increase Coumadin to 5 mg daily Will continue SQ heparin until INR is therapeutic Hypertension Continue Coreg Monitor BP Hyperlipidemia Continue atorvastatin, Zetia Peripheral artery disease Continue aspirin and statin BPH On finasteride CKD stage III Monitor renal function Avoid nephrotoxic agents as able DVT Px: Coumadin CODE STATUS Full code Disposition Rehab as able Admission and Anticipated Discharge Date Admission Date: April 14, 2025 Subjective Patient is seen and examined at bedside Right leg weakness better today Still has significant right upper extremity weakness Was having PT evaluation during my encounter Still has some dysarthria Requiring supplemental oxygen to maintain saturation Had video swallow today Denies any significant cough Also denies any chest pain, dyspnea, nausea, vomiting, abdominal pain Review of Systems Review of Systems: All systems reviewed & are unremarkable except as noted in Subjective Physical Exam Physical Exam: Physical Exam: Vitals signs as noted above General Appearance:Moderately built and nourished, no apparent distress Head: normocephalic, Atraumatic Eyes: normal inspection, EOMI Neck: supple, Trachea midline Respiratory/Chest: Normal breath sounds, CTA, No accessory muscle use Cardiovascular: S1, S2, No murmur Abdomen/GI:Soft, Non tender, Bowel sounds present Extremities/Musculoskeletal:normal inspection, no edema Neurologic/Psych:AAOX3, dysarthria, RUE 0-1/5, RLE 3/5 Skin: normal color, warm Results & Data Results & Data Vital Signs (Past 12 Hours) Vital Signs Temp Pulse Pulse Resp BP Pulse Ox O2 Del Method 04/15/25 12:04 36.6 C 72 18 179/82 H 98 Room Air 04/15/25 09:54 Oxymask 04/15/25 07:47 36.4 C L 67 18 162/77 H 99 Room Air 04/15/25 07:21 60 04/15/25 03:03 36.9 C 70 18 158/83 H 97 Oxymask O2 Flow Rate 04/15/25 12:04 04/15/25 09:54 3 04/15/25 07:47 04/15/25 07:21 04/15/25 03:03 5 Laboratory Results Short CBC 04/15/25 Range/Units 05:29 WBC 7.51 (4.8-10.8) K/ul Hgb 14.3 (14.0-18.0) g/dl Hct 43.3 (42.0-52.0) % Plt Count 182 (130-400) K/uL BMP 04/15/25 05:29 Sodium 138 Potassium 4.0 Chloride 105 Carbon Dioxide 24 BUN 19 Creatinine 1.07 Glucose 81 Calcium 8.5 L
[2025-04-15 15:10] LABS: iSTAT Creatinine 1.1 mg/dl (0.6-1.3); iSTAT Hemoglobin 15.6 g/dl (14.0-18.0); iSTAT Ionized Calcium 1.11 mmol/l (1.12-1.32); iSTAT Potassium 3.9 mmol/L (3.3-5.0)
[2025-04-15] MEDS ORDERED: Nursing to Pharmacy Communication SCH (15:30)
[2025-04-15] MEDS: WARFARIN SOD 5 MG TAB PO SCH (15:38)
--- NOTE | 2025-04-15 17:10 | Neurology Progress Note ---
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 He is already on maximal medical therapy with warfarin and aspirin. Mental status is improved today on abx for pneumonia, off supplemental O2 and passed his swallow eval. No further neurologic workup at this time - continue plan for rehab placement and secondary stroke prevention with warfarin/aspirin. -- Continue warfarin/aspirin -- Rehab placement -- Neurology follow-up 4-6 weeks Subjective Telehealth Information I performed this visit using a real-time telehealth connection between my location and the patients location ([facility]). After connecting through interactive tele-video, patient was identified by name and date of and/or wristband check.Patient (or authorized healthcare sales representative consultant) was informed that this was a telemedicine visit and it was being conducted confidentially over secure lines. My office door was closed and no one else was present in the room with me.Patient (or authorized healthcare sales representative consultant) provided consent to proceed with the visit, expressed an understanding of privacy and security of the telemedicine visit, and gave permission to have a hospital sales representative consultant in the room in order to assist with the visit and to conduct portions of the visit, as needed. I informed the patient (or authorized healthcare sales representative consultant) that I reviewed their record and presented the opportunity for them to ask any questions regarding the visit today. The patient agreed to participate. Jeannine Lawson is a 79 yo M presenting with a medial medullary stroke with R sided weakness. Yesterday he was noted to have a pneumonia and now is significantly improved. He continues to report his R arm is flaccid but is able to move his R leg. No new complaints today. Review of Systems +R arm weakness Physical Exam Awake and alert today, oriented, speech clearer than yesterday. Still flaccid in the R arm, able to move the R leg antigravity. Results & Data Vital Signs (Past 12 Hours) Vital Signs Temp Pulse Pulse Resp BP Pulse Ox O2 Del Method 04/15/25 16:14 94 Room Air 04/15/25 15:42 36.4 C L 51 L 18 125/64 98 Room Air 04/15/25 14:25 63 04/15/25 12:04 36.6 C 72 18 179/82 H 98 Room Air 04/15/25 09:54 Oxymask 04/15/25 07:47 36.4 C L 67 18 162/77 H 99 Room Air 04/15/25 07:21 60 O2 Flow Rate 04/15/25 16:14 04/15/25 15:42 04/15/25 14:25 04/15/25 12:04 04/15/25 09:54 3 04/15/25 07:47 04/15/25 07:21
--- NOTE | 2025-04-15 17:17 | Electrocardiogram Report ---
Test Reason : Blood Pressure : */* mmHG Vent. Rate : 52 BPM Atrial Rate : 52 BPM P-R Int : 152 ms QRS Dur : 78 ms QT Int : 456 ms P-R-T Axes : 43 18 70 degrees QTcB Int : 424 ms Sinus bradycardia Nonspecific ST abnormality Abnormal ECG When compared with ECG of 14-Apr-2025 06:00, Premature atrial complexes are no longer Present Confirmed by London Umaña ([id number]) on 04/15/2025 5:17:01 PM Referred By: REFERRED SELF Confirmed By: London Umaña
[2025-04-15] MEDS ORDERED: PIPERACILLIN/TAZOBACTAM 4.5 GM/100 ML BAG IV SCH (22:30)
[2025-04-16 07:46] LABS: Basophils # (auto) 0.04 K/uL (0.00-0.20); Basophils % (auto) 0.5 %; Eosinophils # (auto) 0.28 K/uL (0.00-0.50); Eosinophils % (auto) 3.7 %; Hematocrit (blood only) 43.2 % (42.0-52.0); Hemoglobin 14.3 g/dl (14.0-18.0); Immature Granulocytes # (auto) 0.03 K/uL (0.01-0.20); Immature Granulocytes % (auto) 0.4 %; Lymphocytes # (auto) 1.18 K/uL (1.20-3.40); Lymphocytes % (auto) 15.4 %; Mean Corpuscular Hemoglobin 30.2 pg (25.0-34.0); Mean Corpuscular Hgb Conc 33.1 g/dL (32.0-36.0); Mean Corpuscular Volume 91.1 fL (80.0-100.0); Mean Platelet Volume 10.8 fL (9.4-12.4); Monocytes # (auto) 0.64 K/uL (0.11-0.59); Monocytes % (auto) 8.4 %; Neutrophils # (auto) 5.47 K/uL (1.40-6.50); Neutrophils % (auto) 71.6 %; Platelet Count 178 K/uL (130-400); RDW Coefficient of Variation 15.1 % (11.5-14.5); RDW Standard Deviation 49.8 fL (36.4-46.3); Red Blood Count 4.74 M/uL (4.70-6.10); White Blood Count 7.64 K/ul (4.8-10.8)
[2025-04-16 08:06] LABS: BUN Creatinine Ratio 16.9 (10-20); Calcium 8.5 mg/dl (8.6-10.3); Creatinine Clr Calc Pharmacy 48.6 ml/min
[2025-04-16 08:15] LABS: INR 1.5 (0.9-1.1); Prothrombin Time 15.5 Seconds (9.0-12.0)
--- NOTE | 2025-04-16 10:47 | Electrocardiogram Report ---
Test Reason : Blood Pressure : */* mmHG Vent. Rate : 53 BPM Atrial Rate : 53 BPM P-R Int : 170 ms QRS Dur : 80 ms QT Int : 444 ms P-R-T Axes : 33 10 11 degrees QTcB Int : 416 ms Sinus bradycardia Otherwise normal ECG When compared with ECG of 15-Apr-2025 05:38, No significant change was found Confirmed by London Umaña ([id number]) on 04/16/2025 10:47:02 AM Referred By: REFERRED SELF Confirmed By: London Umaña
--- NOTE | 2025-04-16 15:01 | Hospitalist Progress Note ---
Date of Service April 16, 2025 Assessment & Plan (1) Stroke-like symptoms: Plan: 79-year-old male with past med history significant for type 2 diabetes, dyslipidemia, hyperuricemia, peripheral artery disease, hypertension, history of PE, GERD, BPH, CKD stage III, osteoarthritis, history of CVA, status post right carotid endarterectomy who lives at home with his son and daughter and ambulates with a cane was brought in because of strokelike symptoms. Son is in the room. As per son patient fell on Saturday and his right upper extremity was entangled in a walker . He seemed to hit his head. He is on Coumadin and Coumadin level was drawn on Saturday. Son checked Coumadin levels on line and the levels were in the mid twos and son thought it was high and because of fall held Coumadin on Saturday and Saturday. He was waiting for the anticoagulation clinic to call him and as they did not called, son was planning to call Coumadin clinic tomorrow. Checking in epic INR was 2.4 on 04/12/2022. Tonight when son came back home patient was sleeping on the recliner. Patient's last well-known was around 10 PM. As per son patient woke up and seemed confused. Son noticed patient's right extremity was weak and was also having slurred speech. EMS was called and stroke alert was initiated. Currently as per son patient's speech is better. Patient having minimal movement in right upper extremity. Can move his right lower extremity but seems weak. Speech is still slurred. Mild right facial droop seen. Patient is alert and oriented x 3. Denies any headache. No runny nose or sore throat. No cough. Afebrile. Denies any chest pain or shortness of breath. No nausea. No abdominal pain. Normal bowel and bladder movements. Blood pressure was elevated in the ER and received IV labetalol and hydralazine. INR is 2.4. CT head and CTA head and neck are unremarkable for any acute findings. Because of the high blood pressure and INR being 2.4 was thought not to be a TNK candidate. Strokelike symptoms/Presumed Acute CVA H/O CVA, PAD s/p R carotid endarterectomy --CT Head:Chronic microvascular ischemic changes. -increased. Few ill-defined hypodense area noted involving left fronto-parietal cortex and subcortical white matter and left centrum semiovale --CTA head. Left vertebral artery 70 to 90% luminal narrowing. 40 to 50% left carotid artery narrowing --MRI Brain: 6 mm acute versus subacute left paramedian medullary brainstem infarct. No acute or subacute territorial infarct.. No abnormal enhancement.. Involutional changes with advanced chronic microvascular ischemic disease. Chronic left cerebral infarcts. --HbA1C: 6.1 --Lipid Panel: TC 107, LDL:65 --ECHO: Left ventricular systolic function is normal. EF 60 to 65% with mild consult LVH. Grade 1 diastolic dysfunction. No interatrial shunt. Aortic valve sclerosis mild, without significant stenosis. Continue aspirin, Lipitor Also on Coumadin Continue neurochecks Continue PT OT, speech therapy Appreciate neurology input Adjust medications as needed to control high blood pressure Needs follow-up with neurology on discharge Waiting for rehab placement Aspiration pneumonia Hypoxia secondary to above --Video Swallow:Penetration and aspiration observed with thin liquids. Please refer to the speech pathology report for additional analysis and recommendations. --CXR:Newly seen left lung lower zone reticular opacity. Empirically on Zosyn Supplemental oxygen as needed Appreciate speech therapy recommendations: [place] thick liquids, soft bite sized Continue aspiration precautions Transition to oral antibiotics as able Tolerating current diet DM II Diet controlled HbA1c 6.1 Insulin sliding scale while hospitalized Monitor blood glucose levels H/O Pulmonary Embolism INR 1.5 today Subtherapeutic INR due to missed Coumadin dose yesterday Will give Coumadin to 5 mg today Will continue SQ heparin until INR is therapeutic Adjust Coumadin dose as needed Hypertension Continue Coreg Added amlodipine 2.5 mg daily for better blood pressure control Monitor BP Hyperlipidemia Continue atorvastatin, Zetia Peripheral artery disease Continue aspirin and statin BPH On finasteride CKD stage III Monitor renal function Avoid nephrotoxic agents as able DVT Px: Coumadin CODE STATUS Full code Disposition Rehab when accepted Admission and Anticipated Discharge Date Admission Date: April 14, 2025 Subjective Patient is seen and examined at bedside Persistent right upper extremity weakness Still has some right leg weakness as well Saturating well on room air Tolerating current diet Speech still garbled Denies any chest pain, dyspnea, nausea, vomiting, abdominal pain Waiting for rehab placement Review of Systems Review of Systems: All systems reviewed & are unremarkable except as noted in Subjective Physical Exam Physical Exam: Physical Exam: Vitals signs as noted above General Appearance:Moderately built and nourished, no apparent distress Head: normocephalic, Atraumatic Eyes: normal inspection, EOMI Neck: supple, Trachea midline Respiratory/Chest: Normal breath sounds, CTA, No accessory muscle use Cardiovascular: S1, S2, No murmur Abdomen/GI:Soft, Non tender, Bowel sounds present Extremities/Musculoskeletal:normal inspection, no edema Neurologic/Psych:AAOX3, dysarthria/garbled speech, + facial deformity, RUE 0- 1/5, RLE 3/5 Skin: normal color, warm Results & Data Results & Data Vital Signs (Past 12 Hours) Vital Signs Temp Pulse Pulse Resp BP Pulse Ox O2 Del Method 04/16/25 10:57 36.5 C 58 L 19 164/77 H 96 Room Air 04/16/25 07:21 36.3 C L 56 L 19 151/79 H 99 Oxymask 04/16/25 07:19 66 04/16/25 03:11 36.5 C 69 18 169/82 H 99 Room Air O2 Flow Rate 04/16/25 10:57 04/16/25 07:21 2 04/16/25 07:19 04/16/25 03:11 Laboratory Results Short CBC 04/16/25 Range/Units 06:54 WBC 7.64 (4.8-10.8) K/ul Hgb 14.3 (14.0-18.0) g/dl Hct 43.2 (42.0-52.0) % Plt Count 178 (130-400) K/uL BMP 04/16/25 06:54 Sodium 139 Potassium 4.0 Chloride 106 Carbon Dioxide 26 BUN 21 Creatinine 1.24 Glucose 91 Calcium 8.5 L
[2025-04-16] MEDS ORDERED: WARFARIN SOD 4 MG TAB PO SCH (16:00)
[2025-04-16] MEDS: amLODIPine BESYLATE 5 MG TAB PO SCH (16:29)
[2025-04-16] MEDS: hydrALAZINE HCL 20 MG/ML VIAL IV ONE (23:05)
[2025-04-17] MEDS: hydrALAZINE HCL 20 MG/ML VIAL IV ONE (00:10)
[2025-04-17 07:56] LABS: INR 2.1 (0.9-1.1); Prothrombin Time 21.6 Seconds (9.0-12.0)
[2025-04-17] MEDS ORDERED: hydrALAZINE HCL 20 MG/ML VIAL IV PRN (12:39)
--- NOTE | 2025-04-17 14:51 | Hospitalist Progress Note ---
Date of Service April 17, 2025 Assessment & Plan (1) Stroke-like symptoms: Plan: 79-year-old male with past med history significant for type 2 diabetes, dyslipidemia, hyperuricemia, peripheral artery disease, hypertension, history of PE, GERD, BPH, CKD stage III, osteoarthritis, history of CVA, status post right carotid endarterectomy who lives at home with his son and daughter and ambulates with a cane was brought in because of strokelike symptoms. Son is in the room. As per son patient fell on Saturday and his right upper extremity was entangled in a walker . He seemed to hit his head. He is on Coumadin and Coumadin level was drawn on Saturday. Son checked Coumadin levels on line and the levels were in the mid twos and son thought it was high and because of fall held Coumadin on Saturday and Saturday. He was waiting for the anticoagulation clinic to call him and as they did not called, son was planning to call Coumadin clinic tomorrow. Checking in epic INR was 2.4 on 04/12/2022. Tonight when son came back home patient was sleeping on the recliner. Patient's last well-known was around 10 PM. As per son patient woke up and seemed confused. Son noticed patient's right extremity was weak and was also having slurred speech. EMS was called and stroke alert was initiated. Currently as per son patient's speech is better. Patient having minimal movement in right upper extremity. Can move his right lower extremity but seems weak. Speech is still slurred. Mild right facial droop seen. Patient is alert and oriented x 3. Denies any headache. No runny nose or sore throat. No cough. Afebrile. Denies any chest pain or shortness of breath. No nausea. No abdominal pain. Normal bowel and bladder movements. Blood pressure was elevated in the ER and received IV labetalol and hydralazine. INR is 2.4. CT head and CTA head and neck are unremarkable for any acute findings. Because of the high blood pressure and INR being 2.4 was thought not to be a TNK candidate. Strokelike symptoms/Presumed Acute CVA H/O CVA, PAD s/p R carotid endarterectomy --CT Head:Chronic microvascular ischemic changes. -increased. Few ill-defined hypodense area noted involving left fronto-parietal cortex and subcortical white matter and left centrum semiovale --CTA head. Left vertebral artery 70 to 90% luminal narrowing. 40 to 50% left carotid artery narrowing --MRI Brain: 6 mm acute versus subacute left paramedian medullary brainstem infarct. No acute or subacute territorial infarct.. No abnormal enhancement.. Involutional changes with advanced chronic microvascular ischemic disease. Chronic left cerebral infarcts. --HbA1C: 6.1 --Lipid Panel: TC 107, LDL:65 --ECHO: Left ventricular systolic function is normal. EF 60 to 65% with mild consult LVH. Grade 1 diastolic dysfunction. No interatrial shunt. Aortic valve sclerosis mild, without significant stenosis. Continue aspirin, Lipitor Also on Coumadin Continue neurochecks Continue PT OT, speech therapy Appreciate neurology input Adjust medications as needed to control high blood pressure Needs follow-up with neurology on discharge Waiting for rehab placement INR therapeutic, continue current management Case management to help with discharge planning Aspiration pneumonia Hypoxia secondary to above --Video Swallow:Penetration and aspiration observed with thin liquids. Please refer to the speech pathology report for additional analysis and recommendations. --CXR:Newly seen left lung lower zone reticular opacity. Empirically on Zosyn transition to Augmentin>> Supplemental oxygen as needed Appreciate speech therapy recommendations: [place] thick liquids, soft bite sized Continue aspiration precautions Tolerating current diet DM II Diet controlled HbA1c 6.1 Insulin sliding scale while hospitalized Monitor blood glucose levels H/O Pulmonary Embolism INR 2.1 today Continue Coumadin, monitor INR and adjust Coumadin dose as needed Hypertension Continue Coreg Added amlodipine 2.5 mg daily for better blood pressure control IV hydralazine as needed Monitor BP Hyperlipidemia Continue atorvastatin, Zetia Peripheral artery disease Continue aspirin and statin BPH On finasteride CKD stage III Monitor renal function Avoid nephrotoxic agents as able DVT Px: Coumadin CODE STATUS Full code Disposition Rehab when accepted Admission and Anticipated Discharge Date Admission Date: April 14, 2025 Subjective Patient is seen and examined at bedside Had PT evaluation earlier today No new complaints Dysarthria, right upper extremity persistent Still has some right lower extremity weakness Denies any chest pain, dyspnea, nausea, vomiting, abdominal pain Review of Systems Review of Systems: All systems reviewed & are unremarkable except as noted in Subjective Physical Exam Physical Exam: Physical Exam: Vitals signs as noted above General Appearance:Moderately built and nourished, no apparent distress Head: normocephalic, Atraumatic Eyes: normal inspection, EOMI Neck: supple, Trachea midline Respiratory/Chest: Normal breath sounds, CTA, No accessory muscle use Cardiovascular: S1, S2, No murmur Abdomen/GI:Soft, Non tender, Bowel sounds present Extremities/Musculoskeletal:normal inspection, no edema Neurologic/Psych:AAOX3, dysarthria/garbled speech, + facial deformity, RUE 0- 1/5, RLE 3/5 Skin: normal color, warm Results & Data Results & Data Vital Signs (Past 12 Hours) Vital Signs Temp Pulse Pulse Resp BP Pulse Ox O2 Del Method 04/17/25 11:16 36.5 C 51 L 19 130/72 96 Oxymask 04/17/25 08:00 51 L 04/17/25 07:20 36.7 C 51 L 19 106/69 97 Nasal Cannula 04/17/25 03:13 36.5 C 58 L 20 167/84 H 96 Oxymask O2 Flow Rate 04/17/25 11:16 2 04/17/25 08:00 04/17/25 07:20 2 04/17/25 03:13
[2025-04-17] MEDS: AMOXICILLIN/CLAVULANATE 875 MG TAB PO SCH (17:15)
[2025-04-17] MEDS: amLODIPine BESYLATE 5 MG TAB PO SCH (20:07)
[2025-04-18 07:54] LABS: Hematocrit (blood only) 43.7 % (42.0-52.0); Hemoglobin 14.7 g/dl (14.0-18.0); Mean Corpuscular Hemoglobin 30.8 pg (25.0-34.0); Mean Corpuscular Hgb Conc 33.6 g/dL (32.0-36.0); Mean Corpuscular Volume 91.4 fL (80.0-100.0); Mean Platelet Volume 11.1 fL (9.4-12.4); Platelet Count 182 K/uL (130-400); RDW Coefficient of Variation 14.9 % (11.5-14.5); RDW Standard Deviation 49.9 fL (36.4-46.3); Red Blood Count 4.78 M/uL (4.70-6.10); White Blood Count 7.21 K/ul (4.8-10.8)
--- NOTE | 2025-04-18 08:10 | XRay Report ---
EXAM: XR chest 1V portable CLINICAL HISTORY: Pneumonia TECHNIQUE: An X-ray image of the chest is obtained in 1 AP projection. COMPARISON: 04/14/2025. FINDINGS: Pulmonary Parenchyma: Stable left lower lung zone reticular pattern, likley atelectatic changes Lungs are clear bilaterally. No evidence of consolidation, collapse, or focal opacities. No pulmonary nodules are identified. No evidence of pleural effusion or pleural thickening. Heart and Mediastinum: Heart size and shape are normal. No mediastinal widening or masses. No hilar or mediastinal lymphadenopathy. Decreased bilateral prominent bronchovascular markings Bony Thorax: Bony thorax appears intact without fractures or deformities. Soft Tissues: Soft tissues overlying the chest wall are unremarkable. IMPRESSION: 1. Stable left lower lung zone reticular pattern, likley atelectatic changes 2. Otherwise, No acute cardiopulmonary abnormalities are identified. Electronically signed by Casey Lr 04-18-2025 08:09 AM
[2025-04-18 08:31] LABS: INR 2.6 (0.9-1.1); Prothrombin Time 25.9 Seconds (9.0-12.0)
--- NOTE | 2025-04-18 13:42 | Hospitalist Progress Note ---
Date of Service April 18, 2025 Assessment & Plan (1) Stroke-like symptoms: Plan: 79-year-old male with past med history significant for type 2 diabetes, dyslipidemia, hyperuricemia, peripheral artery disease, hypertension, history of PE, GERD, BPH, CKD stage III, osteoarthritis, history of CVA, status post right carotid endarterectomy who lives at home with his son and daughter and ambulates with a cane was brought in because of strokelike symptoms. Son is in the room. As per son patient fell on Saturday and his right upper extremity was entangled in a walker . He seemed to hit his head. He is on Coumadin and Coumadin level was drawn on Saturday. Son checked Coumadin levels on line and the levels were in the mid twos and son thought it was high and because of fall held Coumadin on Saturday and Saturday. He was waiting for the anticoagulation clinic to call him and as they did not called, son was planning to call Coumadin clinic tomorrow. Checking in epic INR was 2.4 on 04/12/2022. Tonight when son came back home patient was sleeping on the recliner. Patient's last well-known was around 10 PM. As per son patient woke up and seemed confused. Son noticed patient's right extremity was weak and was also having slurred speech. EMS was called and stroke alert was initiated. Currently as per son patient's speech is better. Patient having minimal movement in right upper extremity. Can move his right lower extremity but seems weak. Speech is still slurred. Mild right facial droop seen. Patient is alert and oriented x 3. Denies any headache. No runny nose or sore throat. No cough. Afebrile. Denies any chest pain or shortness of breath. No nausea. No abdominal pain. Normal bowel and bladder movements. Blood pressure was elevated in the ER and received IV labetalol and hydralazine. INR is 2.4. CT head and CTA head and neck are unremarkable for any acute findings. Because of the high blood pressure and INR being 2.4 was thought not to be a TNK candidate. Acute CVA--POA H/O CVA, PAD s/p R carotid endarterectomy --CT Head:Chronic microvascular ischemic changes. -increased. Few ill-defined hypodense area noted involving left fronto-parietal cortex and subcortical white matter and left centrum semiovale --CTA head. Left vertebral artery 70 to 90% luminal narrowing. 40 to 50% left carotid artery narrowing --MRI Brain: 6 mm acute versus subacute left paramedian medullary brainstem infarct. No acute or subacute territorial infarct.. No abnormal enhancement.. Involutional changes with advanced chronic microvascular ischemic disease. Chronic left cerebral infarcts. --HbA1C: 6.1 --Lipid Panel: TC 107, LDL:65 --ECHO: Left ventricular systolic function is normal. EF 60 to 65% with mild consult LVH. Grade 1 diastolic dysfunction. No interatrial shunt. Aortic valve sclerosis mild, without significant stenosis. Continue aspirin, Lipitor Also on Coumadin Continue neurochecks Continue PT OT, speech therapy Appreciate neurology input Needs follow-up with neurology on discharge Waiting for rehab placement INR therapeutic Likely discharge in 1 to 2 days when rehab arranged Aspiration pneumonia Hypoxia secondary to above --Video Swallow:Penetration and aspiration observed with thin liquids. Please refer to the speech pathology report for additional analysis and recommendations. --CXR:Newly seen left lung lower zone reticular opacity. Empirically on Zosyn transition to Augmentin Supplemental oxygen as needed Appreciate speech therapy recommendations: [place] thick liquids, soft bite sized Continue aspiration precautions Tolerating current diet DM II Diet controlled HbA1c 6.1 Insulin sliding scale while hospitalized Monitor blood glucose levels H/O Pulmonary Embolism INR 2.6 today Continue Coumadin monitor INR and adjust Coumadin dose as needed Hypertension Sinus bradycardia Continue Coreg Added amlodipine 2.5 mg daily for better BP control Will consider decreasing Coreg dose if needed IV hydralazine as needed Monitor BP Hyperlipidemia Continue atorvastatin, Zetia Peripheral artery disease Continue aspirin and statin BPH On finasteride CKD stage III Monitor renal function Avoid nephrotoxic agents as able DVT Px: Coumadin CODE STATUS Full code Disposition Rehab when accepted Admission and Anticipated Discharge Date Admission Date: April 14, 2025 Subjective Patient is seen and examined at bedside Speech more clear today Right leg weakness slowly improving Still has significant right upper extremity weakness Denies any chest pain, dyspnea, nausea, vomiting, abdominal pain, dizziness Waiting for rehab placement Review of Systems Review of Systems: All systems reviewed & are unremarkable except as noted in Subjective Physical Exam Physical Exam: Physical Exam: Vitals signs as noted above General Appearance:Moderately built and nourished, no apparent distress Head: normocephalic, Atraumatic Eyes: normal inspection, EOMI Neck: supple, Trachea midline Respiratory/Chest: Normal breath sounds, CTA, No accessory muscle use Cardiovascular: S1, S2, No murmur Abdomen/GI:Soft, Non tender, Bowel sounds present Extremities/Musculoskeletal:normal inspection, no edema Neurologic/Psych:AAOX3, dysarthria/garbled speech, + facial deformity, RUE 0- 1/5, RLE 3/5 Skin: normal color, warm Results & Data Results & Data Vital Signs (Past 12 Hours) Vital Signs Temp Pulse Pulse Resp BP Pulse Ox O2 Del Method 04/18/25 11:00 36.4 C L 52 L 19 135/66 94 Room Air 04/18/25 07:33 49 L 04/18/25 07:11 36.3 C L 59 L 19 122/71 93 Nasal Cannula 04/18/25 02:58 36.4 C L 64 131/72 96 Oxymask O2 Flow Rate 04/18/25 11:00 04/18/25 07:33 04/18/25 07:11 2 04/18/25 02:58 Laboratory Results Short CBC 04/18/25 Range/Units 07:28 WBC 7.21 (4.8-10.8) K/ul Hgb 14.7 (14.0-18.0) g/dl Hct 43.7 (42.0-52.0) % Plt Count 182 (130-400) K/uL
[2025-04-19 07:14] LABS: INR 2.6 (0.9-1.1)
[2025-04-19 07:20] LABS: BUN Creatinine Ratio 21.2 (10-20); Creatinine Clr Calc Pharmacy 60.9 ml/min
--- NOTE | 2025-04-19 11:39 | Electrocardiogram Report ---
Test Reason : Blood Pressure : */* mmHG Vent. Rate : 63 BPM Atrial Rate : 63 BPM P-R Int : 150 ms QRS Dur : 84 ms QT Int : 450 ms P-R-T Axes : 38 19 75 degrees QTcB Int : 460 ms Normal sinus rhythm Normal ECG When compared with ECG of 16-Apr-2025 06:36, Nonspecific T wave abnormality no longer evident in Inferior leads Confirmed by Almas Keane ([id number]) on 04/19/2025 11:39:08 AM Referred By: REFERRED SELF Confirmed By: Almas Keane
--- NOTE | 2025-04-19 14:14 | Hospitalist Progress Note ---
Date of Service April 19, 2025 Assessment & Plan (1) Stroke-like symptoms: Plan: 79-year-old male with past med history significant for type 2 diabetes, dyslipidemia, hyperuricemia, peripheral artery disease, hypertension, history of PE, GERD, BPH, CKD stage III, osteoarthritis, history of CVA, status post right carotid endarterectomy who lives at home with his son and daughter and ambulates with a cane was brought in because of strokelike symptoms. Son is in the room. As per son patient fell on Saturday and his right upper extremity was entangled in a walker . He seemed to hit his head. He is on Coumadin and Coumadin level was drawn on Saturday. Son checked Coumadin levels on line and the levels were in the mid twos and son thought it was high and because of fall held Coumadin on Saturday and Saturday. He was waiting for the anticoagulation clinic to call him and as they did not called, son was planning to call Coumadin clinic tomorrow. Checking in epic INR was 2.4 on 04/12/2022. Tonight when son came back home patient was sleeping on the recliner. Patient's last well-known was around 10 PM. As per son patient woke up and seemed confused. Son noticed patient's right extremity was weak and was also having slurred speech. EMS was called and stroke alert was initiated. Currently as per son patient's speech is better. Patient having minimal movement in right upper extremity. Can move his right lower extremity but seems weak. Speech is still slurred. Mild right facial droop seen. Patient is alert and oriented x 3. Denies any headache. No runny nose or sore throat. No cough. Afebrile. Denies any chest pain or shortness of breath. No nausea. No abdominal pain. Normal bowel and bladder movements. Blood pressure was elevated in the ER and received IV labetalol and hydralazine. INR is 2.4. CT head and CTA head and neck are unremarkable for any acute findings. Because of the high blood pressure and INR being 2.4 was thought not to be a TNK candidate. Acute CVA--POA H/O CVA, PAD s/p R carotid endarterectomy --CT Head:Chronic microvascular ischemic changes. -increased. Few ill-defined hypodense area noted involving left fronto-parietal cortex and subcortical white matter and left centrum semiovale --CTA head. Left vertebral artery 70 to 90% luminal narrowing. 40 to 50% left carotid artery narrowing --MRI Brain: 6 mm acute versus subacute left paramedian medullary brainstem infarct. No acute or subacute territorial infarct.. No abnormal enhancement.. Involutional changes with advanced chronic microvascular ischemic disease. Chronic left cerebral infarcts. --HbA1C: 6.1 --Lipid Panel: TC 107, LDL:65 --ECHO: Left ventricular systolic function is normal. EF 60 to 65% with mild consult LVH. Grade 1 diastolic dysfunction. No interatrial shunt. Aortic valve sclerosis mild, without significant stenosis. Continue aspirin, Lipitor Also on Coumadin Continue neurochecks Continue PT OT, speech therapy Appreciate neurology input Needs follow-up with neurology on discharge INR therapeutic Likely discharge to rehab facility tomorrow if accepted Aspiration pneumonia Hypoxia secondary to above --Video Swallow:Penetration and aspiration observed with thin liquids. Please refer to the speech pathology report for additional analysis and recommendations. --CXR:Newly seen left lung lower zone reticular opacity. Empirically on Zosyn transition to Augmentin Supplemental oxygen as needed Appreciate speech therapy recommendations: [place] thick liquids, soft bite sized Continue aspiration precautions Tolerating current diet Will complete antibiotic course tomorrow DM II Diet controlled HbA1c 6.1 Insulin sliding scale while hospitalized Monitor blood glucose levels H/O Pulmonary Embolism INR 2.6 today Continue Coumadin monitor INR and adjust Coumadin dose as needed Hypertension Sinus bradycardia Continue Coreg Added amlodipine 2.5 mg daily for better BP control IV hydralazine as needed Blood pressure much improved Monitor Hyperlipidemia Continue atorvastatin, Zetia Peripheral artery disease Continue aspirin and statin BPH On finasteride CKD stage III Monitor renal function Avoid nephrotoxic agents as able DVT Px: Coumadin CODE STATUS Full code Disposition Rehab when accepted Admission and Anticipated Discharge Date Admission Date: April 14, 2025 Subjective Patient is seen and examined at bedside No new complaints today Continues to have right upper extremity weakness Denies any chest pain, dyspnea, nausea, vomiting, abdominal pain, dizziness Tolerating current diet Waiting for rehab placement Review of Systems Review of Systems: All systems reviewed & are unremarkable except as noted in Subjective Physical Exam Physical Exam: Physical Exam: Vitals signs as noted above General Appearance:Moderately built and nourished, no apparent distress Head: normocephalic, Atraumatic Eyes: normal inspection, EOMI Neck: supple, Trachea midline Respiratory/Chest: Normal breath sounds, CTA, No accessory muscle use Cardiovascular: S1, S2, No murmur Abdomen/GI:Soft, Non tender, Bowel sounds present Extremities/Musculoskeletal:normal inspection, no edema Neurologic/Psych:AAOX3, dysarthria/garbled speech, + facial deformity, RUE 0- 1/5, RLE 3-4/5 Skin: normal color, warm Results & Data Results & Data Vital Signs (Past 12 Hours) Vital Signs Temp Pulse Pulse Resp BP Pulse Ox O2 Del Method 04/19/25 11:09 36.7 C 65 16 108/65 95 Room Air 04/19/25 08:00 Room Air 04/19/25 08:00 63 04/19/25 07:12 36.3 C L 62 16 142/74 H 94 Room Air 04/19/25 03:40 36.5 C 75 20 179/83 H 97 Room Air Laboratory Results [facility] 04/19/25 06:22 Sodium 138 Potassium 4.0 Chloride 105 Carbon Dioxide 27 BUN 21 Creatinine 0.99 Glucose 88 Calcium 9.0
[2025-04-20 07:44] VITALS: RESP 18
[2025-04-20 08:05] LABS: INR 2.3 (0.9-1.1); Prothrombin Time 23.3 Seconds (9.0-12.0)
[2025-04-20 11:26] VITALS: BP 128/71; PULSE 64; TEMP 98.2; O2SAT 92
--- NOTE | 2025-04-20 11:57 | Hospitalist Progress Note ---
Date of Service April 20, 2025 Assessment & Plan (1) Stroke-like symptoms: Plan: 79-year-old male with past med history significant for type 2 diabetes, dyslipidemia, hyperuricemia, peripheral artery disease, hypertension, history of PE, GERD, BPH, CKD stage III, osteoarthritis, history of CVA, status post right carotid endarterectomy who lives at home with his son and daughter and ambulates with a cane was brought in because of strokelike symptoms. Son is in the room. As per son patient fell on Saturday and his right upper extremity was entangled in a walker . He seemed to hit his head. He is on Coumadin and Coumadin level was drawn on Saturday. Son checked Coumadin levels on line and the levels were in the mid twos and son thought it was high and because of fall held Coumadin on Saturday and Saturday. He was waiting for the anticoagulation clinic to call him and as they did not called, son was planning to call Coumadin clinic tomorrow. Checking in epic INR was 2.4 on 04/12/2022. Tonight when son came back home patient was sleeping on the recliner. Patient's last well-known was around 10 PM. As per son patient woke up and seemed confused. Son noticed patient's right extremity was weak and was also having slurred speech. EMS was called and stroke alert was initiated. Currently as per son patient's speech is better. Patient having minimal movement in right upper extremity. Can move his right lower extremity but seems weak. Speech is still slurred. Mild right facial droop seen. Patient is alert and oriented x 3. Denies any headache. No runny nose or sore throat. No cough. Afebrile. Denies any chest pain or shortness of breath. No nausea. No abdominal pain. Normal bowel and bladder movements. Blood pressure was elevated in the ER and received IV labetalol and hydralazine. INR is 2.4. CT head and CTA head and neck are unremarkable for any acute findings. Because of the high blood pressure and INR being 2.4 was thought not to be a TNK candidate. Acute CVA--POA H/O CVA, PAD s/p R carotid endarterectomy --CT Head:Chronic microvascular ischemic changes. -increased. Few ill-defined hypodense area noted involving left fronto-parietal cortex and subcortical white matter and left centrum semiovale --CTA head. Left vertebral artery 70 to 90% luminal narrowing. 40 to 50% left carotid artery narrowing --MRI Brain: 6 mm acute versus subacute left paramedian medullary brainstem infarct. No acute or subacute territorial infarct.. No abnormal enhancement.. Involutional changes with advanced chronic microvascular ischemic disease. Chronic left cerebral infarcts. --HbA1C: 6.1 --Lipid Panel: TC 107, LDL:65 --ECHO: Left ventricular systolic function is normal. EF 60 to 65% with mild consult LVH. Grade 1 diastolic dysfunction. No interatrial shunt. Aortic valve sclerosis mild, without significant stenosis. Continue aspirin, Lipitor Also on Coumadin Continue neurochecks Continue PT OT, speech therapy Appreciate neurology input INR therapeutic Plan to discharge to rehab facility today Advised to follow-up with neurology on discharge Aspiration pneumonia Hypoxia secondary to above --Video Swallow:Penetration and aspiration observed with thin liquids. Please refer to the speech pathology report for additional analysis and recommendations. --CXR:Newly seen left lung lower zone reticular opacity. Empirically on Zosyn transition to Augmentin Supplemental oxygen as needed Appreciate speech therapy recommendations: [place] thick liquids, soft bite sized Continue aspiration precautions Tolerating current diet Completed antibiotic course DM II Diet controlled HbA1c 6.1 Insulin sliding scale while hospitalized Monitor blood glucose levels H/O Pulmonary Embolism INR 2.3 today Continue Coumadin monitor INR and adjust Coumadin dose as needed Hypertension Sinus bradycardia Continue Coreg Added amlodipine 2.5 mg daily for better BP control IV hydralazine as needed Blood pressure much improved Monitor Hyperlipidemia Continue atorvastatin, Zetia Peripheral artery disease Continue aspirin and statin BPH On finasteride CKD stage III Monitor renal function Avoid nephrotoxic agents as able DVT Px: Coumadin CODE STATUS Full code Disposition Rehab Admission and Anticipated Discharge Date Admission Date: April 14, 2025 Subjective Patient is seen and examined at bedside Patient was excited that he was able to move his right first finger today since the stroke Continues to have right upper extremity weakness No other complaints today Denies any chest pain, dyspnea, nausea, vomiting, abdominal pain, dizziness Plan to be discharged to rehab facility Review of Systems Review of Systems: All systems reviewed & are unremarkable except as noted in Subjective Physical Exam Physical Exam: Physical Exam: Vitals signs as noted above General Appearance:Moderately built and nourished, no apparent distress Head: normocephalic, Atraumatic Eyes: normal inspection, EOMI Neck: supple, Trachea midline Respiratory/Chest: Normal breath sounds, CTA, No accessory muscle use Cardiovascular: S1, S2, No murmur Abdomen/GI:Soft, Non tender, Bowel sounds present Extremities/Musculoskeletal:normal inspection, no edema Neurologic/Psych:AAOX3, dysarthria/garbled speech, + facial deformity, RUE 0- 1/5, RLE 3-4/5 Skin: normal color, warm Results & Data Results & Data Vital Signs (Past 12 Hours) Vital Signs Temp Pulse Pulse Resp BP Pulse Ox O2 Del Method 04/20/25 11:23 36.8 C 64 18 128/71 92 Room Air 04/20/25 08:00 Room Air 04/20/25 08:00 69 04/20/25 07:34 36.4 C L 58 L 18 144/78 H 95 Room Air 04/20/25 03:46 36.4 C L 67 16 122/68 94 Room Air 04/20/25 00:00 61
[2025-04-20] MEDS ORDERED: STROKE PATIENT DISCHARGE STA (12:00)
--- NOTE | 2025-04-20 12:01 | Discharge Summary ---
Date of Service April 20, 2025 Admission HPI Per Admitting Provider 79-year-old male with past med history significant for type 2 diabetes, dyslipidemia, hyperuricemia, peripheral artery disease, hypertension, history of PE, GERD, BPH, CKD stage III, osteoarthritis, history of CVA, status post right carotid endarterectomy who lives at home with his son and daughter and ambulates with a cane was brought in because of strokelike symptoms. Son is in the room. As per son patient fell on Saturday and his right upper extremity was entangled in a walker . He seemed to hit his head. He is on Coumadin and Coumadin level was drawn on Saturday. Son checked Coumadin levels on line and the levels were in the mid twos and son thought it was high and because of fall held Coumadin on Saturday and Saturday. He was waiting for the anticoagulation clinic to call him and as they did not called, son was planning to call Coumadin clinic tomorrow. Checking in epic INR was 2.4 on 04/12/2022. Tonight when son came back home patient was sleeping on the recliner. Patient's last well-known was around 10 PM. As per son patient woke up and seemed confused. Son noticed patient's right extremity was weak and was also having slurred speech. EMS was called and stroke alert was initiated. Currently as per son patient's speech is better. Patient having minimal movement in right upper extremity. Can move his right lower extremity but seems weak. Speech is still slurred. Mild right facial droop seen. Patient is alert and oriented x 3. Denies any headache. No runny nose or sore throat. No cough. Afebrile. Denies any chest pain or shortness of breath. No nausea. No abdominal pain. Normal bowel and bladder movements. Blood pressure was elevated in the ER and received IV labetalol and hydralazine. INR is 2.4. CT head and CTA head and neck are unremarkable for any acute fin dings. Because of the high blood pressure and INR being 2.4 was thought not to be a TNK candidate. Past medical history. As mentioned above Past surgical history. Colonoscopy EGD with biopsy. Femoral popliteal artery revascularization with stent placement. Hemorrhoidectomy. Right carotid endarterectomy. Incision drainage of right foot fascia. Umbilical hernia repair. Right femoral-popliteal bypass graft. Social history. No smoking. Chews tobacco. No alcohol use. No drug use. Family history. Mother had cancer. Father had hypertension. Stroke. Daughter had pancreatitis. Daughter has asthma. Brother has hypertension and [place]. Admission Exam Per Admitting Provider General- Not in acute distress Head- atraumatic. Slight right facial droop seen Eyes- PERRL, EOMI. ENT- oropharynx clear Neck- supple, no JVD. Lungs- clear to auscultation no wheezing or crackles. Heart- regular rate and rhythm; no murmur, no gallop. Abdomen- normal bowel sounds, soft, nontender, no distension. Extremities- no pretibial edema, no erythema seen. Neuro- alert, oriented x 3; PERRL, EO Principal Diagnosis Acute medullary brainstem CVA Aspiration pneumonia Hypoxia Hypertension Discharge Data Allergies Allergy/AdvReac Type Severity Reaction Status Date / Time No Known Allergies Allergy Unknown Verified 04/14/25 01:10 Consultations 04/14/25 08:00 Consult Neurology Routine Procedures Performed Laboratory Results WBC 7.21 K/ul (4.8-10.8) 04/18/25 07:28 RBC 4.78 M/uL (4.70-6.10) 04/18/25 07:28 Hgb 14.7 g/dl (14.0-18.0) 04/18/25 07:28 POC Hgb 15.6 g/dl (14.0-18.0) 04/14/25 01:20 Hct 43.7 % (42.0-52.0) 04/18/25 07:28 POC Hct 46 % (42-52) 04/14/25 01:20 MCV 91.4 fL (80.0-100.0) 04/18/25 07:28 MCH 30.8 pg (25.0-34.0) 04/18/25 07:28 MCHC 33.6 g/dL (32.0-36.0) 04/18/25 07:28 RDW Std Deviation 49.9 fL (36.4-46.3) H 04/18/25 07:28 RDW Coeff of Deborah 14.9 % (11.5-14.5) H 04/18/25 07:28 Plt Count 182 K/uL (130-400) 04/18/25 07:28 MPV 11.1 fL (9.4-12.4) 04/18/25 07:28 Immature Gran % (Auto) 0.4 % 04/16/25 06:54 Neut % (Auto) 71.6 % 04/16/25 06:54 Lymph % (Auto) 15.4 % 04/16/25 06:54 [place] % (Auto) 8.4 % 04/16/25 06:54 Eos % (Auto) 3.7 % 04/16/25 06:54 Baso % (Auto) 0.5 % 04/16/25 06:54 Neut # (Auto) 5.47 K/uL (1.40-6.50) 04/16/25 06:54 Lymph # (Auto) 1.18 K/uL (1.20-3.40) L 04/16/25 06:54 [place] # (Auto) 0.64 K/uL (0.11-0.59) H 04/16/25 06:54 Eos # (Auto) 0.28 K/uL (0.00-0.50) 04/16/25 06:54 Baso # (Auto) 0.04 K/uL (0.00-0.20) 04/16/25 06:54 Immature Gran # (Auto) 0.03 K/uL (0.01-0.20) 04/16/25 06:54 PT 23.3 Seconds (9.0-12.0) H 04/20/25 07:29 POC INR 2.7 (0.9-1.1) H 04/14/25 01:13 INR 2.3 (0.9-1.1) H 04/20/25 07:29 APTT 34 Seconds (21-31) H 04/14/25 01:07 PTT Ratio 1.3 04/14/25 01:07 POC Sodium 139 mmol/L (135-144) 04/14/25 01:20 Sodium 138 mmol/L (136-145) 04/19/25 06:22 POC Potassium 3.9 mmol/L (3.3-5.0) 04/14/25 01:20 Potassium 4.0 mmol/L (3.5-5.1) 04/19/25 06:22 POC Chloride 101 mmol/L (101-112) 04/14/25 01:20 Chloride 105 mmol/L (98-107) 04/19/25 06:22 Carbon Dioxide 27 mmol/L (21-32) 04/19/25 06:22 POC Total CO2 24 mmol/L (24-31) 04/14/25 01:20 Anion Gap 6 (3-11) 04/19/25 06:22 POC Anion Gap 19.0 mmol/L (16-25) 04/14/25 01:20 POC BUN 19 mg/dl (7-18) H 04/14/25 01:20 BUN 21 mg/dl (6-23) 04/19/25 06:22 Creatinine 0.99 mg/dl (0.6-1.4) 04/19/25 06:22 POC Creatinine 1.1 mg/dl (0.6-1.3) 04/14/25 01:20 Est Cr Clr Drug Dosing 60.9 ml/min 04/19/25 06:22 eGFR 78.46 04/19/25 06:22 BUN/Creatinine Ratio 21.2 (10-20) H 04/19/25 06:22 Glucose 88 mg/dl (70-99(Fasting)) 04/19/25 06:22 POC Glucose 88 mg/dl (70-99) 04/20/25 11:25 POC Glucose (other) 111 mg/dl (70-99) H 04/14/25 01:20 Estimat Average Glucose 128 mg/dl 04/14/25 07:04 Hemoglobin A1c 6.1 % (4.5-5.6) H 04/14/25 07:04 Calcium 9.0 mg/dl (8.6-10.3) 04/19/25 06:22 POC Ioniz Calcium Jackie 1.11 mmol/l (1.12-1.32) L 04/14/25 01:20 Magnesium 1.7 mg/dl (1.7-2.4) 04/14/25 07:04 Total Bilirubin 1.0 mg/dl (0.2-1.0) 04/14/25 01:07 AST 11 U/L (13-39) L 04/14/25 01:07 ALT 7 U/L (7-52) 04/14/25 01:07 Alkaline Phosphatase 176 U/L (34-104) H 04/14/25 01:07 Troponin I High Sens 9.7 pg/ml (0-20) 04/14/25 18:51 Total Protein 6.3 gm/dl (6.0-8.3) 04/14/25 01:07 Albumin 3.6 gm/dl (3.4-5.0) 04/14/25 01:07 Globulin 2.7 gm/dl (2.5-4.0) 04/14/25 01:07 Albumin/Globulin Ratio 1.3 (0.9-2) 04/14/25 01:07 Triglycerides 60 mg/dl (0-150) 04/14/25 07:04 Cholesterol 107 mg/dl (0-200) 04/14/25 07:04 LDL Cholesterol, Calc 65 mg/dl 04/14/25 07:04 VLDL Cholesterol, Calc 12 mg/dl (0-30) 04/14/25 07:04 HDL Cholesterol 30 mg/dl 04/14/25 07:04 Cholesterol/HDL Ratio 3.6 (0-5) 04/14/25 07:04 Procalcitonin < 0.02 ng/ml (0-0.5) 04/15/25 05:29 Urine Color Yellow 04/14/25 Unknown Urine Appearance Clear (Clear) 04/14/25 Unknown Urine pH 6.0 (4.5-7.5) 04/14/25 Unknown Ur Specific Lucien > 1.045 (1.000-1.030) H 04/14/25 Unknown Urine Protein Negative (Negative) 04/14/25 Unknown Urine Glucose (UA) Negative (Negative) 04/14/25 Unknown Urine Ketones Negative (Negative) 04/14/25 Unknown Urine Blood Negative (Negative) 04/14/25 Unknown Urine Nitrite Negative (Negative) 04/14/25 Unknown Urine Bilirubin Negative (Negative) 04/14/25 Unknown Urine Urobilinogen Negative (Negative) 04/14/25 Unknown Ur Leukocyte Esterase Negative (Negative) 04/14/25 Unknown Blood Type A Negative 04/14/25 01:07 Antibody Screen POSITIVE A 04/14/25 01:07 Antibody Identification Anti-D 04/14/25 01:07 Antibody ID Comment 04/14/25 01:07 Impressions Head CTA 04/14/25 00:52 EXAM: CT angio head w con CLINICAL HISTORY: neuro deficit, acute stroke suspected TECHNIQUE: Contrast enhanced thin slice CT angiography scan of the cerebral vessels was performed with intravenous contrast. Angiographic images were processed, 3D MIP images were acquired for interpretation. Contiguous axial images were obtained. Reformatted coronal and sagittal images were also reviewed. If IV contrast material had not been administered, the likelihood of detecting abnormalities relevant to the patients condition would have been substantially decreased. CT scan was performed according to ALARA (as low as reasonable achievable). COMPARISON: none. FINDINGS: Severe atherosclerotic calcifications are noted involving intracranial segment of left vertebral artery causes 70-90% luminal narrowing Atherosclerotic calcifications are noted involving cavernous, clinoid and supraclinoid segment of bilateral internal carotid arteries. About 40%-50% luminal narrowing is noted involving cavernous segment of left carotid artery. Rest of Bilateral internal carotid arteries show normal course, calibre and opacification in the canalicular and cavernous part. Their division into the anterior cerebral artery and middle cerebral artery is defined. A1, A2 and M1, M2 segments are normal on both the sides. Bilateral vertebral arteries are seen to unite the form the basilar artery in a normal fashion. Basilar artery shows normal course, caliber and opacification. Its division into the posterior cerebral arteries is defined. Bilateral P1 and P2 segments are normal. Visualized venous structures show normal opacification. No evidence of intracranial aneurysm or AV malformation is seen. IMPRESSION: 1. Severe atherosclerotic calcifications are noted involving intracranial segment of left vertebral artery causes 70-90% luminal narrowing 2. Atherosclerotic calcifications are noted involving cavernous, clinoid and supraclinoid segment of bilateral internal carotid arteries. 3. About 40%-50% luminal narrowing is noted involving cavernous segment of left carotid artery. Electronically signed by Trent Pablo 04-14-2025 01:58 AM Neck CTA 04/14/25 00:52 EXAM: CT angio neck with con CLINICAL HISTORY: neuro deficit, acute stroke suspected TECHNIQUE: Contrast enhanced thin slice CT angiography scan of the carotid vessels was performed with intravenous contrast. Angiographic images were processed, 3D MIP images were acquired for interpretation.Contiguous axial images were obtained. Reformatted coronal and sagittal images were also reviewed. If IV contrast material had not been administered, the likelihood of detecting abnormalities relevant to the patients condition would have been substantially decreased. CT scan was performed according to ALARA (as low as reasonable achievable). COMPARISON: None. FINDINGS: Multiple patchy atherosclerotic calcifications are noted involving bilateral common carotid arteries, left vertebral artery without significant narrowing. Included great vessels of the aortic arch are grossly unremarkable. Rest of Common carotid artery, carotid Bulb, internal carotid artery , and origin of the external carotid artery are well opacified. Vertebral arteries are well opacified. Jugular veins are well opacified. Included lung apices are grossly unremarkable. Thyroid gland appears unremarkable. IMPRESSION: 1. No evidence of stenosis or aneurysm. No evidence of dissection. 2. Multiple patchy atherosclerotic calcifications are noted involving bilateral common carotid arteries, left vertebral artery without significant narrowing. Electronically signed by Trent Pablo 04-14-2025 01:39 AM Brain MRI 04/14/25 04:18 MR brain wo/w con HISTORY: 79 years-old Male stroke like symptoms acute stroke like symptoms COMPARISON: Head CT of same day, brain MRI 05/23/2022 TECHNIQUE: Multiplanar multisequence MRI of the brain was obtained with and without IV contrast. FINDINGS: 6 mm focus of restricted diffusion involves the left paramedian medullary brainstem, image 6 series 4 with low to intermediate signal on the ADC map and mildly increased T2/FLAIR signal. No acute or subacute territorial infarct. Degenerative changes of the cervical spine. Midline structures are unremarkable. No acute intracranial hemorrhage, midline shift, abnormal extra-axial collection, hydrocephalus or intra-axial mass. Senescent mineralization of the basal ganglia. Foci of chronic hemosiderin noted within the left cerebrum and cerebellum. Involutional changes with extensive chronic microvascular ischemic disease. Areas of encephalomalacia and gliosis noted within the left cerebrum related to chronic infarcts. No abnormal enhancement. Cerebral venous sinuses and major arterial flow voids appear patent. The skull, orbits and soft tissues are unremarkable. Moderate mastoid effusions. Minimal mucosal thickening of the paranasal sinuses. IMPRESSION: 1. 6 mm acute versus subacute left paramedian medullary brainstem infarct. 2. No acute or subacute territorial infarct. 3. No abnormal enhancement. 4. Involutional changes with advanced chronic microvascular ischemic disease. 5. Chronic left cerebral infarcts. ACT 112: Negative or not required by law. The above report was generated using voice recognition software. It may contain grammatical, syntax or spelling errors. Electronically signed by: Vincent Ji M.D. 04/14/2025 12:28 PM Elbow X-Ray 04/14/25 09:57 XR elbow RT min 3V routine CLINICAL HISTORY: FALL, PAIN COMPARISON: None FINDINGS: There are moderate degenerative changes. No fracture or dislocation. IMPRESSION: No fracture seen. ACT 112: Negative or not required by law. Electronically signed by: Ru Robertson M.D. 04/14/2025 11:17 AM Hip/Pelvis X-Ray 04/14/25 09:57 XR hip RT 2V w pelvis CLINICAL HISTORY: HIP PAIN, FALL COMPARISON: 07/14/2023 FINDINGS: There is an interval short right femoral gamma nail with no hardware complication seen. The prior proximal right femur fracture appears healed. No acute fracture or dislocation seen. There are mild degenerative changes of both hips. There is residual contrast in the urinary bladder. There are lower lumbar degenerative changes. IMPRESSION: No acute findings. ACT 112: Negative or not required by law. Electronically signed by: Ru Robertson M.D. 04/14/2025 11:18 AM Shoulder X-Ray 04/14/25 09:57 XR shoulder RT min 2V routine CLINICAL HISTORY: PAIN, FALL COMPARISON: 07/14/2023 FINDINGS: No acute fracture or dislocation. There is severe narrowing of the subacromial space consistent with chronic rotator cuff injury. There are moderate degenerative changes. IMPRESSION: No acute fracture seen. ACT 112: Negative or not required by law. Electronically signed by: Ru Robertson M.D. 04/14/2025 11:[address] 04/14/25 15:06 CT head/brain wo con CLINICAL HISTORY: CVA. TECHNIQUE: Multiple axial CT images of the head were obtained without contrast. A dose lowering technique was utilized adhering to the principles of ALARA. CT DOSE: 900.54 mGy.cm COMPARISON: 04/14/2025 CT and MRI FINDINGS: There is motion artifact. No intracranial hemorrhage seen. No mass effect, midline shift, or hydrocephalus. Stable moderate patchy periventricular hypodensity consistent with chronic small vessel ischemic changes. Stable old left frontal and parietal small infarctions. The tiny brainstem infarction is not visualized by CT. No skull fracture. IMPRESSION: Stable exam. No intracranial hemorrhage seen. ACT 112: Negative or not required by law. The above report was generated using voice recognition software. It may contain grammatical, syntax or spelling errors. Electronically signed by: Ru Robertson M.D. 04/14/2025 3:49 PM Videofluoroscopic Swallow 04/15/25 11:00 FL video swallow CLINICAL HISTORY: assess for aspiration COMPARISON STUDY: None TECHNIQUE: The patient was given a barium mixture of varying consistencies in conjunction with speech pathology. The examination was observed fluoroscopically with rapid sequence filming documentation. Total fluoroscopy time 1.4 minutes. Total dose 9.64mGy FINDINGS: The patient had repeated penetration with thin liquids. There was also easily demonstrable aspiration with thin liquids after repetitive swallowing. IMPRESSION: Penetration and aspiration observed with thin liquids. Please refer to the speech pathology report for additional analysis and recommendations. ACT 112: Negative or not required by law. Electronically signed by: Maris Albarado M.D. 04/15/2025 1:24 PM Chest X-Ray 04/18/25 07:00 EXAM: XR chest 1V portable CLINICAL HISTORY: Pneumonia TECHNIQUE: An X-ray image of the chest is obtained in 1 AP projection. COMPARISON: 04/14/2025. FINDINGS: Pulmonary Parenchyma: Stable left lower lung zone reticular pattern, likley atelectatic changes Lungs are clear bilaterally. No evidence of consolidation, collapse, or focal opacities. No pulmonary nodules are identified. No evidence of pleural effusion or pleural thickening. Heart and Mediastinum: Heart size and shape are normal. No mediastinal widening or masses. No hilar or mediastinal lymphadenopathy. Decreased bilateral prominent bronchovascular markings Bony Thorax: Bony thorax appears intact without fractures or deformities. Soft Tissues: Soft tissues overlying the chest wall are unremarkable. IMPRESSION: 1. Stable left lower lung zone reticular pattern, likley atelectatic changes 2. Otherwise, No acute cardiopulmonary abnormalities are identified. Electronically signed by Casey Lr 04-18-2025 08:09 AM Ordered Studies 04/14/25 00:52 CT angio head w con Stat CT angio neck with con Stat CT head/brain wo con Stat 04/14/25 04:18 MR brain wo/w con Urgent 04/14/25 15:06 CT head/brain wo con Urgent 04/15/25 11:00 FL video swallow Routine Hospital Course (1) Stroke-like symptoms: 79-year-old male with past med history significant for type 2 diabetes, dyslipidemia, hyperuricemia, peripheral artery disease, hypertension, history of PE, GERD, BPH, CKD stage III, osteoarthritis, history of CVA, status post right carotid endarterectomy who lives at home with his son and daughter and ambulates with a cane was brought in because of strokelike symptoms. Son is in the room. As per son patient fell on Saturday and his right upper extremity was entangled in a walker . He seemed to hit his head. He is on Coumadin and Coumadin level was drawn on Saturday. Son checked Coumadin levels on line and the levels were in the mid twos and son thought it was high and because of fall held Coumadin on Saturday and Saturday. He was waiting for the anticoagulation clinic to call him and as they did not called, son was planning to call Coumadin clinic tomorrow. Checking in epic INR was 2.4 on 04/12/2022. Tonight when son came back home patient was sleeping on the recliner. Patient's last well-known was around 10 PM. As per son patient woke up and seemed confused. Son noticed patient's right extremity was weak and was also having slurred speech. EMS was called and stroke alert was initiated. Currently as per son patient's speech is better. Patient having minimal movement in right upper extremity. Can move his right lower extremity but seems weak. Speech is still slurred. Mild right facial droop seen. Patient is alert and oriented x 3. Denies any headache. No runny nose or sore throat. No cough. Afebrile. Denies any chest pain or shortness of breath. No nausea. No abdominal pain. Normal bowel and bladder movements. Blood pressure was elevated in the ER and received IV labetalol and hydralazine. INR is 2.4. CT head and CTA head and neck are unremarkable for any acute findings. Because of the high blood pressure and INR being 2.4 was thought not to be a TNK candidate. Acute CVA--POA H/O CVA, PAD s/p R carotid endarterectomy --CT Head:Chronic microvascular ischemic changes. -increased. Few ill-defined hypodense area noted involving left fronto-parietal cortex and subcortical white matter and left centrum semiovale --CTA head. Left vertebral artery 70 to 90% luminal narrowing. 40 to 50% left carotid artery narrowing --MRI Brain: 6 mm acute versus subacute left paramedian medullary brainstem infarct. No acute or subacute territorial infarct.. No abnormal enhancement.. Involutional changes with advanced chronic microvascular ischemic disease. Chronic left cerebral infarcts. --HbA1C: 6.1 --Lipid Panel: TC 107, LDL:65 --ECHO: Left ventricular systolic function is normal. EF 60 to 65% with mild consult LVH. Grade 1 diastolic dysfunction. No interatrial shunt. Aortic valve sclerosis mild, without significant stenosis. Continue aspirin, Lipitor Also on Coumadin Continue neurochecks Continue PT OT, speech therapy Appreciate neurology input INR therapeutic Plan to discharge to rehab facility today Advised to follow-up with neurology on discharge Aspiration pneumonia Hypoxia secondary to above --Video Swallow:Penetration and aspiration observed with thin liquids. Please refer to the speech pathology report for additional analysis and recommendations. --CXR:Newly seen left lung lower zone reticular opacity. Empirically on Zosyn transition to Augmentin Supplemental oxygen as needed Appreciate speech therapy recommendations: [place] thick liquids, soft bite sized Continue aspiration precautions Tolerating current diet Completed antibiotic course DM II Diet controlled HbA1c 6.1 Insulin sliding scale while hospitalized Monitor blood glucose levels H/O Pulmonary Embolism INR 2.3 today Continue Coumadin monitor INR and adjust Coumadin dose as needed Hypertension Sinus bradycardia Continue Coreg Added amlodipine 2.5 mg daily for better BP control IV hydralazine as needed Blood pressure much improved Monitor Hyperlipidemia Continue atorvastatin, Zetia Peripheral artery disease Continue aspirin and statin BPH On finasteride CKD stage III Monitor renal function Avoid nephrotoxic agents as able DVT Px: Coumadin CODE STATUS Full code Disposition Rehab Total Time Total Time Spent Total Time Spent (In Minutes): 45 minutes Discharge Plan Discharge Items Patient Disposition: Transfer [facility] Fac Reason For Visit: STROKE LIKE SYMPTOMS Discharge Diagnosis: Acute medullary brainstem CVA Aspiration pneumonia Hypoxia Hypertension Condition on Discharge: Fair Activity: Per Instructions section Exercise/Sports: Gradually increase as tolerated Non-emergency contact: Primary Care Provider and Neurologist Call non-emergency contact if: you have any medication questions, your symptoms worsen, your pain is concerning for you and you have a fever Follow-up/Referrals: Juan Ramon Thurman MD [Primary Care Provider] - Diet: Carb Consistent or DM2 and Heart Healthy Diet Texture: Dental soft (bite-sized) Liquid Consistency: [place] thick Addtl Attending Provider Instructions: Follow-up with your primary care physician Dr. Thurman in 1 week upon discharge from rehab facility Follow-up with your neurologist in 4 to 6 weeks as advised Follow-up with Coumadin clinic for monitoring of PT/INR and adjusting Coumadin dose as needed --Continue PT OT, speech therapy while at rehab facility -- Monitor your blood pressure regularly as advised. Discuss with your primary care physician for further adjustment of medications as needed Seek immediate medical attention if your symptoms reoccur or worsen Please review medication list provided on discharge for any medication changes as instructed. Please call if you have any questions or problems. You can reach a [facility] hospitalist on duty at [facility] 24 hours a day by calling [phone] Risk Factors for Stroke: You can reduce your chances of stroke by working with your medical provider to adopt a healthy lifestyle. Some specific ways to lower your chance of stroke are: * If you are a smoker, now is the time to stop smoking cigarettes * If you are diabetic, improve the control of your blood sugars * Avoid excessive amounts of alcohol * Control high blood pressure * Lose weight if you are overweight * Be sure to lead an active lifestyle * Eat a healthy diet low in salt, cholesterol and fat You should know about other risk factors for stroke that you are unable to control. These include: * Age 55 years or older * Male gender * Certain racial groups: , or / * Family History of Stroke, Mini stroke or Heart Attack * Sickle Cell Disease Follow Up: It is important for you to keep your follow up appointments with your medical provider. Who to Call and When: Medical Emergencies: Call 911 immediately if you experience any of the following warning signs and symptoms of Stroke: * Sudden numbness or weakness of the face, arm or leg, especially on one side of the body * Sudden confusion, trouble speaking or understanding * Sudden trouble seeing in one or both eyes * Sudden trouble walking, dizziness, loss of balance or coordination * Sudden severe headache with no cause Do not delay calling 911 if you experience any warning signs or symptoms of a stroke. Delay in seeking medical attention may affect what treatments can be given to you. . Pending Studies at Discharge: No Stand-Alone Forms: My [facility] Skilled Items Patient informed of condition?: Yes DNR: Yes Discharge Level of Care: Skilled Communicable Disease: No Discharge Prognosis: Stable Lines: None Urinary Catheter: No Medications and DC Order Prescriptions: New amlodipine [Norvasc] 5 mg Tablet 2.5 mg PO HS Qty: 30 0RF Continued aspirin 81 mg tablet,delayed release (DR/EC) 81 mg PO QAM carvedilol 25 mg Tablet 25 mg PO BIDM Rx Instructions: take with morning and evening meal tamsulosin 0.4 mg capsule 0.4 mg PO QAM allopurinol 300 mg tablet 300 mg PO QAM atorvastatin 40 mg tablet 40 mg PO QAM finasteride 5 mg tablet 5 mg PO QAM ezetimibe 10 mg tablet 10 mg PO QAM warfarin 4 mg Tablet 2 - 4 mg PO UD Rx Instructions: Warfarin 4mg po daily on SATURDAY AND warfarin 2mg po daily on ALL OTHER DAYS gabapentin 300 mg capsule 300 mg PO [facility] ciclopirox 8 % solution See Rx Instructions .ROUTE .COMPLEX Rx Instructions: apply topically over nail and surrounding skin daily. Apply over previous coat. After 7 days may remove with alcohol and continue cycle. Do this for up to 48 weeks. start 04/08/25 Discharge Orders: Discharge Order (Routine); Ordered 04/20/25 Ordered By: Aurelio Morgan/Other Patient Handouts: Managing Type 2 Diabetes Admission Data Admit Date/Time: 04/14/25 03:33 Attending Provider: Aurelio Deleon Admit Provider: Kadeem Li Primary Care Provider: Juan Ramon Thurman Other Providers: Cele Yañez; Cuco Wheeler; Cele Neves; Ru Marrero; Erick Gonsales; Choco Hernandez; Juan Ramon Bethea; Xiomara Zuniga; Ming Minor; Bryan Shaffer; Kit Kyle; Tan Halney; America Acuña; Elis Galarza; Juan Ramon Rivera; Kinza Torre; Carson Dailey Castile
== END 2025-04-20 16:06 | DRG 64 ==
LOC: ED 00:53 → SUATTDRO 03:33 → 2S 03:33